=== PATIENT | female | born 1970 | race Caucasian/White ===

== ENCOUNTER 2017-01-09 10:45 | Day surgery (SDC) | payer OTHER ==
[2017-01-05 10:40] VITALS: BMI 32.5
[2017-01-09] MEDS ORDERED: SODIUM CHLORIDE 0.9% 1,000 ML IV ONE ×2 (11:00→12:20)
[2017-01-09 11:05] VITALS: RESP 18
[2017-01-09 12:04] LABS: Basophils % (A) 0 %; CH 30.4; CHCM 33.3; Eosinophils # (A) 0.1 k/uL (0-0.7); Eosinophils % (A) 2 %; HCT 38.9 % (34.0-46.0); HDW 2.55; HGB 12.8 gm/dL (11.4-16.0); Luc # (Auto) 0.14; Luc % (Auto) 2; Lymphocytes # (A) 1.7 k/uL (1.0-4.8); Lymphocytes % (A) 25 %; MCH 30.3 pg (25.0-35.0); MCV 91.8 fL (80.0-100.0); Mean Platelet Volume 6.9; Monocytes # (A) 0.3 k/uL (0-1.0); Monocytes % (A) 5 %; Neutrophils # (A) 4.5 k/uL (1.3-7.7); Neutrophils % (A) 67 %; RBC 4.24 m/uL (3.80-5.40); RDW 14.2 % (11.5-15.5); WBC 6.7 k/uL (3.8-10.6); WBC (Perox) 7.01
[2017-01-09] MEDS ORDERED: MIDAZOLAM 2 MG/2 ML VIAL IV ONE (12:25)
[2017-01-09] MEDS: LIDOCAINE 2% INJ 20 MG/ML SQ ONE ×2 (12:30→12:41)
[2017-01-09] MEDS: HYDROmorphone 2 MG/ML 1 ML SYRINGE IV ONE ×3 (12:49→13:49)
[2017-01-09] MEDS ORDERED: IODIXANOL 320 MG/ML 100 ML INTRAARTER ONE (13:05)
[2017-01-09] MEDS: hydrALAZINE HCL 20 MG/ML 1 ML VIAL IV ONE ×2 (13:10→13:19)
[2017-01-09] MEDS ORDERED: SODIUM CHLORIDE 0.9% 1,000 ML IV SCH (13:15)
[2017-01-09] MEDS ORDERED: hydrALAZINE HCL 20 MG/ML 1 ML VIAL IVP PRN (13:22)
[2017-01-09] MEDS ORDERED: ENALAPRILAT 1.25 MG/ML 1 ML VIAL IV ONE (13:23)
[2017-01-09] MEDS: HYDROmorphone 1 MG/ML 1 ML SYRINGE IVP PRN ×2 (14:58→17:55)
[2017-01-09] MEDS ORDERED: ACETAMINOPHEN TAB 325 MG TAB PO PRN (16:37)
[2017-01-09 20:48] VITALS: BP 101/61; PULSE 75; TEMP 97.2
--- NOTE | 2017-01-09 23:12 | PCN ---
DATE OF PROCEDURE: 01/09/2017 PERFORMING PHYSICIAN: Mahad Stafford M.D., business solutions consultant. PROCEDURES PERFORMED: 1. Abdominal aortogram. 2. Bilateral lower extremity runoff. INDICATION: This is a pleasant 46-year-old female patient who is known to have severe underlying peripheral arterial disease with prior stenting of the left iliac and the right SFA. She was experiencing right leg discomfort consistent with claudication. She underwent an arterial duplex study which showed severe disease involving the right SFA. She was brought in today to undergo a peripheral angiogram for more clarification. APPROACH: 1. Right radial artery. 2. Right common femoral artery. COMPLICATIONS: None. LEVEL OF SEDATION: Moderate with sedation length of 45 minutes. PROCEDURE DESCRIPTION: After obtaining informed consent, the patient was brought to the cardiac laborer wood preserving plant. Initially I tried to cannulate the right radial artery. I was unable, so I decided to go from the right groin. The right common femoral artery was cannulated using micropuncture technique. The micropuncture wire passed easily, then I placed a 5 Icelandic sheath in the right common femoral artery. After that, I did an abdominal aortogram and bilateral lower extremity runoff using a 5 Icelandic pigtail catheter which was initially placed at the level of the renal arteries, then it was pulled above the bifurcation of the aorta to right and left common iliac arteries. The procedure was completed without any complication. SELECTIVE PERIPHERAL ANGIOGRAM: 1. The abdominal aorta appeared to have mild disease only. 2. Common iliac arteries. The right common iliac artery appeared to be angiographically normal. The left common iliac artery is stented, and the stent is patent. 3. Internal iliac arteries. The right internal iliac artery is open and the left internal iliac artery appeared to be occluded. 4. External iliac arteries. The right external iliac artery is open and the left external iliac artery appeared to be stented; the stent is patent. 5. Common femoral arteries. The right and left common femoral arteries are angiographically normal. 6. SFA. The right SFA in the proximal portion is stented with mild in-stent restenosis. Distal to the stent there is a de melissa lesion that appeared to be in the range of 80% to 90%. The left SFA is stented, and the stent is patent. 7. Popliteals. The right and left popliteals are angiographically normal. 8. Below the knee. There is probably 3-vessel runoff below the knee bilaterally. CONCLUSION: 1. Patent stent in the left common and left external iliac arteries. 2. Patent stent in bilateral SFA. 3. 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 POST-PROCEDURE MANAGEMENT: The patient will be scheduled to undergo OFFICE AIDE of the right SFA.
--- NOTE | 2017-01-09 23:14 | LTR ---
January 09, 2017 RE: Shelly Preston Kiran Dear Dr. Vargas, Ms. Shelly Preston underwent a peripheral angiogram today that showed severe disease involving the right femoral artery. The patient will be scheduled to undergo an atherectomy and balloon angioplasty of the right SFA. Thank you for allowing me to participate in her care. Sincerely, ANITA BOSTON MD
--- NOTE | 2017-01-13 10:50 | IR ---
EXAMINATION TYPE: IR angio abdominal w runoff DATE OF EXAM: 01/09/2017 2:14 PM COMPARISON: NONE HISTORY: Peripheral vascular occlusive disease. Fluoroscopy was applied to the referring clinician. See dictated report from cardiology.
== END 2017-01-09 21:36 | disposition home or self-care (01) ==
LOC: CATHCVL 10:45 → 6SEL 13:11 → CATHCVL 21:36
PROVIDERS: ATTEND Internal Medicine Interventional Cardiology
DX: I73.9 Peripheral vascular disease, unspecified (principal); I77.9 Disorder of arteries and arterioles, unspecified; T82.856A Stenosis of peripheral vascular stent, initial encounter; I10 Essential (primary) hypertension; E78.5 Hyperlipidemia, unspecified; I70.219 Atherosclerosis of native arteries of extremities with intermittent claudication, unspecified extremity; Z95.820 Peripheral vascular angioplasty status with implants and grafts; I25.10 Atherosclerotic heart disease of native coronary artery without angina pectoris; Z79.02 Long term (current) use of antithrombotics/antiplatelets; Z79.82 Long term (current) use of aspirin; Z79.899 Other long term (current) drug therapy; Z88.5 Allergy status to narcotic agent; Z88.0 Allergy status to penicillin; Z87.891 Personal history of nicotine dependence
CPT/HCPCS: 36200; 75625; 75716; 85025; 81025; 99152; 99153; C1894 ×2; C1769 ×3; C1887; J2001; J2250; J1170 ×2; J0360; Q9967

== ENCOUNTER 2017-01-20 07:57 | Observation (INO) | payer OTHER ==
[2017-01-19 10:37] VITALS: BMI 32.5
[~2017-01-20 07:57] MED LIST: ALPRAZolam 0.25 MG TAB PO PRN; ASPIRIN 325 MG TAB PO STA; SODIUM CHLORIDE 0.9% 1,000 ML in EMPTY BAG 1 BAG IV ONE
[2017-01-20] MEDS ORDERED: MIDAZOLAM 2 MG/2 ML VIAL IV ONE (09:11)
[2017-01-20] MEDS: fentaNYL (PF) 50 MCG/ML 2 ML AMP IV ONE ×2 (09:17→09:46)
[2017-01-20] MEDS: LIDOCAINE 2% INJ 20 MG/ML SQ ONE ×2 (09:18→09:28)
[2017-01-20] MEDS ORDERED: CLOPIDOGREL 75 MG TAB PO ONE (09:30)
[2017-01-20] MEDS: MIDAZOLAM 2 MG/2 ML VIAL IV ONE ×2 (09:32→09:52)
[2017-01-20] MEDS: NITROGLYCERIN 1000MCG/10ML SYRINGE INTRAARTER ONE ×2 (09:58→10:01)
[2017-01-20] MEDS ORDERED: fentaNYL (PF) 50 MCG/ML 2 ML AMP IV ONE ×2 (10:13→10:45)
[2017-01-20] MEDS ORDERED: IODIXANOL 320 MG/ML 100 ML INTRAARTER ONE (10:14)
[2017-01-20] MEDS ORDERED: SODIUM CHLORIDE 0.9% 1,000 ML IV SCH (10:15)
[2017-01-20] MEDS ORDERED: fentaNYL (PF) 50 MCG/ML 2 ML AMP ONE (10:46)
--- NOTE | 2017-01-20 11:02 | PCN ---
DATE OF PROCEDURE: 01/20/2017 PERCUTANEOUS PERIPHERAL INTERVENTION PERFORMING PHYSICIAN: Mahad Stafford MD, dock boss. PROCEDURE PERFORMED: 1. Selective right superficial femoral artery angiogram. 2. Balloon angioplasty of the right superficial femoral artery. 3. Stenting of the right SFA using 6.0 x 120 mm Zilver PTX drug-eluting stent with a good angiographic result. INDICATION: This is a pleasant 46-year-old female patient who is known to have severe underlying PAD, where she underwent in the past stenting of the right SFA and stenting of the left iliac arteries. She was experiencing right leg discomfort and the peripheral angiogram showed severe in-stent restenosis and severe de melissa disease involving the right SFA. She was brought today to undergo a CARPET BINDER of the right SFA. APPROACH: Right brachial artery. COMPLICATIONS: None. LEVEL OF SEDATION: Moderate with sedation length about an hour. PROCEDURE DESCRIPTION: After obtaining an informed consent, the patient was brought to the cardiac union laborer. Right brachial artery was cannulated using micropuncture technique, the micropuncture wire passed easily, then I advanced an 0.035 wire through the micropuncture sheath, which was an advantage wire all the way to the descending thoracic aorta. Subsequently, I did exchange my micropuncture sheath into a 6 [place]dean 90 cm Raabe sheath, which was advanced all the way to the right external iliac artery over the wire. After that, anticoagulation was initiated using heparin and the patient was given 10,000 units of heparin IV. After that, I did wire the right SFA using an 0.014 advantage wire. Subsequently, I did balloon angioplasty using 4.0 x 80 mm balloon and then I deployed 6.0 x 120 mm Zilver PTX drug-coated stent, where the stent was positioned under fluoroscopy guidance and it was deployed. Subsequently, I postdilated using 5 mm balloon. The following angiogram showed excellent angiographic results. The procedure was completed without any complication. POSTPROCEDURE MANAGEMENT: 1. Dual antiplatelet therapy. 2. Risk factor modifications. 3. Will follow up with the patient.
--- NOTE | 2017-01-20 12:23 | LTR ---
January 20, 2017 RE: Shelly Preston Kiran Dear Dr. Vargas; Ms. Shelly Preston underwent successful balloon angioplasty and stenting of the right femoral artery with a good angiographic result and without any complication. I want to thank you for allowing me to participate in her care and please do not hesitate to call if you have any questions or concerns. Sincerely, ANITA BOSTON MD
[2017-01-20] MEDS: HYDROmorphone 1 MG/ML 1 ML SYRINGE IVP PRN ×3 (13:28→21:34)
--- NOTE | 2017-01-20 15:22 | IR ---
Fluoroscopy HISTORY: Right leg pain 13.3 minutes fluoroscopy time supplied to the referring clinician. 179 intraoperative C-arm images d ocument the procedure. See dictated report from cardiology.
[2017-01-20] MEDS: ESCITALOPRAM 10 MG TAB PO SCH (20:05)
[2017-01-20] MEDS: cloNIDine HCL 0.1 MG TAB PO SCH (20:06)
[2017-01-20] MEDS ORDERED: MONTELUKAST 10 MG TAB PO SCH (21:00)
[2017-01-20] MEDS ORDERED: CYCLOBENZAPRINE 10 MG TAB PO PRN (21:00)
[2017-01-20] MEDS ORDERED: ATORVASTATIN 80 MG TAB PO SCH (21:00)
[2017-01-20] MEDS ORDERED: traZODone HCL 50 MG TAB PO SCH (21:00)
[2017-01-21 00:50] VITALS: RESP 18
[2017-01-21] MEDS: HYDROmorphone 1 MG/ML 1 ML SYRINGE IVP PRN ×2 (01:49→05:51)
[2017-01-21 05:13] VITALS: PULSE 66
[2017-01-21 06:16] LABS: Non-African American GFR(MDRD) >60 (>60 ml/min/1.73 sqM)
[2017-01-21 07:16] LABS: Basophils % (A) 1 %; CH 30.1; CHCM 31.8; Eosinophils # (A) 0.2 k/uL (0-0.7); Eosinophils % (A) 2 %; HCT 35.1 % (34.0-46.0); HDW 2.59; HGB 11.2 gm/dL (11.4-16.0); Luc # (Auto) 0.12; Luc % (Auto) 2; Lymphocytes # (A) 1.9 k/uL (1.0-4.8); Lymphocytes % (A) 24 %; MCH 30.4 pg (25.0-35.0); MCHC 31.9 g/dL (31.0-37.0); MCV 95.1 fL (80.0-100.0); Mean Platelet Volume 7.5; Monocytes # (A) 0.4 k/uL (0-1.0); Monocytes % (A) 5 %; Neutrophils # (A) 5.4 k/uL (1.3-7.7); Neutrophils % (A) 67 %; RBC 3.69 m/uL (3.80-5.40); RDW 14.5 % (11.5-15.5); WBC 8.1 k/uL (3.8-10.6); WBC (Perox) 8.16
[2017-01-21 07:26] LABS: Anion Gap 10 mmol/L; Blood Urea Nitrogen 9 mg/dL (7-17); Calcium 8.8 mg/dL (8.4-10.2); Carbon Dioxide 20 mmol/L (22-30); Chloride 110 mmol/L (98-107); Glucose 105 mg/dL (74-99); Potassium 3.9 mmol/L (3.5-5.1); Sodium 140 mmol/L (137-145)
[2017-01-21] MEDS: cloNIDine HCL 0.1 MG TAB PO SCH (08:45)
[2017-01-21] MEDS: ESCITALOPRAM 10 MG TAB PO SCH (08:45)
[2017-01-21 08:53] VITALS: BP 142/80; TEMP 97.7
[2017-01-21] MEDS ORDERED: LORATADINE 10 MG TAB PO SCH (09:00)
[2017-01-21] MEDS ORDERED: ASPIRIN 325 MG TAB PO SCH (09:00)
[2017-01-21] MEDS ORDERED: CLOPIDOGREL 75 MG TAB PO SCH (09:00)
[2017-01-21] MEDS ORDERED: FUROSEMIDE 20 MG TAB PO SCH (09:00)
--- NOTE | 2017-01-22 11:55 | DS ---
DATE OF ADMISSION: 01/20/2017 DATE OF DISCHARGE: 01/21/2017 BRIEF HISTORY: This is a pleasant 46-year-old female patient who was admitted to the hospital yesterday and underwent successful balloon angioplasty and stenting of the right superficial femoral artery with a good angiographic result and without any complication. The procedure was performed from the right brachial approach. She has good right brachial pulse but she has some hematoma and bruises in the right elbow. The patient is going to be discharged on dual antiplatelet therapy and statin and I will follow up with the patient as an outpatient in the office.
== END 2017-01-21 09:10 | disposition home or self-care (01) ==
LOC: CATHCVL 07:57 → 6SEL 10:04 → CATHCVL 22:05 → 6SEL 22:05
PROVIDERS: ADMIT Internal Medicine Interventional Cardiology; ATTEND Internal Medicine Interventional Cardiology
DX: I70.621 Atherosclerosis of nonbiological bypass graft(s) of the extremities with rest pain, right leg (principal); I10 Essential (primary) hypertension; E78.5 Hyperlipidemia, unspecified; Z87.891 Personal history of nicotine dependence
CPT/HCPCS: 37226; 85347; 80048; 85025; G0378 ×2; C1894 ×2; C1725 ×2; C1769 ×5; C1874; J2001; J2250; Q9967; J3010; J1170 ×2; J1644; 96374; 96375

== ENCOUNTER 2017-07-15 08:50 | Emergency (ER) | payer BC, OTHER ==
[2017-07-15 08:56] VITALS: BP 146/83; PULSE 87; RESP 20; TEMP 98.1
[2017-07-15] MEDS ORDERED: ACET/COD 300 MG/30 MG STARTER PACK 6 TAB BTL PO STA (09:30)
--- NOTE | 2017-07-15 09:32 | XR ---
EXAMINATION TYPE: XR ankle complete RT , 3 VIEWS DATE OF EXAM ORDERED: 07/15/2017 HISTORY: Pain. COMPARISON: None. FINDINGS: No fracture, dislocation or ankle joint effusion is seen. IMPRESSION: NORMAL RIGHT ANKLE.
--- NOTE | 2017-07-15 09:45 | ED ---
Lower Extremity Injury HPI - General Chief Complaint: Extremity Injury, Lower Stated Complaint: right ankle pain Time Seen by Provider: 07/15/17 09:06 Source: patient, RN notes reviewed, old records reviewed Mode of arrival: ambulatory Limitations: physical limitation - History of Present Illness Initial Comments: This is a 46-year-old female presents emergency Department chief complaint of right ankle pain. Patient reports that she got out of bed this morning and stepped and rolled her ankle. Patient reports that she's had no previous injuries to this ankle. Patient states it started to swell immediately. Patient states that he she turned her foot inward and has pain over the lateral aspect of her ankle. Denies any foot pain. She reports that she can move her toes. Denies any numbness or tingling or cold extremity.Patient denies any recent fever, chills, shortness of breath, chest pain, back pain, abdominal pain , nausea vomiting, numbness or tingling, dysuria or hematuria, constipation or diarrhea, headaches or visual changes, or any other current symptoms - Related Data Home Medications Medication Instructions Recorded Confirmed Atorvastatin [Lipitor] 80 mg PO HS 11/11/14 01/20/17 Loratadine [Claritin] 10 mg PO DAILY 11/11/14 01/20/17 Aspirin 325 mg PO DAILY 12/11/14 01/20/17 Clopidogrel [Plavix] 75 mg PO DAILY 12/11/14 01/20/17 Escitalopram [Lexapro] 10 mg PO BID 12/11/14 01/20/17 Cyclobenzaprine [Flexeril] 10 mg PO HS PRN 01/29/15 01/19/17 Furosemide [Lasix] 20 mg PO DAILY 01/05/17 01/20/17 Montelukast [Singulair] 10 mg PO HS 01/09/17 01/20/17 traZODone HCL [Desyrel] 50 mg PO HS 01/09/17 01/20/17 Previous Rx's Medication Instructions Recorded cloNIDine HCL [Catapres] 0.1 mg PO BID #30 tab 12/22/14 Acetaminophen-Codeine 300-30mg 1 tab PO Q4H PRN #10 tablet 07/15/17 [Tylenol #3] Allergies Allergy/AdvReac Type Severity Reaction Status Date / Time dronabinol [From Marinol] Allergy Severe Anaphylaxis Verified 07/15/17 08:57 lisinopril [From Prinivil] Allergy Swelling Verified 07/15/17 08:57 Penicillins Allergy Rash/Hives Verified 07/15/17 08:57 morphine AdvReac Unknown Nausea & Verified 07/15/17 08:57 Vomiting Review of Systems ROS Statement: Those systems with pertinent positive or pertinent negative responses have been documented in the HPI. ROS Other: All systems not noted in ROS Statement are negative. Past Medical History Past Medical History: Heart Failure, GERD/Reflux, Hyperlipidemia, Hypertension, Osteoarthritis (OA), Vascular Disorder Additional Past Medical History / Comment(s): right LEG PAIN with discoloration of all toes rt foot,insomnia related to pain History of Any Multi-Drug Resistant Organisms: None Reported Past Surgical History: Section, Hysterectomy, Orthopedic Surgery Additional Past Surgical History / Comment(s): LEFT KNEE SCOPE, STENTS PLACED IN LOWER LEFT GROIN AND UPPER LEFT THIGH,AORTOGRAM W/ RUNOFF OF LOWER EXT Past Anesthesia/Blood Transfusion Reactions: No Reported Reaction Past Psychological History: No Psychological Hx Reported Smoking Status: Current every day smoker Past Alcohol Use History: None Reported Past Drug Use History: None Reported - Past Family History Sister(s) Family Medical History: Vascular Disorder Father Family Medical History: Hyperlipidemia Mother Family Medical History: Cancer, Vascular Disorder General Exam - General Exam Comments Initial Comments: 46-year-old female. No acute distress. Limitations: physical limitation Head exam: Present: atraumatic, normocephalic, normal inspection Eye exam: Present: normal appearance, PERRL, EOMI. Absent: scleral icterus, conjunctival injection, periorbital swelling ENT exam: Present: normal exam, mucous membranes moist Neck exam: Present: normal inspection. Absent: tenderness, meningismus, lymphadenopathy Respiratory exam: Present: normal lung sounds bilaterally. Absent: respiratory distress, wheezes, rales, rhonchi, stridor Cardiovascular Exam: Present: regular rate, normal rhythm, normal heart sounds. Absent: systolic murmur, diastolic murmur, rubs, gallop, clicks GI/Abdominal exam: Present: soft, normal bowel sounds. Absent: distended, tenderness, guarding, rebound, rigid Extremities exam: Present: normal inspection, full ROM, normal capillary refill. Absent: tenderness, pedal edema, joint swelling, calf tenderness Right Lower Leg exam: Present: normal inspection, full ROM Ankle exam: Present: tenderness, swelling (Tenderness and swelling over the lateral malleolus.). Absent: normal inspection, full ROM Foot/Toe exam: Present: normal inspection, full ROM Neurovascular tendon exam: Present: no vascular compromise Gait: observed and limited by pain Back exam: Present: normal inspection Neurological exam: Present: alert, oriented X3, CN II-XII intact Psychiatric exam: Present: normal affect, normal mood Skin exam: Present: warm, dry, intact, normal color. Absent: rash Course Vital Signs 07/15/17 08:55 Temperature 98.1 F Pulse Rate 87 Respiratory 20 Rate Blood Pressure 146/83 O2 Sat by Pulse 96 Oximetry Medical Decision Making - Medical Decision Making 46 [facility] Department chief complaint of right ankle pain and swelling. Patient reports that she stepped out of bed and rolled her right ankle. Patient reports it is painful to bear weight over her right foot and ankle. Patient does have some swelling over the lateral malleolus. She has had normal sensation and normal pulses. Patient x-rays reviewed and show no evidence of any acute abdomen. Patient is placed in an [place] wrap and ankle stirrup splint. Patient will be written for crutches. Discussed anti- inflammatory medicine for an icing and resting her foot and ankle. Discussed following up with orthopedic if symptoms continue to persist. Patient agrees to treatment plan will comply. Turned parameters were discussed. - Radiology Data Radiology results: report reviewed X-rays reveals normal ankle. Disposition Clinical Impression: Right ankle sprain Disposition: HOME SELF-CARE Condition: Good Instructions: Ankle Sprain (ED) Additional Instructions: Past rest, ice, elevate extremity. AMbulate With crutches. Follow-up with orthopedic if symptoms continue to persist over the next week. Return to the emergency department if any alarming signs or symptoms occur. Prescriptions: Acetaminophen-Codeine 300-30mg [Tylenol #3] 1 tab PO Q4H PRN #10 tablet PRN Reason: Pain Referrals: Pauline Vargas MD [Primary Care Provider] - 1-2 days Jorge Luis Monroy MD [STAFF PHYSICIAN] - 1-2 days Time of Disposition: 09:43
== END 2017-07-15 09:55 | disposition home or self-care (01) ==
LOC: EC 08:50
DX: S93.401A Sprain of unspecified ligament of right ankle, initial encounter (principal); I11.0 Hypertensive heart disease with heart failure; I50.9 Heart failure, unspecified; E78.5 Hyperlipidemia, unspecified; I99.9 Unspecified disorder of circulatory system; F17.200 Nicotine dependence, unspecified, uncomplicated; Z79.01 Long term (current) use of anticoagulants; Z79.82 Long term (current) use of aspirin; Z79.899 Other long term (current) drug therapy; Z88.0 Allergy status to penicillin; Z88.5 Allergy status to narcotic agent; Z88.8 Allergy status to other drugs, medicaments and biological substances; X50.1XXA Overexertion from prolonged static or awkward postures, initial encounter; Y93.89 Activity, other specified
CPT/HCPCS: 29515; 99284

== ENCOUNTER → 2017-07-26 | Outpatient (CLI) | payer BC, OTHER ==
--- NOTE | 2017-07-26 11:23 | XR ---
Right ankle HISTORY: Right ankle pain, trauma one week prior 3 views of the right ankle correlated to prior exam 07/15/2017 There is soft tissue swelling. Bone mineralization, joint spaces and alignment are maintained. IMPRESSION: No fracture or dislocation.
== END | disposition home or self-care (01) ==
LOC: RADXRMAIN 09:32
PROVIDERS: ATTEND Family Medicine
DX: M25.571 Pain in right ankle and joints of right foot (principal)

== ENCOUNTER → 2017-07-27 | Outpatient (CLI) | payer OTHER ==
--- NOTE | 2017-07-27 15:03 | US ---
EXAMINATION TYPE: US venous doppler duplex LE RT DATE OF EXAM: 07/27/2017 2:42 PM COMPARISON: NONE CLINICAL HISTORY: RLEPain m25.571, R22.42 Swelling I73.9 PVD. Pt states right leg pain s/p right ankl e injury SIDE PERFORMED: Right TECHNIQUE: The lower extremity deep venous system is examined utilizing real time linear array sonog theodora with graded compression, doppler sonography and color-flow sonography. VESSELS IMAGED: External Iliac Vein (EIV) Common Femoral Vein Deep Femoral Vein Greater Saphenous Vein * Femoral Vein Popliteal Vein Small Saphenous Vein * Proximal Calf Veins (* superficial vessels) Right Leg: Negative for DVT Results called to Isi at Dr's office at time of exam IMPRESSION: 1. Right lower extremity negative for deep venous thrombosis based on ultrasound.
== END ==
LOC: RADUSWWP 14:19
PROVIDERS: ATTEND Family Medicine
DX: M25.571 Pain in right ankle and joints of right foot (principal); I73.9 Peripheral vascular disease, unspecified; R22.40 Localized swelling, mass and lump, unspecified lower limb

== ENCOUNTER → 2018-03-24 | Outpatient (CLI) | payer BC ==
--- NOTE | 2018-03-25 08:37 | MR ---
EXAMINATION TYPE: MR lumbar spine wo con DATE OF EXAM: 03/24/2018 COMPARISON: NONE HISTORY: Low back pain TECHNIQUE: T1 and T2 axial and sagittal images of the lumbar spine are submitted. FINDINGS: There is no abnormal signal seen within the visualized spinal cord or paraspinal soft tissu es. There is a left adrenal mass measuring approximately 1.7 cm At T12-L1 no disc herniation or canal stenosis. No foraminal encroachment. At L1-2 there is no evidence of disc herniation or canal stenosis. No degenerative disc disease or fo raminal encroachment. Large vertebral body hemangioma of L2. At L2-3 there is no foraminal encroachment or canal stenosis. Diffuse disc bulging greater paracentra lly to left with no canal stenosis or foraminal encroachment. At L3-4 there is degenerative disc disease with broad-based central disc protrusion and moderate effa cement of thecal sac and mild central stenosis. Particularly of the ligamentum flavum facet joints co ntribute is mild bilateral foraminal encroachment greater on the left. At L4-5 there is broad-based central disc herniation resulting in moderate to severe effacement of th ecal sac with facet arthropathy and ligamentum flavum hypertrophy and moderate to severe canal stenos is. Moderate bilateral foraminal encroachment. At L5-S1 there is facet arthropathy but no disc herniation or canal stenosis. Neural foramina patent. IMPRESSION: 1. Broad-based disc herniation L4-L5 with moderate to severe canal stenosis and bilateral foraminal e ncroachment. 2. Broad-based disc protrusion with mild central stenosis L3-L4 bilateral foraminal encroachment grea ter on the left. 3. Disc bulging paracentrally to left L2-L3 with no canal stenosis. 4. There is a 1.7 cm left adrenal mass which is indeterminate by MRI of the lumbar spine. However, th is is stable dating back to CT scan of 2014 and may represent an adrenal adenoma.
== END | disposition home or self-care (01) ==
LOC: RADMRIMAIN 09:50
PROVIDERS: ATTEND Family Medicine
DX: M48.061 Spinal stenosis, lumbar region without neurogenic claudication (principal); M51.26 Other intervertebral disc displacement, lumbar region
CPT/HCPCS: 72148

== ENCOUNTER → 2018-07-11 | Outpatient (CLI) | payer BC ==
[2018-07-11 10:54] LABS: Basophils % (A) 0 %; Eosinophils # (A) 0.1 k/uL (0-0.7); Eosinophils % (A) 1 %; HCT 41.1 % (34.0-46.0); HGB 13.5 gm/dL (11.4-16.0); Lymphocytes # (A) 1.5 k/uL (1.0-4.8); Lymphocytes % (A) 19 %; MCH 30.5 pg (25.0-35.0); MCV 92.5 fL (80.0-100.0); Mean Platelet Volume 7.2; Monocytes # (A) 0.4 k/uL (0-1.0); Monocytes % (A) 5 %; Neutrophils # (A) 5.6 k/uL (1.3-7.7); Neutrophils % (A) 74 %; Platelet Count 242 k/uL (150-450); RBC 4.44 m/uL (3.80-5.40); RDW 14.2 % (11.5-15.5); WBC 7.6 k/uL (3.8-10.6)
[2018-07-11 11:05] LABS: Partial Thromboplastin Time 23.4 sec (22.0-30.0); Prothrombin Time 10.3 sec (9.0-12.0)
[2018-07-11 11:08] LABS: Appearance,Urine Clear (Clear); Bilirubin,Urine Negative (Negative); Blood,Urine Negative (Negative); Color,Urine Yellow; Glucose,Urine (UA) Negative (Negative); Ketones,Urine Negative (Negative); Leukocyte Esterase,Urine Negative (Negative); Nitrite,Urine Negative (Negative); Protein,Urine Trace (Negative); Specific Gravity,Urine 1.022 (1.001-1.035)
[2018-07-11 11:29] LABS: Anion Gap 7 mmol/L; Blood Urea Nitrogen 12 mg/dL (7-17); Carbon Dioxide 29 mmol/L (22-30); Chloride 105 mmol/L (98-107); Glucose 98 mg/dL (74-99); Potassium 5.1 mmol/L (3.5-5.1); Sodium 141 mmol/L (137-145)
[2018-07-11 11:30] LABS: Calcium 9.6 mg/dL (8.4-10.2)
--- NOTE | 2018-07-11 11:52 | XR ---
EXAMINATION TYPE: XR chest 2V DATE OF EXAM: 07/11/2018 COMPARISON: Prior chest x-ray 11/11/2014 HISTORY: Preop TECHNIQUE: Frontal and lateral views of the chest are obtained. FINDINGS: Patient is rotated. There is no focal air space opacity, pleural effusion, or pneumothorax seen. The cardiac silhouette size is stable accounting for differences in technique. The osseous s tructures are intact. IMPRESSION: No acute cardiopulmonary process. Heart size may be accentuated by rotation, possible mi ld cardiomegaly. Follow-up as indicated.
== END | disposition home or self-care (01) ==
LOC: LABPAT 09:35
PROVIDERS: ATTEND Orthopaedic Surgery Orthopaedic Surgery of the Spine
DX: Z01.818 Encounter for other preprocedural examination (principal); M48.00 Spinal stenosis, site unspecified; M47.819 Spondylosis without myelopathy or radiculopathy, site unspecified; Z01.812 Encounter for preprocedural laboratory examination
CPT/HCPCS: 36415; 71046; 80048; 81003; 85025; 85610; 85730; 87070; 93005

== ENCOUNTER 2018-07-18 05:50 | Inpatient (IN) | payer BC ==
[2018-07-11 15:52] VITALS: BMI 32.5
[~2018-07-18 05:50] MED LIST changes: -ALPRAZolam 0.25 MG TAB PO PRN; -ASPIRIN 325 MG TAB PO STA; +DEXAMETHASONE SOD PHOSPHATE 10 MG/ML 1 ML VIAL IV ONE; +LACTATED RINGERS 1,000 ML IV SCH; +ONDANSETRON 4 MG/2 ML VIAL IVP ONE; +ONDANSETRON 4 MG/2 ML VIAL IVP PRN; -SODIUM CHLORIDE 0.9% 1,000 ML in EMPTY BAG 1 BAG IV ONE; +ceFAZolin IN SWFI 2 GM/20 ML SYRINGE IVP ONE; +fentaNYL (PF) 50 MCG/ML 2 ML AMP IV PRN
[2018-07-18] MEDS ORDERED: LIDOCAINE 1% 20 ML VIAL (10MG/ML) FOR IV START INTRADERMA ONE (06:55)
[2018-07-18] MEDS ORDERED: MIDAZOLAM 2 MG/2 ML VIAL ONE ×2 (07:01→07:37)
[2018-07-18] MEDS ORDERED: MIDAZOLAM 2 MG/2 ML VIAL IV ONE (07:15)
[2018-07-18] MEDS ORDERED: GLYCOPYRROLATE 0.2 MG/ML 2 ML VIAL ONE (07:37)
[2018-07-18] MEDS ORDERED: HYDROmorphone (PF) 1 MG/ML ONE (07:37)
[2018-07-18] MEDS ORDERED: fentaNYL (PF) 50 MCG/ML 2 ML AMP ONE (07:37)
[2018-07-18] MEDS ORDERED: LIDOCAINE 1% INJ 10MG/ML (20 ML MDV) ONE (07:37)
[2018-07-18] MEDS ORDERED: ePHEDrine SULFATE/0.9% NACL/PF 50 MG/5 ML SYRINGE IV ONE (07:37)
[2018-07-18] MEDS ORDERED: PROPOFOL 10 MG/ML 20 ML VIAL IV ONE (07:37)
[2018-07-18] MEDS ORDERED: SUCCINYLCHOLINE CHLORIDE 100 MG/5 ML SYR IV ONE (07:37)
[2018-07-18] MEDS ORDERED: NEOSTIGMINE 1 MG/ML 10 ML VIAL ONE (07:37)
[2018-07-18] MEDS ORDERED: ROCURONIUM BROMIDE 10 MG/ML 10 ML VIAL IV ONE (07:37)
[2018-07-18] MEDS ORDERED: GELATIN SPONGE,ABSORB (LARGE) 1 EACH SPONGE TOPICAL ONE (08:15)
[2018-07-18] MEDS ORDERED: THROMBIN (BOVINE) 5,000 UNIT VIAL TOPICAL ONE (08:15)
[2018-07-18] MEDS ORDERED: LIDOCAINE 0.5%-EPI 1:200,000 50 ML VIAL SQ ONE (08:15)
[2018-07-18] MEDS ORDERED: BACITRACIN 50,000 UNIT, POLYMYXIN B 500,000 UNIT in SODIUM CHLORIDE 0.9% IRRIGATIO 1,00... IRRIGATION ONE (08:16)
[2018-07-18] MEDS ORDERED: LACTATED RINGERS 1,000 ML IV ONE (10:05)
--- NOTE | 2018-07-18 10:22 | FL ---
EXAMINATION TYPE: FL guidance operating room DATE OF EXAM: 07/18/2018 HISTORY: Flouroscopy time 1 minute and 27 seconds of fluoroscopy provided. IMPRESSION: 1. Fluoroscopy time.
--- NOTE | 2018-07-18 10:22 | XR ---
EXAM TYPE: LUMBAR SPINE X RAY SERIES COMPARISON: NONE HISTORY: Surgical TECHNIQUE: 4 views are submitted. FINDINGS: 2 views demonstrate postsurgical change involving the lumbar spine. Resolution is reduced secondary t o intraoperative image. Alignment grossly near-anatomic. IMPRESSION: Postsurgical changes
[2018-07-18] MEDS ORDERED: MAGNESIUM HYDROXIDE 2,400 MG/10 ML CUP PO PRN (10:33)
[2018-07-18] MEDS ORDERED: BENZOCAINE/MENTHOL LOZENG 1 EACH LOZENGE MUCOUS MEM PRN (10:33)
[2018-07-18] MEDS ORDERED: HYDROmorphone 1 MG/ML 1 ML SYRINGE IVP PRN (10:33)
[2018-07-18] MEDS ORDERED: HYDROcodone/APAP 5-325MG 1 EACH TAB PO PRN (10:34)
[2018-07-18] MEDS ORDERED: ONDANSETRON 4 MG/2 ML VIAL IVP PRN (10:34)
[2018-07-18] MEDS: HYDROmorphone 0.5 MG/0.5 ML SYRINGE IVP PRN ×4 (10:37→11:05)
--- NOTE | 2018-07-18 10:44 | P.OP ---
Date of Procedure: 07/18/18 Preoperative Diagnosis: Spondylolisthesis L4 5 Stenosis L4 5 Low back pain with lower extremity radiculopathy Postoperative Diagnosis: Same Anesthesia: GETA Pathology: none sent Condition: stable Disposition: PACU Description of Procedure: DESCRIPTION OF PROCEDURE(S): BRIEF OPERATIVE NOTE Preoperative Diagnosis: Spondylolisthesis L4 5 Stenosis L4 5 Low back pain with lower extremity radiculopathy Postoperative Diagnosis: Same Procedure: Laminectomy and decompression L4 5 with bilateral foraminotomy Minimally invasive Posterior lateral decompression and facet fusion L4 5 Minimally invasive Transforaminal lumbar interbody fusion for a 360 fusion L4 5 Discectomy for decompression L4 5 Placement of interbody graft L4 5 Local autogenous bone grafting Harvesting of bone marrow aspirate the the vertebral body and pedicle of L4 Use of Cell Saver Use of bone graft extenders Surgeon: Dr. Willis Biological Aide: Madhu Lauren is present throughout the entire the case persistence during positioning, dissection, exposure, visualization, and all crucial elements of the case as well as closure. Anesthesia: General anesthesia Estimated blood loss: Approximately 100 mL Complications: None apparent Components implanted: K2M minimally invasive [place] pedicle screws 6.5 x 45 mm and a mole expandable interbody 9-12 cage Disposition: To recovery room in good stable condition. OPERATIVE INDICATIONS The patient has had long-standing issues in their lower back and lower extremities. She's been having worsening pain at her lower back and into her right lower extremity over an L5 distribution. She was found have a spondylolisthesis at L4 5 and stenosis which correlated with her symptoms and imaging. She is not having any lasting benefit despite aggressive conservative care. The patient has been through conservative treatment. We discussed various treatment options including surgery, and the patient wishes to proceed with surgery We discussed the risk, patient's alternatives and benefits of surgery including but not limited to, risk of bleeding risk of infection, risk of need for further surgery, risk of decreased, loss of motion, muscle function , malunion nonunion, hardware failure, nerve damage, paralysis, heart attack, blindness and . OPERATIVE SUMMARY After discussing all the risks, patient alternatives and benefits at length, the patient elected to proceed with surgical intervention, signed informed consent, and presented for their procedure. The patient was seen and examined in the preoperative holding area and the surgical site was marked. The patient was given antibiotics and brought to the operating room. The patient was sedated and intubated by anesthesia in standard fashion. The patient was positioned on to the operating room table in a prone position on the appropriate frame which was well-padded and well molded. We were careful to pad any bony prominences and pressure points. We were careful to maintain the patient's cervical spine and good neutral alignment and position throughout. The patient was prepped and draped in a normal standard fashion. An appropriate timeout and keystone protocol performed. We were able to proceed with the surgery. The local wound area was infiltrated with local anesthetic. I was able utilize C-arm guidance to establish appropriate position over the pedicles bilaterally at the appropriate levels at L4 and L5 . With the appropriate levels confirmed was able to make small stab incisions over the appropriate pedicle sites bilaterally. Utilizing C-arm in his house able to establish a Jamshidi needle over the lateral aspect of the pedicle and advanced the trocar into the pedicle being careful not to breech superiorly inferiorly medially or laterally. Position was confirmed regularly with AP and lateral images on C-arm. I was able to establish the trocar into the pedicle appropriately into the posterior aspect of the vertebral body bilaterally at the appropriate levels. This was done at each of the pedicle positions and each of the vertebrae at L4 and L5 . I was able place the guidewire into the trocar and into the vertebral body appropriately under C-arm guidance. Dissection was taken down over the wire to the appropriate starting position for the screw placed. I did draw up approximately 20 mL of bone marrow aspirate into the pedicle of L4 on the right for use and some limitation of the bone graft. On the right The appropriate length screw was chosen, threaded over the guidewire and screwed appropriately into the pedicle and vertebral body under C-arm guidance in excellent alignment and position with good bony purchase. This is done at each of the screw sites at the appropriate levels. With the screws intact I extended the incision to connect the screw hole sites on the most symptomatic side. I dissected down to establish access over the pars and lamina to the base of the spinous process. I was able to expose the facet joint. The capsule the facet was taken down and showed some facet arthrosis at the joint. I was able to use a combination of curettes and Kerrison rongeurs and a high-speed drill to take down the facet joint and do a facetectomy. Partial laminectomy was also performed. I was able get excellent foraminal decompression and central decompression with undermining across midline to perform a laminectomy centrally and contralaterally. As able get good central decompression. The ligamentum flavum was taken down to further decompress centrally and at bilateral neural foramen. I was able to expose the disc space and visualize the traversing nerve root. Note was made of some disc protrusion at the level causing further compression of the nerve root. I was able to establish a annulotomy at the appropriate level protecting soft tissue and neural structures. Note was made of some disc desiccation at the disc. I performed a complete discectomy with accommodation of curettes and rasps and scrapers. Removal of the disc provided further decompression. I was able get good endplate preparation at the disc space. I sized for the appropriate size interbody spacer protecting the soft tissue and neural structures at L4 and L5 and . The wound was copiously irrigated and suctioned dry. There is no evidence of any dural tear or leak. I was able to pack the disc space with local autogenous bone graft as well as a small amount of bone graft which was also placed into the interbody cage itself. Protecting the soft tissue structures and neural structures I was able place the interbody cage in good alignment and good position with good fit and fill at the interbody space. We used an expandable cage which was expanded under C-arm guidance at L4 5. His issues was confirmed with C-arm guidance. Good hemostasis maintained. There is no evidence of any dural tear or leak. The wound was irrigated and suctioned dry. With the hardware intact, intraoperative C-arm imaging was again taken which showed good alignment and position of the hardware at the appropriate levels at L4 5 . We were then able to measure, contour and place the rods and appropriate hardware bilaterally. I was able to place capcrews, tighten them down, and torque them with the torque screwdriver appropriately. With this intact I was able to place the local autogenous bone graft with additional bone graft enhancer as necessary into the posterior lateral gutters over the decorticated transverse processes and facet joints . The remainder of the bone graft was placed over the facet joint on the contralateral side after taking down the facet joint capsule. With the bone graft intact, a stable construct, and good decompression at the appropriate levels, we were able to proceed with closure. Good hemostasis was maintained. There is no evidence of dural tear or leak. The fascia was closed for a watertight closure. he subcuticular tissue was closed with absorbable suture. The wound was cleaned and dried and dressed with the appropriate dressing. The drapes were broken down. The patient was gently rolled back onto their hospital bed being careful to maintain their cervical spine and good neutral alignment and position. They were woken up by anesthesia, extubated, and brought to the recovery room in good stable condition. The patient will be admitted to the hospital for appropriate postoperative care , medical management and monitoring. We will continue to follow them closely about the postoperative course.
[2018-07-18] MEDS: HYDROmorphone 1 MG/ML 1 ML SYRINGE IVP PRN ×3 (11:54→22:54)
[2018-07-18] MEDS: SODIUM CHLORIDE 0.9% 1,000 ML IV SCH (11:55)
[2018-07-18] MEDS: HYDROcodone/APAP 5-325MG 1 EACH TAB PO PRN ×3 (12:52→21:31)
--- NOTE | 2018-07-18 13:50 | P.CONS ---
History of Present Illness - Reason for Consult Consult date: 07/18/18 medical management Requesting physician: Radha Willis - Chief Complaint low back pain and lower extremity radiculopathy with weakness - History of Present Illness this is a 47-year-old female patient of Dr. cabral. Patient presented to the hospital for an elective laminectomy and decompression of L4 and L5 with bilateral foraminctomy with Dr. Willis. patient has known past medical history of low back pain with lower extremity radiculopathy. patient has known past medical history of heart failure, GERD, hyperlipidemia, hypertension, osteoarthritis, NM with stent and nicotine dependence. Patient declined nicotine patch at this time. at this time patient is currently resting in bed. Does complain of some pain. Patient denies chest pain or shortness breath. Denies nausea vomiting or diarrhea. Denies any urinary burning or frequency. Home medications resumed per orthopedic services. Review of Systems please refer to HPI otherwise unremarkable Past Medical History Past Medical History: Heart Failure, GERD/Reflux, Hyperlipidemia, Hypertension, Osteoarthritis (OA), Vascular Disorder Additional Past Medical History / Comment(s): right LEG PAIN with discoloration of all toes rt foot,insomnia related to pain History of Any Multi-Drug Resistant Organisms: None Reported Past Surgical History: Section, Hysterectomy, Joint Replacement, Orthopedic Surgery Additional Past Surgical History / Comment(s): LEFT KNEE SCOPE, STENTS PLACED IN LOWER LEFT GROIN AND UPPER LEFT THIGH,AORTOGRAM W/ RUNOFF OF LOWER EXT, lt thumb joint replacement Past Anesthesia/Blood Transfusion Reactions: No Reported Reaction Smoking Status: Former smoker - Past Family History Sister(s) Family Medical History: Vascular Disorder Father Family Medical History: Hyperlipidemia Mother Family Medical History: Cancer, Vascular Disorder Medications and Allergies Home Medications Medication Instructions Recorded Confirmed Type Atorvastatin [Lipitor] 80 mg PO HS 11/11/14 07/18/18 History Loratadine [Claritin] 10 mg PO DAILY 11/11/14 07/18/18 History Aspirin 325 mg PO DAILY 12/11/14 07/18/18 History Clopidogrel [Plavix] 75 mg PO DAILY 12/11/14 07/18/18 History Escitalopram [Lexapro] 10 mg PO BID 12/11/14 07/18/18 History cloNIDine HCL [Catapres] 0.1 mg PO BID #30 tab 12/22/14 07/18/18 Rx Furosemide [Lasix] 20 mg PO DAILY 01/05/17 07/18/18 History Montelukast [Singulair] 10 mg PO HS 01/09/17 07/18/18 History traZODone HCL [Desyrel] 50 mg PO HS 01/09/17 07/18/18 History HYDROcodone/APAP 7.5-325MG [[place] 1 tab PO Q8H PRN 07/11/18 07/18/18 History 7.5-325] Allergies Allergy/AdvReac Type Severity Reaction Status Date / Time dronabinol [From Marinol] Allergy Severe Anaphylaxis Verified 07/18/18 12:17 lisinopril [From Prinivil] Allergy Swelling Verified 07/18/18 12:17 Penicillins Allergy Rash/Hives Verified 07/18/18 12:17 morphine AdvReac Unknown Nausea & Verified 07/18/18 12:17 Vomiting Physical Exam Vitals: Vital Signs Temp Pulse Pulse Pulse Resp BP BP 07/18/18 11:49 97.3 F L 74 18 120/81 07/18/18 11:14 72 16 131/61 07/18/18 11:00 61 16 161/82 07/18/18 10:45 67 16 161/60 07/18/18 10:32 98.0 F 62 16 180/80 07/18/18 06:27 98.3 F 72 16 108/56 Pulse Ox 07/18/18 11:49 98 07/18/18 11:14 97 07/18/18 11:00 98 07/18/18 10:45 97 07/18/18 10:32 94 L 07/18/18 06:27 98 Intake and Output 07/17/18 07/18/18 07/18/18 22:59 06:59 14:59 Intake Total 100 1301 Output Total 350 Balance 100 951 Intake: IV 100 1301 Output: Urine 250 Estimated Blood Loss 100 Other: Weight 86.183 kg 1. Status post laminectomy and decompression L4-L5 with bilateral foraminotomy. pain meds per or so services. 2. History of congestive heart failure. home Lasix resumed 3. History of NM with stent. Home Plavix resumed per or so services 4. History of hyperlipidemia. Home Lipitor resumed 5. History of essential hypertension. home medication of Catapres 6. History of osteoarthritis 7. nicotine dependence. Patient declined nicotine patch at this time DVT prophylaxis SCDs, GI prophylaxis Pepcid thank you for this consultation we'll continue to follow patient closely throughout stay Assessment and Plan Time with Patient: Greater than 30 (Greater than 60% of the total time spent in counseling and coordination of care. I performed an examination of the patient and discussed their management with the Nurse Practitioner. I have reviewed the Nurse Practitioner's notes and agree with the documented findings and plan of care)
[2018-07-18] MEDS: ceFAZolin IN SWFI 2 GM/20 ML SYRINGE IVP SCH (17:10)
[2018-07-18] MEDS ORDERED: DIAZEPAM 5 MG TAB PO STA (18:12)
[2018-07-18] MEDS: CYCLOBENZAPRINE 5 MG TAB PO PRN (19:57)
[2018-07-18] MEDS: ATORVASTATIN 80 MG TAB PO SCH (21:27)
[2018-07-18] MEDS: ESCITALOPRAM 10 MG TAB PO SCH (21:27)
[2018-07-18] MEDS: cloNIDine HCL 0.1 MG TAB PO SCH (21:27)
[2018-07-18] MEDS: MONTELUKAST 10 MG TAB PO SCH (21:28)
[2018-07-18] MEDS: traZODone HCL 50 MG TAB PO SCH (21:28)
[2018-07-19] MEDS: ceFAZolin IN SWFI 2 GM/20 ML SYRINGE IVP SCH (00:14)
[2018-07-19] MEDS: SODIUM CHLORIDE 0.9% 1,000 ML IV SCH ×2 (00:25→13:42)
[2018-07-19] MEDS: HYDROmorphone 1 MG/ML 1 ML SYRINGE IVP PRN ×5 (02:28→20:51)
[2018-07-19] MEDS: HYDROcodone/APAP 5-325MG 1 EACH TAB PO PRN ×4 (05:06→19:59)
--- NOTE | 2018-07-19 08:45 | P.PN ---
Progress Note - Text Progress Note Date: 07/19/18 Postoperative day #1 Patient is seen and examined today at bedside. The patient has some pain around the surgical site as expected. Pain is being controlled with medication. She is having some complaints of pain behind her left knee. She is not having swelling. She is not having specific numbness. It is not radiating pain. She has been able to get up and around and she has good strength. Physical Exam Afebrile with stable vital signs Abdomen is soft nontender. Chest has good excursion deep and space expiration The incision site is clean dry and intact. No erythema there is no purulence. There is no drainage on the dressing. It is healed and intact. There is no erythema. His she has sustained 5 out of 5 strength in bilateral lower extremities. At her knees there is no tenderness to palpation. There is no swelling in her calves. Negative Homans. Extremities have not had neurologic change from prior to surgery. Calves and thighs were soft nontender without evidence of DVT. Assessment/Plan Postoperative day #1 status post minimally invasive decompression and fusion L4 5 for her spondylolisthesis with spinal stenosis and lower extremity radiculopathy Patient is progressing as expected from the surgery. She has been having some pain in his low bit difficult to control that she seems to be settling down a bit today. She has been quite mobile yesterday and today and she is getting in and out of bed on her own already. But she still requiring IV pain medications regularly. We will continue to increase the patient's mobilization with therapy. We will continue pain control with oral or IV medications. We'll continue to follow patient closely. Hopefully will be able to wean her IV pain medications to the course the day and tomorrow and then she would like to potentially be discharged home tomorrow if her pain is adequately controlled with orals.
[2018-07-19 08:48] LABS: Basophils % (A) 0 %; Eosinophils # (A) 0.2 k/uL (0-0.7); Eosinophils % (A) 3 %; HCT 35.5 % (34.0-46.0); HGB 11.7 gm/dL (11.4-16.0); Lymphocytes # (A) 0.9 k/uL (1.0-4.8); Lymphocytes % (A) 11 %; MCH 30.7 pg (25.0-35.0); MCHC 32.9 g/dL (31.0-37.0); MCV 93.2 fL (80.0-100.0); Mean Platelet Volume 7.8; Monocytes # (A) 0.4 k/uL (0-1.0); Monocytes % (A) 5 %; Neutrophils # (A) 6.7 k/uL (1.3-7.7); Neutrophils % (A) 81 %; Platelet Count 212 k/uL (150-450); RBC 3.82 m/uL (3.80-5.40); RDW 14.5 % (11.5-15.5); WBC 8.3 k/uL (3.8-10.6)
[2018-07-19 09:06] LABS: Anion Gap 6 mmol/L; Blood Urea Nitrogen 9 mg/dL (7-17); Calcium 8.7 mg/dL (8.4-10.2); Carbon Dioxide 24 mmol/L (22-30); Chloride 108 mmol/L (98-107); Glucose 118 mg/dL (74-99); Potassium 4.2 mmol/L (3.5-5.1); Sodium 138 mmol/L (137-145)
[2018-07-19] MEDS: FUROSEMIDE 20 MG TAB PO SCH (09:18)
[2018-07-19] MEDS: SENNOSIDES-DOCUSATE SODIUM 1 EACH TAB PO SCH (09:18)
[2018-07-19] MEDS: CLOPIDOGREL 75 MG TAB PO SCH (09:18)
[2018-07-19] MEDS: ESCITALOPRAM 10 MG TAB PO SCH ×2 (09:18→20:58)
[2018-07-19] MEDS: ASPIRIN 325 MG TAB PO SCH (09:18)
[2018-07-19] MEDS: FAMOTIDINE 20 MG TAB PO SCH (09:18)
[2018-07-19] MEDS: LORATADINE 10 MG TAB PO SCH (09:18)
[2018-07-19] MEDS: cloNIDine HCL 0.1 MG TAB PO SCH ×2 (09:18→20:58)
--- NOTE | 2018-07-19 09:42 | P.PN ---
Subjective Progress Note Date: 07/19/18 this is a 47-year-old female patient of Dr. cabral. Patient presented to the hospital for an elective laminectomy and decompression of L4 and L5 with bilateral foraminctomy with Dr. Willis. patient has known past medical history of low back pain with lower extremity radiculopathy. patient has known past medical history of heart failure, GERD, hyperlipidemia, hypertension, osteoarthritis, [place] with stent and nicotine dependence. Patient declined nicotine patch at this time. at this time patient is currently resting in bed. Does complain of some pain. Patient denies chest pain or shortness breath. Denies nausea vomiting or diarrhea. Denies any urinary burning or frequency. Home medications resumed per orthopedic services. On 07/19/2018 she is currently up walking around the room. Patient does complain that she is having moderate amounts pain. Patient denies nausea vomiting or diarrhea. Patient denies chest pain or shortness breath. Patient denies any urinary burning or frequency. per nursing staff patient is complaining of left leg tightness patient states she is "worried its a blood clot." Will order venous Doppler ultrasound to rule out DVT. Objective - Vital Signs Vital signs: Vital Signs Temp 98.1 F 07/19/18 05:00 Pulse 72 07/19/18 05:00 Resp 18 07/19/18 05:00 BP 107/74 07/19/18 05:00 Pulse Ox 92 L 07/19/18 05:00 Intake & Output 07/18/18 07/19/18 07/19/18 18:59 06:59 18:59 Intake Total 1501 825 Output Total 1150 900 400 Balance 351 -75 -400 Weight 86.183 kg Intake: IV 1301 Intake, IV Titration 200 825 Amount Lactated Ringers 1,000 ml 200 @ 0 mls/hr IV .[facility] Rx#:[id number] Sodium Chloride 0.9% 1, 825 000 ml @ 75 mls/hr IV . [id number] [facility] Rx#:[id number] Output: Urine 1050 900 400 Uretheral (Jung) 900 400 Estimated Blood Loss 100 Other: Voiding Method Indwelling Catheter Indwelling Catheter Toilet - Exam Head normocephalic Neck supple Lungs clear to auscultation bilaterally no wheezing or crackles Heart regular rate and rhythm S1-S2, no rub or gallop Abdomen is soft nontender nondistended positive bowel sounds no hepatosplenomegaly Extremities no edema Neuro alert and orientated to 3 - Labs CBC & Chem 7: 07/19/18 08:05 07/19/18 08:05 Labs: Abnormal Lab Results - Last 24 Hours (Table) 07/19/18 07/19/18 Range/Units 08:05 08:05 Lymphocytes # 0.9 L (1.0-4.8) k/uL Chloride 108 H (98-107) mmol/L Glucose 118 H (74-99) mg/dL Assessment and Plan Assessment: 1. Status post laminectomy and decompression L4-L5 with bilateral foraminotomy. pain meds per or so services. Patient is postop day 1. Patient has been up walking around room. SCDs for DVT prophylaxis per surgery. 2. History of congestive heart failure. home Lasix resumed 3. History of [place] with stent. Home Plavix resumed per or so services 4. History of hyperlipidemia. Home Lipitor resumed 5. History of essential hypertension. home medication of Catapres 6. History of osteoarthritis 7. nicotine dependence. Patient declined nicotine patch at this time 8. Patient is complaining of left leg tightness. Venous Doppler ultrasound has been ordered to rule out DVT DVT prophylaxis SCDs, GI prophylaxis Pepcid thank you for this consultation we'll continue to follow patient closely throughout stay Anticipate discharge in the next 24-48 hours per surgical services I performed an examination of the patient and discussed their management with the Nurse Practitioner. I have reviewed the Nurse Practitioner's notes and agree with the documented findings and plan of care
[2018-07-19] MEDS ORDERED: DIAZEPAM 5 MG TAB PO PRN (13:24)
--- NOTE | 2018-07-19 13:35 | US ---
EXAMINATION TYPE: US venous doppler duplex LE LT DATE OF EXAM: 07/19/2018 11:32 AM COMPARISON: NONE CLINICAL HISTORY: Left leg pain. Back surgery yesterday. Difficult exam due to patient body habitus SIDE PERFORMED: Left TECHNIQUE: The lower extremity deep venous system is examined utilizing real time linear array sonog theodora with graded compression, doppler sonography and color-flow sonography. VESSELS IMAGED: External Iliac Vein (EIV) Common Femoral Vein Deep Femoral Vein Greater Saphenous Vein * Femoral Vein Popliteal Vein Small Saphenous Vein * Proximal Calf Veins (* superficial vessels) There is normal flow, compressibility, vascular waveforms. Left Leg: Negative for DVT IMPRESSION: No evident deep venous thrombosis at or above the left knee.
[2018-07-19] MEDS: MONTELUKAST 10 MG TAB PO SCH (20:58)
[2018-07-19] MEDS: traZODone HCL 50 MG TAB PO SCH (20:58)
[2018-07-19] MEDS: ATORVASTATIN 80 MG TAB PO SCH (20:58)
[2018-07-19 22:01] VITALS: RESP 16
[2018-07-20] MEDS: HYDROcodone/APAP 5-325MG 1 EACH TAB PO PRN ×3 (00:22→09:03)
[2018-07-20] MEDS: HYDROmorphone 1 MG/ML 1 ML SYRINGE IVP PRN (01:17)
[2018-07-20] MEDS: CYCLOBENZAPRINE 5 MG TAB PO PRN (02:44)
[2018-07-20] MEDS: SODIUM CHLORIDE 0.9% 1,000 ML IV SCH (02:45)
[2018-07-20 04:25] VITALS: BP 121/60; TEMP 98.6
--- NOTE | 2018-07-20 08:01 | P.DS ---
Providers Date of admission: 07/18/18 05:50 Attending physician: Radha Willis Consults: 07/18/18 10:34 Consult Physician Routine Consulting Provider: Chin Frost Consult Reason/Comments: Medical management Do you want consulting provider notified?: Already Contacted Primary care physician: Pauline Vargas Hospital Course: The patient presented on the day of admission as per her operative note. She feels that her back is improving. She says her legs have made some progress but still having some pain behind her left knee. She is also complaining of some mild swelling in her bilateral lower extremities diffusely. She says her pain is adequately controlled with oral medications Physical Exam The incision site is clean dry and intact. There is no erythema no drainage. There is no purulence no evidence of infection. There is no purulence at her back Abdomen soft and nontender. Chest has good excursion with deep inspiration and expiration. The patient has active and passive range of motion intact at the upper and lower extremities. There is no acute change in neurologic status. She has sustained dorsal flexion plantar flexion and EHL intact. She has some to her forward pitting edema to bilateral lower extremities. She has good strength and no pain at her legs. Hospital Course Postoperative day #2 status post minimally invasive decompression and fusion at L4 5 for spondylolisthesis with spinal stenosis and lower extremity radiculopathy The patient is making some progress she was initially having some significant pain in her knees but this is improving The patient has been making good progress postoperatively. They have completed the prophylactic antibiotics without any signs or symptoms of infection. The patient has been able to advance their diet, and is tolerating diet adequately. The pain was initially controlled with IV medications and is now controlled appropriately with oral medications. The patient has been able to increase their mobilization. I think that the swelling is due to her sitting in her chair with her legs down and that should be improved and she continues her elevating her legs. She had a all sound which did not show any evidence of DVT or clot The patient has progressed appropriately. She is eager to be discharged home today and I think it is okay I think they are in good stable condition for discharge today. She would like a lift chair for home use and I think that is appropriate will give him a prescription for this to be used over the next 4-12 weeks as needed. They will be sent home with appropriate prescriptions. She takes Telferner 7.5 at home and we will continue with this every 6 hours as needed for severe pain. I answered their questions to the best of my ability in a language that they can understand and they are agreeable with the plan. They will follow up as directed in approximately 2 weeks or sooner if she is having problems. Patient Condition at Discharge: Fair Plan - Discharge Summary Discharge Rx Participant: Yes New Discharge Prescriptions: New HYDROcodone/APAP 7.5-325MG [Telferner 7.5-325] 1 tab PO Q6HR PRN 7 Days #28 tab PRN Reason: Pain No Action Loratadine [Claritin] 10 mg PO DAILY Atorvastatin [Lipitor] 80 mg PO HS Escitalopram [Lexapro] 10 mg PO BID Clopidogrel [Plavix] 75 mg PO DAILY Aspirin 325 mg PO DAILY cloNIDine HCL [Catapres] 0.1 mg PO BID #30 tab Furosemide [Lasix] 20 mg PO DAILY Montelukast [Singulair] 10 mg PO HS traZODone HCL [Desyrel] 50 mg PO HS HYDROcodone/APAP 7.5-325MG [Telferner 7.5-325] 1 tab PO Q8H PRN PRN Reason: Pain Discharge Medication List Atorvastatin [Lipitor] 80 mg PO HS 11/11/14 [History] Loratadine [Claritin] 10 mg PO DAILY 11/11/14 [History] Aspirin 325 mg PO DAILY 12/11/14 [History] Clopidogrel [Plavix] 75 mg PO DAILY 12/11/14 [History] Escitalopram [Lexapro] 10 mg PO BID 12/11/14 [History] cloNIDine HCL [Catapres] 0.1 mg PO BID #30 tab 12/22/14 [Rx] Furosemide [Lasix] 20 mg PO DAILY 01/05/17 [History] Montelukast [Singulair] 10 mg PO HS 01/09/17 [History] traZODone HCL [Desyrel] 50 mg PO HS 01/09/17 [History] HYDROcodone/APAP 7.5-325MG [Telferner 7.5-325] 1 tab PO Q8H PRN 07/11/18 [History] HYDROcodone/APAP 7.5-325MG [Telferner 7.5-325] 1 tab PO Q6HR PRN 7 Days #28 tab 09/25 [Rx] Follow up Appointment(s)/Referral(s): Radha Willis DO [Doctor of Osteopathic Medicine] - 2 Weeks Activity/Diet/Wound Care/Special Instructions: Keep site clean. May shower with waterproof Tegaderm intact. Do not soak in tub. On Monday, the patient may remove dressing and may shower with area uncovered. Leave Steri-Strips intact lateral them to fray off on their own. Do not soak in a tub. Avoid heavy or rigorous activity No repetitive bending twisting or lifting No lifting greater than 15 pounds May ambulate as tolerated Patient is given a prescription for a lift chair for home use as this will assist her and her mobility Discharge Disposition: HOME SELF-CARE
[2018-07-20 08:34] LABS: Basophils % (A) 0 %; Eosinophils # (A) 0.3 k/uL (0-0.7); Eosinophils % (A) 4 %; HCT 34.8 % (34.0-46.0); HGB 11.2 gm/dL (11.4-16.0); Lymphocytes # (A) 1.1 k/uL (1.0-4.8); Lymphocytes % (A) 15 %; MCHC 32.2 g/dL (31.0-37.0); MCV 93.3 fL (80.0-100.0); Mean Platelet Volume 7.3; Monocytes # (A) 0.3 k/uL (0-1.0); Monocytes % (A) 5 %; Neutrophils # (A) 5.6 k/uL (1.3-7.7); Neutrophils % (A) 75 %; Platelet Count 209 k/uL (150-450); RBC 3.73 m/uL (3.80-5.40); RDW 14.3 % (11.5-15.5); WBC 7.4 k/uL (3.8-10.6)
[2018-07-20 08:55] LABS: ALT 48 U/L (9-52); AST 66 U/L (14-36); Albumin 3.3 g/dL (3.5-5.0); Alkaline Phosphatase 113 U/L (38-126); Anion Gap 8 mmol/L; Blood Urea Nitrogen 8 mg/dL (7-17); Calcium 8.8 mg/dL (8.4-10.2); Carbon Dioxide 23 mmol/L (22-30); Chloride 108 mmol/L (98-107); Glucose 134 mg/dL (74-99); Potassium 3.8 mmol/L (3.5-5.1); Sodium 139 mmol/L (137-145); Total Bilirubin 1.3 mg/dL (0.2-1.3); Total Protein 5.9 g/dL (6.3-8.2)
[2018-07-20] MEDS: ASPIRIN 325 MG TAB PO SCH (09:04)
[2018-07-20] MEDS: cloNIDine HCL 0.1 MG TAB PO SCH (09:04)
[2018-07-20] MEDS: CLOPIDOGREL 75 MG TAB PO SCH (09:05)
[2018-07-20] MEDS: ESCITALOPRAM 10 MG TAB PO SCH (09:05)
[2018-07-20] MEDS: FAMOTIDINE 20 MG TAB PO SCH (09:06)
[2018-07-20] MEDS: LORATADINE 10 MG TAB PO SCH (09:06)
[2018-07-20] MEDS: FUROSEMIDE 20 MG TAB PO SCH (09:06)
[2018-07-20] MEDS: SENNOSIDES-DOCUSATE SODIUM 1 EACH TAB PO SCH (09:13)
[2018-07-20 09:23] VITALS: PULSE 87
--- NOTE | 2018-07-20 10:54 | P.PN ---
Subjective Progress Note Date: 07/20/18 this is a 47-year-old female patient of Dr. cabral. Patient presented to the hospital for an elective laminectomy and decompression of L4 and L5 with bilateral foraminctomy with Dr. Willis. patient has known past medical history of low back pain with lower extremity radiculopathy. patient has known past medical history of heart failure, GERD, hyperlipidemia, hypertension, osteoarthritis, SC with stent and nicotine dependence. Patient declined nicotine patch at this time. at this time patient is currently resting in bed. Does complain of some pain. Patient denies chest pain or shortness breath. Denies nausea vomiting or diarrhea. Denies any urinary burning or frequency. Home medications resumed per orthopedic services. On 07/19/2018 she is currently up walking around the room. Patient does complain that she is having moderate amounts pain. Patient denies nausea vomiting or diarrhea. Patient denies chest pain or shortness breath. Patient denies any urinary burning or frequency. per nursing staff patient is complaining of left leg tightness patient states she is "worried its a blood clot." Will order venous Doppler ultrasound to rule out DVT. 07/20/2018 patient is scheduled for discharge today. She is still having some swelling in the legs. Doppler was negative for DVT in the left leg. Patient will continue on her Lasix. YANNICK hose have been ordered. Patient is been educated to keep legs elevated. She denies any chest pain or shortness of breath. She has up and ambulating easier than yesterday. Denies any nausea or vomiting and reports having bowel movement. And urinating adequately without any burning with urination. Objective - Vital Signs Vital signs: Vital Signs Temp 98.6 F 07/20/18 04:24 Pulse 87 07/20/18 09:16 Resp 16 07/20/18 04:24 BP 121/60 07/20/18 04:24 Pulse Ox 91 L 07/20/18 04:24 Intake & Output 07/19/18 07/20/18 07/20/18 18:59 06:59 18:59 Intake Total 600 1380 Output Total 400 Balance 200 1380 Weight 110.1 kg Intake: Intake, IV Titration 600 900 Amount Sodium Chloride 0.9% 1, 600 900 000 ml @ 75 mls/hr IV . [id number] [facility] Rx#:[id number] Oral 480 Output: Urine 400 Uretheral (Jung) 400 Other: Voiding Method Toilet Toilet Toilet # Voids 8 5 - Exam Head normocephalic Neck supple Lungs clear to auscultation bilaterally no wheezing or crackles Heart regular rate and rhythm S1-S2, no rub or gallop Abdomen is soft nontender nondistended positive bowel sounds no hepatosplenomegaly Extremities swelling in both legs. calves Nontender. Behind the Knees Are Nontender. Neuro alert and orientated to 3 - Labs CBC & Chem 7: 07/20/18 08:15 07/20/18 08:15 Labs: Abnormal Lab Results - Last 24 Hours (Table) 07/20/18 07/20/18 Range/Units 08:15 08:15 RBC 3.73 L (3.80-5.40) m/uL Hgb 11.2 L (11.4-16.0) gm/dL Chloride 108 H (98-107) mmol/L Glucose 134 H (74-99) mg/dL AST 66 H (14-36) U/L Total Protein 5.9 L (6.3-8.2) g/dL Albumin 3.3 L (3.5-5.0) g/dL Assessment and Plan Assessment: 1. Status post laminectomy and decompression L4-L5 with bilateral foraminotomy. pain meds per or so services. Patient is postop day 2. Patient has been up walking around room. SCDs for DVT prophylaxis per surgery. 2. History of congestive heart failure. home Lasix resumed 3. History of SC with stent. Home Plavix resumed per or so services 4. History of hyperlipidemia. Home Lipitor resumed 5. History of essential hypertension. home medication of Catapres 6. History of osteoarthritis 7. nicotine dependence. Patient declined nicotine patch at this time 8. Patient is complaining of left leg tightness and mild swelling. Doppler negative for DVT. We'll add YANNICK hose before discharge home. Recommending keeping legs elevated. He continue with her home Lasix. We'll have her follow- up with her PCP in 1 week. Patient denies any shortness of breath. This is likely related to extra fluid she received during surgery. Patient has some mild protein calorie malnutrition with albumin of 3.3. Decreased discussed increasing protein intake and that she could drink Ensure at home. DVT prophylaxis SCDs, GI prophylaxis Pepcid Patient is medically stable for discharge. We'll have her follow-up with her PCP in 1 week. I performed an examination of the patient and discussed their management with the physician Cad Draftsman. I have reviewed the Physician Cad Draftsman's notes and agree with the documented findings and plan of care
== END 2018-07-20 11:00 | disposition home or self-care (01) | DRG 454 ==
LOC: 2ORMAIN 05:50 → 5MS5E 10:58
PROVIDERS: ADMIT Orthopaedic Surgery Orthopaedic Surgery of the Spine; ATTEND Orthopaedic Surgery Orthopaedic Surgery of the Spine
PROC: 0SG0071 Fusion of Lumbar Vertebral Joint with Autologous Tissue Substitute, Posterior Approach, Posterior Column, Open Approach (ICD-10-PCS; 2018-07-18)
PROC: 0ST20ZZ Resection of Lumbar Vertebral Disc, Open Approach (ICD-10-PCS; 2018-07-18)
PROC: 07DS3ZZ Extraction of Vertebral Bone Marrow, Percutaneous Approach (ICD-10-PCS; 2018-07-18)
PROC: 4A11X4G Monitoring of Peripheral Nervous Electrical Activity, Intraoperative, External Approach (ICD-10-PCS; 2018-07-18)
PROC: 30233N0 Transfusion of Autologous Red Blood Cells into Peripheral Vein, Percutaneous Approach (ICD-10-PCS; 2018-07-18)
PROC: 0SG00AJ Fusion of Lumbar Vertebral Joint with Interbody Fusion Device, Posterior Approach, Anterior Column, Open Approach (ICD-10-PCS; principal; 2018-07-18 07:30)
DX: M43.16 Spondylolisthesis, lumbar region (principal); Z68.41 Body mass index [BMI] 40.0-44.9, adult; E44.1 Mild protein-calorie malnutrition; I11.0 Hypertensive heart disease with heart failure; I50.9 Heart failure, unspecified; E66.9 Obesity, unspecified; I70.213 Atherosclerosis of native arteries of extremities with intermittent claudication, bilateral legs; E78.5 Hyperlipidemia, unspecified; M47.26 Other spondylosis with radiculopathy, lumbar region; M51.16 Intervertebral disc disorders with radiculopathy, lumbar region; M48.062 Spinal stenosis, lumbar region with neurogenic claudication; M16.12 Unilateral primary osteoarthritis, left hip; K21.9 Gastro-esophageal reflux disease without esophagitis; G47.01 Insomnia due to medical condition; I25.2 Old myocardial infarction; F41.0 Panic disorder [episodic paroxysmal anxiety]; F17.210 Nicotine dependence, cigarettes, uncomplicated; Z79.82 Long term (current) use of aspirin; Z79.02 Long term (current) use of antithrombotics/antiplatelets; Z79.899 Other long term (current) drug therapy; Z90.710 Acquired absence of both cervix and uterus; Z95.5 Presence of coronary angioplasty implant and graft; Z98.891 History of uterine scar from previous surgery; Z86.718 Personal history of other venous thrombosis and embolism; Z95.828 Presence of other vascular implants and grafts; Z88.5 Allergy status to narcotic agent; Z88.8 Allergy status to other drugs, medicaments and biological substances; Z88.0 Allergy status to penicillin; Z82.49 Family history of ischemic heart disease and other diseases of the circulatory system
CPT/HCPCS: 72100; 80048; 80053; 85025; 86850; 86900; 86901

== ENCOUNTER → 2018-10-12 | Outpatient (CLI) | payer OTHER ==
[2018-10-12 12:37] LABS: HCT 39.2 % (34.0-46.0); HGB 13.1 gm/dL (11.4-16.0); MCH 30.6 pg (25.0-35.0); MCHC 33.4 g/dL (31.0-37.0); MCV 91.8 fL (80.0-100.0); Mean Platelet Volume 7.2; Platelet Count 235 k/uL (150-450); RBC 4.27 m/uL (3.80-5.40); RDW 14.1 % (11.5-15.5); WBC 6.8 k/uL (3.8-10.6)
[2018-10-12 13:02] LABS: Anion Gap 4 mmol/L; Blood Urea Nitrogen 12 mg/dL (7-17); Carbon Dioxide 28 mmol/L (22-30); Chloride 108 mmol/L (98-107); Potassium 3.9 mmol/L (3.5-5.1); Sodium 140 mmol/L (137-145)
== END | disposition home or self-care (01) ==
LOC: LABPAT 12:06
PROVIDERS: ATTEND Internal Medicine Interventional Cardiology
DX: Z01.812 Encounter for preprocedural laboratory examination (principal); I70.219 Atherosclerosis of native arteries of extremities with intermittent claudication, unspecified extremity; I10 Essential (primary) hypertension
CPT/HCPCS: 36415; 80051; 82565; 84520; 85027

== ENCOUNTER 2018-11-16 09:26 | Day surgery (SDC) | payer OTHER ==
[2018-11-14 10:50] VITALS: BMI 32.5
[~2018-11-16 09:26] MED LIST changes: +ASPIRIN 325 MG TAB PO STA; -DEXAMETHASONE SOD PHOSPHATE 10 MG/ML 1 ML VIAL IV ONE; -LACTATED RINGERS 1,000 ML IV SCH; -ONDANSETRON 4 MG/2 ML VIAL IVP ONE; -ONDANSETRON 4 MG/2 ML VIAL IVP PRN; +SODIUM CHLORIDE 0.9% 1,000 ML in EMPTY BAG 1 BAG IV ONE; -ceFAZolin IN SWFI 2 GM/20 ML SYRINGE IVP ONE; -fentaNYL (PF) 50 MCG/ML 2 ML AMP IV PRN
[2018-11-16 11:07] LABS: Basophils % (A) 0 %; Eosinophils # (A) 0.2 k/uL (0-0.7); Eosinophils % (A) 3 %; HCT 38.4 % (34.0-46.0); HGB 12.8 gm/dL (11.4-16.0); Lymphocytes # (A) 1.9 k/uL (1.0-4.8); Lymphocytes % (A) 27 %; MCH 30.1 pg (25.0-35.0); MCHC 33.4 g/dL (31.0-37.0); MCV 90.2 fL (80.0-100.0); Mean Platelet Volume 6.7; Monocytes # (A) 0.3 k/uL (0-1.0); Monocytes % (A) 5 %; Neutrophils # (A) 4.4 k/uL (1.3-7.7); Neutrophils % (A) 64 %; Platelet Count 231 k/uL (150-450); RBC 4.26 m/uL (3.80-5.40); RDW 14.4 % (11.5-15.5); WBC 6.9 k/uL (3.8-10.6)
[2018-11-16] MEDS ORDERED: HYDROmorphone 2 MG/ML 1 ML SYRINGE IVP STA (11:12)
[2018-11-16] MEDS: MIDAZOLAM 2 MG/2 ML VIAL IVP ONE ×3 (12:15→13:03)
[2018-11-16] MEDS ORDERED: LIDOCAINE 1% (PF) 10 MG/ML (30 ML SDV) SQ ONE (12:16)
[2018-11-16] MEDS: fentaNYL (PF) 50 MCG/ML 2 ML AMP IVP ONE ×2 (12:19→13:25)
[2018-11-16] MEDS ORDERED: MIDAZOLAM 2 MG/2 ML VIAL IVP ONE (12:30)
[2018-11-16] MEDS: HYDROmorphone 2 MG/ML 1 ML SYRINGE IV ONE ×2 (12:31→12:38)
[2018-11-16] MEDS ORDERED: NITROGLYCERIN 1000MCG/10ML SYRINGE INTRAARTER ONE (13:29)
[2018-11-16] MEDS ORDERED: niCARdipine Syringe (1,000 mcg/10 mL) INTRAARTER ONE (13:29)
[2018-11-16] MEDS ORDERED: CLOPIDOGREL 75 MG TAB PO ONE (13:31)
[2018-11-16] MEDS ORDERED: SODIUM CHLORIDE 0.9% 1,000 ML IV SCH (14:00)
--- NOTE | 2018-11-16 15:40 | IR ---
Fluoroscopy HISTORY: peripheral vascular occlusive disease 22.9 Minutes fluoroscopy time supplied to the referring clinician. 501 intraoperative C-arm images d ocument the procedure. See dictated report from cardiology.
[2018-11-16] MEDS ORDERED: HYDROmorphone 1 MG/ML 1 ML SYRINGE ONE (17:02)
--- NOTE | 2018-11-16 18:40 | LTR ---
November 16, 2018 To: Dr. Vargas Re: Shelly Preston (1970) Dear Dr. Vargas, Ms Shelly Preston underwent successful angioplasty of the right femoral artery with good angiographic results and without any complications. Thank you for allowing me to participate in her care. Please do not hesitate to call if you have any question or concerns. Sincerely, Mahad Stafford MD MMHESHAM / JOSIEN: [id number] /
--- NOTE | 2018-11-16 18:58 | AN ---
ANGIOGRAPHY REPORT DATE OF SERVICE: 11/16/2018 PERFORMING PHYSICIAN: Mahad Stafford MD, pigment pumper. PROCEDURE PERFORMED: 1. Selective right [id number] angiogram. 2. Selective right popliteal/SFA angiogram. 3. Successful crossing of chronic total occlusion of the right SFA. 4. Intravascular ultrasound (IVUS) of the right SFA. 5. Atherectomy of the right SFA using the orbital atherectomy device from [employer]. 6. Successful balloon angioplasty of the mid and distal right SFA using a 5 mm drug- coated balloon with an excellent angiographic result and reduction of stenosis from 99% to 0%. 7. Successful stenting of the right SFA using Zilver PTX drug-coated stent with an excellent angiographic result and reduction of stenosis from 100% to 0%. INDICATION: This is a very pleasant 48-year-old female patient with known history of peripheral arterial disease and known stenting of bilateral SFA as well as stenting of the left common iliac artery. She was experiencing recently symptoms of right leg intermittent claudication. She underwent a peripheral angiogram which showed in-stent occlusion of the right SFA. She was brought today to undergo intervention on the right SFA. APPROACH: Left common femoral artery. COMPLICATIONS: None. LEVEL OF SEDATION: Moderate, with a sedation length of about 2 hours. PROCEDURE DESCRIPTION: After obtaining informed consent, the patient was brought to the cardiac laboratory coordinator. The left common femoral artery was cannulated using micropuncture technique. The micropuncture wire passed easily. Then I placed an 11 cm 6-Cameroonian sheath in the left common femoral artery. At that point, anticoagulation was initiated using heparin. The patient was given weight-based heparin with continuous ACT monitoring throughout the procedure. Subsequently I selected the right profunda using a 5-Cameroonian RIM catheter with 0.035 [employer] Advantage wire. After that I exchanged my 11 cm 6-Cameroonian sheath for a 70 cm 6- Cameroonian Raabe sheath using the 0.035 [employer] Advantage wire. After that I crossed the chronic total occlusion of the right SFA using an 0.035 stiff Glidewire with the backup support of 0.035 CXI catheter. After that I exchanged my 0.035 wire for an 0.014 wire, which was a [place] ST wire. I did intravascular ultrasound to make sure that I was in the true lumen, and I was inside the stent and not behind the stent struts of the right SFA and I found that by the distal edge of the right SFA stent I was behind the stent struts. Because of that, I re-crossed the SFA again using another 0.035 stiff Glidewire. I confirmed that I was in the true lumen and not behind the stent struts on the second wire using the IVUS. After that I exchanged my 0.035 stiff Glidewire for an 0.014 ViperWire using 0.035 CXI catheter. After that I did atherectomy of the right SFA using the orbital atherectomy device from [facility] and using a 1.5 sailaja. After that I did balloon angioplasty using a 5 mm balloon. For the distal right SFA, which was de Ana disease, I did balloon angioplasty using a 5 mm drug-coated balloon with the following angiogram showing good angiographic results and reduction of stenosis from 99% to 0%. For the proximal right SFA, which was in-stent occlusion, the following angiographic results after the balloon angioplasty were inadequate, and because of that I decided to cover that with a stent. So I deployed a 7 x 140 mm drug-coated stent, which was a Zilver PTX, which was positioned under fluoroscopy guidance and deployed under fluoroscopy guidance. I post dilated the stent using a 6 mm balloon. The following angiogram showed excellent results and the procedure was completed without any complication. After that I exchanged my 70 cm 6-Cameroonian Raabe sheath for an 11 cm sheath using 0.035 Mant[employer] Advantage wire. I did finally selective left common femoral artery angiogram. The procedure was completed without any complication. POST-PROCEDURE MANAGEMENT: 1. Dual anti-platelet therapy. 2. Risk factor modifications. 3. Follow up with the patient. MMODL / IJN: [id number] /
[2018-11-16] MEDS: HYDROmorphone 1 MG/ML 1 ML SYRINGE IVP PRN (20:27)
[2018-11-16] MEDS ORDERED: CLOPIDOGREL 75 MG TAB PO SCH (21:00)
[2018-11-16] MEDS ORDERED: TEMAZEPAM 15 MG CAP PO SCH (21:00)
[2018-11-16] MEDS ORDERED: ATORVASTATIN 80 MG TAB PO SCH (21:00)
[2018-11-16] MEDS: HYDROcodone/APAP 7.5-325MG 1 EACH TAB PO PRN (21:42)
[2018-11-16] MEDS: ALPRAZolam 0.25 MG TAB PO PRN (21:42)
[2018-11-16] MEDS: MONTELUKAST 10 MG TAB PO SCH (22:59)
[2018-11-16] MEDS: ESCITALOPRAM 10 MG TAB PO SCH (22:59)
[2018-11-16] MEDS: cloNIDine HCL 0.1 MG TAB PO SCH (23:00)
[2018-11-16] MEDS: buPROPion SR 150 MG TABLET.ER PO SCH (23:04)
[2018-11-17] MEDS: HYDROmorphone 1 MG/ML 1 ML SYRINGE IVP PRN ×3 (00:46→06:28)
[2018-11-17] MEDS: ALPRAZolam 0.25 MG TAB PO PRN (02:02)
[2018-11-17] MEDS: HYDROcodone/APAP 7.5-325MG 1 EACH TAB PO PRN ×2 (02:03→08:49)
[2018-11-17 08:48] VITALS: BP 155/86; PULSE 87; RESP 17; TEMP 98.2
[2018-11-17] MEDS: cloNIDine HCL 0.1 MG TAB PO SCH (08:49)
[2018-11-17] MEDS: ESCITALOPRAM 10 MG TAB PO SCH (08:49)
[2018-11-17] MEDS: buPROPion SR 150 MG TABLET.ER PO SCH (08:51)
[2018-11-17 08:55] LABS: Anion Gap 8 mmol/L; Blood Urea Nitrogen 14 mg/dL (7-17); Calcium 9.2 mg/dL (8.4-10.2); Carbon Dioxide 24 mmol/L (22-30); Chloride 107 mmol/L (98-107); Glucose 111 mg/dL (74-99); Potassium 4.4 mmol/L (3.5-5.1); Sodium 139 mmol/L (137-145)
[2018-11-17 08:56] LABS: Basophils # (A) 0.1 k/uL (0-0.2); Basophils % (A) 1 %; Eosinophils # (A) 0.3 k/uL (0-0.7); Eosinophils % (A) 3 %; HCT 36.4 % (34.0-46.0); Lymphocytes # (A) 1.8 k/uL (1.0-4.8); Lymphocytes % (A) 20 %; MCH 29.5 pg (25.0-35.0); MCV 89.2 fL (80.0-100.0); Mean Platelet Volume 8.5; Monocytes # (A) 0.6 k/uL (0-1.0); Monocytes % (A) 7 %; Neutrophils # (A) 6.1 k/uL (1.3-7.7); Neutrophils % (A) 68 %; Platelet Count 206 k/uL (150-450); RBC 4.08 m/uL (3.80-5.40); RDW 14.4 % (11.5-15.5); WBC 8.9 k/uL (3.8-10.6)
[2018-11-17] MEDS ORDERED: ASPIRIN 325 MG TAB PO SCH (09:00)
[2018-11-17] MEDS ORDERED: FUROSEMIDE 20 MG TAB PO SCH (09:00)
[2018-11-17] MEDS ORDERED: LORATADINE 10 MG TAB PO SCH (09:00)
--- NOTE | 2018-11-17 16:11 | DS ---
DISCHARGE SUMMARY DATE OF ADMISSION: November 16, 2018. DISCHARGE DATE: November 17, 2018 BRIEF HISTORY: This is a pleasant 48-year-old female patient who was admitted to the hospital yesterday and underwent successful balloon angioplasty and chronic total occlusion of the right SFA. The patient is going to be discharged home on dual anti-platelet therapy and statin and I will follow up with the patient in a week in the office. MMHESHAM / ZAKI: [id number] /
== END 2018-11-17 10:02 | disposition home or self-care (01) ==
LOC: CATHCVL 09:26 → 3SCARD 13:47 → CATHCVL 11-17 10:02
PROVIDERS: ATTEND Internal Medicine Interventional Cardiology
DX: I70.213 Atherosclerosis of native arteries of extremities with intermittent claudication, bilateral legs (principal); I70.92 Chronic total occlusion of artery of the extremities; I25.10 Atherosclerotic heart disease of native coronary artery without angina pectoris; I10 Essential (primary) hypertension; E78.5 Hyperlipidemia, unspecified; R63.5 Abnormal weight gain; Z68.39 Body mass index [BMI] 39.0-39.9, adult; Z95.820 Peripheral vascular angioplasty status with implants and grafts; Z79.02 Long term (current) use of antithrombotics/antiplatelets; Z79.82 Long term (current) use of aspirin; Z79.899 Other long term (current) drug therapy; Z88.5 Allergy status to narcotic agent; Z88.0 Allergy status to penicillin; Z87.891 Personal history of nicotine dependence
CPT/HCPCS: 37227; 37252; 80048; 85025 ×2; C1894 ×2; C1769 ×6; C1714; C1725 ×2; C1887; C1753; C2623; C1874; J2250; J1170 ×3; S0106 ×2; J2001; J3010; J1644

== ENCOUNTER → 2019-01-09 | Outpatient (CLI) | payer OTHER ==
--- NOTE | 2019-01-09 11:54 | US ---
EXAMINATION TYPE: US abdomen limited DATE OF EXAM: 01/09/2019 COMPARISON: CT 2014 CLINICAL HISTORY: R94.5 Abnormal results of liver function tests. Abnormal results of liver function tests EXAM MEASUREMENTS: Liver Length: 15.6 cm Gallbladder Wall: 0.20 cm CBD: 0.53 cm Right Kidney: 10.9 x 5.2 x 4.5 cm Pancreas: Partially obscured by gas Liver: appears wnl Gallbladder: Appears anechoic. Fold seen. Evidence for sonographic Flores's sign: No CBD: wnl Right Kidney: No hydronephrosis or masses seen IMPRESSION: No acute process.
== END | disposition home or self-care (01) ==
LOC: RADUSWWP 10:20
PROVIDERS: ATTEND Family Medicine
DX: R94.5 Abnormal results of liver function studies (principal)
CPT/HCPCS: 76705

== ENCOUNTER → 2019-01-28 | Outpatient (CLI) | payer OTHER | LOC: LABWHC1 12:04 | PROVIDERS: ATTEND Orthopaedic Surgery Orthopaedic Surgery of the Spine | DX: Z01.812 Encounter for preprocedural laboratory examination (principal); N28.9 Disorder of kidney and ureter, unspecified | CPT/HCPCS: 36415; 82565; 84520 ==

== ENCOUNTER 2019-03-15 07:50 | Day surgery (SDC) | payer OTHER ==
[2019-03-12 14:11] VITALS: BMI 36.0
[~2019-03-15 07:50] MED LIST changes: +ALPRAZolam 0.25 MG TAB PO PRN; +ASPIRIN 325 MG TAB PO ONE; -ASPIRIN 325 MG TAB PO STA
[2019-03-15] MEDS ORDERED: ONDANSETRON 4 MG/2 ML VIAL ONE (08:01)
[2019-03-15] MEDS ORDERED: HYDROcodone/APAP 7.5-325MG 1 EACH TAB ONE (08:01)
[2019-03-15 08:26] VITALS: TEMP 98.2
[2019-03-15] MEDS ORDERED: LIDOCAINE 1% INJ 10MG/ML (20 ML MDV) ONE (09:10)
[2019-03-15] MEDS ORDERED: fentaNYL (PF) 50 MCG/ML 2 ML AMP ONE (09:11)
[2019-03-15] MEDS ORDERED: MIDAZOLAM (PF) 2 MG/2 ML VIAL IV ONE (09:31)
[2019-03-15] MEDS ORDERED: LIDOCAINE 1% INJ 10MG/ML (20 ML MDV) SQ ONE (09:34)
[2019-03-15] MEDS: fentaNYL (PF) 50 MCG/ML 2 ML AMP IV ONE ×2 (09:36→09:41)
[2019-03-15] MEDS ORDERED: HYDROmorphone 1 MG/ML 1 ML SYRINGE ONE ×3 (09:50→13:24)
[2019-03-15] MEDS ORDERED: IOPAMIDOL-370 125ML BTL INJ ONE (09:53)
[2019-03-15] MEDS ORDERED: HYDROmorphone 1 MG/ML 1 ML SYRINGE IVP ONE (09:54)
[2019-03-15] MEDS ORDERED: RX INFO: IV CONTRAST WAS GIVEN 1 EACH MISC MISCELLANE PRN (10:09)
[2019-03-15] MEDS ORDERED: SODIUM CHLORIDE 0.9% 1,000 ML IV SCH (10:15)
--- NOTE | 2019-03-15 11:09 | CC ---
CARDIAC CATHETERIZATION REPORT DATE OF SERVICE: 03/15/2019. INDICATION: This is a 48-year-old female patient with history of peripheral arterial disease and prior peripheral revascularization as well as diabetes, hypertension, and dyslipidemia, continues to have intermittent episodes of chest discomfort with exertion concerning for angina. Because of that, a heart catheterization was advised. APPROACH: Right common femoral artery. COMPLICATION: None. LEVEL OF SEDATION: Moderate with sedation length of 17 minutes. PROCEDURE DESCRIPTION: After obtaining an informed consent, the patient was brought to the cardiac molder labels. The right common femoral artery was cannulated using micropuncture technique, the micropuncture wire passed, easily then I placed a 6-Mauritanian sheath in the right common femoral artery. After that, I did selective right and left coronary angiogram using JR4 and JL4 catheters. Left heart catheterization was performed using 6-Mauritanian pigtail catheter. The procedure was completed without any complication. SELECTIVE CORONARY ANGIOGRAM: 1. The right coronary artery is a large caliber vessel. It is a dominant vessel with mild disease in the proximal portion only. Distally bifurcates into PDA and PLV branches and both appeared to be angiographically normal. 2. The left main. The left main is angiographically normal. It bifurcates into the left circumflex, ramus intermedius, and left anterior descending artery. 3. The left circumflex is a large caliber vessel and it is a nondominant vessel and appeared to have mild disease in the midportion about 30% only. 4. The ramus intermedius is a medium caliber vessel with mild disease in the midportion. 5. The LAD is a large caliber vessel and seems to be angiographically normal. In the midportion, it gives rise into a medium-sized diagonal branch, seems to be angiographically normal. CONCLUSION: 1. Mild to moderate nonobstructive coronary artery disease involving the RCA and left circumflex. 2. Mildly elevated left ventricular end-diastolic pressure. POSTPROCEDURE MANAGEMENT: 1. I do recommend maximized medical treatment. 2. Follow up with the patient. MMODL / IJN: [id number] /
--- NOTE | 2019-03-15 11:32 | LTR ---
March 15, 2019 Re: Shelly Preston Dear Dr. Vargas: Ms. Shelly Preston underwent today a heart catheterization and that revealed mild nonobstructive disease involving the right coronary artery and left circumflex coronary artery. I did recommend maximized medical treatment, aggressive cholesterol control, and follow up with her. I want to thank you for allowing me to participate in her care and please do not hesitate to call if you have any question or concern. Sincerely, Mahad Stafford MD MMHESHAM / JOSIEN: [id number] /
[2019-03-15 14:43] VITALS: BP 98/57; PULSE 66; RESP 18
== END 2019-03-15 16:50 | disposition home or self-care (01) ==
LOC: CATHCVL 07:50
PROVIDERS: ATTEND Internal Medicine Interventional Cardiology
DX: I25.110 Atherosclerotic heart disease of native coronary artery with unstable angina pectoris (principal); I10 Essential (primary) hypertension; E78.00 Pure hypercholesterolemia, unspecified; E11.51 Type 2 diabetes mellitus with diabetic peripheral angiopathy without gangrene; Z95.820 Peripheral vascular angioplasty status with implants and grafts; E78.5 Hyperlipidemia, unspecified; Z87.891 Personal history of nicotine dependence; R06.09 Other forms of dyspnea; J44.9 Chronic obstructive pulmonary disease, unspecified; Z79.02 Long term (current) use of antithrombotics/antiplatelets; Z79.82 Long term (current) use of aspirin; Z79.899 Other long term (current) drug therapy; Z88.5 Allergy status to narcotic agent; Z88.0 Allergy status to penicillin
CPT/HCPCS: 93458; C1894; C1769 ×2; J2405; J2001; J3010; J1170; Q9967; J2250

== ENCOUNTER → 2019-09-23 | Day surgery (SDC) | payer OTHER, MEDICARE ==
[2019-09-19 10:52] VITALS: BMI 32.5
[~2019-09-23] MED LIST changes: +HYDROmorphone 1 MG/ML 1 ML SYRINGE IVP ONE; +IOPAMIDOL-250 100ML BTL INTRAARTER ONE; +IOPAMIDOL-250 50ML BTL INTRAARTER ONE; +LIDOCAINE 1% INJ 10MG/ML (20 ML MDV) SQ ONE; +MIDAZOLAM 2 MG/2 ML VIAL IV ONE; +SODIUM CHLORIDE 0.9% 1,000 ML IV SCH
[2019-09-23 07:10] VITALS: RESP 18; TEMP 98.3
--- NOTE | 2019-09-23 09:09 | AN ---
ANGIOGRAPHY REPORT DATE OF SERVICE: September 23, 2019 PERFORMING PHYSICIAN: Mahad Stafford MD. PROCEDURE PERFORMED: 1. An abdominal aortogram. 2. Bilateral lower extremities runoff. INDICATION: This is a pleasant 48-year-old female patient with history of peripheral arterial disease and prior angioplasty and stenting was experiencing left leg intermittent claudication. She underwent a duplex study and that came into be abnormal and because of that, she was scheduled to undergo aortogram with runoff. APPROACH: Right brachial artery. COMPLICATION: None. LEVEL OF SEDATION: Moderate with sedation length of 22 minutes. PROCEDURE DESCRIPTION: After obtaining an informed consent, the patient was brought to the cardiac carpenter/labor. Initially, I attempted accessing the right radial artery, but the pulse was quite diminished and I could not access the artery. Because of that, I accessed the right brachial artery using micropuncture technique under ultrasound guidance, the micropuncture wire passed easily then I placed a 5-Montenegrin sheath there. I did after that an abdominal aortogram and bilateral lower extremities runoff using 5-Montenegrin pigtail catheter which was initially placed at the level of the renal arteries and it was advanced into above the bifurcation of the aorta to right and left common iliac arteries. The procedure was completed without any complication. SELECTIVE PERIPHERAL ANGIOGRAM: 1. The aorta appeared to have mild disease only. 2. Common Iliac Arteries: The right common iliac artery is angiographically normal and the left common iliac artery appeared to be stented and the stent is patent. 3. Internal Iliac Arteries: Both internal iliac arteries are patent. 4. External Iliac Arteries: Both external iliac arteries appeared to be patent. 5. Common Femoral Arteries. Both appear to be angiographically normal. 6. Profunda: Both profunda are patent. 7. SFA: The right SFA is stented and the stent is patent. The mid right SFA has intermediate lesion appeared to be in the range of 60% to 70%. The left SFA is stented as well and the stent is patent. 8. Popliteal: The right popliteal appeared to be angiographically normal. 9. Below the knee: There are 3 vessels runoff below the knee bilaterally. CONCLUSION: 1. Patent left common iliac stent. 2. Patent bilateral SFA stents. There is a lesion, intermediate to severe lesion, involving the right SFA appeared to be in the range of 60%. 3. Three vessels runoff below the knee bilaterally. POSTPROCEDURE MANAGEMENT: Giving that the pain is in the left leg, and no evidence of severe PAD in the left leg, I did advise maximized medical treatment at this point. I am going to continue monitoring the lesion at the right leg with symptoms as well as Doppler study. MMLAURAL / IJN: [id number] /
--- NOTE | 2019-09-23 12:29 | IR ---
Fluoroscopy HISTORY: Peripheral vascular occlusive disease 2 minutes fluoroscopy time supplied to the referring clinician. 82 intraoperative C-arm images docum ent the procedure. See dictated report from cardiology.
[2019-09-23 13:54] VITALS: BP 139/84; PULSE 58
== END ==
LOC: CATHCVL 06:43
PROVIDERS: ATTEND Internal Medicine Interventional Cardiology
DX: I70.213 Atherosclerosis of native arteries of extremities with intermittent claudication, bilateral legs (principal); Z95.820 Peripheral vascular angioplasty status with implants and grafts
CPT/HCPCS: 36200; 75625; 75716; 76937; C1769 ×4; C1894 ×2; J2250; J2001; J1170; Q9966 ×2

== ENCOUNTER → 2019-11-19 | Outpatient (CLI) | payer OTHER, MEDICARE ==
--- NOTE | 2019-11-19 13:43 | CT ---
EXAMINATION TYPE: CT abdomen pelvis w con DATE OF EXAM: 11/19/2019 HISTORY: LLQ pain with nausea and constipation CT DLP: 1738.5mGycm Automated Exposure Control for Dose Reduction was Utilized. CONTRAST: CT scan of the abdomen and pelvis is performed with IV Contrast, patient injected with 100 mL of Isov ue 300. COMPARISON: None. FINDINGS: LUNG BASES: Very minimal atelectasis of the lung bases. LIVER/GB: No significant abnormality is appreciated. PANCREAS: No significant abnormality is seen. SPLEEN: No significant abnormality is seen. ADRENALS: Indeterminate 1.8 x 1.7 cm left adrenal gland lesion within average Hounsfield unit of 50. This does not meet criteria for benign adenoma although delayed Hounsfield unit measures only 25. Mor e definitive characterization with enhanced abdominal MRI is recommended. KIDNEYS: No significant abnormality is seen. BOWEL: Moderate degree colonic fecal stasis. No dilated large or small bowel. Hyperdensity near the e xpected region of the appendix that may represent surgical sutures or a scant amount of contrast in a diminutive appendix. LYMPH NODES: No greater than 1cm abdominal or pelvic lymph nodes are appreciated. OSSEOUS STRUCTURES: Surgical fixation of L4-L5 with intervertebral disc age. Mild degenerative change s of the remainder the lumbar spine. OTHER: Stent grafts are seen of the left common iliac artery, common femoral artery and right common femoral artery. Otherwise moderate atheromatous changes of the abdominal aorta and its branches. Ther e is mild diastases recti. Surgical absence of the uterus. IMPRESSION: 1. No acute intra-abdominal process seen. 2. Indeterminate left adrenal gland nodule for which either [address] abdomen (including nonenhanced images) or enhanced MRI abdomen are recommended for further characterization.
== END | disposition home or self-care (01) ==
LOC: RADCTMAIN 10:38
PROVIDERS: ATTEND Family Medicine
DX: R10.30 Lower abdominal pain, unspecified (principal)
CPT/HCPCS: 74177; Q9967

== ENCOUNTER → 2019-12-04 | Outpatient (CLI) | payer OTHER, MEDICARE ==
--- NOTE | 2019-12-04 22:48 | MR ---
EXAMINATION TYPE: MR abdomen wo/w con DATE OF EXAM: 12/04/2019 COMPARISON: CT abdomen and pelvis November 19, 2019. HISTORY: Disorders of the adrenal glands CONTRAST: Standard multiplanar, multisequence MRI departmental protocol utilizing 9 mL intravenous Gadavist mary olinium contrast. Imaging is performed of the abdomen focusing on the adrenal glands. FINDINGS: Adrenal glands: Right adrenal gland remains within normal limits. Redemonstration of well-defined 1.9 x 1.7 cm left adrenal mass axial image 26 series 501. This lesion shows diffuse signal dropout on in and out of phase images consistent with benign lipid rich adenoma. Other: Lung bases are clear. The liver, gallbladder, spleen, and pancreas are within normal limits. T here is no concerning renal mass or hydronephrosis seen bilaterally. No suspicious small or large bow el dilatation is present. Artifact from fusion hardware L4-L5 level is noted. No abdominal ascites or suspicious abdominal adenopathy. IMPRESSION: Redemonstration of 1.9 cm left adrenal mass with MRI imaging characteristics confirming b enign lipid rich adenoma.
== END | disposition home or self-care (01) ==
LOC: RADMRIMAIN 16:48
PROVIDERS: ATTEND Family Medicine
DX: D35.02 Benign neoplasm of left adrenal gland (principal)
CPT/HCPCS: 74183; A9585

== ENCOUNTER → 2020-02-21 | Outpatient (CLI) | payer OTHER, MEDICARE | END | disposition home or self-care (01) | LOC: LABWHC1 10:20 | PROVIDERS: ATTEND Internal Medicine Interventional Cardiology | DX: U07.1 COVID-19 (principal) | CPT/HCPCS: 87635 ==

== ENCOUNTER 2020-02-24 09:33 | Day surgery (SDC) | payer OTHER, MEDICARE ==
[2020-02-21 08:40] VITALS: BMI 32.5
[~2020-02-24 09:33] MED LIST changes: -HYDROmorphone 1 MG/ML 1 ML SYRINGE IVP ONE; -IOPAMIDOL-250 100ML BTL INTRAARTER ONE; -IOPAMIDOL-250 50ML BTL INTRAARTER ONE; -LIDOCAINE 1% INJ 10MG/ML (20 ML MDV) SQ ONE; -MIDAZOLAM 2 MG/2 ML VIAL IV ONE; -SODIUM CHLORIDE 0.9% 1,000 ML IV SCH; -SODIUM CHLORIDE 0.9% 1,000 ML in EMPTY BAG 1 BAG IV ONE
[2020-02-24 10:11] VITALS: RESP 16
[2020-02-24] MEDS ORDERED: SODIUM CHLORIDE 0.9% 1,000 ML IV ONE (10:13)
[2020-02-24] MEDS: HYDROcodone/APAP 7.5-325MG 1 EACH TAB PO PRN ×3 (10:48→23:29)
[2020-02-24] MEDS ORDERED: SODIUM CHLORIDE 0.9% 500 ML 500 ML with niCARdipine 6.25 MG, NITROGLYCERIN-D5W PMX 0.05... IV ONE ×4 (12:01)
[2020-02-24] MEDS ORDERED: MIDAZOLAM 2 MG/2 ML VIAL IVP ONE (12:03)
[2020-02-24] MEDS ORDERED: LIDOCAINE 1% INJ 10MG/ML (20 ML MDV) SQ ONE (12:03)
[2020-02-24] MEDS ORDERED: HYDROmorphone 1 MG/ML 1 ML SYRINGE IVP ONE ×3 (12:03→13:15)
[2020-02-24] MEDS: fentaNYL (PF) 50 MCG/ML 2 ML AMP IVP ONE ×2 (12:26→12:42)
[2020-02-24] MEDS ORDERED: HEPARIN SODIUM 1,000 UN/ML (10ML VL) IV ONE (12:32)
[2020-02-24] MEDS ORDERED: CLOPIDOGREL 75 MG TAB PO ONE (13:21)
[2020-02-24] MEDS ORDERED: IOPAMIDOL-370 100ML BTL INJ ONE (13:22)
[2020-02-24] MEDS ORDERED: hydrOXYzine HCL 10 MG TAB PO PRN (13:29)
[2020-02-24] MEDS ORDERED: SODIUM CHLORIDE 0.9% 1,000 ML in EMPTY BAG 1 BAG IV SCH (13:30)
--- NOTE | 2020-02-24 13:40 | P.PCN ---
Date of Procedure: 02/24/20 Operative Findings: PERCUTANEOUS PERIPHERAL ARTERIAL INTERVENTION Performing physician Mahad Stafford MD Procedure performed 1. Selective right SFA angiogram 2. Intravascular ultrasound (IVUS) of the right SFA 3. Atherectomy of the right SFA using the Hawak one device 4. Successful stenting of the right SFA using 6.0 x 140 mm Zilver PTX with an excellent angiographic results 5. Selective right anterior tibial artery angiogram Indication This is a 49-year-old female patient was peripheral arterial disease and prior angioplasty in the past as well as significant history of smoking who was experi encing the right leg intermittent claudication. She underwent an angiogram back in September 2019 and that revealed severe disease involving the mid right SFA distal to a stented segment. She was brought today to undergo an intervention Approach Right anterior tibial artery Complication None Level of sedation Moderate with sedation length of 85 minutes Procedure description After obtaining an informed consent the patient was brought to the cardiac chemical lab technician. The right anterior tibial artery was cannulated using micropuncture technique under ultrasound guidance, then I placed a slender sheath 5/6-[place] at the right anterior tibial artery. Subsequently continuous infusion of cocktail in cluding heparin, verapamil, I nitroglycerin was initiated. After that the patient was given 6000 of heparin IV as well. I did wire the right anterior tibial artery all the way to the right common fe moral artery. Subsequently I did place an 035 CXI catheter at the right popliteal were I did selective right SFA angiogram. I could not visualize the very proximal part of the right SFA. I performed intravascular ultrasound which revealed that the stent in the proximal right SFA appears to be patent but there is a lesion distal to the stent appeared to be in the range of 70-80%. I also was able to obtain a diameter of the right SFA about 5.5 mm. At that point I did atherectomy of the right SFA using the Hawak one device with the extraction of significant amount of plaque. Subsequently balloon angioplasty was achieved using 5 mm x 120 mm balloon with the following angiogram revealing dissection involving the right SFA confirmed by MIRYAM and appears to be significant. At that point I decided to cover that with the stent so I placed 6.0 x 114 mm Zilver PTX stent where the stent was positioned under fluoroscopy guidance and deployed under fluoroscopy guidance. Postdilatation was performed using 5 mm x 120 millimeters balloon which we used before. Subsequent angiogram was performed and showed excellent angiographic results and at that point the procedure was completed without any complications. After that I did selective right anterior tibial artery angiogram. The procedure was completed without any complications and I did remove the sheath from the right anterior tibial artery. Postprocedure management 1. Dual antiplatelet therapy 2. Risk factors modification 3. Smoking cessation 4. Follow-up with the patient
--- NOTE | 2020-02-24 15:19 | IR ---
Fluoroscopy HISTORY: Pain in right leg 13.2 minutes fluoroscopy time supplied to the referring clinician. 133 intraoperative C-arm images d ocument the procedure. See dictated report from cardiology.
[2020-02-24] MEDS ORDERED: SODIUM CHLORIDE 0.9% 1,000 ML in EMPTY BAG 1 BAG IV ONE (15:38)
[2020-02-24] MEDS ORDERED: HYDROmorphone 1 MG/ML 1 ML SYRINGE ONE (19:12)
[2020-02-24] MEDS ORDERED: HYDROmorphone 0.5 MG/0.5 ML SYRINGE IVP PRN (19:14)
[2020-02-24] MEDS ORDERED: TOPIRAMATE 100 MG TAB PO SCH (21:00)
[2020-02-24] MEDS ORDERED: CLOPIDOGREL 75 MG TAB PO SCH (21:00)
[2020-02-24] MEDS ORDERED: TEMAZEPAM 15 MG CAP PO SCH (21:00)
[2020-02-24] MEDS ORDERED: GABAPENTIN 300 MG CAP PO SCH (21:00)
[2020-02-24] MEDS ORDERED: ATORVASTATIN 80 MG TAB PO SCH (21:00)
[2020-02-24] MEDS ORDERED: DULoxetine HCL 60 MG CAPSULE.DR PO SCH (21:00)
[2020-02-24] MEDS: cloNIDine HCL 0.1 MG TAB PO SCH (23:29)
[2020-02-25 04:36] VITALS: PULSE 68
[2020-02-25 06:39] LABS: Basophils % (A) 1 %; Eosinophils # (A) 0.1 k/uL (0-0.7); Eosinophils % (A) 2 %; HCT 37.9 % (34.0-46.0); Lymphocytes % (A) 30 %; MCH 29.6 pg (25.0-35.0); MCHC 31.7 g/dL (31.0-37.0); MCV 93.6 fL (80.0-100.0); Mean Platelet Volume 7.9; Monocytes # (A) 0.5 k/uL (0-1.0); Monocytes % (A) 7 %; Neutrophils # (A) 3.9 k/uL (1.3-7.7); Neutrophils % (A) 58 %; Platelet Count 239 k/uL (150-450); RBC 4.05 m/uL (3.80-5.40); RDW 13.4 % (11.5-15.5); WBC 6.8 k/uL (3.8-10.6)
[2020-02-25 06:46] LABS: Calcium 9.1 mg/dL (8.4-10.2)
[2020-02-25] MEDS: PANTOPRAZOLE 40 MG TABLET PO SCH ×2 (06:48→08:34)
[2020-02-25] MEDS: FUROSEMIDE 40 MG TAB PO SCH ×2 (06:48→08:34)
--- NOTE | 2020-02-25 07:20 | P.DS ---
Providers Date of admission: February 232019 Attending physician: Mahad Stafford Primary care physician: [facility] Course: This is a 49-year-old female patient who underwent yesterday successful atherectomy, balloon angioplasty, and stenting of the right SFA from right anterior tibial approach. The patient was seen today. She is going to be discharged on dual antiplatelet therapy along with a statin. I am going to follow-up with the patient next week in the office Plan - Discharge Summary Discharge Rx Participant: No New Discharge Prescriptions: Continue Clopidogrel [Plavix] 75 mg PO HS Aspirin 325 mg PO DAILY cloNIDine HCL [Catapres] 0.1 mg PO BID #30 tab Furosemide [Lasix] 40 mg PO BID Temazepam [Restoril] 15 mg PO HS Atorvastatin Calcium [Lipitor] 80 mg PO HS HYDROcodone/APAP 7.5-325MG [[place] 7.5-325] 1 tab PO Q6HR PRN PRN Reason: Pain DULoxetine HCL [Cymbalta] 60 mg PO HS Gabapentin [Neurontin] 600 mg PO HS Omeprazole [PriLOSEC] 20 mg PO BID Spironolactone [Aldactone] 50 mg PO DAILY Topiramate [Topamax] 100 mg PO HS Montelukast [Singulair] 10 mg PO DAILY Loratadine [Claritin] 10 mg PO DAILY Magnesium 1,500 mg PO DAILY Empagliflozin [Jardiance] 25 mg PO DAILY hydrOXYzine PAMOATE [Vistaril] 10 mg PO DIRECTED PRN PRN Reason: Anxiety Discharge Medication List Aspirin 325 mg PO DAILY 12/11/14 [History] Clopidogrel [Plavix] 75 mg PO HS 12/11/14 [History] cloNIDine HCL [Catapres] 0.1 mg PO BID #30 tab 12/22/14 [Rx] Furosemide [Lasix] 40 mg PO BID 01/05/17 [History] Temazepam [Restoril] 15 mg PO HS 10/18/18 [History] Atorvastatin Calcium [Lipitor] 80 mg PO HS 10/22/18 [History] HYDROcodone/APAP 7.5-325MG [[place] 7.5-325] 1 tab PO Q6HR PRN 11/14/18 [History] DULoxetine HCL [Cymbalta] 60 mg PO HS 03/12/19 [History] Gabapentin [Neurontin] 600 mg PO HS 03/12/19 [History] Omeprazole [PriLOSEC] 20 mg PO BID 03/12/19 [History] Spironolactone [Aldactone] 50 mg PO DAILY 03/12/19 [History] Empagliflozin [Jardiance] 25 mg PO DAILY 02/21/20 [History] Loratadine [Claritin] 10 mg PO DAILY 02/21/20 [History] Magnesium 1,500 mg PO DAILY 02/21/20 [History] Montelukast [Singulair] 10 mg PO DAILY 02/21/20 [History] Topiramate [Topamax] 100 mg PO HS 02/21/20 [History] hydrOXYzine PAMOATE [Vistaril] 10 mg PO DIRECTED PRN 02/21/20 [History] Follow up Appointment(s)/Referral(s): Mahad Stafford MD [STAFF PHYSICIAN] - 1 Week
[2020-02-25] MEDS: HYDROcodone/APAP 7.5-325MG 1 EACH TAB PO PRN (08:34)
[2020-02-25] MEDS: cloNIDine HCL 0.1 MG TAB PO SCH (08:34)
[2020-02-25] MEDS ORDERED: LORATADINE 10 MG TAB PO SCH (09:00)
[2020-02-25] MEDS ORDERED: MAGNESIUM OXIDE 400 MG TAB PO SCH (09:00)
[2020-02-25] MEDS ORDERED: MONTELUKAST 10 MG TAB PO SCH (09:00)
[2020-02-25] MEDS ORDERED: SPIRONOLACTONE 25 MG TAB PO SCH (09:00)
[2020-02-25] MEDS ORDERED: ASPIRIN 325 MG TAB PO SCH (09:00)
[2020-02-25] MEDS ORDERED: EMPAGLIFLOZIN 25 MG PO SCH (09:00)
[2020-02-25 10:16] VITALS: BP 118/58; TEMP 98.8
== END 2020-02-25 10:46 | disposition home or self-care (01) ==
LOC: CATHCVL 09:33 → 3SCARD 19:09 → CATHCVL 02-25 10:46
PROVIDERS: ATTEND Internal Medicine Interventional Cardiology
DX: I70.213 Atherosclerosis of native arteries of extremities with intermittent claudication, bilateral legs (principal); I25.10 Atherosclerotic heart disease of native coronary artery without angina pectoris; E78.5 Hyperlipidemia, unspecified; I10 Essential (primary) hypertension; R01.1 Cardiac murmur, unspecified; F17.210 Nicotine dependence, cigarettes, uncomplicated; E66.9 Obesity, unspecified; Z68.38 Body mass index [BMI] 38.0-38.9, adult; Z95.820 Peripheral vascular angioplasty status with implants and grafts; Z79.899 Other long term (current) drug therapy; Z79.82 Long term (current) use of aspirin; Z79.02 Long term (current) use of antithrombotics/antiplatelets; Z88.5 Allergy status to narcotic agent; Z88.0 Allergy status to penicillin
CPT/HCPCS: 37227; 37252; 80048; 85025; C1894 ×2; C1769 ×5; C1714; C1753; C1874; C1725; J2250; J1644 ×2; J2001; J3010; J1170; Q9967; 37225

== ENCOUNTER → 2020-05-20 | Outpatient (CLI) | payer OTHER, MEDICARE ==
--- NOTE | 2020-05-21 17:12 | NM ---
EXAMINATION TYPE: NM hepatobiliary w EF DATE OF EXAM: 05/20/2020 COMPARISON: Abdominal ultrasound limited 01/09/2019 HISTORY: Right upper quadrant pain. TECHNIQUE: After the intravenous administration of 4.8 mCi Tc 99m Mebrofenin hepatobiliary scintigrap hy is performed. Immediate images post injection. FINDINGS: There is satisfactory initial accumulation of tracer by the liver. The gallbladder is visualized wit hin 15 minutes. The small bowel activity is noted within 30 minutes. At one hour 8 ounces of oral e nsure plus is given to mimic CCK and gallbladder ejection fraction is calculated at 49 %, in the norm al range. Therefore there is no scintigraphic evidence of cystic or common bile duct obstruction to suggest acute cholecystitis or gallbladder dyskinesia. IMPRESSION: Exam is within normal limits. No evidence of acute/chronic cholecystitis or biliary dyskinesia.
== END | disposition home or self-care (01) ==
LOC: RADNMMAIN 15:03
PROVIDERS: ATTEND Family Medicine
DX: R10.11 Right upper quadrant pain (principal)
CPT/HCPCS: 78226; A9537

== ENCOUNTER → 2020-10-26 | Outpatient (CLI) | payer OTHER, MEDICARE ==
--- NOTE | 2020-10-26 11:47 | XR ---
EXAMINATION TYPE: XR chest 2V DATE OF EXAM: 10/26/2020 COMPARISON: Chest x-ray 07/11/2018 HISTORY: Cough, R05 shortness of breath TECHNIQUE: Frontal and lateral views of the chest are obtained. FINDINGS: There is no focal air space opacity, pleural effusion, or pneumothorax seen. The cardiac silhouette size is within normal limits. The osseous structures are intact. IMPRESSION: No acute cardiopulmonary process.
== END | disposition home or self-care (01) ==
LOC: RADXRMAIN 10:19
PROVIDERS: ATTEND Family Medicine
DX: R05 Cough (principal)
CPT/HCPCS: 71046

== ENCOUNTER 2021-02-10 07:32 | Emergency (ER) | payer OTHER, MEDICARE ==
[2021-02-10] MEDS ORDERED: SODIUM CHLORIDE 0.9% 1,000 ML IV STA (07:55)
[2021-02-10] MEDS ORDERED: KETOROLAC 15 MG/ML 1 ML VIAL IVP STA (07:55)
--- NOTE | 2021-02-10 08:04 | ED ---
General Adult HPI - General Chief complaint: Back Pain/Injury Stated complaint: Abd Pain Time Seen by Provider: 02/10/21 07:35 Source: patient, RN notes reviewed, old records reviewed Mode of arrival: ambulatory Limitations: no limitations - History of Present Illness Initial comments: This is a 50-year-old female who presents emergency department with right-sided flank pain intermittently over the last 2-3 weeks. Patient states about 5:00 this morning the pain became constant and much worse. Patient states the pain radiates to her back and down into her groin a little. Patient denies any hematuria dysuria or urinary frequency. Patient denies any fever chills or cough. Patient denies any nausea vomiting diarrhea. Patient denies any chest p ain difficulty breathing shortest breath per patient denies any right upper quadrant pain. Patient states she started had an appendectomy. - Related Data Home Medications Medication Instructions Recorded Confirmed Aspirin 325 mg PO DAILY 12/11/14 02/24/20 Clopidogrel [Plavix] 75 mg PO HS 12/11/14 02/24/20 Furosemide [Lasix] 40 mg PO BID 01/05/17 02/24/20 Temazepam [Restoril] 15 mg PO HS 10/18/18 02/24/20 Atorvastatin Calcium [Lipitor] 80 mg PO HS 10/22/18 02/24/20 HYDROcodone/APAP 7.5-325MG [[place] 1 tab PO Q6HR PRN 11/14/18 02/24/20 7.5-325] DULoxetine HCL [Cymbalta] 60 mg PO HS 03/12/19 02/24/20 Gabapentin [Neurontin] 600 mg PO HS 03/12/19 02/24/20 Omeprazole [PriLOSEC] 20 mg PO BID 03/12/19 02/24/20 Spironolactone [Aldactone] 50 mg PO DAILY 03/12/19 02/24/20 Empagliflozin [Jardiance] 25 mg PO DAILY 02/21/20 02/24/20 Loratadine [Claritin] 10 mg PO DAILY 02/21/20 02/24/20 Magnesium 1,500 mg PO DAILY 02/21/20 02/24/20 Montelukast [Singulair] 10 mg PO DAILY 02/21/20 02/24/20 Topiramate [Topamax] 100 mg PO HS 02/21/20 02/24/20 hydrOXYzine pamoate [Vistaril] 10 mg PO DIRECTED PRN 02/21/20 02/21/20 Previous Rx's Medication Instructions Recorded cloNIDine HCL [Catapres] 0.1 mg PO BID #30 tab 12/22/14 Ketorolac [Toradol] 10 mg PO BID #12 tab 02/10/21 Allergies Allergy/AdvReac Type Severity Reaction Status Date / Time dronabinol [From Marinol] Allergy Severe Anaphylaxis Verified 02/10/21 07:33 lisinopril [From Prinivil] Allergy Swelling Verified 02/10/21 07:33 Penicillins Allergy Rash/Hives Verified 02/10/21 07:33 morphine AdvReac Unknown Nausea & Verified 02/10/21 07:33 Vomiting Review of Systems ROS Statement: Those systems with pertinent positive or pertinent negative responses have been documented in the HPI. ROS Other: All systems not noted in ROS Statement are negative. Past Medical History Past Medical History: Heart Failure, GERD/Reflux, Hyperlipidemia, Hypertension, Osteoarthritis (OA), Vascular Disorder Additional Past Medical History / Comment(s): right LEG PAIN with discoloration of all toes rt foot,insomnia related to pain History of Any Multi-Drug Resistant Organisms: None Reported Past Surgical History: Section, Hysterectomy, Orthopedic Surgery Additional Past Surgical History / Comment(s): LEFT KNEE SCOPE, STENTS PLACED IN LOWER LEFT GROIN AND UPPER LEFT THIGH,AORTOGRAM W/ RUNOFF OF LOWER EXT Past Anesthesia/Blood Transfusion Reactions: No Reported Reaction Past Psychological History: No Psychological Hx Reported Past Alcohol Use History: None Reported - Past Family History Sister(s) Family Medical History: Vascular Disorder Father Family Medical History: Coronary Artery Disease (CAD), Hyperlipidemia, Hy pertension, Vascular Disorder Mother Family Medical History: Cancer Additional Family Medical History / Comment(s): LUNG CA General Exam - General Exam Comments Initial Comments: GENERAL: Patient is well-developed and well-nourished. Patient is nontoxic and well- hydrated and is in mild distress. ENT: Neck is soft and supple. No significant lymphadenopathy is noted. Oropharynx is clear. Moist mucous membranes. Neck has full range of motion without eliciting any pain. EYES: The sclera were anicteric and conjunctiva were pink and moist. Extraocular movements were intact and pupils were equal round and reactive to light. Eyelids were unremarkable. PULMONARY: Unlabored respirations. Good breath sounds bilaterally. No audible rales rhonchi or wheezing was noted. CARDIOVASCULAR: There is a regular rate and rhythm without any murmurs gallops or rubs. ABDOMEN: Patient has mild right mid abdominal pain. SKIN: Skin is clear with no lesions or rashes and otherwise unremarkable. NEUROLOGIC: Patient is alert and oriented x3. Cranial nerves II through XII are grossly intact. Motor and sensory are also intact. Normal speech, volume and content. Symmetrical smile. MUSCULOSKELETAL: Normal extremities with adequate strength and full range of motion. LYMPHATICS: No significant lymphadenopathy is noted PSYCHIATRIC: Normal psychiatric evaluation. Limitations: no limitations Course Vital Signs 02/10/21 02/10/21 02/10/21 07:33 08:35 09:00 Temperature 97.5 F L Pulse Rate 82 67 Respiratory 16 18 18 Rate Blood Pressure 130/71 141/77 O2 Sat by Pulse 100 98 98 Oximetry Medical Decision Making - Medical Decision Making CT of the abdomen and pelvis shows no acute abnormality. KUB shows no acute abnormality. I will back into the room to reevaluate the patient and she was feeling better but she still felt some flank pain at this time. Patient states she follow-up with the primary medical care doctor since his been ongoing for 2-3 weeks. - Lab Data Result diagrams: 02/10/21 07:55 02/10/21 07:55 Lab Results 02/10/21 02/10/21 02/10/21 Range/Units 07:55 07:55 08:33 WBC 6.4 (3.8-10.6) k/uL RBC 4.57 (3.80-5.40) m/uL Hgb 13.8 (11.4-16.0) gm/dL Hct 41.9 (34.0-46.0) % MCV 91.8 (80.0-100.0) fL MCH 30.3 (25.0-35.0) pg MCHC 33.0 (31.0-37.0) g/dL RDW 14.2 (11.5-15.5) % Plt Count 272 (150-450) k/uL MPV 9.3 Neutrophils % 60 % Lymphocytes % 28 % Monocytes % 8 % Eosinophils % 2 % Basophils % 1 % Neutrophils # 3.9 (1.3-7.7) k/uL Lymphocytes # 1.8 (1.0-4.8) k/uL Monocytes # 0.5 (0-1.0) k/uL Eosinophils # 0.2 (0-0.7) k/uL Basophils # 0.1 (0-0.2) k/uL Sodium 138 (137-145) mmol/L Potassium 4.1 (3.5-5.1) mmol/L Chloride 110 H (98-107) mmol/L Carbon Dioxide 21 L (22-30) mmol/L Anion Gap 7 mmol/L BUN 15 (7-17) mg/dL Creatinine 0.81 (0.52-1.04) mg/dL Est GFR (CKD-EPI)AfAm >90 (>60 ml/min/1.73 sqM) Est GFR (CKD-EPI)NonAf 86 (>60 ml/min/1.73 sqM) Glucose 101 H (74-99) mg/dL Calcium 9.1 (8.4-10.2) mg/dL Total Bilirubin 0.5 (0.2-1.3) mg/dL AST 24 (14-36) U/L ALT 21 (4-34) U/L Alkaline Phosphatase 107 (38-126) U/L Total Protein 6.7 (6.3-8.2) g/dL Albumin 3.9 (3.5-5.0) g/dL Amylase 56 (30-110) U/L Lipase 146 (23-300) U/L Urine Color Yellow Urine Appearance Clear (Clear) Urine pH 6.5 (5.0-8.0) Ur Specific [place] 1.021 (1.001-1.035) Urine Protein Trace H (Negative) Urine Glucose (UA) Negative (Negative) Urine Ketones Negative (Negative) Urine Blood Negative (Negative) Urine Nitrite Negative (Negative) Urine Bilirubin Negative (Negative) Urine Urobilinogen 2.0 (<2.0) mg/dL Ur Leukocyte Esterase Negative (Negative) Disposition Clinical Impression: Flank pain Disposition: HOME SELF-CARE Condition: Good Instructions (If sedation given, give patient instructions): Flank Pain (ED) Prescriptions: Ketorolac [Toradol] 10 mg PO BID #12 tab Is patient prescribed a controlled substance at d/c from ED?: No Referrals: Pauline Vargas MD [Primary Care Provider] - 1-2 days Time of Disposition: 10:34
--- NOTE | 2021-02-10 08:50 | XR ---
EXAMINATION TYPE: XR KUB DATE OF EXAM: 02/10/2021 8:32 AM CLINICAL HISTORY: Right-sided pain. TECHNIQUE: Two Upright KUB images of the abdomen are obtained. COMPARISON: CT abdomen and pelvis November 19, 2019. FINDINGS: Scattered gas is seen in non-distended stomach and small bowel loops. Gas is seen in non-di stended colon. Postsurgical change L4-L5 level with artificial disc material. Left iliac arterial inocente nt graft and femoral stent graft redemonstrated. Slightly lower position right femoral arterial stent graft partially imaged. Left-sided pelvic surgical clips. Lung bases are clear. No free air. No susp icious calcifications. IMPRESSION: Overall nonobstructive bowel gas pattern redemonstrated.
[2021-02-10 08:57] VITALS: RESP 18
[2021-02-10 09:12] LABS: Basophils # (A) 0.1 k/uL (0-0.2); Basophils % (A) 1 %; Eosinophils # (A) 0.2 k/uL (0-0.7); Eosinophils % (A) 2 %; HCT 41.9 % (34.0-46.0); HGB 13.8 gm/dL (11.4-16.0); Lymphocytes # (A) 1.8 k/uL (1.0-4.8); Lymphocytes % (A) 28 %; MCH 30.3 pg (25.0-35.0); MCV 91.8 fL (80.0-100.0); Mean Platelet Volume 9.3; Monocytes # (A) 0.5 k/uL (0-1.0); Monocytes % (A) 8 %; Neutrophils # (A) 3.9 k/uL (1.3-7.7); Neutrophils % (A) 60 %; Platelet Count 272 k/uL (150-450); RBC 4.57 m/uL (3.80-5.40); RDW 14.2 % (11.5-15.5); WBC 6.4 k/uL (3.8-10.6)
[2021-02-10 09:21] LABS: Appearance,Urine Clear (Clear); Bilirubin,Urine Negative (Negative); Blood,Urine Negative (Negative); Color,Urine Yellow; Glucose,Urine (UA) Negative (Negative); Ketones,Urine Negative (Negative); Leukocyte Esterase,Urine Negative (Negative); Nitrite,Urine Negative (Negative); PH, Urine 6.5 (5.0-8.0); Protein,Urine Trace (Negative); Specific Gravity,Urine 1.021 (1.001-1.035)
[2021-02-10 09:23] LABS: ALT 21 U/L (4-34); AST 24 U/L (14-36); African American GFR (CKD) >90 (>60 ml/min/1.73 sqM); Albumin 3.9 g/dL (3.5-5.0); Alkaline Phosphatase 107 U/L (38-126); Amylase 56 U/L (30-110); Anion Gap 7 mmol/L; Blood Urea Nitrogen 15 mg/dL (7-17); Calcium 9.1 mg/dL (8.4-10.2); Carbon Dioxide 21 mmol/L (22-30); Chloride 110 mmol/L (98-107); Glucose 101 mg/dL (74-99); Lipase 146 U/L (23-300); Non-African American GFR(CKD) 86 (>60 ml/min/1.73 sqM); Potassium 4.1 mmol/L (3.5-5.1); Sodium 138 mmol/L (137-145); Total Bilirubin 0.5 mg/dL (0.2-1.3); Total Protein 6.7 g/dL (6.3-8.2)
[2021-02-10] MEDS ORDERED: HYDROmorphone 0.5 MG/0.5 ML SYRINGE IVP STA (09:41)
--- NOTE | 2021-02-10 10:20 | CT ---
EXAMINATION TYPE: CT abdomen pelvis w con DATE OF EXAM: 02/10/2021 HISTORY: Generalized abdominal and flank pain. CT DLP: 1663.4mGycm Automated Exposure Control for Dose Reduction was Utilized. CONTRAST: CT scan of the abdomen and pelvis is performed without oral but with IV Contrast, patient injected wi th 100 mL of Isovue 300. COMPARISON: CT abdomen and pelvis November 19, 2019 FINDINGS: LUNG BASES: No significant abnormality is appreciated. LIVER/GB: Visualized liver is heterogeneously hypodense consistent with mild diffuse fatty infiltrati on. PANCREAS: No significant abnormality is seen. SPLEEN: No significant abnormality is seen. ADRENALS: Stable 1.5 cm left adrenal mass not significantly changed from studies back through 2009 is presumed benign. KIDNEYS: Symmetric cortical medullary uptake and excretion without hydronephrosis seen bilaterally. BOWEL: Suboptimal evaluation without enteric contrast. Stomach poorly distended and thus suboptimally evaluated. No suspicious small or large bowel dilatation. Sutures from appendectomy at base of cecum . UTERUS/ADNEXA: Uterus is surgically absent. LYMPH NODES: No greater than 1cm abdominal or pelvic lymph nodes are appreciated. OSSEOUS STRUCTURES: Posterior intrapedicular rods and screws with metallic disc material L4-L5 level redemonstrated. OTHER: Stent graft in the left common iliac artery redemonstrated. Suggestion of new intraluminal thr ombus with hypodense areas proximal stent for reference coronal image 55, correlate clinically. Persi stent stent graft left groin region appears patent. Partial visualization of right stent graft right proximal leg just below groin region. IMPRESSION: No renal stones or hydronephrosis seen bilaterally. No bowel obstruction. No suspicious n ew or acute findings. Cannot exclude interval development of stenosis or narrowing in the proximal le ft common iliac arterial stent. Need to further investigate by direct catheter angiogram should be ba sed on clinical correlation
[2021-02-10 10:45] VITALS: BP 149/78; PULSE 64; TEMP 97.6
== END 2021-02-10 10:45 | disposition home or self-care (01) ==
LOC: EC 07:32
DX: R10.9 Unspecified abdominal pain (principal); I11.0 Hypertensive heart disease with heart failure; I50.9 Heart failure, unspecified; E78.5 Hyperlipidemia, unspecified; K21.9 Gastro-esophageal reflux disease without esophagitis; M19.90 Unspecified osteoarthritis, unspecified site; Z88.0 Allergy status to penicillin; Z79.82 Long term (current) use of aspirin; Z79.899 Other long term (current) drug therapy
CPT/HCPCS: 36415; 80053; 82150; 83690; 85025; 81003; 74018; 74177; 99284; 96374; 96375; 96361; J1885; J1170

== ENCOUNTER 2021-05-07 07:32 | Day surgery (SDC) | payer OTHER, MEDICARE ==
[2021-05-05 15:38] VITALS: BMI 34.7
[~2021-05-07 07:32] MED LIST changes: +ALPRAZolam 0.5 MG TAB PO PRN; -ASPIRIN 325 MG TAB PO ONE; +ASPIRIN 325 MG TAB PO PRN; +HEPARIN SODIUM,PORCINE 10,000 UNIT in SODIUM CHLORIDE 0.9% 1,000 ML IRRIGATION PRN; +HEPARIN SODIUM,PORCINE 2,500 UNIT in SODIUM CHLORIDE 0.9% 250 ML IRRIGATION PRN; +SODIUM CHLORIDE 0.9% 1,000 ML in EMPTY BAG 1 BAG IV ONE; +ZOLPIDEM 5 MG TAB PO PRN
[2021-05-07] MEDS ORDERED: ASPIRIN 81 MG ONE (08:03)
[2021-05-07 08:09] VITALS: RESP 18; TEMP 98.1
[2021-05-07 08:25] LABS: Basophils % (A) 1 %; Eosinophils # (A) 0.1 k/uL (0-0.7); Eosinophils % (A) 1 %; HCT 43.7 % (34.0-46.0); HGB 14.7 gm/dL (11.4-16.0); Lymphocytes # (A) 1.4 k/uL (1.0-4.8); Lymphocytes % (A) 20 %; MCH 31.1 pg (25.0-35.0); MCHC 33.6 g/dL (31.0-37.0); MCV 92.7 fL (80.0-100.0); Mean Platelet Volume 7.8; Monocytes # (A) 0.4 k/uL (0-1.0); Monocytes % (A) 5 %; Neutrophils # (A) 4.9 k/uL (1.3-7.7); Neutrophils % (A) 71 %; Platelet Count 275 k/uL (150-450); RBC 4.71 m/uL (3.80-5.40); RDW 13.7 % (11.5-15.5); WBC 6.8 k/uL (3.8-10.6)
[2021-05-07 08:36] LABS: Calcium 9.6 mg/dL (8.4-10.2)
[2021-05-07 08:38] LABS: Potassium 3.8 mmol/L (3.5-5.1)
[2021-05-07] MEDS ORDERED: LIDOCAINE 1% INJ 10MG/ML (20 ML MDV) SQ ONE (09:14)
[2021-05-07] MEDS ORDERED: MIDAZOLAM 2 MG/2 ML VIAL IV ONE (09:14)
[2021-05-07] MEDS: fentaNYL (PF) 50 MCG/ML 2 ML AMP IV ONE ×2 (09:21→09:25)
[2021-05-07] MEDS ORDERED: IOPAMIDOL-250 100ML BTL INTRAARTER ONE (09:26)
[2021-05-07] MEDS ORDERED: SODIUM CHLORIDE 0.9% 1,000 ML IV SCH (09:45)
--- NOTE | 2021-05-07 10:02 | IR ---
EXAMINATION TYPE: IR angio abdominal w runoff DATE OF EXAM: 05/07/2021 COMPARISON: NONE HISTORY: Fluoroscopy time. Fluoroscopy was provided to the referring clinician.
[2021-05-07] MEDS ORDERED: HYDROmorphone 1 MG/ML 1 ML SYRINGE ONE (13:13)
[2021-05-07] MEDS ORDERED: HYDROmorphone 1 MG/ML 1 ML SYRINGE IVP STA (13:15)
[2021-05-07 15:28] VITALS: BP 132/66; PULSE 68
--- NOTE | 2021-05-07 22:04 | AN ---
ANGIOGRAPHY REPORT DATE OF SERVICE: May 07, 2021 PROCEDURE PERFORMED: 1. Abdominal aortogram. 2. Bilateral lower extremities runoff. 3. An ultrasound guided access of the right common femoral artery. INDICATION: Right lower extremity intermittent claudication in this lady who is known to have peripheral arterial disease and prior angioplasty in the past. She also underwent lower extremities arterial duplex study and that showed the lesion in the right SFA. APPROACH: Left common femoral artery. COMPLICATION: None. LEVEL OF SEDATION: Moderate with sedation length of 15 minutes. PROCEDURE DESCRIPTION: After obtaining informed consent, the patient was brought to the cardiac lab rep. The left common femoral artery was cannulated using micropuncture technique under ultrasound guidance, the micropuncture wire passed easily. Then I placed a 5-K[place] sheath in the left common femoral artery. After that an abdominal aortogram and bilateral lower extremities runoff was performed using 5-Kosovan pigtail catheter which was initially placed at the level of the renal arteries. Then it was pulled back into above the bifurcation of the aorta into right and left common iliac arteries. The procedure was completed without any complication. SELECTIVE PERIPHERAL ANGIOGRAM: 1. The aorta appeared to be angiographically normal. 2. The common iliac arteries: The right and left common iliac arteries are angiographically normal. The left common iliac artery is stented and seems to be patent. 3. Internal iliac arteries: Both appeared to be angiographically normal. 4. External iliac arteries: The right external iliac artery appeared to be angiographically normal and the left external iliac artery is stented and the stent is patent. 5. Common femoral arteries: Both appeared to be angiographically normal. 6. Profunda both appeared to be angiographically normal. 7. SFA: The right SFA has severe in-stent restenosis, appeared to be in the range of 80% to 90%. 8. Popliteal: Both appeared to be angiographically normal. 9. Below the knee: There are 3 vessels runoff below the knee bilaterally. CONCLUSION: Severe in-stent restenosis involving the right SFA. POSTPROCEDURE MANAGEMENT: 1. The patient will be scheduled to undergo a POLE FRAME CONSTRUCTION WORKER of the right SFA. 2. Follow up with the patient. MMHESHAM / ZAKI: [id number] /
== END 2021-05-07 16:05 | disposition home or self-care (01) ==
LOC: CATHCVL 07:32
PROVIDERS: ATTEND Internal Medicine Interventional Cardiology
DX: I73.9 Peripheral vascular disease, unspecified (principal)
CPT/HCPCS: 36200; 75625; 75716; 76937; 80048; 85025; J2250; J2001; J3010; J1170; Q9966

== ENCOUNTER 2021-05-26 09:30 | Day surgery (SDC) | payer OTHER, MEDICARE ==
[2021-05-24 12:45] VITALS: BMI 34.7
[2021-05-26 09:56] LABS: Glucose,Whole Blood 97 mg/dL (75-99)
[2021-05-26 09:57] VITALS: TEMP 98
[2021-05-26 10:14] LABS: Basophils % (A) 0 %; Eosinophils # (A) 0.2 k/uL (0-0.7); Eosinophils % (A) 2 %; HCT 44.6 % (34.0-46.0); Lymphocytes # (A) 1.3 k/uL (1.0-4.8); Lymphocytes % (A) 18 %; MCH 31.4 pg (25.0-35.0); MCHC 33.5 g/dL (31.0-37.0); MCV 93.8 fL (80.0-100.0); Mean Platelet Volume 8.5; Monocytes # (A) 0.4 k/uL (0-1.0); Monocytes % (A) 5 %; Neutrophils # (A) 5.2 k/uL (1.3-7.7); Neutrophils % (A) 73 %; Platelet Count 237 k/uL (150-450); RBC 4.75 m/uL (3.80-5.40); RDW 14.4 % (11.5-15.5); WBC 7.2 k/uL (3.8-10.6)
[2021-05-26] MEDS ORDERED: SODIUM CHLORIDE 0.9% 500 ML 500 ML with niCARdipine 6.25 MG, NITROGLYCERIN-D5W PMX 0.05... IV ONE ×8 (10:16→10:18)
[2021-05-26 10:28] LABS: Calcium 9.3 mg/dL (8.4-10.2); Potassium 3.5 mmol/L (3.5-5.1)
[2021-05-26] MEDS ORDERED: LIDOCAINE 1% INJ 10MG/ML (20 ML MDV) ONE ×2 (10:31→11:20)
[2021-05-26] MEDS ORDERED: niCARdipine 25 MG/10 ML VIAL ONE (10:49)
[2021-05-26] MEDS ORDERED: HEPARIN SODIUM 1,000 UN/ML (10ML VL) ONE (10:51)
[2021-05-26] MEDS ORDERED: MIDAZOLAM 2 MG/2 ML VIAL IV ONE (10:57)
[2021-05-26] MEDS ORDERED: HYDROmorphone 1 MG/ML 1 ML SYRINGE IVP ONE (11:06)
[2021-05-26] MEDS ORDERED: LIDOCAINE 1% INJ 10MG/ML (20 ML MDV) SQ ONE ×3 (11:06→11:21)
[2021-05-26] MEDS ORDERED: fentaNYL (PF) 50 MCG/ML 2 ML AMP ONE (11:24)
[2021-05-26] MEDS: fentaNYL (PF) 50 MCG/ML 2 ML AMP IV ONE ×3 (11:25→11:50)
[2021-05-26] MEDS ORDERED: CLOPIDOGREL 75 MG TAB ONE (11:50)
[2021-05-26] MEDS ORDERED: CLOPIDOGREL 75 MG TAB PO ONE (12:03)
[2021-05-26] MEDS ORDERED: IOPAMIDOL-250 100ML BTL INTRAARTER ONE (12:04)
[2021-05-26] MEDS ORDERED: HYDROcodone/APAP 7.5-325MG 1 EACH TAB PO PRN (12:13)
[2021-05-26] MEDS ORDERED: SODIUM CHLORIDE 0.9% 1,000 ML IV SCH (12:15)
--- NOTE | 2021-05-26 12:42 | LTR ---
DATE OF SERVICE: 05/26/2021 Dear Yaneth: Ms. Shelly Preston underwent today successful angioplasty of the right femoral artery with an excellent angiographic results and without any complication. I want to thank you for allowing me to participate in her care and please do not hesitate to call if any questions or concerns. Sincerely, MD SHARRI Belle / JOSIEN: [id number] /
--- NOTE | 2021-05-26 12:50 | AN ---
ANGIOGRAPHY REPORT DATE OF SERVICE: May 26, 2021. PERFORMING PHYSICIAN: Mahad Stafford MD. PROCEDURE PERFORMED: 1. Atherectomy of the right SFA using the HawkOne device. 2. Intravascular ultrasound (IVUS) of the right SFA. 3. Successful balloon angioplasty of the right SFA using 5 x 250 mm Impact drug coated balloon with an excellent angiographic results. 4. Selective angiogram of the right anterior tibial as well as right popliteal and right SFA. 5. Ultrasound-guided access of the right anterior tibial artery. INDICATION: This is a very pleasant 50-year-old female patient with known history of peripheral arterial disease and prior intervention on the right SFA, who was experiencing right leg intermittent claudication interfering with her daily activities. She underwent an angiogram and that revealed 2 tight lesions involving the right SFA. Because of that, she was brought today to undergo an intervention. APPROACH: Right anterior tibial artery. COMPLICATION: None. LEVEL OF SEDATION: Moderate with sedation length of 56 minutes. PROCEDURE DESCRIPTION: After obtaining an informed consent, the patient was brought to the cardiac stores laborer. The right anterior tibial artery was cannulated using micropuncture technique under ultrasound guidance, the micropuncture wire passed easily then I placed a slender 5/6- [place] sheath in the right anterior tibial artery. After that I did start the continuous infusion of cocktail includes verapamil and nitroglycerin as well as heparin continuously through the side-arm of the sheath. After that, I did wire the right SFA using a [address] wire, where the wire was advanced all the way to the right iliac artery. After that I did intravascular ultrasound (IVUS) of the right SFA which I was able to identify the 2 lesions and the diameter of the SFA which about 6 mm. Subsequently I did atherectomy of the right SFA using the Hawk device with extraction of some plaque. After that balloon angioplasty was performed and was achieved using initially 6 mm x 30 mm regular balloon and subsequently 5 x 250 mm drug-coated balloon. The following angiogram showed excellent angiographic results and the procedure was completed without any complication. POSTPROCEDURE MANAGEMENT: 1. Dual anti-platelet therapy. 2. Aggressive cholesterol control. 3. Risk factor modifications. 4. Follow up with the patient. MMODL / IJN: [id number] /
[2021-05-26 13:44] VITALS: RESP 16
--- NOTE | 2021-05-26 14:04 | IR ---
EXAMINATION TYPE: IR guest experience captain femoral popliteal DATE OF EXAM: 05/26/2021 COMPARISON: NONE HISTORY: Fluoroscopy time. Fluoroscopy was provided to the referring clinician.
[2021-05-26 16:35] VITALS: BP 114/56; PULSE 69
[2021-05-26] MEDS ORDERED: NON FORMULARY DRUG (Topiramate [Topamax] 50 MG Tablet) PO SCH (21:00)
[2021-05-26] MEDS ORDERED: NON FORMULARY DRUG (Omeprazole 20 MG Capsule.Dr) PO SCH (21:00)
[2021-05-26] MEDS ORDERED: ATORVASTATIN 80 MG TAB PO SCH (21:00)
[2021-05-26] MEDS ORDERED: DULoxetine HCL 30 MG CAPSULE.DR PO SCH (21:00)
[2021-05-26] MEDS ORDERED: NON FORMULARY DRUG (Suvorexant [Belsomra] 10 MG Tablet) PO SCH (21:00)
[2021-05-26] MEDS ORDERED: FUROSEMIDE 20 MG TAB PO SCH (21:00)
[2021-05-26] MEDS ORDERED: cloNIDine HCL 0.1 MG TAB PO SCH (21:00)
[2021-05-27] MEDS ORDERED: CLOPIDOGREL 75 MG TAB PO SCH (09:00)
[2021-05-27] MEDS ORDERED: NON FORMULARY DRUG (Aspirin [Adult Low Dose Aspirin Ec] 81 MG Tablet.Dr) PO SCH (09:00)
[2021-05-27] MEDS ORDERED: MONTELUKAST 10 MG TAB PO SCH (09:00)
[2021-05-27] MEDS ORDERED: NON FORMULARY DRUG (Empagliflozin [Jardiance] 25 MG Tablet) PO SCH (09:00)
[2021-05-27] MEDS ORDERED: NON FORMULARY DRUG (Spironolactone [Aldactone] 50 MG Tablet) PO SCH (09:00)
[2021-05-27] MEDS ORDERED: NON FORMULARY DRUG (Topiramate [Topamax] 50 MG Tablet) PO SCH (09:00)
[2021-05-27] MEDS ORDERED: NON FORMULARY DRUG (Magnesium [Magnesium] 250 MG Tablet) PO SCH (09:00)
[2021-05-27] MEDS ORDERED: LORATADINE 10 MG TAB PO SCH (09:00)
== END 2021-05-26 17:15 | disposition home or self-care (01) ==
LOC: CATHCVL 09:30
PROVIDERS: ATTEND Internal Medicine Interventional Cardiology
DX: I70.211 Atherosclerosis of native arteries of extremities with intermittent claudication, right leg (principal); I10 Essential (primary) hypertension; E78.5 Hyperlipidemia, unspecified; F17.210 Nicotine dependence, cigarettes, uncomplicated; I65.23 Occlusion and stenosis of bilateral carotid arteries; Z95.828 Presence of other vascular implants and grafts
CPT/HCPCS: 37225; 37252; 80048; 85025; C1894; C1769 ×4; C1714; C1753; C1725; C2623; J2250; J2001; J3010; J1170; J1644 ×2; Q9966

== ENCOUNTER 2021-08-04 09:06 | Emergency (ER) | payer OTHER, MEDICARE ==
[2021-08-04 09:14] VITALS: BP 112/78; TEMP 97
[2021-08-04 10:59] LABS: Basophils % (A) 1 %; Eosinophils # (A) 0.1 k/uL (0-0.7); Eosinophils % (A) 2 %; HCT 44.9 % (34.0-46.0); HGB 14.5 gm/dL (11.4-16.0); Lymphocytes # (A) 1.8 k/uL (1.0-4.8); Lymphocytes % (A) 25 %; MCH 30.5 pg (25.0-35.0); MCHC 32.4 g/dL (31.0-37.0); MCV 94.1 fL (80.0-100.0); Mean Platelet Volume 8.2; Monocytes # (A) 0.4 k/uL (0-1.0); Monocytes % (A) 5 %; Neutrophils # (A) 4.8 k/uL (1.3-7.7); Neutrophils % (A) 66 %; Platelet Count 253 k/uL (150-450); RBC 4.77 m/uL (3.80-5.40); RDW 13.5 % (11.5-15.5); WBC 7.2 k/uL (3.8-10.6)
[2021-08-04 11:13] LABS: Albumin 4.4 g/dL (3.5-5.0); Calcium 9.4 mg/dL (8.4-10.2); Total Bilirubin 0.6 mg/dL (0.2-1.3); Total Protein 7.4 g/dL (6.3-8.2)
--- NOTE | 2021-08-04 11:15 | ED ---
General Adult HPI - General Chief complaint: Extremity Injury, Lower Stated complaint: right leg pain Time Seen by Provider: 08/04/21 09:25 Source: patient, RN notes reviewed Mode of arrival: ambulatory Limitations: no limitations - History of Present Illness Initial comments: 50-year-old female presents to the emergency room for right leg pain. Patient has had pain from the knee to the foot ever since she had surgery on the leg. Patient states Dr. Stafford went through her ankle and cleaned out stent in her thigh. Patient states that she did follow up with him and had an ultrasound done and it showed maybe some small blood clots that she was started on Eliquis. Patient states that did not seem to help with her pain and it is continuing. Patient would like a CAT scan of the leg.Patient has no other complaints at this time including shortness of breath, chest pain, abdominal pain, nausea or vomiting, headache, or visual changes. - Related Data Home Medications Medication Instructions Recorded Confirmed Clopidogrel [Plavix] 75 mg PO QAM 12/11/14 05/26/21 Furosemide [Lasix] 40 mg PO BID 01/05/17 05/26/21 Atorvastatin Calcium [Lipitor] 80 mg PO HS 10/22/18 05/26/21 HYDROcodone/APAP 7.5-325MG [[place] 1 tab PO Q8HR PRN 11/14/18 05/26/21 7.5-325] DULoxetine HCL [Cymbalta] 60 mg PO BID 03/12/19 05/26/21 Omeprazole [PriLOSEC] 20 mg PO BID 03/12/19 05/26/21 Spironolactone [Aldactone] 50 mg PO DAILY 03/12/19 05/26/21 Empagliflozin [Jardiance] 25 mg PO DAILY 02/21/20 05/26/21 Loratadine [Claritin] 10 mg PO DAILY 02/21/20 05/26/21 Magnesium 1,500 mg PO DAILY 02/21/20 05/26/21 Montelukast [Singulair] 10 mg PO DAILY 02/21/20 05/26/21 Topiramate [Topamax] 100 mg PO HS 02/21/20 05/26/21 Aspirin [Adult Low Dose Aspirin EC] 81 mg PO DAILY 05/05/21 05/26/21 Suvorexant [Belsomra] 10 mg PO HS 05/05/21 05/26/21 Topiramate [Topamax] 50 mg PO QAM 05/05/21 05/26/21 Previous Rx's Medication Instructions Recorded cloNIDine HCL [Catapres] 0.1 mg PO BID #30 tab 12/22/14 Allergies Allergy/AdvReac Type Severity Reaction Status Date / Time dronabinol [From Marinol] Allergy Severe Anaphylaxis Verified 08/04/21 09:11 lisinopril [From Prinivil] Allergy Swelling Verified 08/04/21 09:11 Penicillins Allergy Rash/Hives Verified 08/04/21 09:11 morphine AdvReac Unknown Nausea & Verified 08/04/21 09:11 Vomiting Review of Systems ROS Statement: Those systems with pertinent positive or pertinent negative responses have been documented in the HPI. ROS Other: All systems not noted in ROS Statement are negative. Past Medical History Past Medical History: Coronary Artery Disease (CAD), Heart Failure, Diabetes Mellitus, GERD/Reflux, Hyperlipidemia, Hypertension, Osteoarthritis (OA), Vascular Disorder Additional Past Medical History / Comment(s): right LEG PAIN with discoloration of all toes rt foot, insomnia related to pain, migraines, edema everardo ankles, hx ulcer History of Any Multi-Drug Resistant Organisms: None Reported Past Surgical History: Section, Hysterectomy, Orthopedic Surgery Additional Past Surgical History / Comment(s): LEFT KNEE arthroscopy, STENTS PLACED IN LOWER LEFT GROIN AND UPPER LEFT THIGH, AORTOGRAM W/ RUNOFF OF LOWER EXT Past Anesthesia/Blood Transfusion Reactions: No Reported Reaction Past Psychological History: Anxiety, Depression Smoking Status: Current every day smoker Past Alcohol Use History: None Reported Past Drug Use History: None Reported - Past Family History Sister(s) Family Medical History: Vascular Disorder Mother Family Medical History: Cancer Additional Family Medical History / Comment(s): LUNG CA General Exam Limitations: no limitations General appearance: alert, in no apparent distress Head exam: Present: atraumatic Eye exam: Present: normal appearance, PERRL, EOMI. Absent: scleral icterus, conjunctival injection ENT exam: Present: normal exam, mucous membranes moist Neck exam: Present: normal inspection, full ROM. Absent: tenderness Respiratory exam: Present: normal lung sounds bilaterally. Absent: respiratory distress, wheezes Cardiovascular Exam: Present: regular rate, normal rhythm, normal heart sounds Extremities exam: Present: normal capillary refill (Capillary refill less than 2 seconds, DP Doppler signals positive on right lower extremity). Absent: full ROM (Full range of motion of the right leg), calf tenderness, other (No edema or erythema of the right leg) Neurological exam: Present: alert Course Vital Signs 08/04/21 09:11 Temperature 97 F L Pulse Rate 87 Respiratory 18 Rate Blood Pressure 112/78 O2 Sat by Pulse 98 Oximetry Medical Decision Making - Medical Decision Making CT right lower extremity with contrast shows superficial femoral artery bypass which appears patent. Popliteal artery trifurcation and vessels appear patent. Left-sided common femoral stent noted to be in place. Ultrasound shows no evidence of DVT at this time. At this time patient is stable for outpatient management. She will follow up with her doctor in one to 2 days. She will return here for any worsening symptoms. - Lab Data Result diagrams: 08/04/21 10:47 08/04/21 10:47 Lab Results 08/04/21 08/04/21 Range/Units 10:47 10:47 WBC 7.2 (3.8-10.6) k/uL RBC 4.77 (3.80-5.40) m/uL Hgb 14.5 (11.4-16.0) gm/dL Hct 44.9 (34.0-46.0) % MCV 94.1 (80.0-100.0) fL MCH 30.5 (25.0-35.0) pg MCHC 32.4 (31.0-37.0) g/dL RDW 13.5 (11.5-15.5) % Plt Count 253 (150-450) k/uL MPV 8.2 Neutrophils % 66 % Lymphocytes % 25 % Monocytes % 5 % Eosinophils % 2 % Basophils % 1 % Neutrophils # 4.8 (1.3-7.7) k/uL Lymphocytes # 1.8 (1.0-4.8) k/uL Monocytes # 0.4 (0-1.0) k/uL Eosinophils # 0.1 (0-0.7) k/uL Basophils # 0.0 (0-0.2) k/uL Sodium 137 (137-145) mmol/L Potassium 4.7 (3.5-5.1) mmol/L Chloride 106 (98-107) mmol/L Carbon Dioxide 20 L (22-30) mmol/L Anion Gap 11 mmol/L BUN 11 (7-17) mg/dL Creatinine 0.90 (0.52-1.04) mg/dL Est GFR (CKD-EPI)AfAm 87 (>60 ml/min/1.73 sqM) Est GFR (CKD-EPI)NonAf 75 (>60 ml/min/1.73 sqM) Glucose 98 (74-99) mg/dL Calcium 9.4 (8.4-10.2) mg/dL Total Bilirubin 0.6 (0.2-1.3) mg/dL AST 31 (14-36) U/L ALT 25 (4-34) U/L Alkaline Phosphatase 123 (38-126) U/L Total Protein 7.4 (6.3-8.2) g/dL Albumin 4.4 (3.5-5.0) g/dL Disposition Clinical Impression: Leg pain Disposition: HOME SELF-CARE Condition: Good Instructions (If sedation given, give patient instructions): Leg Pain (ED) Additional Instructions: Please continue to take her pain medications at home. Follow-up with primary care or orthopedics. Return to the emergency room for any worsening symptoms. Is patient prescribed a controlled substance at d/c from ED?: No Referrals: Pauline Vargas MD [Primary Care Provider] - 1-2 days Patricia Alex DO [Doctor of Osteopathic Medicine] - 1-2 days Time of Disposition: 13:30
[2021-08-04 11:33] LABS: Potassium 4.7 mmol/L (3.5-5.1)
--- NOTE | 2021-08-04 12:08 | US ---
EXAMINATION TYPE: US venous doppler duplex LE RT DATE OF EXAM: 08/04/2021 11:35 AM COMPARISON: NONE CLINICAL HISTORY: pain. right leg pain. patient on blood thinner for 2 weeks. history of arterial dis ease SIDE PERFORMED: right TECHNIQUE: The lower extremity deep venous system is examined utilizing real time linear array sonog theodora with graded compression, doppler sonography and color-flow sonography. VESSELS IMAGED: Common Femoral Vein Deep Femoral Vein Greater Saphenous Vein * Femoral Vein Popliteal Vein Small Saphenous Vein * Proximal Calf Veins (* superficial vessels) Right Leg: no evidence of DVT as visualized IMPRESSION: No evidence of DVT at this time.
--- NOTE | 2021-08-04 13:09 | CT ---
EXAMINATION TYPE: CT lower extremity RT w con DATE OF EXAM: 08/04/2021 COMPARISON: None HISTORY: right lower leg pain, knee down CT DLP: 1084.6 mGycm Automated exposure control for dose reduction was used. CONTRAST: Performed with IV Contrast, patient injected with 100 mL of Isovue 370. FINDINGS: There is right lower extremity superficial femoral artery bypass graft which appears patent. Poplitea l artery, trifurcation and calf vessels appear patent. There is a left-sided common femoral stent not ed to be in place. Osseous structures are intact without evidence for fracture, dislocation or intraosseous mass. No sof t tissue abnormalities are seen. No intramuscular mass. No fluid collections evident. No obvious infl ammatory change. IMPRESSION: POSTOPERATIVE CHANGES WITHOUT SIGNIFICANT ABNORMALITY APPRECIATED.
[2021-08-04] MEDS ORDERED: MORPHINE SULFATE 4 MG/ML SYRINGE IVP STA (13:38)
[2021-08-04 14:24] VITALS: PULSE 76; RESP 16
== END 2021-08-04 14:25 | disposition home or self-care (01) ==
LOC: EC 09:06
DX: M79.661 Pain in right lower leg (principal); E11.9 Type 2 diabetes mellitus without complications; I11.0 Hypertensive heart disease with heart failure; I50.9 Heart failure, unspecified; I25.10 Atherosclerotic heart disease of native coronary artery without angina pectoris; K21.9 Gastro-esophageal reflux disease without esophagitis; E78.5 Hyperlipidemia, unspecified; M19.90 Unspecified osteoarthritis, unspecified site; F32.9 Major depressive disorder, single episode, unspecified; F41.9 Anxiety disorder, unspecified; F17.200 Nicotine dependence, unspecified, uncomplicated; Z79.02 Long term (current) use of antithrombotics/antiplatelets; Z79.84 Long term (current) use of oral hypoglycemic drugs; Z79.82 Long term (current) use of aspirin; Z79.52 Long term (current) use of systemic steroids; Z79.899 Other long term (current) drug therapy; Z88.0 Allergy status to penicillin; Z88.6 Allergy status to analgesic agent; Z88.8 Allergy status to other drugs, medicaments and biological substances
CPT/HCPCS: 36415; 80053; 85025; 93971; 73701; 99284; Q9967

== ENCOUNTER → 2022-01-20 | Outpatient (CLI) | payer OTHER, MEDICARE ==
--- NOTE | 2022-01-20 22:45 | CT ---
EXAMINATION TYPE: CT abdomen pelvis w con CT DLP: 1719 mGycm, Automated exposure control for dose reduction was used. DATE OF EXAM: 01/20/2022 6:23 PM COMPARISON: CT abdomen pelvis most recent from 02/10/2021. CLINICAL INDICATION:Female, 51 years old with history of R10.9 Abd pain, R10.32 LLQ abd pain; RLQ nati n, hx of scarring. Ordering physician requesting comparison to old CT for possible scar tissue mass f rom previous hysterectomy TECHNIQUE: Standard CT of the abdomen and pelvis following the administration of 100 cc of Isovue 3 00 IV contrast material and oral contrast. Coronal and sagittal reformats were performed. FINDINGS: LOWER CHEST: Unremarkable ABDOMEN LIVER: Unremarkable GALLBLADDER AND BILE DUCTS: Unremarkable. PANCREAS: Unremarkable. SPLEEN: Unremarkable. ADRENAL GLANDS: Left adrenal nodule measuring 22 x 20 mm indeterminate density. KIDNEYS AND URETERS: No evidence of hydronephrosis or renal calculus. The ureters are unremarkable. PELVIS BLADDER: Unremarkable REPRODUCTIVE: Surgical clips are seen within the pelvis. The uterus is surgically absent. ABDOMEN & PELVIS STOMACH AND BOWEL: No evidence of bowel obstruction. PERITONEUM: No evidence of pneumoperitoneum or free fluid. VASCULATURE: No evidence of aortic aneurysm. Bilateral lower extremities stent grafts. Left common il iac artery and left superficial femoral artery stents are patent. Evaluation for patency is slightly limited due to blooming artifact involving the right superficial femoral artery. MUSCULOSKELETAL: No acute osseous abnormalities. Fixation hardware seen at L4-L5 with discectomy cage at L4-L5. Hardware appears intact. No evidence for loosening. L2 vertebral body bony island. LYMPH NODES: No gross evidence for lymphadenopathy. SOFT TISSUE/ABDOMINAL WALL: Unremarkable IMPRESSION: 1. No evidence for acute abdominal process to explain the patient's pain. No significant scarring and /or mass from prior hysterectomy. 2. Multiple stent grafts, on the left which appear patent involving the common left iliac artery and superficial iliac artery. Suboptimal evaluation secondary to blooming of the right superficial femora l vein graft. 3. Left adrenal nodule which is unchanged from at least 2019 and may be minimally larger from 2015. T his favored to represent a benign adrenal adenoma.
== END | disposition home or self-care (01) ==
LOC: RADCTMAIN 15:43
PROVIDERS: ATTEND Family Medicine
DX: E27.8 Other specified disorders of adrenal gland (principal); Z90.710 Acquired absence of both cervix and uterus; Z95.828 Presence of other vascular implants and grafts
CPT/HCPCS: 74177; Q9967

== ENCOUNTER 2022-05-06 06:24 | Day surgery (SDC) | payer OTHER, MEDICARE ==
[2022-05-04 14:24] VITALS: BMI 32.1
[2022-05-06] MEDS ORDERED: ZOLPIDEM 5 MG TAB PO PRN (06:29)
[2022-05-06] MEDS ORDERED: ASPIRIN 325 MG TAB PO PRN (06:29)
[2022-05-06] MEDS ORDERED: HEPARIN SODIUM,PORCINE 2,500 UNIT in SODIUM CHLORIDE 0.9% 250 ML IRRIGATION PRN (06:29)
[2022-05-06] MEDS ORDERED: ALPRAZolam 0.25 MG TAB PO PRN (06:29)
[2022-05-06] MEDS ORDERED: SODIUM CHLORIDE 0.9% 1,000 ML in EMPTY BAG 1 BAG IV ONE (06:29)
[2022-05-06] MEDS ORDERED: HEPARIN SODIUM,PORCINE 10,000 UNIT in SODIUM CHLORIDE 0.9% 1,000 ML IRRIGATION PRN (06:29)
[2022-05-06] MEDS ORDERED: SODIUM CHLORIDE 0.9% 1,000 ML IV ONE (06:44)
[2022-05-06 07:04] VITALS: TEMP 98
[2022-05-06 07:04] LABS: Glucose,Whole Blood 104 mg/dL (70-110)
[2022-05-06] MEDS ORDERED: HYDROcodone/APAP 7.5-325MG 1 EACH TAB ONE (07:05)
[2022-05-06] MEDS ORDERED: LIDOCAINE 1% INJ 10MG/ML (30 ML VIAL-PF) SQ ONE ×2 (07:45→07:51)
[2022-05-06] MEDS ORDERED: MIDAZOLAM 2 MG/2 ML VIAL IV ONE ×2 (07:45→07:51)
[2022-05-06] MEDS ORDERED: HYDROmorphone 1 MG/ML 1 ML SYRINGE IVP ONE ×2 (07:49→07:55)
[2022-05-06] MEDS ORDERED: NALOXONE 0.4 MG/ML 1 ML VIAL IVP PRN (08:15)
[2022-05-06] MEDS ORDERED: SODIUM CHLORIDE 0.9% 1,000 ML in EMPTY BAG 1 BAG IV SCH (08:15)
--- NOTE | 2022-05-06 08:20 | P.PCN ---
Date of Procedure: 05/06/22 Operative Findings: AN ABDOMINAL AORTOGRAM AND BILATERAL LOWER EXTREMITIES RUNOFF PERFORMING PHYSICIAN: Mahad Stafford MD PROCEDURE PERFORMED: 1. An abdominal aortogram 2. Bilateral lower extremities runoff 3. Gradient measurement across the left external iliac artery 4. Ultrasound-guided access of the right common femoral INDICATION: This is something 51-year-old female patient who is known to have lower eczematous peripheral arterial disease with a prior stenting of left iliac and bilateral SFA was seen in the office recently for left lower except the intermittent claudication beach she underwent an arterial Doppler Study which came in to be abnormal. On examination she was found to have diminished femoral pulse. There was a concern about left iliac disease and for that reason she was brought today for an angiogram. COMPLICATION: None LEVEL OF SEDATION: Moderate was sedation length of 21 minute APPROACH: Right common femoral artery PROCEDURE DESCRIPTION: After obtaining informed consent and explaining the procedure benefits, risks, and complications, the patient was brought to the cardiac cath lab nurse. The right groin was prepped and draped in sterile fashion. The right common femoral artery was cannulated using micropuncture technique, under ultrasound guidance. A micropuncture wire was advanced, and the micropuncture sheath was advanced over the wire, then the micropuncture sheath was exchanged over an 0.35 wire into a 5-Azeri sheath dilator assembly then the wire and dilator were removed and sheath was flushed. We did an abdominal aortogram and bilateral lower extremities runoff using 5- Azeri pigtail catheter using a power injection. The catheter was initially placed at the level of the renal arteries, and it was pulled into above the bifurcation of the aorta into right and left common iliac arteries. The procedure was completed and there was no complications. SELECTIVE PERIPHERAL ANGIOGRAM: The abdominal aorta: Is angiographically normal The common iliac arteries: The right common iliac artery is angiographically normal. The left common iliac artery has patent stent The external iliac arteries: The right external iliac artery appeared to have mild disease. The left external iliac artery appeared to have an intermediate lesion. We measured the gradient across it and that came in to be at 16 mm casandra The internal iliac arteries: Both internal iliacs are patent The common femoral arteries: Both common femorals are patent and angiographically known Superficial femoral arteries: Both SFA stents appeared to have mild in-stent restenosis Popliteal arteries: Both popliteal appeared to be angiographically normal Below the knees: There are 3 vessels below the knee bilaterally CONCLUSION: Patent left iliac stent Intermediate disease involving the left external iliac artery. Angiographically about 60%. Gradient measurement came in to be 16 mm POSTPROCEDURE MANAGEMENT: Medical treatment. Consider MEDICAL ARTIST if the patient continues to be symptomatic in spite of medical treatment
[2022-05-06] MEDS ORDERED: IOPAMIDOL-250 100ML BTL INTRAARTER ONE (08:27)
[2022-05-06] MEDS ORDERED: HYDROmorphone 0.5 MG/0.5 ML SYRINGE IVP PRN (08:34)
[2022-05-06] MEDS ORDERED: HYDROmorphone 1 MG/ML 1 ML SYRINGE ONE (08:40)
--- NOTE | 2022-05-06 09:18 | IR ---
Fluoroscopy HISTORY: Peripheral vascular occlusive disease 2.8 minutes fluoroscopy time supplied to the referring clinician. 127 intraoperative C-arm images do cument the procedure. See dictated report from cardiology.
[2022-05-06 11:50] VITALS: BP 123/58
[2022-05-06 13:45] VITALS: PULSE 58; RESP 16
== END 2022-05-06 13:49 | disposition home or self-care (01) ==
LOC: CATHCVL 06:24
PROVIDERS: ATTEND Internal Medicine Interventional Cardiology
DX: I70.213 Atherosclerosis of native arteries of extremities with intermittent claudication, bilateral legs (principal); I10 Essential (primary) hypertension; E78.5 Hyperlipidemia, unspecified; I25.10 Atherosclerotic heart disease of native coronary artery without angina pectoris; Z87.891 Personal history of nicotine dependence; Z20.822 Contact with and (suspected) exposure to COVID-19; Z95.820 Peripheral vascular angioplasty status with implants and grafts; Z79.84 Long term (current) use of oral hypoglycemic drugs; Z79.02 Long term (current) use of antithrombotics/antiplatelets; Z79.899 Other long term (current) drug therapy; Z88.5 Allergy status to narcotic agent; Z88.0 Allergy status to penicillin
CPT/HCPCS: 36200; 75625; 75716; 76937; 87635; C1769 ×3; C1894; J2250; J2001; J1170 ×2; Q9966

== ENCOUNTER → 2022-06-30 | Outpatient (CLI) | payer OTHER, MEDICARE ==
[2022-06-30 14:32] LABS: HCT 40.9 % (37.2-46.3); HGB 13.3 g/dL (12.0-15.0); MCH 30.4 pg (27.0-32.0); MCHC 32.5 g/dL (32.0-37.0); MCV 93.6 fL (80.0-97.0); NRBC Per 100 WBC 0 /100 WBCS (0.0-0.0); Platelet Count 239 X 10*3/uL (140-440); RBC 4.37 X 10*6/uL (4.10-5.20); WBC 6.52 X 10*3/uL (4.50-10.00)
[2022-06-30 14:59] LABS: African American GFR (CKD) 60.6 (60.0-200.0); Blood Urea Nitrogen 14.6 mg/dL (9.0-27.0); Carbon Dioxide 18.3 mmol/L (20.0-27.5); Non-African American GFR(CKD) 52.3 (60.0-200.0); Potassium 4.1 mmol/L (3.5-5.5)
== END | disposition home or self-care (01) ==
LOC: LABPAT 10:05
PROVIDERS: ATTEND Internal Medicine Interventional Cardiology
DX: Z01.812 Encounter for preprocedural laboratory examination (principal); I73.9 Peripheral vascular disease, unspecified
CPT/HCPCS: 80051; 82565; 84520; 85027

== ENCOUNTER 2022-07-06 08:36 | Observation (INO) | payer OTHER, MEDICARE ==
[2022-07-04 11:46] VITALS: BMI 32.5
[~2022-07-06 08:36] MED LIST changes: -ALPRAZolam 0.5 MG TAB PO PRN; -HEPARIN SODIUM,PORCINE 10,000 UNIT in SODIUM CHLORIDE 0.9% 1,000 ML IRRIGATION PRN; -HEPARIN SODIUM,PORCINE 2,500 UNIT in SODIUM CHLORIDE 0.9% 250 ML IRRIGATION PRN; -ZOLPIDEM 5 MG TAB PO PRN
[2022-07-06 09:24] LABS: Glucose,Whole Blood 109 mg/dL (70-110)
[2022-07-06] MEDS ORDERED: MIDAZOLAM 2 MG/2 ML VIAL IV ONE (10:24)
[2022-07-06] MEDS ORDERED: LIDOCAINE 1% INJ 10MG/ML (30 ML VIAL-PF) SQ ONE (10:25)
[2022-07-06] MEDS ORDERED: HEPARIN SODIUM 1,000 UN/ML (10ML VL) ONE (10:34)
[2022-07-06] MEDS ORDERED: HEPARIN SODIUM 1,000 UN/ML (10ML VL) IV ONE (10:35)
[2022-07-06] MEDS ORDERED: HYDROmorphone 0.5 MG/0.5 ML SYRINGE IVP ONE (10:46)
[2022-07-06] MEDS ORDERED: fentaNYL (PF) 50 MCG/ML 2 ML AMP ONE (11:03)
[2022-07-06] MEDS ORDERED: fentaNYL (PF) 50 MCG/ML 2 ML AMP IV ONE (11:05)
[2022-07-06] MEDS ORDERED: niCARdipine 25 MG/10 ML VIAL ONE (11:09)
[2022-07-06] MEDS ORDERED: IOPAMIDOL-250 100ML BTL INTRAARTER ONE (11:15)
[2022-07-06] MEDS ORDERED: NALOXONE 0.4 MG/ML 1 ML VIAL IVP PRN (11:25)
[2022-07-06] MEDS ORDERED: SODIUM CHLORIDE 0.9% 1,000 ML in EMPTY BAG 1 BAG IV SCH (11:30)
[2022-07-06] MEDS ORDERED: HYDROmorphone 1 MG/ML 1 ML SYRINGE ONE (11:32)
--- NOTE | 2022-07-06 11:33 | P.PCN ---
Date of Procedure: 07/06/22 Operative Findings: PERCUTANEOUS PERIPHERAL INTERVENTION Performing physician Mahad Stafford M.D. Procedure performed #1 successful balloon angioplasty of the left SFA using 6.0 x 30 mm balloon with an excellent angiographic result #2 successful balloon angioplasty of the left external iliac artery using 8.0 x 30 mm balloon with an excellent angiographic results #3 gradient measurement across the left SFA and left external iliac artery #4 intravascular ultrasound of the left SFA and left external iliac artery #5 left lower extremity angiogram and the right common femoral artery angiogram #6 ultrasound-guided access of the right common femoral artery Indication This is a 51-year-old female patient was known to have PAD with prior revascularization was experiencing left leg intermittent claudication. She underwent an angiogram recently and that revealed intermediate lesion involving the left SFA and left iliac. She underwent a gradient measurement and that came in to be significant. She was brought today for intervention Approach Right common femoral artery Complications None Level of sedation Moderate with a sedation time of 46 minutes Procedure description After obtaining an informed consent the patient was brought to the cardiac laboratory asst. The right common femoral artery was cannulated using micro-puncture technique under ultrasound guidance, the micropuncture wire passed easily then I'll place a 6-Taiwanese 55 cm sheath at the right groin. At that point anticoagulation was initiated using heparin with continuous ACT monitoring. Subsequently I did selective left SFA using 035 stiff Glidewire with a backup s upport of 5-Taiwanese rim catheter then I advanced the sheath over the wire and the catheter to the proximal left iliac artery. Left lower extremity angiogram was performed and that revealed intermediate lesion involving the left external and left SFA. I did a gradient measurement and that came in to be significant. Subsequently I did intravascular ultrasound and that revealed a diameter of the left SFA of 6 mm and left iliac of 8 mm. Balloon angioplasty was performed on both using 6 mm balloon for the SFA an 8 mm balloon for the iliac. The final angiogram showed excellent angiographic results and the procedure was completed without any complications. Subsequently I did exchange my long sheath into short sheath using 035 stiff Glidewire and by the end I did selective right common femoral artery angiogram. The procedure was completed without any complications Postprocedure management #1 dual antiplatelet therapy #2 aggressive cholesterol control #3 risk factors modification #4 follow-up with the patient
--- NOTE | 2022-07-06 11:56 | IR ---
EXAMINATION TYPE: IR supervisor plate forming iliac DATE OF EXAM: 07/06/2022 COMPARISON: NONE HISTORY: Fluoroscopy time. Fluoroscopy was provided to the referring clinician.
--- NOTE | 2022-07-06 11:56 | IR ---
EXAMINATION TYPE: IR well logging mud analysis captain femoral popliteal DATE OF EXAM: 07/06/2022 COMPARISON: NONE HISTORY: Fluoroscopy time. Fluoroscopy was provided to the referring clinician.
[2022-07-06] MEDS: HYDROmorphone 1 MG/ML 1 ML SYRINGE IVP PRN ×2 (14:08→18:29)
[2022-07-06] MEDS: HYDROcodone/APAP 7.5-325MG 1 EACH TAB PO PRN (16:10)
[2022-07-06] MEDS: FUROSEMIDE 40 MG TAB PO SCH (17:37)
[2022-07-06] MEDS: TOPIRAMATE 25 MG TAB PO SCH (20:27)
[2022-07-06] MEDS: DULoxetine HCL 60 MG CAPSULE.DR PO SCH (20:27)
[2022-07-06] MEDS: cloNIDine HCL 0.1 MG TAB PO SCH (20:27)
[2022-07-06] MEDS ORDERED: ATORVASTATIN 80 MG TAB PO SCH (21:00)
[2022-07-07] MEDS: HYDROmorphone 1 MG/ML 1 ML SYRINGE IVP PRN (03:02)
[2022-07-07] MEDS ORDERED: PANTOPRAZOLE 40 MG TABLET PO SCH (07:30)
[2022-07-07 07:59] VITALS: BP 109/75; PULSE 58; RESP 14; TEMP 97.9
[2022-07-07] MEDS: FUROSEMIDE 40 MG TAB PO SCH (08:02)
[2022-07-07] MEDS: TOPIRAMATE 25 MG TAB PO SCH (08:02)
[2022-07-07] MEDS: cloNIDine HCL 0.1 MG TAB PO SCH (08:03)
[2022-07-07] MEDS: DULoxetine HCL 60 MG CAPSULE.DR PO SCH (08:03)
[2022-07-07] MEDS: HYDROcodone/APAP 7.5-325MG 1 EACH TAB PO PRN (08:10)
[2022-07-07] MEDS ORDERED: LORATADINE 10 MG TAB PO SCH (09:00)
[2022-07-07] MEDS ORDERED: SPIRONOLACTONE 25 MG TAB PO SCH (09:00)
[2022-07-07] MEDS ORDERED: ASPIRIN 81 MG PO SCH (09:00)
[2022-07-07] MEDS ORDERED: MONTELUKAST 10 MG TAB PO SCH (09:00)
[2022-07-07] MEDS ORDERED: DAPAGLIFLOZIN PROPANEDIOL 10 MG TABLET PO SCH (09:00)
[2022-07-07] MEDS ORDERED: CLOPIDOGREL 75 MG TAB PO SCH (09:00)
--- NOTE | 2022-07-07 09:05 | P.DS ---
Providers Date of admission: 07/07/22 07:07 Attending physician: Mahad Stafford Primary care physician: Pauline [facility] Course: The patient is a 51-year-old female patient was underwent yesterday successful angioplasty of the left iliac and left SFA from right groin approach. She was seen this morning. She is stable from a cardiovascular standpoint of view. The right groin is soft and nontender and without any bruises. The patient is going to be discharged home on dual antiplatelet therapy and I'll follow-up with the patient next week in the office Patient Condition at Discharge: Stable Plan - Discharge Summary Discharge Rx Participant: Yes New Discharge Prescriptions: Continue cloNIDine HCL [Catapres] 0.1 mg PO BID #30 tab Atorvastatin Calcium [Lipitor] 80 mg PO HS HYDROcodone/APAP 7.5-325MG [[place] 7.5-325] 1 tab PO Q8HR PRN PRN Reason: Pain Omeprazole [PriLOSEC] 20 mg PO BID Spironolactone [Aldactone] 50 mg PO DAILY Montelukast [Singulair] 10 mg PO DAILY Loratadine [Claritin] 10 mg PO DAILY Empagliflozin [Jardiance] 25 mg PO DAILY Clopidogrel [Plavix] 75 mg PO DAILY Topiramate [Topamax] 50 mg PO BID DULoxetine HCL [Cymbalta] 60 mg PO BID Furosemide [Lasix] 40 mg PO BID Aspirin 81 mg PO DAILY Discharge Medication List cloNIDine HCL [Catapres] 0.1 mg PO BID #30 tab 12/22/14 [Rx] Atorvastatin Calcium [Lipitor] 80 mg PO HS 10/22/18 [History] HYDROcodone/APAP 7.5-325MG [[place] 7.5-325] 1 tab PO Q8HR PRN 11/14/18 [History] Omeprazole [PriLOSEC] 20 mg PO BID 03/12/19 [History] Spironolactone [Aldactone] 50 mg PO DAILY 03/12/19 [History] Empagliflozin [Jardiance] 25 mg PO DAILY 02/21/20 [History] Loratadine [Claritin] 10 mg PO DAILY 02/21/20 [History] Montelukast [Singulair] 10 mg PO DAILY 02/21/20 [History] Topiramate [Topamax] 50 mg PO BID 05/05/21 [History] DULoxetine HCL [Cymbalta] 60 mg PO BID 08/04/21 [History] Furosemide [Lasix] 40 mg PO BID 08/04/21 [History] Aspirin 81 mg PO DAILY 05/04/22 [History] Clopidogrel [Plavix] 75 mg PO DAILY 07/06/22 [History] Follow up Appointment(s)/Referral(s): Mahad Stafford MD [STAFF PHYSICIAN] - 1 Week (APPOINTMENT MADE ON July @ 1:30PM ) Patient Instructions/Handouts: Peripheral Artery Disease (ED), Moderate Sedation (DC) Activity/Diet/Wound Care/Special Instructions: *NO LIFTING, PUSHING, OR PULLING ANYTHING OVER 5 POUNDS FOR 5 DAYS *NO DRIVING FOR 3 DAYS *YOU CAN SHOWER TOMORROW BUT DO NOT SUBMERSE YOUR PUNCTURE SITE IN WATER FOR A FEW DAYS TO PREVENT INFECTION - SO NO TUB BATHS, POOLS, HOT TUBS, DISHES...ETC *ANY SIGNS OF BLEEDING (HARDNESS, SWELLING, OR EXCESSIVE BRUISING) HOLD DIRECT PRESSURE ON YOUR PUNCTURE SITE AND COME TO THE NEAREST EMERGENCY ROOM TO GET YOUR PUNCTURE SITE LOOKED AT - DO NOT DRIVE YOURSELF! EITHER CALL EMS OR HAVE SOMEONE DRIVE YOU!
== END 2022-07-07 09:35 | disposition home or self-care (01) ==
LOC: CATHCVL 08:36 → 6NMEDSUR 12:06 → CATHCVL 14:45 → 6NMEDSUR 14:45 → CATHCVL 07-07 07:07 → 6NMEDSUR 07-07 07:07
PROVIDERS: ADMIT Internal Medicine Interventional Cardiology; ATTEND Internal Medicine Interventional Cardiology
DX: I73.9 Peripheral vascular disease, unspecified (principal); Z20.822 Contact with and (suspected) exposure to COVID-19
CPT/HCPCS: 37220; 37224; 37252; 37253; 87635; G0378; C1894 ×3; C1769 ×5; C1725 ×2; C1887; C1753; J2250; J2001; J3010; J1644; J1170 ×3; Q9966

== ENCOUNTER → 2022-12-26 | Outpatient (CLI) | payer MEDICARE, OTHER ==
--- NOTE | 2022-12-26 12:37 | MR ---
EXAMINATION TYPE: MR lumbar spine wo con DATE OF EXAM: 12/26/2022 COMPARISON: MR lumbar spine March 24, 2018 HISTORY: Low back pain, everardo hand numbness, hx of surgery 2018. TECHNIQUE: Multiplanar, multisequence imaging of the lumbar spine is performed without IV contrast. FINDINGS: Sagittal images of the lumbar spine show stable slight grade 1 retrolisthesis L3 on L4. The re is susceptibility artifact posterior to her radicular mitzi and screws along with artificial disc ma terial at L4-L5 level on current study. Liver body heights are satisfactory above surgical levels. Di sc space heights are maintained above and below surgical levels. The conus medullaris remains normal in position and signal ending inferior L1 level. There is osseous hemangioma involving the left L2 v ertebra redemonstrated. Axial images show T12-L1 through the L2-L3 levels to appear within normal limits. Axial images at the L3-L4 levels mild broad-based posterior disc protrusion minimally effacing the an terior thecal sac. There are patent bilateral neural foramina. Axial images at L4-L5 level show susceptibility artifact making evaluation suboptimal. There is paten t left-sided neural foramina. Axial images at L5-S1 level shows some susceptibility artifact and mild facet arthropathy otherwise a ppear within normal limits. Fairly stable in size 1.9 cm left adrenal mass axial image 30 presumed benign given interval growth s tability. IMPRESSION: Postsurgical change L4-L5 level with stable alignment. Stable mild degenerative changes L 3-L4 level.
== END | disposition home or self-care (01) ==
LOC: RADMRIMAIN 10:31
PROVIDERS: ATTEND Orthopaedic Surgery Orthopaedic Surgery of the Spine
DX: M51.16 Intervertebral disc disorders with radiculopathy, lumbar region (principal); M47.816 Spondylosis without myelopathy or radiculopathy, lumbar region
CPT/HCPCS: 72148

== ENCOUNTER → 2023-01-20 | Outpatient (CLI) | payer OTHER ==
--- NOTE | 2023-01-22 09:43 | MR ---
EXAMINATION TYPE: MR abdomen wo/w con DATE OF EXAM: 01/20/2023 COMPARISON: Prior MRI abdomen December 04, 2019. CT abdomen and pelvis January 20, 2022 HISTORY: Left sided abdominal pain. CONTRAST: Standard multiplanar, multisequence MRI departmental protocol images were obtained without contrast a nd with 9 mL intravenous Gadavist gadolinium contrast. Imaging performed of the abdomen. FINDINGS: Lung bases are grossly clear. No concerning solid or cystic intrahepatic mass. No intralumi nal gallstones. No biliary dilatation. Pancreas appears within normal limits. Spleen is normal in siz e. Persistent 2.0 x 1.6 cm left adrenal mass having diffuse signal dropout consistent with benign lip id rich adenoma. No concerning renal mass or hydronephrosis seen bilaterally. Stomach is greatly dist ended and suboptimally evaluated. No suspicious small or large bowel dilatation. No intra-abdominal a scites. No greater than 1.0 cm abdominal adenopathy. Artifact from Postsurgical change to the lower l umbar spine is redemonstrated. Artifact from stents in the left iliac arteries is partially imaged. IMPRESSION: No acute findings are evident.
== END | disposition home or self-care (01) ==
LOC: RADMRIMAIN 18:31
PROVIDERS: ATTEND Family Medicine
DX: R10.9 Unspecified abdominal pain (principal); R25.2 Cramp and spasm; Z98.890 Other specified postprocedural states
CPT/HCPCS: 74183; A9585

== ENCOUNTER 2023-01-27 15:53 | Inpatient (IN) | payer OTHER, MEDICARE ==
[2023-01-27 16:09] LABS: Glucose,Whole Blood 139 mg/dL (70-110)
--- NOTE | 2023-01-27 16:25 | ED ---
General Adult HPI - General Chief complaint: Neuro Symptoms/Deficit Stated complaint: STROKE SYMPTOMS Time Seen by Provider: 01/27/23 16:04 Source: patient Mode of arrival: wheelchair Limitations: no limitations - History of Present Illness Initial comments: Dictation was produced using [employer] dictation software. please excuse any grammatical, word or spelling errors. Chief Complaint: 52-year-old female multiple comorbidities presents to the emergency department for strokelike symptoms History of Present Illness: Patient's 52-year-old female presents emergency Department strokelike symptoms. Unclear when patient was last normal period history of present illness obtained from daughter. Daughter states that patient called her this morning and over the phone she had slurred speech. Daughter went to go check on her nose that she was significantly ataxic. She is complaining of some left-sided headache. Patient was stumbling to get into the car to come to the emergency room. Daughter last saw patient several days ago. She lives at home with her other daughter who doesn't see her on a daily basis. Daughter states she was on the phone with patient yesterday and she sounded fine. Unable to obtain ROS secondary to patient's mental status - Related Data Home Medications Medication Instructions Recorded Confirmed Atorvastatin Calcium [Lipitor] 80 mg PO HS 10/22/18 01/27/23 HYDROcodone/APAP 7.5-325MG [[place] 1 tab PO Q8HR PRN 11/14/18 01/27/23 7.5-325] Omeprazole [PriLOSEC] 20 mg PO BID 03/12/19 01/27/23 Spironolactone [Aldactone] 50 mg PO DAILY 03/12/19 01/27/23 Empagliflozin [Jardiance] 25 mg PO DAILY 02/21/20 01/27/23 Montelukast [Singulair] 10 mg PO DAILY 02/21/20 01/27/23 Topiramate [Topamax] 100 mg PO HS 05/05/21 01/27/23 DULoxetine HCL [Cymbalta] 60 mg PO HS 08/04/21 01/27/23 Furosemide [Lasix] 40 mg PO BID 08/04/21 01/27/23 Clopidogrel [Plavix] 75 mg PO DAILY 07/06/22 01/27/23 Aspirin EC [Ecotrin] 325 mg PO DAILY 01/27/23 01/27/23 Escitalopram [Lexapro] 20 mg PO DAILY 01/27/23 01/27/23 Meclizine [Antivert] 25 mg PO Q6H PRN 01/27/23 01/27/23 traZODone HCL [Desyrel] 100 mg PO HS 01/27/23 01/27/23 Previous Rx's Medication Instructions Recorded cloNIDine HCL [Catapres] 0.1 mg PO BID #30 tab 12/22/14 Allergies Allergy/AdvReac Type Severity Reaction Status Date / Time dronabinol [From Marinol] Allergy Severe Anaphylaxis Verified 01/27/23 17:00 lisinopril [From Prinivil] Allergy Swelling Verified 01/27/23 17:00 Penicillins Allergy Rash/Hives Verified 01/27/23 17:00 morphine AdvReac Unknown Nausea & Verified 01/27/23 17:00 Vomiting Review of Systems ROS Statement: Those systems with pertinent positive or pertinent negative responses have been documented in the HPI. ROS Other: All systems not noted in ROS Statement are negative. Past Medical History Past Medical History: Coronary Artery Disease (CAD), Heart Failure, Diabetes Mellitus, GERD/Reflux, Hyperlipidemia, Hypertension, Osteoarthritis (OA), Vascular Disorder Additional Past Medical History / Comment(s): right LEG PAIN with discoloration of all toes rt foot, insomnia related to pain, migraines, edema everardo ankles, hx ulcer History of Any Multi-Drug Resistant Organisms: None Reported Past Surgical History: Section, Hysterectomy, Orthopedic Surgery Additional Past Surgical History / Comment(s): LEFT KNEE arthroscopy, STENTS PLACED IN LOWER LEFT GROIN AND UPPER LEFT THIGH, AORTOGRAM W/ RUNOFF OF LOWER EXT Past Anesthesia/Blood Transfusion Reactions: No Reported Reaction Past Psychological History: Anxiety, Depression Smoking Status: Current every day smoker Past Alcohol Use History: None Reported Past Drug Use History: None Reported - Past Family History Sister(s) Family Medical History: Vascular Disorder Mother Family Medical History: Cancer Additional Family Medical History / Comment(s): LUNG CA General Exam - General Exam Comments Initial Comments: PHYSICAL EXAM: General Impression: Alert and oriented, not in acute distress HEENT: Normocephalic atraumatic, extra-ocular movements intact, pupils equal and reactive to light bilaterally, mucous membranes moist. Cardiovascular: Heart regular rate and rhythm Chest: Able to complete full sentences, no retractions, no tachypnea Abdomen: abdomen soft, non-tender, non-distended, no organomegaly Musculoskeletal: Pulses present and equal in all extremities, no peripheral edema Motor: no focal deficits noted Neurological: Patient complaining of sensory deficit to light touch of the left face, left arm and left lower extremity, she does appear to be significantly we ak to all extremities, she does have slurred speech. NIH is a 5 Skin: Intact with no visualized rashes Psych: Normal affect and mood Limitations: no limitations Course Vital Signs 01/27/23 01/27/23 01/27/23 15:58 16:10 16:17 Temperature 97.8 F Pulse Rate 72 68 64 Respiratory 20 16 16 Rate Blood Pressure 138/85 154/78 151/74 O2 Sat by Pulse 100 98 98 Oximetry 01/27/23 18:10 Temperature Pulse Rate 64 Respiratory 16 Rate Blood Pressure 144/68 O2 Sat by Pulse 98 Oximetry EKG Findings - EKG Comments: EKG Findings:: My EKG interpretation: Ventricular rate 70, sinus rhythm, WA interval 143, QRS 89, QTC 428. No WA prolongation, no QTC prolongation, no ST or T-wave changes noted. Overall, this EKG is unremarkable Medical Decision Making - Medical Decision Making 52-year-old female presents to the emergency department strokelike symptoms. Her weakness appears to be involving all extremities. She does complain of sensory deficits that affect the left side of the body. Patient outside the window for alteplase administration. Code stroke page. Unclear when exactly patient was last normal period Was pt. sent in by a medical professional or institution (, PA, DIGITAL CARTOGRAPHER, urgent care, hospital, or intermediate...) When possible be specific @ -No Did you speak to anyone other than the patient for history (EMS, parent, family, police, friend...)? What history was obtained from this source @ -Daughter at the bedside Did you review nursing and triage notes (agree or disagree)? Why? @ -I reviewed and agree with nursing and triage notes Were old charts reviewed (outside hosp., previous admission, EMS record, old EKG, old radiological studies, urgent care reports/EKG's, intermediate records)? Report findings @ -No old charts were reviewed Differential Diagnosis (chest pain, altered mental status, abdominal pain women, abdominal pain men, vaginal bleeding, musculoskeletal, weakness, fever, dyspnea, syncope, headache, dizziness, GI bleed, back pain, seizure, CVA, palpatations, mental health)? @ - Differential CVA: Ischemic stroke, hemorrhagic stroke, brain tumor, atypical migraine, Wernicke's encephalopathy, seizure, multiple sclerosis, meningitis, encephalitis, hypoglycemia, Guillain-Gillette, electrolytes disturbance, myasthenia gravis.... This is not meant to be an all-inclusive list EKG interpreted by me (3pts min.). @ -As above X-rays interpreted by me (1pt min.). @ -Chest x-ray shows no acute processes. CT interpreted by me (1pt min.). @ -Computed tomography scan of brain CT angios the head and neck shows no acute processes. U/S interpreted by me (1pt. min.). @ -None done What testing was considered but not performed or refused? (CT, X-rays, U/S, labs)? Why? @ -None What meds were considered but not given or refused? Why? @ -None Did you discuss the management of the patient with other professionals (professionals i.e. , PA, DIGITAL CARTOGRAPHER, lab, RT, psych nurse, social worker school, middle school tutor, teacher, correction officer city or county jail, manager case)? Give summary @ -Case discussed with Dr. Frost for admission Was smoking cessation discussed for >3mins.? @ -No Was critical care preformed (if so, how long)? @ -yes, 33 minutes Were there social determinants of health that impacted care today? How? (Homelessness, low income, unemployed, alcoholism, drug addiction, transportation, low edu. Level, literacy, decrease access to med. care, detention, rehab)? @ -No Was there de-escalation of care discussed even if they declined (Discuss DNR or withdrawal of care, Hospice)? DNR status @ -No What co-morbidities impacted this encounter? (DM, HTN, Smoking, COPD, CAD, Cancer, CVA, ARF, Chemo, Hep., AIDS, mental health diagnosis, sleep apnea, morbid obesity)? @ -None Was patient admitted / discharged? Hospital course, mention meds given and route, prescriptions, significant lab abnormalities, going to OR and other pertinent info. @ -52-year-old female presents emergency department for strokelike symptoms. Unclear when patient's last known normal was. She has vague neurologic findings that do not specifically localize to one particular portion of the brain. Workup is essentially unremarkable. Imaging studies were negative. Labs are unremarkable. Patient given aspirin. Not a candidate for any aggressive measures per stroke neurologist. Patient reevaluated at 6:57 PM with improved symptoms. Pending inflammatory marker studies. Undiagnosed new problem with uncertain prognosis? @ -No Drug Therapy requiring intensive monitoring for toxicity (Heparin, Nitro, Insulin, Cardizem)? @ -No Were any procedures done? @ -No Diagnosis/symptom? Acute, or Chronic, or Acute on Chronic? Uncomplicated (without systemic symptoms) or Complicated (systemic symptoms)? @ -1. Acute CVA Side effects of treatment? @ -No Exacerbation, Progression, or Severe Exacerbation? @ -No Poses a threat to life or bodily function? How? (Chest pain, [place], [place], pneumonia, PE, COPD, DKA, ARF, appy, cholecystitis, CVA, Diverticulitis, Homicidal, Suicidal, threat to staff... and all critical care pts) @ -yes - Lab Data Result diagrams: 01/27/23 16:10 01/27/23 16:10 Lab Results 01/27/23 01/27/23 01/27/23 Range/Units 16:08 16:10 16:10 WBC 7.6 (3.8-10.6) k/uL RBC 4.32 (3.80-5.40) m/uL Hgb 13.3 (11.4-16.0) gm/dL Hct 39.9 (34.0-46.0) % MCV 92.2 (80.0-100.0) fL MCH 30.7 (25.0-35.0) pg MCHC 33.3 (31.0-37.0) g/dL RDW 13.9 (11.5-15.5) % Plt Count 218 (150-450) k/uL MPV 8.5 Neutrophils % 65 % Lymphocytes % 25 % Monocytes % 6 % Eosinophils % 3 % Basophils % 1 % Neutrophils # 4.9 (1.3-7.7) k/uL Lymphocytes # 1.9 (1.0-4.8) k/uL Monocytes # 0.5 (0-1.0) k/uL Eosinophils # 0.2 (0-0.7) k/uL Basophils # 0.0 (0-0.2) k/uL PT 9.8 (9.0-12.0) sec INR 0.9 (<1.2) APTT 22.8 (22.0-30.0) sec Sodium (137-145) mmol/L Potassium (3.5-5.1) mmol/L Chloride (98-107) mmol/L Carbon Dioxide (22-30) mmol/L Anion Gap mmol/L BUN (7-17) mg/dL Creatinine (0.52-1.04) mg/dL Est GFR (CKD-EPI)AfAm (>60 ml/min/1.73 sqM) Est GFR (CKD-EPI)NonAf (>60 ml/min/1.73 sqM) Glucose (74-99) mg/dL POC Glucose (mg/dL) 139 H (70-110) mg/dL POC Glu [employer] Operations Specialist ID Kelly, Zhane Calcium (8.4-10.2) mg/dL Magnesium (1.6-2.3) mg/dL Total Bilirubin (0.2-1.3) mg/dL AST (14-36) U/L ALT (4-34) U/L Alkaline Phosphatase (38-126) U/L Creatine Kinase (30-135) U/L Troponin I (0.000-0.034) ng/mL Total Protein (6.3-8.2) g/dL Albumin (3.5-5.0) g/dL 01/27/23 01/27/23 Range/Units 16:10 16:10 WBC (3.8-10.6) k/uL RBC (3.80-5.40) m/uL Hgb (11.4-16.0) gm/dL Hct (34.0-46.0) % MCV (80.0-100.0) fL MCH (25.0-35.0) pg MCHC (31.0-37.0) g/dL RDW (11.5-15.5) % Plt Count (150-450) k/uL MPV Neutrophils % % Lymphocytes % % Monocytes % % Eosinophils % % Basophils % % Neutrophils # (1.3-7.7) k/uL Lymphocytes # (1.0-4.8) k/uL Monocytes # (0-1.0) k/uL Eosinophils # (0-0.7) k/uL Basophils # (0-0.2) k/uL PT (9.0-12.0) sec INR (<1.2) APTT (22.0-30.0) sec Sodium 138 (137-145) mmol/L Potassium 4.1 (3.5-5.1) mmol/L Chloride 108 H (98-107) mmol/L Carbon Dioxide 23 (22-30) mmol/L Anion Gap 7 mmol/L BUN 14 (7-17) mg/dL Creatinine 0.71 (0.52-1.04) mg/dL Est GFR (CKD-EPI)AfAm >90 (>60 ml/min/1.73 sqM) Est GFR (CKD-EPI)NonAf >90 (>60 ml/min/1.73 sqM) Glucose 112 H (74-99) mg/dL POC Glucose (mg/dL) (70-110) mg/dL POC Glu [employer] Operations Specialist ID Calcium 8.9 (8.4-10.2) mg/dL Magnesium 2.3 (1.6-2.3) mg/dL Total Bilirubin 0.4 (0.2-1.3) mg/dL AST 24 (14-36) U/L ALT 28 (4-34) U/L Alkaline Phosphatase 86 (38-126) U/L Creatine Kinase 166 H (30-135) U/L Troponin I <0.012 (0.000-0.034) ng/mL Total Protein 6.3 (6.3-8.2) g/dL Albumin 3.8 (3.5-5.0) g/dL Disposition Clinical Impression: Cerebrovascular accident (CVA) Disposition: ADMITTED IP TO THIS HOSP Condition: Fair Referrals: Pauline Vargas MD [Primary Care Provider] - 1-2 days Decision Time: 18:58
--- NOTE | 2023-01-27 16:32 | CT ---
EXAMINATION TYPE: CT brain wo con DATE OF EXAM: 01/27/2023 HISTORY: cva. Acute onset neuro deficit. CT DLP: 1123.6 mGycm. Automated Exposure Control for Dose Reduction was Utilized. TECHNIQUE: CT scan of the head is performed without contrast. COMPARISON: CT brain November 30, 2012. FINDINGS: There is no acute intracranial hemorrhage or midline shift identified. Ventricles and sul ci are normal in size. Barrera-white matter differentiation is preserved. The globes are intact and the visualized sinuses are clear. IMPRESSION: No acute intracranial hemorrhage or midline shift. No significant change from prior.
[2023-01-27 17:11] LABS: Basophils % (A) 1 %; Eosinophils # (A) 0.2 k/uL (0-0.7); Eosinophils % (A) 3 %; HCT 39.9 % (34.0-46.0); HGB 13.3 gm/dL (11.4-16.0); Lymphocytes # (A) 1.9 k/uL (1.0-4.8); Lymphocytes % (A) 25 %; MCH 30.7 pg (25.0-35.0); MCHC 33.3 g/dL (31.0-37.0); MCV 92.2 fL (80.0-100.0); Mean Platelet Volume 8.5; Monocytes # (A) 0.5 k/uL (0-1.0); Monocytes % (A) 6 %; Neutrophils # (A) 4.9 k/uL (1.3-7.7); Neutrophils % (A) 65 %; Platelet Count 218 k/uL (150-450); RBC 4.32 m/uL (3.80-5.40); RDW 13.9 % (11.5-15.5); WBC 7.6 k/uL (3.8-10.6)
--- NOTE | 2023-01-27 17:22 | CT ---
EXAMINATION TYPE: CT angio head neck DATE OF EXAM: 01/27/2023 COMPARISON: None HISTORY: cva CT DLP: 521.4 mGycm CONTRAST: Performed with IV Contrast, patient injected with 65cc mL of Isovue 370. Combination Contrast CTA cervical carotids and [place] CTA cervical carotids with 3-D recons truction Contrast CTA of the cervical carotids was performed 3-D reconstruction imaging obtained at a separate workstation. Right carotid system: Mild plaque is seen of the right common carotid artery. There is mild plaque a lso noted at the carotid bulb and proximal ICA. No significant diameter reduction. ECA is patent. Right vertebral artery appears unremarkable. Left carotid system: Mild plaque is seen of the left common carotid artery. There is mild plaque als o noted at the carotid bulb and proximal ICA. No significant diameter reduction. ECA is patent. Lef t vertebral artery appears unremarkable. IMPRESSION: 1. No significant diameter reduction to account for the patient's symptoms. CTA [place] with 3-D reconstruction Contrast CTA of the [place] was performed 3-D reconstruction imaging obtained at a separate workstation. Vertebrobasilar system as well as intracranial portions of the internal carotid arteries and their ma jessie tributaries are patent. I do not see evidence for sizable aneurysm or vascular malformation. Pl ease note MRI provides greater sensitivity and specificity. Visualized brain appears grossly unremar kable. IMPRESSION: 1. No significant abnormality. NASCET criteria was used in interpretation of this exam?
[2023-01-27 17:27] LABS: INR 0.9 (<1.2); Partial Thromboplastin Time 22.8 sec (22.0-30.0); Prothrombin Time 9.8 sec (9.0-12.0)
[2023-01-27 17:33] LABS: ALT 28 U/L (4-34); AST 24 U/L (14-36); African American GFR (CKD) >90 (>60 ml/min/1.73 sqM); Albumin 3.8 g/dL (3.5-5.0); Alkaline Phosphatase 86 U/L (38-126); Anion Gap 7 mmol/L; Blood Urea Nitrogen 14 mg/dL (7-17); Calcium 8.9 mg/dL (8.4-10.2); Carbon Dioxide 23 mmol/L (22-30); Chloride 108 mmol/L (98-107); Creatine Kinase 166 U/L (30-135); Glucose 112 mg/dL (74-99); Magnesium 2.3 mg/dL (1.6-2.3); Non-African American GFR(CKD) >90 (>60 ml/min/1.73 sqM); Potassium 4.1 mmol/L (3.5-5.1); Sodium 138 mmol/L (137-145); Total Bilirubin 0.4 mg/dL (0.2-1.3); Total Protein 6.3 g/dL (6.3-8.2)
[2023-01-27] MEDS ORDERED: ASPIRIN 81 MG PO STA (17:53)
[2023-01-27] MEDS ORDERED: SODIUM CHLORIDE 0.9% 1,000 ML IV STA (18:16)
[2023-01-27] MEDS ORDERED: ONDANSETRON 4 MG/2 ML VIAL IVP STA (18:16)
[2023-01-27] MEDS ORDERED: diphenhydrAMINE 50 MG/ML 1 ML VIAL IVP STA (18:16)
--- NOTE | 2023-01-27 18:36 | XR ---
EXAMINATION TYPE: XR chest 2V DATE OF EXAM: 01/27/2023 COMPARISON: 10/26/2020 HISTORY: Chest pain TECHNIQUE: Frontal and lateral views of the chest are obtained. FINDINGS: There is no focal air space opacity. No evidence for pneumothorax. No pleural effusion. The cardiac silhouette size is within normal limits. The osseous structures are grossly intact. IMPRESSION: 1. No acute cardiopulmonary process.
[2023-01-27] MEDS: KETOROLAC 15 MG/ML 1 ML VIAL IVP STA ×2 (18:40→18:46)
[2023-01-27] MEDS ORDERED: KETOROLAC 15 MG/ML 1 ML VIAL IVP STA (18:47)
[2023-01-27] MEDS ORDERED: NALOXONE 0.4 MG/ML 1 ML VIAL IV PRN (18:48)
[2023-01-27] MEDS: SODIUM CHLORIDE 0.9% 1,000 ML IV SCH (23:51)
[2023-01-28] MEDS ORDERED: MECLIZINE 25 MG TAB PO PRN (01:23)
[2023-01-28] MEDS: PANTOPRAZOLE 40 MG TABLET PO SCH ×2 (06:21→17:00)
[2023-01-28 06:30] LABS: Glucose,Whole Blood 89 mg/dL (70-110)
[2023-01-28] MEDS: ESCITALOPRAM 20 MG TAB PO SCH (09:30)
[2023-01-28] MEDS: ACETAMINOPHEN TAB 500 MG TAB PO PRN (09:30)
[2023-01-28] MEDS: FUROSEMIDE 40 MG TAB PO SCH ×2 (09:30→15:29)
[2023-01-28] MEDS: CLOPIDOGREL 75 MG TAB PO SCH (09:30)
[2023-01-28] MEDS: cloNIDine HCL 0.1 MG TAB PO SCH ×2 (09:30→20:40)
[2023-01-28] MEDS: MONTELUKAST 10 MG TAB PO SCH (09:30)
[2023-01-28] MEDS: ASPIRIN 325 MG TAB PO SCH (09:30)
[2023-01-28] MEDS: SPIRONOLACTONE 25 MG TAB PO SCH (09:30)
[2023-01-28] MEDS: DAPAGLIFLOZIN PROPANEDIOL 10 MG TABLET PO SCH (09:37)
--- NOTE | 2023-01-28 12:17 | MR ---
EXAMINATION TYPE: MR brain wo con DATE OF EXAM: 01/28/2023 12:12 PM COMPARISON: NONE HISTORY: CVA symptoms FINDINGS: The ventricles, basal cisterns and sulci overlying the cerebral convexities are minimally enlarged. There is evidence of minimal periventricular white matter ischemic demyelination. Remote deep white matter insults are also noted. No acute edema is seen on diffusion weighted imaging. There is no evidence for midline shift or mass effect. Acute intracranial hemorrhage or extra-axial collection is not evident. The paranasal sinuses and mastoid air cells are well-aerated. IMPRESSION: Minimal Age-related atrophic and chronic small vessel ischemic change. No acute intracranial process at this time.
[2023-01-28 12:31] LABS: Glucose,Whole Blood 85 mg/dL (70-110)
--- NOTE | 2023-01-28 13:33 | P.HPIM ---
History of Present Illness H&P Date: 01/28/23 Shelly Preston, is an 52-year-old female patient of Dr. cabral who presented to [facility] emergency room with a chief complaint of slurred speech, lightheadedness and gait disturbance. Her daughter history in the emergency room patient was having slurred speech and having difficulty walking, patient needed assistance to walk and get into a car. She was evaluated in the emergency room vital examination on presentation revealed a temperature of 97.8 pulse 72 respiration 20 blood pressure 138/85 pulse ox 100% on room air Laboratory data revealed a white blood count of 7.6 hemoglobin 13.3 platelet count 218 sodium 138 potassium 4.1 chloride 108 CO2 23 BUN 14 creatinine 0.71 Testing in the emergency room revealed computed tomography scan of the brain done in the emergency room without contrast revealed no acute intracranial hemorrhage or midline shift, CT angiogram of the neck and brain did not reveal any significant abnormality. Patient was admitted to medical floor for further evaluation and treatment, neurology consultation was requested Past medical history is significant for history of hypertension, history of hyperlipidemia, history of coronary artery disease, history of diabetes mellitus, history of gastroesophageal reflux disease, history of peripheral vasc ular disease, history of migraine headaches, history of osteoarthritis, and history of insomnia. Patient smokes 1/2-1 full pack a today, she denies any alcohol use, she denies any drug use including marijuana. On review of systems at this time patient is alert and oriented 3 in no apparent distress her speech is back to normal she is still complaining of right sided weakness, she is complaining of headache and lightheadedness otherwise she denies any complaints there is no fever or chills, no chest pain no shortness of breath no cough no nausea or vomiting no abdominal pain no diarrhea no blood in the stools no burning with urination no frequency or urgency and no hematuria. Past Medical History Past Medical History: Coronary Artery Disease (CAD), Heart Failure, Diabetes Mellitus, GERD/Reflux, Hyperlipidemia, Hypertension, Osteoarthritis (OA), Va scular Disorder Additional Past Medical History / Comment(s): right LEG PAIN with discoloration of all toes rt foot, insomnia related to pain, migraines, edema everardo ankles, hx ulcer History of Any Multi-Drug Resistant Organisms: None Reported Past Surgical History: Section, Hysterectomy, Orthopedic Surgery Additional Past Surgical History / Comment(s): LEFT KNEE arthroscopy, STENTS PLACED IN LOWER LEFT GROIN AND UPPER LEFT THIGH, AORTOGRAM W/ RUNOFF OF LOWER EXT Past Anesthesia/Blood Transfusion Reactions: No Reported Reaction Past Psychological History: Anxiety, Depression Smoking Status: Current every day smoker Past Alcohol Use History: None Reported Additional Past Alcohol Use History / Comment(s): smokes 1/2 PPD, ,SMOKED APPROX 20 YRS Past Drug Use History: None Reported - Past Family History Sister(s) Family Medical History: Vascular Disorder Mother Family Medical History: Cancer Additional Family Medical History / Comment(s): LUNG CA Medications and Allergies Home Medications Medication Instructions Recorded Confirmed Type cloNIDine HCL [Catapres] 0.1 mg PO BID #30 tab 12/22/14 01/27/23 Rx Atorvastatin Calcium [Lipitor] 80 mg PO HS 10/22/18 01/27/23 History HYDROcodone/APAP 7.5-325MG [[place] 1 tab PO Q8HR PRN 11/14/18 01/27/23 History 7.5-325] Omeprazole [PriLOSEC] 20 mg PO BID 03/12/19 01/27/23 History Spironolactone [Aldactone] 50 mg PO DAILY 03/12/19 01/27/23 History Empagliflozin [Jardiance] 25 mg PO DAILY 02/21/20 01/27/23 History Montelukast [Singulair] 10 mg PO DAILY 02/21/20 01/27/23 History Topiramate [Topamax] 100 mg PO HS 05/05/21 01/27/23 History DULoxetine HCL [Cymbalta] 60 mg PO HS 08/04/21 01/27/23 History Furosemide [Lasix] 40 mg PO BID 08/04/21 01/27/23 History Clopidogrel [Plavix] 75 mg PO DAILY 07/06/22 01/27/23 History Aspirin EC [Ecotrin] 325 mg PO DAILY 01/27/23 01/27/23 History Escitalopram [Lexapro] 20 mg PO DAILY 01/27/23 01/27/23 History Meclizine [Antivert] 25 mg PO Q6H PRN 01/27/23 01/27/23 History traZODone HCL [Desyrel] 100 mg PO HS 01/27/23 01/27/23 History Allergies Allergy/AdvReac Type Severity Reaction Status Date / Time dronabinol [From Marinol] Allergy Severe Anaphylaxis Verified 01/27/23 17:00 lisinopril [From Prinivil] Allergy Swelling Verified 01/27/23 17:00 Penicillins Allergy Rash/Hives Verified 01/27/23 17:00 morphine AdvReac Unknown Nausea & Verified 01/27/23 17:00 Vomiting Physical Exam Vitals: Vital Signs Temp Pulse Pulse Resp BP BP Pulse Ox 01/28/23 12:48 98.2 F 59 L 16 125/78 98 01/28/23 08:59 98.1 F 79 18 136/81 96 01/28/23 04:00 71 18 117/73 97 01/28/23 02:00 18 01/27/23 23:53 97.8 F 60 18 118/69 96 01/27/23 23:42 61 16 122/61 97 01/27/23 20:54 71 16 169/78 01/27/23 20:18 62 16 134/68 98 01/27/23 18:10 64 16 144/68 98 01/27/23 16:17 64 16 151/74 98 01/27/23 16:10 68 16 154/78 98 01/27/23 15:58 97.8 F 72 20 138/85 100 Intake and Output 01/27/23 01/28/23 01/28/23 22:59 06:59 14:59 Intake Total 120 Balance 120 Intake: Oral 120 Other: Voiding Method Toilet Toilet # Voids 2 Weight 90.718 kg 90.718 kg In general patient is alert and oriented x 3 in no distress HEENT head normocephalic and atraumatic Neck is supple no JVD no goiter no lymphadenopathy no carotid bruit Chest examination is clear to auscultation no crackles no wheezing Cardiac exam reveals regular heart sounds S1 and S2 no gallops no murmurs Abdomen is soft nontender no organomegaly with normal bowel sounds Extremity exam reveals no edema no cyanosis or clubbing Neurological examination reveals no gross focal deficits Patient is alert and oriented 3 in no apparent distress Cranial nerve II-12 are intact Patient is complaining of right sided weakness however I was not able to appreciate any weakness on exam sensory exam is normal Gait was not checked due to safety concerns Results CBC & Chem 7: 01/27/23 16:10 01/27/23 16:10 Labs: Abnormal Lab Results - Last 24 Hours (Table) 01/27/23 01/27/23 Range/Units 16:08 16:10 Chloride 108 H (98-107) mmol/L Glucose 112 H (74-99) mg/dL POC Glucose (mg/dL) 139 H (70-110) mg/dL Creatine Kinase 166 H (30-135) U/L Thrombosis Risk Factor Assmnt - Choose All That Apply Any of the Below Risk Factors Present?: Yes Each Factor Represents 1 point: Age 41-60 years Thrombosis Risk Factor Assessment Total Risk Factor Score: 1 Thrombosis Risk Factor Assessment Level: Low Risk Assessment and Plan Plan: Symptoms of lightheadedness slurred speech and gait disturbance, rule out cerebrovascular accident Underlying history of hypertension Underlying history of hyperlipidemia Underlying history of migraine headache Underlying history of coronary artery disease Underlying history of peripheral vascular disease Underlying history of tobacco abuse At this time patient is admitted to telemetry floor Home medications reviewed and reordered Neurology consultation requested MRI of the brain ordered Echocardiogram ordered and cardiology consultation requested Physical therapy and occupational therapy requested Will follow closely
--- NOTE | 2023-01-28 14:41 | P.CRDCN ---
History of Present Illness Consult date: 01/28/23 History of present illness: History of Present Illness: The patient is a 52-year-old female with known history of severe peripheral vascular disease, hypertension, hyperlipidemia, diabetes mellitus and chronic tobacco use. She presents with symptoms of slurred speech and dizziness. Her slurred speech resolved but she continues to be mildly and steady. In addition to mild CAD by cardiac catheterization, she was in sinus mechanism on presentation. She denies any chest discomfort or change in her breathing. She has chronic intermittent claudication without significant changes. She denies any history of arrhythmia or recent palpitations. She has no PND, orthopnea or peripheral edema. She is followed on a regular basis by Dr. Stafford and has underwent a stress echocardiogram recently according to her. Her computed tomography scan showed no acute hemorrhage. CT angiogram showed no evidence of high-grade stenosis. Her brain MRI showed minimal age-related atrophic and chronic small vessel disease. Medications: Singulair, Catapres 0.1 mg twice a day, Cymbalta, Plavix 75 mg daily, spironolactone, Lasix 40 mg twice a day, Lipitor 80 mg daily, aspirin once a day, Topamax,Jardiance Review of Systems: Respiratory: She has a history of chronic tobacco use but no recent wheezing or cough GI: No nausea or vomiting . No history of peptic ulcer disease. No recent GI bleed. : No hematuria or dysuria. Nervous System: No stroke or seizure. Physical Examination: 52-year-old female, alert, oriented no apparent distress ,Blood pressure 125/70, Heart rate , 60 Head: Normocephalic. Eyes: Sclerae nonicteric. Neck: Good carotid upstroke, no bruit, no jugular venous distention. Lungs: Clear to auscultation. Heart: Regular rate and rhythm, S1-S2, no S3, no rub. Systolic ejection murmur. Abdomen: Soft nontender, positive bowel sounds no organomegaly. Extremities: No edema, decrease distal pulses. Labs: Potassium 4.1, BUN 14, creatinine 0.71. Troponin less than 0.012. WBC 7.6 EKG: Sinus mechanism with occasional PVCs and no acute ST segment changes Impression: 1. Symptoms consistent with TIA, improving. No prior history of atrial fibrillation or cardiomyopathy. Probably noncardiac cause. 2. History of severe PAD, post multiple intervention 3. Chronic tobacco use 4. History of hypertension. 5. History of diabetes. 6. History of hyperlipidemia Plan: 1. Continue present therapy 2. Obtain an echocardiogram with Doppler 3. Neurology consultation 4. Smoking cessation 5. Depending on her progress further recommendations will be made, thank you for this consult we will follow with you. Past Medical History Past Medical History: Coronary Artery Disease (CAD), Heart Failure, Diabetes Haley litus, GERD/Reflux, Hyperlipidemia, Hypertension, Osteoarthritis (OA), Vascular Disorder Additional Past Medical History / Comment(s): right LEG PAIN with discoloration of all toes rt foot, insomnia related to pain, migraines, edema everardo ankles, hx ulcer History of Any Multi-Drug Resistant Organisms: None Reported Past Surgical History: Section, Hysterectomy, Orthopedic Surgery Additional Past Surgical History / Comment(s): LEFT KNEE arthroscopy, STENTS PLACED IN LOWER LEFT GROIN AND UPPER LEFT THIGH, AORTOGRAM W/ RUNOFF OF LOWER EXT Past Anesthesia/Blood Transfusion Reactions: No Reported Reaction Past Psychological History: Anxiety, Depression Smoking Status: Current every day smoker Past Alcohol Use History: None Reported Additional Past Alcohol Use History / Comment(s): smokes 1/2 PPD, ,SMOKED APPROX 20 YRS Past Drug Use History: None Reported - Past Family History Sister(s) Family Medical History: Vascular Disorder Mother Family Medical History: Cancer Additional Family Medical History / Comment(s): LUNG CA Medications and Allergies Home Medications Medication Instructions Recorded Confirmed Type cloNIDine HCL [Catapres] 0.1 mg PO BID #30 tab 12/22/14 01/27/23 Rx Atorvastatin Calcium [Lipitor] 80 mg PO HS 10/22/18 01/27/23 History HYDROcodone/APAP 7.5-325MG [[place] 1 tab PO Q8HR PRN 11/14/18 01/27/23 History 7.5-325] Omeprazole [PriLOSEC] 20 mg PO BID 03/12/19 01/27/23 History Spironolactone [Aldactone] 50 mg PO DAILY 03/12/19 01/27/23 History Empagliflozin [Jardiance] 25 mg PO DAILY 02/21/20 01/27/23 History Montelukast [Singulair] 10 mg PO DAILY 02/21/20 01/27/23 History Topiramate [Topamax] 100 mg PO HS 05/05/21 01/27/23 History DULoxetine HCL [Cymbalta] 60 mg PO HS 08/04/21 01/27/23 History Furosemide [Lasix] 40 mg PO BID 08/04/21 01/27/23 History Clopidogrel [Plavix] 75 mg PO DAILY 07/06/22 01/27/23 History Aspirin EC [Ecotrin] 325 mg PO DAILY 01/27/23 01/27/23 History Escitalopram [Lexapro] 20 mg PO DAILY 01/27/23 01/27/23 History Meclizine [Antivert] 25 mg PO Q6H PRN 01/27/23 01/27/23 History traZODone HCL [Desyrel] 100 mg PO HS 01/27/23 01/27/23 History Allergies Allergy/AdvReac Type Severity Reaction Status Date / Time dronabinol [From Marinol] Allergy Severe Anaphylaxis Verified 01/27/23 17:00 lisinopril [From Prinivil] Allergy Swelling Verified 01/27/23 17:00 Penicillins Allergy Rash/Hives Verified 01/27/23 17:00 morphine AdvReac Unknown Nausea & Verified 01/27/23 17:00 Vomiting Physical Exam Vitals: Vital Signs Temp Pulse Pulse Resp BP BP Pulse Ox 01/28/23 12:48 98.2 F 59 L 16 125/78 98 01/28/23 08:59 98.1 F 79 18 136/81 96 01/28/23 04:00 71 18 117/73 97 01/28/23 02:00 18 01/27/23 23:53 97.8 F 60 18 118/69 96 01/27/23 23:42 61 16 122/61 97 01/27/23 20:54 71 16 169/78 01/27/23 20:18 62 16 134/68 98 01/27/23 18:10 64 16 144/68 98 01/27/23 16:17 64 16 151/74 98 01/27/23 16:10 68 16 154/78 98 01/27/23 15:58 97.8 F 72 20 138/85 100 Intake and Output 01/27/23 01/28/23 01/28/23 22:59 06:59 14:59 Intake Total 240 Balance 240 Intake: Oral 240 Other: Voiding Method Toilet Toilet # Voids 2 Weight 90.718 kg 90.718 kg Results 01/27/23 16:10 01/27/23 16:10 Cardiac Enzymes 01/27/23 01/27/23 Range/Units 16:10 16:10 AST 24 (14-36) U/L Troponin I <0.012 (0.000-0.034) ng/mL Coagulation 01/27/23 Range/Units 16:10 PT 9.8 (9.0-12.0) sec APTT 22.8 (22.0-30.0) sec CBC 01/27/23 Range/Units 16:10 WBC 7.6 (3.8-10.6) k/uL RBC 4.32 (3.80-5.40) m/uL Hgb 13.3 (11.4-16.0) gm/dL Hct 39.9 (34.0-46.0) % Plt Count 218 (150-450) k/uL Comprehensive Metabolic Panel 01/27/23 Range/Units 16:10 Sodium 138 (137-145) mmol/L Potassium 4.1 (3.5-5.1) mmol/L Chloride 108 H (98-107) mmol/L Carbon Dioxide 23 (22-30) mmol/L BUN 14 (7-17) mg/dL Creatinine 0.71 (0.52-1.04) mg/dL Glucose 112 H (74-99) mg/dL Calcium 8.9 (8.4-10.2) mg/dL AST 24 (14-36) U/L ALT 28 (4-34) U/L Alkaline Phosphatase 86 (38-126) U/L Total Protein 6.3 (6.3-8.2) g/dL Albumin 3.8 (3.5-5.0) g/dL Current Medications Generic Name Dose Route Start Last Admin Trade Name Freq PRN Reason Stop Dose Admin Acetaminophen 500 mg 01/28/23 01:23 01/28/23 09:30 Acetaminophen Tab 500 Mg Tab PO 500 mg Q6HR PRN Administration Fever and/ or Pain Hydrocodone Bitart/Acetaminophen 1 each 01/28/23 01:23 Hydrocodone/Apap 7.5-325mg 1 Each Tab PO Q8HR PRN Pain Aspirin 325 mg 01/28/23 09:00 01/28/23 09:30 Aspirin 325 Mg Tab PO 325 mg DAILY KAE Administration Atorvastatin Calcium 80 mg 01/28/23 21:00 Atorvastatin 80 Mg Tab PO HS KAE Clonidine 0.1 mg 01/28/23 09:00 01/28/23 09:30 Clonidine Hcl 0.1 Mg Tab PO 0.1 mg BID KAE Administration Clopidogrel Bisulfate 75 mg 01/28/23 09:00 01/28/23 09:30 Clopidogrel 75 Mg Tab PO 75 mg DAILY KAE Administration Dapagliflozin 10 mg 01/28/23 09:00 01/28/23 09:37 Dapagliflozin Propanediol 10 Mg Tablet PO 10 mg DAILY KAE Administration Duloxetine HCl 60 mg 01/28/23 21:00 Duloxetine Hcl 60 Mg Capsule.Dr PO HS KAE Escitalopram Oxalate 20 mg 01/28/23 09:00 01/28/23 09:30 Escitalopram 20 Mg Tab PO 20 mg DAILY KAE Administration Furosemide 40 mg 01/28/23 09:00 01/28/23 09:30 Furosemide 40 Mg Tab PO 40 mg BID@0900,1600 KAE Administration Sodium Chloride 1,000 mls @ 20 mls/hr 01/27/23 19:00 01/27/23 23:51 Saline 0.9% IV Not Given .Q24H KAE Meclizine HCl 25 mg 01/28/23 01:23 Meclizine 25 Mg Tab PO Q6H PRN Vertigo Montelukast Sodium 10 mg 01/28/23 09:00 01/28/23 09:30 Montelukast 10 Mg Tab PO 10 mg DAILY KAE Administration Naloxone HCl 0.2 mg 01/27/23 18:48 Naloxone 0.4 Mg/Ml 1 Ml Vial IV Q2M PRN Opioid Reversal Pantoprazole Sodium 40 mg 01/28/23 07:30 01/28/23 06:21 Pantoprazole 40 Mg Tablet PO 40 mg AC-BID KAE Administration Spironolactone 50 mg 01/28/23 09:00 01/28/23 09:30 Spironolactone 25 Mg Tab PO 50 mg DAILY KAE Administration Topiramate 100 mg 01/28/23 21:00 Topiramate 100 Mg Tab PO HS KAE Trazodone HCl 100 mg 01/28/23 21:00 Trazodone Hcl 100 Mg Tab PO HS KAE Intake and Output 01/27/23 01/28/23 01/28/23 22:59 06:59 14:59 Intake Total 240 Balance 240 Intake: Oral 240 Other: Voiding Method Toilet Toilet # Voids 2 Weight 90.718 kg 90.718 kg 01/27/23 16:10 01/27/23 16:10
[2023-01-28 16:44] LABS: Glucose,Whole Blood 137 mg/dL (70-110)
[2023-01-28] MEDS: HYDROcodone/APAP 7.5-325MG 1 EACH TAB PO PRN (17:53)
--- NOTE | 2023-01-28 18:38 | P.CNNES ---
History of Present Illness Consult date: 01/28/23 Requesting physician: Maxwell Gilmore Reason for Consult: Stroke code History of Present Illness: This is a telemedicine neurology consultation performed today on 01/28/2023. Patient is a 52-year-old female, who came to the hospital yesterday at 3:53 PM for strokelike symptoms. Patient states that she woke up yesterday at 7 AM and was feeling dizzy like a heavy feeling but no spinning. As the day went on around 3 PM, she noticed that she was having trouble speaking, trouble finding words and slurring. She was noticing balance trouble, walking like a "drunk". She missed the couch while sitting and she fell when she was trying to sit. She has been stumbling. Also complaining of headache on the left side. The symptoms lasted for a few hours. Vital signs on arrival blood pressure 138/85, pulse is 72, temperature 97.8. Blood test shows normal CBC, PT/PTT, normal CMP. Hepatic panel is normal, troponin negative. CK is 166. ESR 10, CRP 0.7. CT head revealed no acute intracranial process. No significant change from prior. I personally reviewed CT head, agree with the findings. EKG showed sinus rhythm with occasional ventricle or premature complexes. Chest x-ray showed no acute cardiac or may process. Patient had a recent MRI of the lumbar spine performed 12/26/2022 for low back pain. It revealed postsurgical changes L4-L5 level with stable alignment. Stable mild degenerative changes L3-L4 level. Patient in the ER was considered as a stroke code. She was outside the window for TPA, as unclear to the time of onset of symptoms. It was felt her symptoms were felt to be very vague. At present patient still feels lightheaded, slight headache, slight off balance but overall better. Denies any history of strokes or TIA. Her sister had a TIA in the past. Denies any history of dizziness, decreased hearing, tinnitus or recent upper respiratory infections. Patient has history of peripheral arterial disease. Patient does have history of migraines, but has not happened for years. Patient has history of prediabetes for last 2 years. She has hypertension. She has smoked 1 pack per day since age 16, quit couple months ago. Denies any alcohol use or marijuana. Review of Systems Constitutional: Denies chills, Denies fever Eyes: denies blurred vision, denies pain Ears: deny: decreased hearing, ear discharge Ears, nose, mouth and throat: Reports headache, Denies sore throat Cardiovascular: Denies chest pain, Denies shortness of breath Respiratory: Denies cough, Denies excessive sputum Gastrointestinal: Denies abdominal pain, Denies diarrhea, Denies nausea, Denies vomiting Genitourinary: Denies dysuria, Denies hematuria, Denies urge incontinence Musculoskeletal: Denies low back pain, Denies myalgias, Denies neck pain Integumentary: Denies pruritus, Denies rash Neurological: Reports as per HPI Psychiatric: Reports anxiety, Reports depression Endocrine: Denies fatigue, Denies weight change Past Medical History Past Medical History: Coronary Artery Disease (CAD), Heart Failure, Diabetes Mellitus, GERD/Reflux, Hyperlipidemia, Hypertension, Osteoarthritis (OA), Vascular Disorder Additional Past Medical History / Comment(s): right LEG PAIN with discoloration of all toes rt foot, insomnia related to pain, migraines, edema everardo ankles, hx ulcer History of Any Multi-Drug Resistant Organisms: None Reported Past Surgical History: Section, Hysterectomy, Orthopedic Surgery Additional Past Surgical History / Comment(s): LEFT KNEE arthroscopy, STENTS PLACED IN LOWER LEFT GROIN AND UPPER LEFT THIGH, AORTOGRAM W/ RUNOFF OF LOWER EXT Past Anesthesia/Blood Transfusion Reactions: No Reported Reaction Past Psychological History: Anxiety, Depression Smoking Status: Current every day smoker Past Alcohol Use History: None Reported Additional Past Alcohol Use History / Comment(s): smokes 1/2 PPD, ,SMOKED APPROX 20 YRS Past Drug Use History: None Reported - Past Family History Sister(s) Family Medical History: Vascular Disorder Mother Family Medical History: Cancer Additional Family Medical History / Comment(s): LUNG CA Medications and Allergies Home Medications Medication Instructions Recorded Confirmed Type cloNIDine HCL [Catapres] 0.1 mg PO BID #30 tab 12/22/14 01/27/23 Rx Atorvastatin Calcium [Lipitor] 80 mg PO HS 10/22/18 01/27/23 History HYDROcodone/APAP 7.5-325MG [[place] 1 tab PO Q8HR PRN 11/14/18 01/27/23 History 7.5-325] Omeprazole [PriLOSEC] 20 mg PO BID 03/12/19 01/27/23 History Spironolactone [Aldactone] 50 mg PO DAILY 03/12/19 01/27/23 History Empagliflozin [Jardiance] 25 mg PO DAILY 02/21/20 01/27/23 History Montelukast [Singulair] 10 mg PO DAILY 02/21/20 01/27/23 History Topiramate [Topamax] 100 mg PO HS 05/05/21 01/27/23 History DULoxetine HCL [Cymbalta] 60 mg PO HS 08/04/21 01/27/23 History Furosemide [Lasix] 40 mg PO BID 08/04/21 01/27/23 History Clopidogrel [Plavix] 75 mg PO DAILY 07/06/22 01/27/23 History Aspirin EC [Ecotrin] 325 mg PO DAILY 01/27/23 01/27/23 History Escitalopram [Lexapro] 20 mg PO DAILY 01/27/23 01/27/23 History Meclizine [Antivert] 25 mg PO Q6H PRN 01/27/23 01/27/23 History traZODone HCL [Desyrel] 100 mg PO HS 01/27/23 01/27/23 History Allergies Allergy/AdvReac Type Severity Reaction Status Date / Time dronabinol [From Marinol] Allergy Severe Anaphylaxis Verified 01/27/23 17:00 lisinopril [From Prinivil] Allergy Swelling Verified 01/27/23 17:00 Penicillins Allergy Rash/Hives Verified 01/27/23 17:00 morphine AdvReac Unknown Nausea & Verified 01/27/23 17:00 Vomiting Physical Examination - Vital Signs Vital Signs: Vital Signs Temp Pulse Pulse Resp BP BP Pulse Ox 01/28/23 04:00 71 18 117/73 97 01/28/23 02:00 18 01/27/23 23:53 97.8 F 60 18 118/69 96 01/27/23 23:42 61 16 122/61 97 01/27/23 20:54 71 16 169/78 01/27/23 20:18 62 16 134/68 98 01/27/23 18:10 64 16 144/68 98 01/27/23 16:17 64 16 151/74 98 01/27/23 16:10 68 16 154/78 98 01/27/23 15:58 97.8 F 72 20 138/85 100 Intake and Output 01/27/23 01/28/23 01/28/23 22:59 06:59 14:59 Intake Total 120 Balance 120 Intake: Oral 120 Other: Voiding Method Toilet Weight 90.718 kg 90.718 kg Patient is a middle-aged female, in no acute distress. Patient has a very flat affect. Patient is alert awake oriented to time place and person. Speech and language functions are normal. Patient can name and repeat very well. No aphasia or dysarthria. Attention, concentration and fund of knowledge is adequate. On cranial nerve examination, pupils are equal, round and reacting to light, visual gregory are full on confrontation, with no neglect on double simultaneous stimulation. Extraocular muscles are intact with no nystagmus. Face is symmetric, tongue protrudes to the midline. Palatal elevation and sensation normal, hearing and shoulder shrug normal, facial sensation normal. On muscle strength testing, there is left-sided drift, but no pronation. The muscle strength is (right/left) deltoid 5/4, biceps 5/4, manager of financial reporting 5/4, ankle dorsiflexion 5/3, hip flexion also weaker on the left. Deep tendon reflexes are (right/left) biceps 2/1+, brachioradialis 2/1+, knee 3/3 and plantars appeared downgoing bilaterally. Sensory to touch is equal, however she sometimes neglects left side on double simultaneous stimulation. Cerebellar function showed no ataxia for [id number] testing. No dysdiadochokinesia. No ataxia for [id number] testing on either side, although she was slow to perform [id number] on the left. Tone and bulk of muscles normal. Gait deferred.. On general examination, there is no carotid bruit or murmur, S1-S2 audible. Chest is clear on consultation. Abdomen is soft nontender. No organomegaly, bowel sounds present. Peripheral pulses are present. No edema. Results - Laboratory Findings CBC and BMP: 01/27/23 16:10 01/27/23 16:10 Abnormal Lab Findings: Abnormal Labs 01/27/23 01/27/23 16:08 16:10 Chloride 108 H Glucose 112 H POC Glucose (mg/dL) 139 H Creatine Kinase 166 H Assessment and Plan Assessment: * Acute onset of left-sided weakness involving arm and leg. Patient has decreased effort on examination, with some inconsistent findings. Patient did have some slurred speech at the onset, which has resolved. Rule out CVA. * X tobacco use * Hypertension * Coronary artery disease * Peripheral arterial disease * Hyperlipidemia * Anxiety, depression. Plan: * MRI of the brain rule out acute stroke. * 2-D echo with bubble study, rule out PFO or other embolic source. * CTA of head and neck revealed no significant diameter reduction to account for patient's symptoms. Normal belkofski of [place]. * Continue aspirin 325 mg and Plavix 75 mg for now pending above as results. * Telemetry monitoring * Hemoglobin A1c 5.9 on 08/04/2022. Diabetes is well controlled. * Lipid panel on 08/04/2022 with cholesterol 175, LDL 96, HDL 52 and triglycerides 130. Continue Lipitor 80 mg daily. * Close neuro checks. * DVT prophylaxis: Heparin 5000 units subcu every 12 hour period * Neurology will follow. Thank you for the consult.
[2023-01-28 20:24] LABS: Glucose,Whole Blood 113 mg/dL (70-110)
[2023-01-28] MEDS: SODIUM CHLORIDE 0.9% 1,000 ML IV SCH (20:40)
[2023-01-28] MEDS ORDERED: ATORVASTATIN 80 MG TAB PO SCH (21:00)
[2023-01-28] MEDS ORDERED: TOPIRAMATE 100 MG TAB PO SCH (21:00)
[2023-01-28] MEDS ORDERED: traZODone HCL 100 MG TAB PO SCH (21:00)
[2023-01-28] MEDS ORDERED: DULoxetine HCL 60 MG CAPSULE.DR PO SCH (21:00)
[2023-01-29] MEDS: HYDROcodone/APAP 7.5-325MG 1 EACH TAB PO PRN (05:01)
[2023-01-29] MEDS: PANTOPRAZOLE 40 MG TABLET PO SCH (05:02)
[2023-01-29 06:17] LABS: Glucose,Whole Blood 97 mg/dL (70-110)
[2023-01-29 08:01] LABS: ALT 24 U/L (4-34); AST 19 U/L (14-36); African American GFR (CKD) >90 (>60 ml/min/1.73 sqM); Albumin 3.6 g/dL (3.5-5.0); Alkaline Phosphatase 89 U/L (38-126); Anion Gap 8 mmol/L; Blood Urea Nitrogen 11 mg/dL (7-17); Calcium 8.6 mg/dL (8.4-10.2); Carbon Dioxide 25 mmol/L (22-30); Chloride 108 mmol/L (98-107); Glucose 83 mg/dL (74-99); Non-African American GFR(CKD) 85 (>60 ml/min/1.73 sqM); Potassium 3.8 mmol/L (3.5-5.1); Sodium 141 mmol/L (137-145); Total Bilirubin 0.4 mg/dL (0.2-1.3); Total Protein 6.1 g/dL (6.3-8.2)
[2023-01-29 08:38] LABS: Basophils # (A) 0.1 k/uL (0-0.2); Basophils % (A) 1 %; Eosinophils # (A) 0.2 k/uL (0-0.7); Eosinophils % (A) 3 %; HCT 42.1 % (34.0-46.0); HGB 13.2 gm/dL (11.4-16.0); Lymphocytes # (A) 2.2 k/uL (1.0-4.8); Lymphocytes % (A) 32 %; MCH 30.5 pg (25.0-35.0); MCHC 31.4 g/dL (31.0-37.0); Mean Platelet Volume 8.6; Monocytes # (A) 0.4 k/uL (0-1.0); Monocytes % (A) 5 %; Neutrophils # (A) 3.9 k/uL (1.3-7.7); Neutrophils % (A) 56 %; Platelet Count 209 k/uL (150-450); RBC 4.33 m/uL (3.80-5.40); RDW 13.7 % (11.5-15.5); WBC 6.9 k/uL (3.8-10.6)
[2023-01-29 08:46] LABS: MCV 97.2 fL (80.0-100.0)
--- NOTE | 2023-01-29 10:03 | P.PN ---
Subjective Progress Note Date: 01/29/23 Shelly Preston, is an 52-year-old female patient of Dr. cabral who presented to [facility] emergency room with a chief complaint of slurred speech, lightheadedness and gait disturbance. Her daughter history in the emergency room patient was having slurred speech and having difficulty walking, patient needed assistance to walk and get into a car. She was evaluated in the emergency room vital examination on presentation revealed a temperature of 97.8 pulse 72 respiration 20 blood pressure 138/85 pulse ox 100% on room air Laboratory data revealed a white blood count of 7.6 hemoglobin 13.3 platelet count 218 sodium 138 potassium 4.1 chloride 108 CO2 23 BUN 14 creatinine 0.71 Testing in the emergency room revealed computed tomography scan of the brain done in the emergency room without contrast revealed no acute intracranial hemorrhage or midline shift, CT angiogram of the neck and brain did not reveal any significant abnormality. Patient was admitted to medical floor for further evaluation and treatment, neurology consultation was requested Past medical history is significant for history of hypertension, history of hyperlipidemia, history of coronary artery disease, history of diabetes mellitus, history of gastroesophageal reflux disease, history of peripheral vascular disease, history of migraine headaches, history of osteoarthritis, and history of insomnia. Patient smokes 1/2-1 full pack a today, she denies any alcohol use, she denies any drug use including marijuana. On review of systems at this time patient is alert and oriented 3 in no apparent distress her speech is back to normal she is still complaining of right sided weakness, she is complaining of headache and lightheadedness otherwise she denies any complaints there is no fever or chills, no chest pain no shortness of breath no cough no nausea or vomiting no abdominal pain no diarrhea no blood in the stools no burning with urination no frequency or urgency and no hematuria. On 01/29/2023 patient is alert and oriented 3. Per patient no further episodes of neurological symptoms. Patient denies dizziness or headache. Patient denies any weakness. Cardiology and neurology services are following MRI was completed. 2-D echo with bubble study has been ordered per neurology. Temp 97.6, heart rate 58, blood pressure 120/60 with a pulse ox of 95% Objective - Vital Signs Vital signs: Vital Signs Temp 97.6 F 01/29/23 00:00 Pulse 58 L 01/29/23 04:00 Resp 18 01/29/23 04:00 BP 129/77 01/29/23 04:00 Pulse Ox 95 01/29/23 08:57 FiO2 Intake & Output 01/28/23 01/29/23 01/29/23 18:59 06:59 18:59 Intake Total 480 Output Total 0 Balance 480 Intake: Oral 480 Output: Gastric Drainage 0 Urine 0 Stool 0 Urine/Stool Mix 0 Emesis 0 Other 0 Other: Voiding Method Toilet Toilet # Voids 0 1 # Bowel Movements 0 - Exam In general patient is alert and oriented x 3 in no distress HEENT head normocephalic and atraumatic Neck is supple no JVD no goiter no lymphadenopathy no carotid bruit Chest examination is clear to auscultation no crackles no wheezing Cardiac exam reveals regular heart sounds S1 and S2 no gallops no murmurs Abdomen is soft nontender no organomegaly with normal bowel sounds Extremity exam reveals no edema no cyanosis or clubbing Neurological examination reveals no gross focal deficits Patient is alert and oriented 3 in no apparent distress Cranial nerve II-12 are intact Patient is complaining of right sided weakness however I was not able to appreciate any weakness on exam sensory exam is normal Gait was not checked due to safety concerns - Labs CBC & Chem 7: 01/29/23 06:52 01/29/23 06:56 Labs: Abnormal Lab Results - Last 24 Hours (Table) 01/28/23 01/28/23 01/29/23 Range/Units 16:42 20:22 06:56 Chloride 108 H (98-107) mmol/L POC Glucose (mg/dL) 137 H 113 H (70-110) mg/dL Total Protein 6.1 L (6.3-8.2) g/dL Assessment and Plan Plan: Symptoms of lightheadedness slurred speech and gait disturbance, rule out cerebrovascular accident Underlying history of hypertension Underlying history of hyperlipidemia Underlying history of migraine headache Underlying history of coronary artery disease Underlying history of peripheral vascular disease Underlying history of tobacco abuse At this time patient is admitted to telemetry floor Home medications reviewed and reordered Neurology consultation requested MRI of the brain ordered Echocardiogram ordered and cardiology consultation requested 2-D echo with bubble study ordered MRI completed Physical therapy and occupational therapy requested Will follow closely
[2023-01-29] MEDS: SPIRONOLACTONE 25 MG TAB PO SCH (10:15)
[2023-01-29] MEDS: cloNIDine HCL 0.1 MG TAB PO SCH (10:15)
[2023-01-29] MEDS: ACETAMINOPHEN TAB 500 MG TAB PO PRN (10:15)
[2023-01-29] MEDS: MONTELUKAST 10 MG TAB PO SCH (10:16)
[2023-01-29] MEDS: ESCITALOPRAM 20 MG TAB PO SCH (10:16)
[2023-01-29] MEDS: ASPIRIN 325 MG TAB PO SCH (10:16)
[2023-01-29] MEDS: FUROSEMIDE 40 MG TAB PO SCH (10:16)
[2023-01-29] MEDS: DAPAGLIFLOZIN PROPANEDIOL 10 MG TABLET PO SCH (10:16)
[2023-01-29] MEDS: CLOPIDOGREL 75 MG TAB PO SCH (10:16)
--- NOTE | 2023-01-29 10:24 | P.DS ---
Providers Date of admission: 01/27/23 18:48 Expected date of discharge: 01/29/23 Attending physician: Chin Frost Consults: 01/27/23 18:48 Consult Physician Routine Consulting Provider: Susan Moreno Consult Reason/Comments: code stroke Do you want consulting provider notified?: Yes 01/28/23 13:23 Consult Physician Routine Consulting Provider: Kobe Lucero Consult Reason/Comments: Possible stroke Do you want consulting provider notified?: Yes Primary care physician: Pauline Vargas Hospital Course: Discharge diagnosis Symptoms of lightheadedness slurred speech and gait disturbance, rule out cerebrovascular accident Underlying history of hypertension Underlying history of hyperlipidemia Underlying history of migraine headache Underlying history of coronary artery disease Underlying history of peripheral vascular disease Underlying history of tobacco abuse Hospital course Shelly Preston, is an 52-year-old female patient of Dr. vargas who presented to [facility] emergency room with a chief complaint of slurred speech, lightheadedness and gait disturbance. Her daughter history in the emergency room patient was having slurred speech and having difficulty walking, patient needed assistance to walk and get into a car. She was evaluated in the emergency room vital examination on presentation revealed a temperature of 97.8 pulse 72 respiration 20 blood pressure 138/85 pulse ox 100% on room air Laboratory data revealed a white blood count of 7.6 hemoglobin 13.3 platelet count 218 sodium 138 potassium 4.1 chloride 108 CO2 23 BUN 14 creatinine 0.71 Testing in the emergency room revealed computed tomography scan of the brain done in the emergency room without contrast revealed no acute intracranial hemorrhage or midline shift, CT angiogram of the neck and brain did not reveal any significant abnormality. Patient was admitted to medical floor for further evaluation and treatment, neurology consultation was requested Past medical history is significant for history of hypertension, history of hyperlipidemia, history of coronary artery disease, history of diabetes mellitus, history of gastroesophageal reflux disease, history of peripheral vascular disease, history of migraine headaches, history of osteoarthritis, and history of insomnia. Patient smokes 1/2-1 full pack a today, she denies any alcohol use, she denies any drug use including marijuana. On review of systems at this time patient is alert and oriented 3 in no apparent distress her speech is back to normal she is still complaining of right sided weakness, she is complaining of headache and lightheadedness otherwise she denies any complaints there is no fever or chills, no chest pain no shortness of breath no cough no nausea or vomiting no abdominal pain no diarrhea no blood in the stools no burning with urination no frequency or urgency and no hematuria. On 01/29/2023 patient is alert and oriented 3. Per patient no further episodes of neurological symptoms. Patient denies dizziness or headache. Patient denies any weakness. Cardiology and neurology services are following MRI was completed. 2-D echo with bubble study has been ordered per neurology. Temp 97.6, heart rate 58, blood pressure 120/60 with a pulse ox of 95% Per nursing staff neurology has cleared patient for discharge and no need for 2- D echo with the study. CT of head and neck revealed no significant findings. Patient to continue aspirin and Plavix. Patient to follow-up with PCP and neurology services for further management Patient Condition at Discharge: Stable Plan - Discharge Summary Discharge Rx Participant: No New Discharge Prescriptions: Continue cloNIDine HCL [Catapres] 0.1 mg PO BID #30 tab Atorvastatin Calcium [Lipitor] 80 mg PO HS HYDROcodone/APAP 7.5-325MG [[place] 7.5-325] 1 tab PO Q8HR PRN PRN Reason: Pain Omeprazole [PriLOSEC] 20 mg PO BID Spironolactone [Aldactone] 50 mg PO DAILY Montelukast [Singulair] 10 mg PO DAILY Empagliflozin [Jardiance] 25 mg PO DAILY Clopidogrel [Plavix] 75 mg PO DAILY Meclizine [Antivert] 25 mg PO Q6H PRN PRN Reason: Vertigo traZODone HCL [Desyrel] 100 mg PO HS Aspirin EC [Ecotrin] 325 mg PO DAILY Topiramate [Topamax] 100 mg PO HS DULoxetine HCL [Cymbalta] 60 mg PO HS Furosemide [Lasix] 40 mg PO BID Escitalopram [Lexapro] 20 mg PO DAILY Discharge Medication List cloNIDine HCL [Catapres] 0.1 mg PO BID #30 tab 12/22/14 [Rx] Atorvastatin Calcium [Lipitor] 80 mg PO HS 10/22/18 [History] HYDROcodone/APAP 7.5-325MG [[place] 7.5-325] 1 tab PO Q8HR PRN 11/14/18 [History] Omeprazole [PriLOSEC] 20 mg PO BID 03/12/19 [History] Spironolactone [Aldactone] 50 mg PO DAILY 03/12/19 [History] Empagliflozin [Jardiance] 25 mg PO DAILY 02/21/20 [History] Montelukast [Singulair] 10 mg PO DAILY 02/21/20 [History] Topiramate [Topamax] 100 mg PO HS 05/05/21 [History] DULoxetine HCL [Cymbalta] 60 mg PO HS 08/04/21 [History] Furosemide [Lasix] 40 mg PO BID 08/04/21 [History] Clopidogrel [Plavix] 75 mg PO DAILY 07/06/22 [History] Aspirin EC [Ecotrin] 325 mg PO DAILY 01/27/23 [History] Escitalopram [Lexapro] 20 mg PO DAILY 01/27/23 [History] Meclizine [Antivert] 25 mg PO Q6H PRN 01/27/23 [History] traZODone HCL [Desyrel] 100 mg PO HS 01/27/23 [History] Follow up Appointment(s)/Referral(s): Pauline Vargas MD [Primary Care Provider] - 1-2 days Vinayak Collier MD [Medical Doctor] - 1 Week Activity/Diet/Wound Care/Special Instructions: Activity as tolerated Diet heart healthy Discharge Disposition: HOME SELF-CARE
[2023-01-29 11:00] VITALS: RESP 16
[2023-01-29 12:26] LABS: Glucose,Whole Blood 104 mg/dL (70-110)
--- NOTE | 2023-01-29 13:26 | P.PN ---
Subjective Progress Note Date: 01/29/23 The patient is a 52-year-old female with known history of severe peripheral vascular disease, hypertension, hyperlipidemia, diabetes mellitus and chronic tobacco use. She presents with symptoms of slurred speech and dizziness. Her slurred speech resolved but she continues to be mildly and steady. In addition to mild CAD by cardiac catheterization, she was in sinus mechanism on presentation. She denies any chest discomfort or change in her breathing. She has chronic intermittent claudication without significant changes. She denies any history of arrhythmia or recent palpitations. She has no PND, orthopnea or peripheral edema. She is followed on a regular basis by Dr. Stafford and has underwent a stress echocardiogram recently according to her. Her computed tomography scan showed no acute hemorrhage. CT angiogram showed no evidence of high-grade stenosis. Her brain MRI showed minimal age-related atrophic and chronic small vessel disease. 01/29/2023 Patient was seen and examined resting comfortable in bed. She feels overall she is about 85% back to her baseline. She was evaluated by neurology and apparently cleared for discharge as she recently had testing done in our office. She is scheduled soon for follow-up with Dr. Stafford. Objective - Vital Signs Vital signs: Vital Signs Temp 97.6 F 01/29/23 00:00 Pulse 56 L 01/29/23 07:45 Resp 16 01/29/23 07:45 BP 119/71 01/29/23 07:45 Pulse Ox 95 01/29/23 08:57 FiO2 Intake & Output 01/28/23 01/29/23 01/29/23 18:59 06:59 18:59 Intake Total 480 Output Total 0 Balance 480 Intake: Oral 480 Output: Gastric Drainage 0 Urine 0 Stool 0 Urine/Stool Mix 0 Emesis 0 Other 0 Other: Voiding Method Toilet Toilet # Voids 0 1 # Bowel Movements 0 - Exam Head: Normocephalic. Eyes: Sclerae nonicteric. Neck: Good carotid upstroke, no bruit, no jugular venous distention. Lungs: Clear to auscultation. Heart: Regular rate and rhythm, S1-S2, no S3, no rub. Systolic ejection murmur. Abdomen: Soft nontender, positive bowel sounds no organomegaly. Extremities: No edema, decrease distal pulses. - Labs CBC & Chem 7: 01/29/23 06:52 01/29/23 06:56 Labs: Abnormal Lab Results - Last 24 Hours (Table) 01/28/23 01/28/23 01/29/23 Range/Units 16:42 20:22 06:56 Chloride 108 H (98-107) mmol/L POC Glucose (mg/dL) 137 H 113 H (70-110) mg/dL Total Protein 6.1 L (6.3-8.2) g/dL Assessment and Plan Assessment: 1. Symptoms consistent with TIA, improving. No prior history of atrial fibrillation or cardiomyopathy. Probably noncardiac cause. 2. History of severe PAD, post multiple intervention 3. Chronic tobacco use 4. History of hypertension. 5. History of diabetes. 6. History of hyperlipidemia Plan: From cardiology perspective patient is clear for discharge home. She'll follow- up in the office with Dr. Stafford at which time decision will be made regarding need for further cardiac workup. GEOLOGY TEACHER note has been reviewed, I agree with a documented findings and plan of care. Patient was seen and examined.
[2023-01-29 14:18] VITALS: BP 106/63; PULSE 52; TEMP 98.1
--- NOTE | 2023-01-29 20:06 | P.PN ---
Subjective Progress Note Date: 01/29/23 This is a telemedicine neurology follow-up performed today on 01/29/2023. Patient states she is feeling better. When I saw the patient, patient was holding her cell phone with her left hand talking to someone. She was moving her extremities without any difficulty, readjusting herself in the bed using her both arms to lift herself. Does not appear to be weak on the left. Likewise her gait appears normal. Patient states her anxiety is not bad, her depression is better. She denies any stresses at her home or work. Objective - Vital Signs Vital signs: Vital Signs Temp 97.6 F 01/29/23 00:00 Pulse 58 L 01/29/23 04:00 Resp 18 01/29/23 04:00 BP 129/77 01/29/23 04:00 Pulse Ox 95 01/29/23 08:57 FiO2 Intake & Output 01/28/23 01/29/23 01/29/23 18:59 06:59 18:59 Intake Total 480 Output Total 0 Balance 480 Intake: Oral 480 Output: Gastric Drainage 0 Urine 0 Stool 0 Urine/Stool Mix 0 Emesis 0 Other 0 Other: Voiding Method Toilet Toilet # Voids 0 1 # Bowel Movements 0 - Exam Mental status, speech and language functions are normal. Cranial nerves are normal. On muscle strength testing (right/left) deltoid 5/4+ biceps 5/5-4+, triceps 5/4, statement processor 5/5, hip flexion 5/4+, ankle dorsiflexion 5/4. Patient has left pronator drift, about 10-15. Sensory to touch is equal. No ataxia for shfbey-os-hrax testing. Despite weakness in the left leg as above, patient walked perfectly normal, without any difficulty, with no spasticity, limp or circumduction or hemiparetic gait. - Labs CBC & Chem 7: 01/29/23 06:52 01/29/23 06:56 Labs: Abnormal Lab Results - Last 24 Hours (Table) 01/28/23 01/28/23 01/29/23 Range/Units 16:42 20:22 06:56 Chloride 108 H (98-107) mmol/L POC Glucose (mg/dL) 137 H 113 H (70-110) mg/dL Total Protein 6.1 L (6.3-8.2) g/dL Assessment and Plan Assessment: * Acute onset of left-sided weakness involving arm and leg. Patient has decreased effort on examination, with some inconsistent findings. Suspect con version disorder. MRI of the brain negative for any acute stroke. * X tobacco use * Hypertension * Coronary artery disease * Peripheral arterial disease * Hyperlipidemia * Anxiety, depression. Plan: * MRI of the brain showed minimal age-related atrophic and chronic small vessel ischemic change. No acute intracranial process. * 2-D echo not completed yet. Patient has an appointment with her training and development coordinator Dr. Alexander on 02/02/2023. She already had a stress echo performed recently. Patient can have a 2-D echo at her cardiology office as well. * CTA of head and neck revealed no significant diameter reduction to account for patient's symptoms. Normal [place]. * Continue aspirin 325 mg and Plavix 75 mg for now pending above as results. * Telemetry monitoring * Hemoglobin A1c 5.9 on 08/04/2022. Diabetes is well controlled. * Lipid panel on 08/04/2022 with cholesterol 175, LDL 96, HDL 52 and triglycerides 130. Continue Lipitor 80 mg daily. * Neurologically clear for discharge. Patient will follow with neurologist in 1-2 weeks.
== END 2023-01-29 14:16 | disposition home or self-care (01) | DRG 69 ==
LOC: EC 15:53 → 3SCARD 18:48
PROVIDERS: ADMIT Internal Medicine; ATTEND Internal Medicine
DX: G45.9 Transient cerebral ischemic attack, unspecified (principal); T14.90XA Injury, unspecified, initial encounter; R47.81 Slurred speech; R53.1 Weakness; R29.818 Other symptoms and signs involving the nervous system; E11.51 Type 2 diabetes mellitus with diabetic peripheral angiopathy without gangrene; R42 Dizziness and giddiness; E78.5 Hyperlipidemia, unspecified; F32.A Depression, unspecified; F41.9 Anxiety disorder, unspecified; I11.0 Hypertensive heart disease with heart failure; I25.10 Atherosclerotic heart disease of native coronary artery without angina pectoris; I50.9 Heart failure, unspecified; W19.XXXA Unspecified fall, initial encounter; Z79.02 Long term (current) use of antithrombotics/antiplatelets; Z79.82 Long term (current) use of aspirin; Z79.84 Long term (current) use of oral hypoglycemic drugs; Z79.899 Other long term (current) drug therapy; R26.9 Unspecified abnormalities of gait and mobility; G43.009 Migraine without aura, not intractable, without status migrainosus; Z87.891 Personal history of nicotine dependence
CPT/HCPCS: 36415; 70450; 70496; 70498; 70551; 71046; 80053; 82550; 83735; 84484; 85025; 85610; 85652; 85730; 86140; 93005; 94760

== ENCOUNTER → 2023-05-05 | Day surgery (SDC) | payer OTHER ==
[2023-05-03 09:24] VITALS: BMI 32.5
[~2023-05-05] MED LIST changes: -ALPRAZolam 0.25 MG TAB PO PRN; -ASPIRIN 325 MG TAB PO PRN; +CLINDAMYCIN 900 MG in DEXTROSE 5% IN WATER 50 ML IVPB PRN; +HYDROcodone/APAP 7.5-325MG 1 EACH TAB ONE; +LIDOCAINE 1% INJ 10MG/ML (20 ML MDV) ONE; +LIDOCAINE 1% INJ 10MG/ML (20 ML MDV) SQ ONE; +MIDAZOLAM 2 MG/2 ML VIAL IVP ONE; +SODIUM CHLORIDE 0.9% 1,000 ML IV SCH; -SODIUM CHLORIDE 0.9% 1,000 ML in EMPTY BAG 1 BAG IV ONE
[2023-05-05 08:40] LABS: Glucose,Whole Blood 97 mg/dL (70-110)
[2023-05-05 09:11] VITALS: BP 122/75; PULSE 65; RESP 16; TEMP 98.5
--- NOTE | 2023-05-05 10:25 | CE ---
CARDIAC ELECTROPHYSIOLOGY REPORT PROCEDURE PERFORMED: Loop recorder insertion. INDICATION: Cryptogenic stroke with episodes of ventricular tachycardia on the event monitor. CLINICAL INFORMATION: This is a 52-year-old lady, a patient of Dr. Stafford, who has had a history of TIA, which was a cryptogenic TIA. She was advised a loop recorder after event monitor was inconclusive. PROCEDURE NOTE: Under strict aseptic precautions and local anesthesia in the left 4th intercostal space, a stab incision was made in the medial lateral direction with the provided tool and the loop recorder was inserted. The patient tolerated the procedure well. Antibiotic infusion was performed as per protocol. The patient tolerated the procedure well without complication. The voltage was 0.34 mV. The tracings were excellent and the patient's device was set with a cryptogenic stroke protocol with a low rate of 40. The details were discussed with the patient and her family. She will be discharged later today and will see Dr. Stafford in 1 week in the office. DEVICE INFORMATION: Device is a loop recorder; tool and die designer, [employer]; model, LNQ22, serial number [id number]. The settings were for a cryptogenic stroke protocol and the voltage was 0.34 mV. MMODL / IJN: [id number] /
== END ==
LOC: CATHEP 08:08
PROVIDERS: ATTEND Internal Medicine Interventional Cardiology
DX: R55 Syncope and collapse (principal); I10 Essential (primary) hypertension; E78.5 Hyperlipidemia, unspecified; E11.9 Type 2 diabetes mellitus without complications; F17.210 Nicotine dependence, cigarettes, uncomplicated; Z79.82 Long term (current) use of aspirin; Z79.899 Other long term (current) drug therapy
CPT/HCPCS: 33285; J2250; J2001; J0736

== ENCOUNTER 2023-05-28 14:14 | Observation (INO) | payer OTHER ==
[2023-05-28] MEDS ORDERED: NITROGLYCERIN SL TABS 0.4 MG TAB SUBLINGUAL STA ×3 (14:27)
[2023-05-28] MEDS ORDERED: ASPIRIN 81 MG PO STA (14:27)
--- NOTE | 2023-05-28 14:29 | ED ---
General Adult HPI - General Chief complaint: Chest Pain Stated complaint: chest pain Time Seen by Provider: 05/28/23 14:22 Source: patient, RN notes reviewed Mode of arrival: ambulatory Limitations: no limitations - History of Present Illness Initial comments: Patient is a pleasant 52-year-old female presenting to the emergency department with concern with chest discomfort. Onset of symptoms was around 2 hours ago. Patient was not exerting herself. Discomfort is 8/10 and feels like burning. There is some radiation towards the back. Patient has some mild associated dyspnea. No nausea. No diaphoresis. No history of similar symptoms previous. Patient does have loop recorder placed around a month ago secondary to history of TIA. Patient states they were trying to evaluate her for possible A. fib. - Related Data Home Medications Medication Instructions Recorded Confirmed Atorvastatin Calcium [Lipitor] 80 mg PO HS 10/22/18 05/05/23 HYDROcodone/APAP 7.5-325MG [[place] 1 tab PO Q8HR PRN 11/14/18 05/05/23 7.5-325] Omeprazole [PriLOSEC] 20 mg PO BID 03/12/19 05/05/23 Spironolactone [Aldactone] 50 mg PO DAILY 03/12/19 05/05/23 Empagliflozin [Jardiance] 25 mg PO DAILY 02/21/20 05/05/23 Montelukast [Singulair] 10 mg PO DAILY 02/21/20 05/05/23 Topiramate [Topamax] 100 mg PO HS 05/05/21 05/05/23 DULoxetine HCL [Cymbalta] 60 mg PO HS 08/04/21 05/05/23 Furosemide [Lasix] 40 mg PO BID 08/04/21 05/05/23 Clopidogrel [Plavix] 75 mg PO DAILY 07/06/22 05/05/23 Aspirin EC [Ecotrin] 325 mg PO DAILY 01/27/23 05/05/23 Escitalopram [Lexapro] 20 mg PO DAILY 01/27/23 05/05/23 Meclizine [Antivert] 25 mg PO Q6H PRN 01/27/23 05/03/23 traZODone HCL [Desyrel] 100 mg PO HS 01/27/23 05/05/23 Loratadine [Claritin] 10 mg PO DAILY 02/08/23 05/05/23 Previous Rx's Medication Instructions Recorded cloNIDine HCL [Catapres] 0.1 mg PO BID #30 tab 12/22/14 Allergies Allergy/AdvReac Type Severity Reaction Status Date / Time dronabinol [From Marinol] Allergy Severe Anaphylaxis Verified 05/28/23 14:20 lisinopril [From Prinivil] Allergy Swelling Verified 05/28/23 14:20 Penicillins Allergy Rash/Hives Verified 05/28/23 14:20 morphine AdvReac Unknown Nausea & Verified 05/28/23 14:20 Vomiting Review of Systems ROS Statement: Those systems with pertinent positive or pertinent negative responses have been documented in the HPI. ROS Other: All systems not noted in ROS Statement are negative. Constitutional: Denies: fever Eyes: Denies: eye pain ENT: Denies: ear pain Respiratory: Reports: as per HPI. Denies: cough Cardiovascular: Reports: as per HPI, chest pain Endocrine: Denies: fatigue Gastrointestinal: Denies: abdominal pain Genitourinary: Denies: dysuria Past Medical History Past Medical History: Coronary Artery Disease (CAD), Heart Failure, CVA/TIA, Diabetes Mellitus, GERD/Reflux, Hyperlipidemia, Hypertension, Osteoarthritis (OA), Vascular Disorder Additional Past Medical History / Comment(s): Insomnia related to pain. Migraines. Bilateral ankle edema. Hx duondenal ulcer. TIA 01/27/23-no residual effects. History of Any Multi-Drug Resistant Organisms: None Reported Past Surgical History: Section, Hysterectomy, Joint Replacement, Orthopedic Surgery Additional Past Surgical History / Comment(s): LEFT KNEE ARTHROSCOPY, STENTS PLACED IN LOWER LEFT GROIN AND UPPER LEFT THIGH, AORTOGRAM W/ RUNOFF OF LOWER EXTREMITIES, left thumb joint replacement,MARQUIS. loop recorder Dr Garcia April 30 Past Anesthesia/Blood Transfusion Reactions: No Reported Reaction Additional Past Anesthesia/Blood Transfusion Reaction / Comment(s): no hx blood transfusion Past Psychological History: Anxiety, Depression Smoking Status: Current every day smoker Past Alcohol Use History: None Reported Past Drug Use History: None Reported - Past Family History Sister(s) Family Medical History: Vascular Disorder Mother Family Medical History: Cancer Additional Family Medical History / Comment(s): LUNG CANCER. General Exam Limitations: no limitations General appearance: alert Head exam: Present: normocephalic Eye exam: Present: normal appearance Neck exam: Present: normal inspection Respiratory exam: Present: normal lung sounds bilaterally, chest wall tenderness Cardiovascular Exam: Present: regular rate, normal rhythm Expanded Peripheral pulses: 2+: Radial (R), Radial (L), Dorsalis Pedis (R), Dorsalis Pedis (L) GI/Abdominal exam: Present: soft. Absent: tenderness, pulsatile mass Extremities exam: Present: normal inspection. Absent: pedal edema, calf tender ness Neurological exam: Present: alert Psychiatric exam: Present: normal affect, normal mood Skin exam: Present: normal color Course Vital Signs 05/28/23 05/28/23 05/28/23 14:17 15:11 15:20 Temperature 98 F Pulse Rate 74 66 Respiratory 22 18 Rate Blood Pressure 172/82 127/71 132/70 O2 Sat by Pulse 99 95 Oximetry EKG Findings - EKG Results: EKG: interpreted by NIKKID, sinus rhythm, normal axis, normal QRS, normal ST/T Medical Decision Making - Medical Decision Making Was pt. sent in by a medical professional or institution (, PA, PAD MACHINE OFFBEARER, urgent care, hospital, or skilled nursing...) When possible be specific @ -No Did you speak to anyone other than the patient for history (EMS, parent, family, police, friend...)? What history was obtained from this source @ -No Did you review nursing and triage notes (agree or disagree)? Why? @ -I reviewed and agree with nursing and triage notes Were old charts reviewed (outside hosp., previous admission, EMS record, old EKG, old radiological studies, urgent care reports/EKG's, skilled nursing records)? Report findings @ -No old charts were reviewed Differential Diagnosis (chest pain, altered mental status, abdominal pain women, abdominal pain men, vaginal bleeding, weakness, fever, dyspnea, syncope, headache, dizziness, GI bleed, back pain, seizure, CVA, palpatations, mental health, musculoskeletal)? @ -Differential Chest Pain: Stable Angina, Unstable Angina, STEMI, NSTEMI Aortic Dissection, Pneumothorax, Musculoskeletal, Esophageal Spasm GERD, Cholecystitis, Pancreatitis, Zoster, this is not meant to be an all-inclusive list. EKG interpreted by me (3pts min.). @ -As above X-rays interpreted by me (1pt min.). @ -Chest x-ray shows no acute process. Loop recorder present. CT interpreted by me (1pt min.). @ -None done U/S interpreted by me (1pt. min.). @ -None done What testing was considered but not performed or refused? (CT, X-rays, U/S, labs)? Why? @ -None What meds were considered but not given or refused? Why? @ -None Did you discuss the management of the patient with other professionals (professionals i.e. Dr., PA, PAD MACHINE OFFBEARER, lab, RT, psych nurse, social media marketer, set up mechanic, teacher, targeting acquisition officer, case technician)? Give summary @ -Case was discussed with Dr. Stafford, who will consult. Case also discussed with Dr. Frost, who will admit for Dr. herman. Was smoking cessation discussed for >3mins.? @ -No Was critical care preformed (if so, how long)? @ -No Were there social determinants of health that impacted care today? How? (Homelessness, low income, unemployed, alcoholism, drug addiction, transp ortation, low edu. Level, literacy, decrease access to med. care, half-way, rehab)? @ -No Was there de-escalation of care discussed even if they declined (Discuss DNR or withdrawal of care, Hospice)? DNR status @ -No What co-morbidities impacted this encounter? (DM, HTN, Smoking, COPD, CAD, Cancer, CVA, ARF, Chemo, Hep., AIDS, mental health diagnosis, sleep apnea, morbid obesity)? @ -None Was patient admitted / discharged? Hospital course, mention meds given and route, prescriptions, significant lab abnormalities, going to OR and other pertinent info. @ -Patient reevaluated. No improvement with nitroglycerin however did have some improvement with Dilaudid. Patient will be held for observation and computed tomography scan of chest and cardiac evaluation Undiagnosed new problem with uncertain prognosis? @ -No Drug Therapy requiring intensive monitoring for toxicity (Heparin, Nitro, Insulin, Cardizem)? @ -No Were any procedures done? @ -No Diagnosis/symptom? @ -Chest pain Acute, or Chronic, or Acute on Chronic? @ -Acute Uncomplicated (without systemic symptoms) or Complicated (systemic symptoms)? @ -default Side effects of treatment? @ -No Exacerbation, Progression, or Severe Exacerbation? @ -No Poses a threat to life or bodily function? How? (Chest pain, [place], [place], pneumonia, PE, COPD, DKA, ARF, appy, cholecystitis, CVA, Diverticulitis, Homicidal, Suicidal, threat to staff... and all critical care pts) @ -No - Lab Data Result diagrams: 05/28/23 14:27 05/28/23 14:27 Lab Results 05/28/23 05/28/23 05/28/23 Range/Units 14:27 14:27 14:27 WBC 7.3 (3.8-10.6) k/uL RBC 4.41 (3.80-5.40) m/uL Hgb 13.6 (11.4-16.0) gm/dL Hct 40.7 (34.0-46.0) % MCV 92.2 (80.0-100.0) fL MCH 30.9 (25.0-35.0) pg MCHC 33.5 (31.0-37.0) g/dL RDW 13.7 (11.5-15.5) % Plt Count 203 (150-450) k/uL MPV 8.8 Neutrophils % 64 % Lymphocytes % 26 % Monocytes % 6 % Eosinophils % 2 % Basophils % 0 % Neutrophils # 4.7 (1.3-7.7) k/uL Lymphocytes # 1.9 (1.0-4.8) k/uL Monocytes # 0.4 (0-1.0) k/uL Eosinophils # 0.2 (0-0.7) k/uL Basophils # 0.0 (0-0.2) k/uL PT 10.3 (9.0-12.0) sec INR 1.0 (<1.2) APTT 23.4 (22.0-30.0) sec D-Dimer 0.66 H (<0.60) mg/L FEU Sodium 136 L (137-145) mmol/L Potassium 4.5 (3.5-5.1) mmol/L Chloride 107 (98-107) mmol/L Carbon Dioxide 20 L (22-30) mmol/L Anion Gap 9 mmol/L BUN 14 (7-17) mg/dL Creatinine 0.78 (0.52-1.04) mg/dL Est GFR (CKD-EPI)AfAm >90 (>60 ml/min/1.73 sqM) Est GFR (CKD-EPI)NonAf 88 (>60 ml/min/1.73 sqM) Glucose 89 (74-99) mg/dL Calcium 9.1 (8.4-10.2) mg/dL Magnesium 2.2 (1.6-2.3) mg/dL Total Bilirubin 0.9 (0.2-1.3) mg/dL AST 28 (14-36) U/L ALT 22 (4-34) U/L Alkaline Phosphatase 83 (38-126) U/L Troponin I (0.000-0.034) ng/mL Total Protein 7.2 (6.3-8.2) g/dL Albumin 4.2 (3.5-5.0) g/dL 05/28/23 Range/Units 14:27 WBC (3.8-10.6) k/uL RBC (3.80-5.40) m/uL Hgb (11.4-16.0) gm/dL Hct (34.0-46.0) % MCV (80.0-100.0) fL MCH (25.0-35.0) pg MCHC (31.0-37.0) g/dL RDW (11.5-15.5) % Plt Count (150-450) k/uL MPV Neutrophils % % Lymphocytes % % Monocytes % % Eosinophils % % Basophils % % Neutrophils # (1.3-7.7) k/uL Lymphocytes # (1.0-4.8) k/uL Monocytes # (0-1.0) k/uL Eosinophils # (0-0.7) k/uL Basophils # (0-0.2) k/uL PT (9.0-12.0) sec INR (<1.2) APTT (22.0-30.0) sec D-Dimer (<0.60) mg/L FEU Sodium (137-145) mmol/L Potassium (3.5-5.1) mmol/L Chloride (98-107) mmol/L Carbon Dioxide (22-30) mmol/L Anion Gap mmol/L BUN (7-17) mg/dL Creatinine (0.52-1.04) mg/dL Est GFR (CKD-EPI)AfAm (>60 ml/min/1.73 sqM) Est GFR (CKD-EPI)NonAf (>60 ml/min/1.73 sqM) Glucose (74-99) mg/dL Calcium (8.4-10.2) mg/dL Magnesium (1.6-2.3) mg/dL Total Bilirubin (0.2-1.3) mg/dL AST (14-36) U/L ALT (4-34) U/L Alkaline Phosphatase (38-126) U/L Troponin I <0.012 (0.000-0.034) ng/mL Total Protein (6.3-8.2) g/dL Albumin (3.5-5.0) g/dL Disposition Clinical Impression: Chest pain Disposition: ADMITTED IP TO THIS HOSP Is patient prescribed a controlled substance at d/c from ED?: No Referrals: Pauline Vargas MD [Primary Care Provider] - 1-2 days Time of Disposition: 17:16
[2023-05-28] MEDS ORDERED: HYDROmorphone 1 MG/ML 1 ML SYRINGE IVP STA (14:49)
[2023-05-28] MEDS ORDERED: ONDANSETRON 4 MG/2 ML VIAL IVP STA (15:14)
[2023-05-28 15:55] LABS: Basophils % (A) 0 %; Eosinophils # (A) 0.2 k/uL (0-0.7); Eosinophils % (A) 2 %; HCT 40.7 % (34.0-46.0); HGB 13.6 gm/dL (11.4-16.0); Lymphocytes # (A) 1.9 k/uL (1.0-4.8); Lymphocytes % (A) 26 %; MCH 30.9 pg (25.0-35.0); MCHC 33.5 g/dL (31.0-37.0); MCV 92.2 fL (80.0-100.0); Mean Platelet Volume 8.8; Monocytes # (A) 0.4 k/uL (0-1.0); Monocytes % (A) 6 %; Neutrophils # (A) 4.7 k/uL (1.3-7.7); Neutrophils % (A) 64 %; Platelet Count 203 k/uL (150-450); RBC 4.41 m/uL (3.80-5.40); RDW 13.7 % (11.5-15.5); WBC 7.3 k/uL (3.8-10.6)
[2023-05-28 16:16] LABS: Partial Thromboplastin Time 23.4 sec (22.0-30.0); Prothrombin Time 10.3 sec (9.0-12.0)
--- NOTE | 2023-05-28 16:26 | XR ---
EXAMINATION TYPE: XR chest 2V DATE OF EXAM: 05/28/2023 4:17 PM COMPARISON: Chest radiographs from 01/27/2023 TECHNIQUE: XR chest 2V Frontal and lateral views of the chest. CLINICAL INDICATION:Female, 52 years old with history of Chest Pain; FINDINGS: Lungs/Pleura: Prominent interstitial lung markings are seen scattered throughout the lungs with martell ening of the diaphragm and increased lucency of the lung apices. No evidence of focal consolidation, pneumothorax or pleural effusion. Pulmonary vascularity: Unremarkable. Heart/mediastinum: Cardiomediastinal silhouette is unremarkable. A loop recorder projects over the le ft thorax over the heart. Musculoskeletal: No acute osseous pathology. IMPRESSION: 1. No acute cardiopulmonary disease process. 2. COPD changes.
[2023-05-28 16:49] LABS: ALT 22 U/L (4-34); AST 28 U/L (14-36); African American GFR (CKD) >90 (>60 ml/min/1.73 sqM); Albumin 4.2 g/dL (3.5-5.0); Alkaline Phosphatase 83 U/L (38-126); Anion Gap 9 mmol/L; Blood Urea Nitrogen 14 mg/dL (7-17); Calcium 9.1 mg/dL (8.4-10.2); Carbon Dioxide 20 mmol/L (22-30); Chloride 107 mmol/L (98-107); Glucose 89 mg/dL (74-99); Magnesium 2.2 mg/dL (1.6-2.3); Non-African American GFR(CKD) 88 (>60 ml/min/1.73 sqM); Sodium 136 mmol/L (137-145); Total Bilirubin 0.9 mg/dL (0.2-1.3); Total Protein 7.2 g/dL (6.3-8.2)
[2023-05-28 16:53] LABS: Potassium 4.5 mmol/L (3.5-5.1)
[2023-05-28] MEDS ORDERED: NITROGLYCERIN SL TABS 0.4 MG TAB SUBLINGUAL PRN (17:16)
--- NOTE | 2023-05-28 17:52 | CT ---
EXAMINATION TYPE: CT angio chest CT DLP: 433.2 mGycm, Automated exposure control for dose reduction was used. DATE OF EXAM: 05/28/2023 5:34 PM COMPARISON: Chest radiograph from same day. CLINICAL INDICATION:Female, 52 years old with history of cp; Pain, elevated d dimer TECHNIQUE/CONTRAST: CTA scan of the thorax is performed with IV Contrast, patient injected with 100ml mL of Isovue 370, M IP images are created and reviewed these are created on a separate workstation.. FINDINGS: Pulmonary Artery: There is no evidence for a filling defect within the pulmonary vasculature to sugge st acute pulmonary embolism. The pulmonary artery is of normal size. Lungs/Pleura: No evidence of focal consolidation, pleural effusion or pneumothorax. Airway: Large airways are patent. Heart: Heart is within normal limits for size. Vasculature: No evidence of aortic aneurysm. Mediastinum: No gross evidence of adenopathy. Musculoskeletal: Mild degenerative disc disease changes are present throughout the thoracolumbar spin e. Soft Tissues: Unremarkable. Lower neck: No significant findings. Upper Abdomen: Left adrenal nodule measuring -7 Hounsfield units compatible with lipid rich adrenal a denoma measuring 25 mm. IMPRESSION: 1. No evidence of pulmonary embolism. 2. No acute process.
[2023-05-28] MEDS ORDERED: MECLIZINE 25 MG TAB PO PRN (19:46)
[2023-05-28] MEDS: NITROGLYCERIN OINT 1 INCH/GM PACKET TOPICAL SCH ×2 (20:15→23:42)
[2023-05-28] MEDS: HYDROcodone/APAP 7.5-325MG 1 EACH TAB PO PRN (20:35)
[2023-05-28] MEDS: cloNIDine HCL 0.1 MG TAB PO SCH (20:36)
[2023-05-28] MEDS: FUROSEMIDE 40 MG TAB PO SCH (20:36)
[2023-05-28] MEDS ORDERED: traZODone HCL 50 MG TAB PO SCH (21:00)
[2023-05-28] MEDS ORDERED: TOPIRAMATE 100 MG TAB PO SCH (21:00)
[2023-05-28] MEDS ORDERED: DULoxetine HCL 60 MG CAPSULE.DR PO SCH (21:00)
[2023-05-28] MEDS ORDERED: ATORVASTATIN 80 MG TAB PO SCH (21:00)
[2023-05-28 21:12] VITALS: RESP 16
[2023-05-29] MEDS: NITROGLYCERIN OINT 1 INCH/GM PACKET TOPICAL SCH ×2 (04:59→12:25)
[2023-05-29] MEDS: HYDROcodone/APAP 7.5-325MG 1 EACH TAB PO PRN ×2 (05:45→12:24)
[2023-05-29] MEDS ORDERED: DAPAGLIFLOZIN PROPANEDIOL 10 MG TABLET PO SCH (09:00)
[2023-05-29] MEDS ORDERED: ESCITALOPRAM 20 MG TAB PO SCH (09:00)
[2023-05-29] MEDS ORDERED: MONTELUKAST 10 MG TAB PO SCH (09:00)
[2023-05-29] MEDS ORDERED: ASPIRIN 325 MG TAB PO SCH ×2 (09:00)
[2023-05-29] MEDS ORDERED: CLOPIDOGREL 75 MG TAB PO SCH (09:00)
[2023-05-29] MEDS ORDERED: SPIRONOLACTONE 25 MG TAB PO SCH (09:00)
[2023-05-29] MEDS ORDERED: LORATADINE 10 MG TAB PO SCH (09:00)
[2023-05-29] MEDS ORDERED: PANTOPRAZOLE 40 MG TABLET PO SCH (09:00)
[2023-05-29] MEDS: FUROSEMIDE 40 MG TAB PO SCH (09:03)
[2023-05-29] MEDS: cloNIDine HCL 0.1 MG TAB PO SCH (09:07)
--- NOTE | 2023-05-29 10:15 | P.CRDCN ---
History of Present Illness Consult date: 05/29/23 History of present illness: History of Present Illness: The patient is a 52-year-old female with known history of severe peripheral vascular disease, hypertension, hyperlipidemia, diabetes mellitus and chronic tobacco use. Patient was diagnosed with TIA in January of this year and subsequently underwent MARQUIS that was negative for cardiac source of embolization. She also had a loop recorder inserted to the left upper anterior chest. Patient now presents to the hospital with left upper anterior chest wall pain that is next to the loop recorder. No sign of infection. Pain is a burning sensation not related to activity. Vital signs are stable. EKG sinus rhythm with no acute changes CBC unremarkable. D-dimer 0.66, sodium 136, potassium 4.5, BUN 14 creatinine 0 .78. Magnesium 2.2. Liver function tests are normal. Troponin negative 3. Chest x-ray reveals no acute finding had COPD CTA of the chest negative for pulmonary embolism Home cardiac medications: Aspirin 325 mg daily, atorvastatin 80 mg at bedtime, clonidine 0.1 mg twice daily, Plavix 75 mg daily, Jardiance 25 mg daily, Lasix 40 mg twice daily, Aldactone 50 mg daily Transesophageal echocardiogram 02/13/2023 revealed no cardiac source of embolization. No shunt. Moderate aortic insufficiency. Moderate mitral regurgitation. Moderate tricuspid regurgitation. Loop recorder insertion 05/05/2023 Review of Systems: Respiratory: She has a history of chronic tobacco use but no recent wheezing or cough GI: No nausea or vomiting . No history of peptic ulcer disease. No recent GI bleed. : No hematuria or dysuria. Nervous System: No stroke or seizure. Physical Examination: 52-year-old female, alert, oriented no apparent distress ,Blood pressure 102/60, Heart rate 59 Head: Normocephalic. Eyes: Sclerae nonicteric. Neck: Good carotid upstroke, no bruit, no jugular venous distention. Lungs: Clear to auscultation. Heart: Regular rate and rhythm, S1-S2, no S3, no rub. Systolic ejection murmur. Tenderness to chest wall next to loop recorder Abdomen: Soft nontender, positive bowel sounds no organomegaly. Extremities: No edema, decrease distal pulses. Impression: Chest pain at loop recorder site. No sign of infection Acute coronary syndrome ruled out History of recent TIA History of severe PAD, post multiple intervention Chronic tobacco use History of hypertension. History of diabetes. History of hyperlipidemia Plan: Continue home cardiac medications Enteric a loop recorder If no arrhythmias on loop recorder, patient is cleared for discharge home today. She may follow up with Dr. Stafford in the office in 2 weeks. Smoking cessation Nurse practitioner note has been reviewed, I agree with the documented findings and plan of care. Patient was seen and examined. Past Medical History Past Medical History: Coronary Artery Disease (CAD), Heart Failure, CVA/TIA, Diabetes Mellitus, GERD/Reflux, Hyperlipidemia, Hypertension, Osteoarthritis (OA), Vascular Disorder Additional Past Medical History / Comment(s): Insomnia related to pain. Migraines. Bilateral ankle edema. Hx duondenal ulcer. TIA 01/27/23-no residual effects. History of Any Multi-Drug Resistant Organisms: None Reported Past Surgical History: Section, Hysterectomy, Joint Replacement, Ortho pedic Surgery Additional Past Surgical History / Comment(s): LEFT KNEE ARTHROSCOPY, STENTS PLACED IN LOWER LEFT GROIN AND UPPER LEFT THIGH, AORTOGRAM W/ RUNOFF OF LOWER EXTREMITIES, left thumb joint replacement,MARQUIS. loop recorder Dr Garcia April 30 Past Anesthesia/Blood Transfusion Reactions: No Reported Reaction Additional Past Anesthesia/Blood Transfusion Reaction / Comment(s): no hx blood transfusion Past Psychological History: Anxiety, Depression Smoking Status: Current every day smoker Past Alcohol Use History: None Reported Additional Past Alcohol Use History / Comment(s): Smokes 1/2 ppd, started smoking at age 16 Past Drug Use History: None Reported - Past Family History Sister(s) Family Medical History: Vascular Disorder Mother Family Medical History: Cancer Additional Family Medical History / Comment(s): LUNG CANCER. Medications and Allergies Home Medications Medication Instructions Recorded Confirmed Type cloNIDine HCL [Catapres] 0.1 mg PO BID #30 tab 12/22/14 05/28/23 Rx Atorvastatin Calcium [Lipitor] 80 mg PO HS 10/22/18 05/28/23 History HYDROcodone/APAP 7.5-325MG [[place] 1 tab PO Q8HR PRN 11/14/18 05/28/23 History 7.5-325] Omeprazole [PriLOSEC] 20 mg PO BID 03/12/19 05/28/23 History Spironolactone [Aldactone] 50 mg PO DAILY 03/12/19 05/28/23 History Empagliflozin [Jardiance] 25 mg PO DAILY 02/21/20 05/28/23 History Montelukast [Singulair] 10 mg PO DAILY 02/21/20 05/28/23 History Topiramate [Topamax] 100 mg PO HS 05/05/21 05/28/23 History DULoxetine HCL [Cymbalta] 60 mg PO HS 08/04/21 05/28/23 History Furosemide [Lasix] 40 mg PO BID 08/04/21 05/28/23 History Clopidogrel [Plavix] 75 mg PO DAILY 07/06/22 05/28/23 History Aspirin EC [Ecotrin] 325 mg PO DAILY 01/27/23 05/28/23 History Escitalopram [Lexapro] 20 mg PO DAILY 01/27/23 05/28/23 History Meclizine [Antivert] 25 mg PO Q6H PRN 01/27/23 05/28/23 History traZODone HCL [Desyrel] 100 mg PO HS 01/27/23 05/28/23 History Loratadine [Claritin] 10 mg PO DAILY 02/08/23 05/28/23 History Allergies Allergy/AdvReac Type Severity Reaction Status Date / Time dronabinol [From Marinol] Allergy Severe Anaphylaxis Verified 05/28/23 17:42 lisinopril [From Prinivil] Allergy Swelling Verified 05/28/23 17:42 Penicillins Allergy Rash/Hives Verified 05/28/23 17:42 morphine AdvReac Unknown Nausea & Verified 05/28/23 17:42 Vomiting Physical Exam Vitals: Vital Signs Temp Pulse Pulse Resp BP BP Pulse Ox 05/29/23 02:30 97.7 F 61 16 98/66 97 05/28/23 18:35 97.7 F 56 L 16 117/67 98 05/28/23 15:20 66 18 132/70 95 05/28/23 15:11 127/71 05/28/23 14:17 98 F 74 22 172/82 99 Intake and Output 05/28/23 05/29/23 05/29/23 22:59 06:59 14:59 Other: Voiding Method Toilet # Voids 2 2 Weight 86.183 kg Results 05/28/23 14:27 05/28/23 14:27 Cardiac Enzymes 05/28/23 05/28/23 05/28/23 Range/Units 14:27 14:27 17:56 AST 28 (14-36) U/L Troponin I <0.012 <0.012 (0.000-0.034) ng/mL 05/28/23 Range/Units 20:06 AST (14-36) U/L Troponin I <0.012 (0.000-0.034) ng/mL Coagulation 05/28/23 Range/Units 14:27 PT 10.3 (9.0-12.0) sec APTT 23.4 (22.0-30.0) sec CBC 05/28/23 Range/Units 14:27 WBC 7.3 (3.8-10.6) k/uL RBC 4.41 (3.80-5.40) m/uL Hgb 13.6 (11.4-16.0) gm/dL Hct 40.7 (34.0-46.0) % Plt Count 203 (150-450) k/uL Comprehensive Metabolic Panel 05/28/23 Range/Units 14:27 Sodium 136 L (137-145) mmol/L Potassium 4.5 (3.5-5.1) mmol/L Chloride 107 (98-107) mmol/L Carbon Dioxide 20 L (22-30) mmol/L BUN 14 (7-17) mg/dL Creatinine 0.78 (0.52-1.04) mg/dL Glucose 89 (74-99) mg/dL Calcium 9.1 (8.4-10.2) mg/dL AST 28 (14-36) U/L ALT 22 (4-34) U/L Alkaline Phosphatase 83 (38-126) U/L Total Protein 7.2 (6.3-8.2) g/dL Albumin 4.2 (3.5-5.0) g/dL Current Medications Generic Name Dose Route Start Last Admin Trade Name Freq PRN Reason Stop Dose Admin Hydrocodone Bitart/Acetaminophen 1 each 05/28/23 19:46 05/29/23 05:45 Hydrocodone/Apap 7.5-325mg 1 Each Tab PO 1 each Q8HR PRN Administration Pain Aspirin 325 mg 05/29/23 09:00 Aspirin 325 Mg Tab PO DAILY [facility] Atorvastatin Calcium 80 mg 05/28/23 21:00 05/28/23 20:36 Atorvastatin 80 Mg Tab PO 80 mg HS KAE Administration Clonidine 0.1 mg 05/28/23 21:00 05/28/23 20:36 Clonidine Hcl 0.1 Mg Tab PO 0.1 mg BID [facility]AE Administration Clopidogrel Bisulfate 75 mg 05/29/23 09:00 Clopidogrel 75 Mg Tab PO DAILY [facility] Dapagliflozin 10 mg 05/29/23 09:00 Dapagliflozin Propanediol 10 Mg Tablet PO DAILY [facility] Duloxetine HCl 60 mg 05/28/23 21:00 05/28/23 20:36 Duloxetine Hcl 60 Mg Capsule.Dr PO 60 mg HS [facility] Administration Escitalopram Oxalate 20 mg 05/29/23 09:00 Escitalopram 20 Mg Tab PO DAILY [facility] Furosemide 40 mg 05/28/23 21:00 05/28/23 20:36 Furosemide 40 Mg Tab PO 40 mg BID [facility] Administration Loratadine 10 mg 05/29/23 09:00 Loratadine 10 Mg Tab PO DAILY [facility] Meclizine HCl 25 mg 05/28/23 19:46 Meclizine 25 Mg Tab PO Q6H PRN [place] Montelukast Sodium 10 mg 05/29/23 09:00 Montelukast 10 Mg Tab PO DAILY [facility] Nitroglycerin 0.4 mg 05/28/23 17:16 Nitroglycerin Sl Tabs 0.4 Mg Tab SUBLINGUAL Q5M PRN Chest Pain Nitroglycerin 1 inch 05/28/23 18:00 05/29/23 04:59 Nitroglycerin Oint 1 Inch/Gm Packet TOPICAL Not Given Q6HR [facility] Pantoprazole Sodium 40 mg 05/29/23 09:00 Pantoprazole 40 Mg Tablet PO DAILY [facility] Spironolactone 50 mg 05/29/23 09:00 Spironolactone 25 Mg Tab PO DAILY [facility] Topiramate 100 mg 05/28/23 21:00 05/28/23 20:36 Topiramate 100 Mg Tab PO 100 mg HS [facility] Administration Trazodone HCl 100 mg 05/28/23 21:00 05/28/23 20:36 Trazodone Hcl 50 Mg Tab PO 100 mg HS [facility] Administration Intake and Output 05/28/23 05/29/23 05/29/23 22:59 06:59 14:59 Other: Voiding Method Toilet # Voids 2 2 Weight 86.183 kg 05/28/23 14:27 05/28/23 14:27
[2023-05-29 11:01] LABS: Chol/HDL Ratio 2.85 Ratio; LDL Cholesterol,Calculated 57.2 mg/dL (0.0-131.0)
--- NOTE | 2023-05-29 16:03 | P.HPIM ---
History of Present Illness H&P Date: 05/29/23 Shelly Preston, is a 52-year-old female who presented to [facility] emergency room with a chief complaint of chest pain. Patient describes a burning sensation in the middle of her chest radiating to the back, the pain is mostly located around the area where she had a loop recorder implanted about 1 month ago , patient was also having some shortness of breath, symptoms started 2 hours prior to presentation to emergency room. She was evaluated in the emergency room vital examination on presentation revealed a temperature of 98 pulse 74 respiration 22 blood pressure 172/82 pulse ox 99% on room air Laboratory data revealed a white blood count of 7.3 hemoglobin 13.6 platelet cou nt 203 d-dimer 0.66 troponin level 0.012 Testing in the emergency room revealed chest x-ray done in the emergency room revealed no acute cardiopulmonary disease and evidence of COPD, EKG revealed sinus bradycardia otherwise no acute abnormality. CT angiogram of the chest did not reveal any evidence of pulmonary embolism. Patient was admitted to medical floor for further evaluation and treatment. Cardiology consultation was requested. Past Medical History Past Medical History: Coronary Artery Disease (CAD), Heart Failure, CVA/TIA, Diabetes Mellitus, GERD/Reflux, Hyperlipidemia, Hypertension, Osteoarthritis (OA), Vascular Disorder Additional Past Medical History / Comment(s): Insomnia related to pain. Migraines. Bilateral ankle edema. Hx duondenal ulcer. TIA 01/27/23-no residual effects. History of Any Multi-Drug Resistant Organisms: None Reported Past Surgical History: Section, Hysterectomy, Joint Replacement, Orthopedic Surgery Additional Past Surgical History / Comment(s): LEFT KNEE ARTHROSCOPY, STENTS PLACED IN LOWER LEFT GROIN AND UPPER LEFT THIGH, AORTOGRAM W/ RUNOFF OF LOWER EXTREMITIES, left thumb joint replacement,MARQUIS. loop recorder Dr Garcia April 30 Past Anesthesia/Blood Transfusion Reactions: No Reported Reaction Additional Past Anesthesia/Blood Transfusion Reaction / Comment(s): no hx blood transfusion Past Psychological History: Anxiety, Depression Smoking Status: Current every day smoker Past Alcohol Use History: None Reported Additional Past Alcohol Use History / Comment(s): Smokes 1/2 ppd, started smoking at age 16 Past Drug Use History: None Reported - Past Family History Sister(s) Family Medical History: Vascular Disorder Mother Family Medical History: Cancer Additional Family Medical History / Comment(s): LUNG CANCER. Medications and Allergies Home Medications Medication Instructions Recorded Confirmed Type cloNIDine HCL [Catapres] 0.1 mg PO BID #30 tab 12/22/14 05/28/23 Rx Atorvastatin Calcium [Lipitor] 80 mg PO HS 10/22/18 05/28/23 History HYDROcodone/APAP 7.5-325MG [[place] 1 tab PO Q8HR PRN 11/14/18 05/28/23 History 7.5-325] Omeprazole [PriLOSEC] 20 mg PO BID 03/12/19 05/28/23 History Spironolactone [Aldactone] 50 mg PO DAILY 03/12/19 05/28/23 History Empagliflozin [Jardiance] 25 mg PO DAILY 02/21/20 05/28/23 History Montelukast [Singulair] 10 mg PO DAILY 02/21/20 05/28/23 History Topiramate [Topamax] 100 mg PO HS 05/05/21 05/28/23 History DULoxetine HCL [Cymbalta] 60 mg PO HS 08/04/21 05/28/23 History Furosemide [Lasix] 40 mg PO BID 08/04/21 05/28/23 History Clopidogrel [Plavix] 75 mg PO DAILY 07/06/22 05/28/23 History Aspirin EC [Ecotrin] 325 mg PO DAILY 01/27/23 05/28/23 History Escitalopram [Lexapro] 20 mg PO DAILY 01/27/23 05/28/23 History Meclizine [Antivert] 25 mg PO Q6H PRN 01/27/23 05/28/23 History traZODone HCL [Desyrel] 100 mg PO HS 01/27/23 05/28/23 History Loratadine [Claritin] 10 mg PO DAILY 02/08/23 05/28/23 History Nitroglycerin Sl Tabs [Nitrostat] 0.4 mg SUBLINGUAL Q5M PRN tab 05/29/23 Rx Allergies Allergy/AdvReac Type Severity Reaction Status Date / Time dronabinol [From Marinol] Allergy Severe Anaphylaxis Verified 05/28/23 17:42 lisinopril [From Prinivil] Allergy Swelling Verified 05/28/23 17:42 Penicillins Allergy Rash/Hives Verified 05/28/23 17:42 morphine AdvReac Unknown Nausea & Verified 05/28/23 17:42 Vomiting Physical Exam Vitals: Vital Signs Temp Pulse Pulse Resp BP BP Pulse Ox 05/29/23 08:10 97.7 F 59 L 16 102/60 96 05/29/23 02:30 97.7 F 61 16 98/66 97 05/28/23 18:35 97.7 F 56 L 16 117/67 98 05/28/23 15:20 66 18 132/70 95 05/28/23 15:11 127/71 05/28/23 14:17 98 F 74 22 172/82 99 Intake and Output 05/28/23 05/29/23 05/29/23 22:59 06:59 14:59 Other: Voiding Method Toilet # Voids 2 2 Weight 86.183 kg In general patient is alert and oriented x 3 in no distress HEENT head normocephalic and atraumatic Neck is supple no JVD no goiter no lymphadenopathy no carotid bruit Chest examination is clear to auscultation no crackles no wheezing Cardiac exam reveals regular heart sounds S1 and S2 no gallops no murmurs Abdomen is soft nontender no organomegaly with normal bowel sounds Extremity exam reveals no edema no cyanosis or clubbing Neurological examination reveals no gross focal deficits Results CBC & Chem 7: 05/28/23 14:27 05/28/23 14:27 Labs: Abnormal Lab Results - Last 24 Hours (Table) 05/28/23 05/28/23 Range/Units 14:27 14:27 D-Dimer 0.66 H (<0.60) mg/L FEU Sodium 136 L (137-145) mmol/L Carbon Dioxide 20 L (22-30) mmol/L Thrombosis Risk Factor Assmnt - Choose All That Apply Each Factor Represents 1 point: Age 41-60 years Thrombosis Risk Factor Assessment Total Risk Factor Score: 1 Thrombosis Risk Factor Assessment Level: Low Risk Assessment and Plan Plan: Episode of chest pain Underlying history of hypertension Underlying history of hyperlipidemia Underlying history of nhy-epqjebq-tcfqasmty diabetes mellitus Previous history of duodenal ulcer Known history of coronary artery disease Known history of peripheral vascular disease Underlying history of migraine headache Underlying history of tobacco abuse Recent admission in January 2023 with headache and slurred speech possible TIA Underlying history of depression Underlying history of osteoarthritis At this time patient is admitted to telemetry floor Serial EKG and cardiac enzymes are ordered Home medications reviewed and reordered Cardiology consultation requested Will follow closely
--- NOTE | 2023-05-29 16:06 | P.DS ---
Providers Date of admission: 05/28/23 17:16 Expected date of discharge: 05/29/23 Attending physician: Chin Frost Consults: 05/28/23 17:16 Consult Physician Urgent Consulting Provider: Mahad Stafford Consult Reason/Comments: cp Do you want consulting provider notified?: Already Contacted Primary care physician: Pauline Vargas [facility] Course: Diagnosis on discharge: Episode of chest pain Underlying history of hypertension Underlying history of hyperlipidemia Underlying history of acv-yrhcjog-ottkccxct diabetes mellitus Previous history of duodenal ulcer Known history of coronary artery disease Known history of peripheral vascular disease Underlying history of migraine headache Underlying history of tobacco abuse Recent admission in January 2023 with headache and slurred speech possible TIA Underlying history of depression Underlying history of osteoarthritis Hospital course: Shelly Preston, is a 52-year-old female who presented to [facility] emergency room with a chief complaint of chest pain. Patient describes a burning sensation in the middle of her chest radiating to the back, the pain is mostly located around the area where she had a loop recorder implanted about 1 month ago , patient was also having some shortness of breath, symptoms started 2 hours prior to presentation to emergency room. She was evaluated in the emergency room vital examination on presentation revealed a temperature of 98 pulse 74 respiration 22 blood pressure 172/82 pulse ox 99% on room air Laboratory data revealed a white blood count of 7.3 hemoglobin 13.6 platelet count 203 d-dimer 0.66 troponin level 0.012 Testing in the emergency room revealed chest x-ray done in the emergency room re vealed no acute cardiopulmonary disease and evidence of COPD, EKG revealed sinus bradycardia otherwise no acute abnormality. CT angiogram of the chest did not reveal any evidence of pulmonary embolism. Patient was admitted to medical floor for further evaluation and treatment. Cardiology consultation was requested. On 05/29/2023 patient was seen and examined on the medical floor she is alert an d oriented 3 in no apparent distress she has no new episodes of chest pain she was evaluated by cardiology 3 sets of cardiac enzymes were negative, EKG did not reveal any evidence of acute ischemic changes, patient was cleared by cardiology for discharge home, she will follow-up with her handbag framer in the next 2-3 days. During this admission patient was counseled in length to quit smoking, coun seling more than 5 minutes today. Patient Condition at Discharge: Good Plan - Discharge Summary New Discharge Prescriptions: New Nitroglycerin Sl Tabs [Nitrostat] 0.4 mg SUBLINGUAL Q5M PRN tab PRN Reason: Chest Pain Continue cloNIDine HCL [Catapres] 0.1 mg PO BID #30 tab Atorvastatin Calcium [Lipitor] 80 mg PO HS HYDROcodone/APAP 7.5-325MG [[place] 7.5-325] 1 tab PO Q8HR PRN PRN Reason: Pain Omeprazole [PriLOSEC] 20 mg PO BID Spironolactone [Aldactone] 50 mg PO DAILY Montelukast [Singulair] 10 mg PO DAILY Empagliflozin [Jardiance] 25 mg PO DAILY Clopidogrel [Plavix] 75 mg PO DAILY Meclizine [Antivert] 25 mg PO Q6H PRN PRN Reason: Vertigo traZODone HCL [Desyrel] 100 mg PO HS Aspirin EC [Ecotrin] 325 mg PO DAILY Loratadine [Claritin] 10 mg PO DAILY Topiramate [Topamax] 100 mg PO HS DULoxetine HCL [Cymbalta] 60 mg PO HS Furosemide [Lasix] 40 mg PO BID Escitalopram [Lexapro] 20 mg PO DAILY Discharge Medication List cloNIDine HCL [Catapres] 0.1 mg PO BID #30 tab 12/22/14 [Rx] Atorvastatin Calcium [Lipitor] 80 mg PO HS 10/22/18 [History] HYDROcodone/APAP 7.5-325MG [[place] 7.5-325] 1 tab PO Q8HR PRN 11/14/18 [History] Omeprazole [PriLOSEC] 20 mg PO BID 03/12/19 [History] Spironolactone [Aldactone] 50 mg PO DAILY 03/12/19 [History] Empagliflozin [Jardiance] 25 mg PO DAILY 02/21/20 [History] Montelukast [Singulair] 10 mg PO DAILY 02/21/20 [History] Topiramate [Topamax] 100 mg PO HS 05/05/21 [History] DULoxetine HCL [Cymbalta] 60 mg PO HS 08/04/21 [History] Furosemide [Lasix] 40 mg PO BID 08/04/21 [History] Clopidogrel [Plavix] 75 mg PO DAILY 07/06/22 [History] Aspirin EC [Ecotrin] 325 mg PO DAILY 01/27/23 [History] Escitalopram [Lexapro] 20 mg PO DAILY 01/27/23 [History] Meclizine [Antivert] 25 mg PO Q6H PRN 01/27/23 [History] traZODone HCL [Desyrel] 100 mg PO HS 01/27/23 [History] Loratadine [Claritin] 10 mg PO DAILY 02/08/23 [History] Nitroglycerin Sl Tabs [Nitrostat] 0.4 mg SUBLINGUAL Q5M PRN tab 05/29/23 [Rx] Follow up Appointment(s)/Referral(s): Pauline Vargas MD [Primary Care Provider] - 1-2 days Mahad Stafford MD [STAFF PHYSICIAN] - 06/14/23 3:30 pm Patient Instructions/Handouts: Chest Pain (DC) Discharge Disposition: HOME SELF-CARE
[2023-05-29 16:26] VITALS: BP 100/51; PULSE 55; TEMP 97.6
== END 2023-05-29 15:04 | disposition home or self-care (01) ==
LOC: EC 14:14 → 6NMEDSUR 17:16
PROVIDERS: ADMIT Internal Medicine; ATTEND Internal Medicine
DX: R07.89 Other chest pain (principal); I25.10 Atherosclerotic heart disease of native coronary artery without angina pectoris; I11.0 Hypertensive heart disease with heart failure; I50.9 Heart failure, unspecified; K21.9 Gastro-esophageal reflux disease without esophagitis; E78.5 Hyperlipidemia, unspecified; G43.909 Migraine, unspecified, not intractable, without status migrainosus; F32.A Depression, unspecified; F41.9 Anxiety disorder, unspecified; E11.51 Type 2 diabetes mellitus with diabetic peripheral angiopathy without gangrene; M19.90 Unspecified osteoarthritis, unspecified site; F17.200 Nicotine dependence, unspecified, uncomplicated; Z86.73 Personal history of transient ischemic attack (TIA), and cerebral infarction without residual deficits; Z87.11 Personal history of peptic ulcer disease; Z79.84 Long term (current) use of oral hypoglycemic drugs; Z79.02 Long term (current) use of antithrombotics/antiplatelets; Z79.82 Long term (current) use of aspirin; Z79.899 Other long term (current) drug therapy; Z88.0 Allergy status to penicillin; Z88.5 Allergy status to narcotic agent
CPT/HCPCS: 36415; 71046; 71275; 80053; 80061; 83735; 84484; 85025; 85379; 85610; 85730; 93005; 94760; 96374; 96375; 99285

== ENCOUNTER → 2023-10-18 | Outpatient (CLI) | payer MEDICARE, OTHER ==
[2023-10-18 18:22] LABS: HCT 41.1 % (37.2-46.3); HGB 13.4 g/dL (12.0-15.0); MCH 30.2 pg (27.0-32.0); MCHC 32.6 g/dL (32.0-37.0); MCV 92.8 FL (80.0-97.0); Mean Platelet Volume 11.2 FL (9.5-12.2); NRBC Per 100 WBC 0 X 10*3/uL (0.00-0.01); Platelet Count 248 X 10*3/uL (140-440); RBC 4.43 X 10*6/uL (4.10-5.20); RDW 13.8 % (11.5-14.5); WBC 7.58 X 10*3/uL (4.50-10.00)
[2023-10-18 18:29] LABS: Blood Urea Nitrogen 11.1 mg/dL (9.0-27.0); Carbon Dioxide 22.5 mmol/L (21.6-31.8); Chloride 104 mmol/L (96-109); Sodium 141 mmol/L (135-145)
== END | disposition home or self-care (01) ==
LOC: LABPAT 13:02
PROVIDERS: ATTEND Internal Medicine Interventional Cardiology
DX: Z01.812 Encounter for preprocedural laboratory examination (principal); I70.213 Atherosclerosis of native arteries of extremities with intermittent claudication, bilateral legs
CPT/HCPCS: 80051; 82565; 84520; 85027

== ENCOUNTER 2023-11-01 11:06 | Inpatient (IN) | payer MEDICARE, OTHER ==
[2023-10-25 14:10] VITALS: BMI 32.5
[~2023-11-01 11:06] MED LIST changes: +CLINDAMYCIN 900 MG in DEXTROSE 5% IN WATER 50 ML IVPB ONE; -CLINDAMYCIN 900 MG in DEXTROSE 5% IN WATER 50 ML IVPB PRN; -HYDROcodone/APAP 7.5-325MG 1 EACH TAB ONE; -LIDOCAINE 1% INJ 10MG/ML (20 ML MDV) ONE; -LIDOCAINE 1% INJ 10MG/ML (20 ML MDV) SQ ONE; -MIDAZOLAM 2 MG/2 ML VIAL IVP ONE; -SODIUM CHLORIDE 0.9% 1,000 ML IV SCH; +SODIUM CHLORIDE 0.9% 1,000 ML in EMPTY BAG 1 BAG IV ONE
[2023-11-01 11:48] LABS: Glucose,Whole Blood 139 mg/dL (70-110)
[2023-11-01] MEDS ORDERED: HEPARIN SODIUM 1,000 UN/ML (10ML VL) ONE (12:57)
[2023-11-01] MEDS ORDERED: LIDOCAINE 1% INJ 10MG/ML (20 ML MDV) ONE (12:57)
[2023-11-01] MEDS ORDERED: fentaNYL (PF) 50 MCG/ML 2 ML AMP ONE (12:58)
[2023-11-01] MEDS ORDERED: niCARdipine 25 MG/10 ML VIAL ONE (13:06)
[2023-11-01] MEDS ORDERED: fentaNYL (PF) 50 MCG/ML 2 ML AMP IVP ONE (13:10)
[2023-11-01] MEDS: MIDAZOLAM 2 MG/2 ML VIAL IVP ONE ×2 (13:10→13:22)
[2023-11-01] MEDS ORDERED: LIDOCAINE 1% INJ 10MG/ML (20 ML MDV) SQ ONE (13:11)
[2023-11-01] MEDS ORDERED: HEPARIN SODIUM 1,000 UN/ML (10ML VL) IV ONE (13:22)
[2023-11-01] MEDS ORDERED: ALTEPLASE 10 MG in SODIUM CHLORIDE 0.9% 90 ML IA ONE (13:35)
[2023-11-01] MEDS ORDERED: IOPAMIDOL-370 100ML BTL INJ ONE (13:44)
[2023-11-01] MEDS: HEPARIN SOD,PORK IN 0.45% NACL 25,000 UNIT in 0.45% NACL 1 250ML.BAG IV SCH (14:15)
[2023-11-01 14:23] LABS: Glucose,Whole Blood 83 mg/dL (70-110)
[2023-11-01 15:30] LABS: Basophils % (A) 1 %; Eosinophils # (A) 0.1 k/uL (0-0.7); Eosinophils % (A) 2 %; HCT 40.1 % (34.0-46.0); HGB 13.3 gm/dL (11.4-16.0); Lymphocytes # (A) 2.4 k/uL (1.0-4.8); Lymphocytes % (A) 34 %; MCH 31.5 pg (25.0-35.0); MCHC 33.1 g/dL (31.0-37.0); MCV 95.1 fL (80.0-100.0); Mean Platelet Volume 8.3; Monocytes # (A) 0.2 k/uL (0-1.0); Monocytes % (A) 3 %; Neutrophils # (A) 4.2 k/uL (1.3-7.7); Neutrophils % (A) 59 %; Platelet Count 203 k/uL (150-450); RBC 4.22 m/uL (3.80-5.40); RDW 13.5 % (11.5-15.5); WBC 7.1 k/uL (3.8-10.6)
[2023-11-01] MEDS: HYDROcodone/APAP 7.5-325MG 1 EACH TAB PO PRN (15:45)
[2023-11-01] MEDS: CYCLOBENZAPRINE 10 MG TAB PO PRN (15:47)
[2023-11-01 15:48] LABS: African American GFR (CKD) 83 (>60 ml/min/1.73 sqM); Blood Urea Nitrogen 14 mg/dL (7-17); Non-African American GFR(CKD) 72 (>60 ml/min/1.73 sqM)
[2023-11-01 17:16] LABS: Prothrombin Time 10.9 sec (10.0-12.5)
--- NOTE | 2023-11-01 20:09 | P.PCN ---
Date of Procedure: 11/01/23 Operative Findings: An aortogram and runoff Performing physician Mahad Stafford MD Procedure performed 1. An abdominal aortogram 2. Bilateral lower extremities runoff 3. IVUS of the right SFA 4. Ultrasound-guided access of the left common femoral artery Indication The patient is a 53-year-old female patient with lower extremities peripheral arterial disease and prior angioplasty as well as hypertension and dyslipidemia and smoking was seen in the office recently for severe left lower extremity discomfort started about 3 weeks ago. She underwent a duplex study and that showed occluded left SFA. She was brought today for further clarification Approach Left common femoral artery Complication None Level of sedation Moderate with sedation length of 30 minutes Procedure description After obtaining an informed consent the patient was brought to the cardiac fish farm laborer. The left common femoral artery was cannulated is remarkable for technique under ultrasound guidance a micro puncture wire passed easily then I placed a 60 [place] 11 cm sheath at the left common femoral artery with after that and aortogram with runoff was performed using a 5 [place] pigtail catheter which was initially placed at the level of the renal arteries and subsequently it was pulled into above the bifurcation. After that I did exchange my 11 cm sheath into 70 cm [address] [place] [address] overall 3 5 stiff Glidewire. Subsequently I was able to advance the 035 wire to the right profunda with the use of rim catheter. Subsequently I did advance the room over the wire and then the sheath was advanced over the wire and the catheter to the right common femoral artery. That was performed after seeing occluded right SFA with possible thrombotic occlusion. After that I did capacity SFA using all 3 5 stiff Glidewire with a backup support of all 3 5 CXI catheter. After that I did advance the catheter over the wire to the right popliteal and I did the right popliteal angiogram to prove that I was in the true lumen. Then I did exchange my wire into a 1 4 wire and did endovascular imaging which showed thrombus involving the stent in the right SFA. At that point I left to the [address] and advanced an infusion catheter to the right SFA and the infusion catheter was connected with the TPA for infusion overnight and bring the patient tomorrow for second look Conclusion Large thrombus involving the right SFA with occluded right SFA Successful placement of infusion catheter in the right SFA Postprocedure management The patient will be brought tomorrow for second look
[2023-11-01] MEDS: HYDROmorphone 1 MG/ML 1 ML SYRINGE IVP PRN (21:21)
[2023-11-01] MEDS: ALTEPLASE 10 MG in SODIUM CHLORIDE 0.9% 90 ML IA SCH (22:00)
[2023-11-02] MEDS: HYDROcodone/APAP 7.5-325MG 1 EACH TAB PO PRN ×3 (02:07→23:52)
[2023-11-02] MEDS: HYDROmorphone 1 MG/ML 1 ML SYRINGE IVP PRN ×5 (02:11→20:11)
[2023-11-02 03:15] LABS: Glucose,Whole Blood 99 mg/dL (70-110)
[2023-11-02 04:54] LABS: Basophils % (A) 0 %; Eosinophils # (A) 0.1 k/uL (0-0.7); Eosinophils % (A) 2 %; HCT 37.9 % (34.0-46.0); HGB 12.4 gm/dL (11.4-16.0); Lymphocytes # (A) 2.1 k/uL (1.0-4.8); Lymphocytes % (A) 25 %; MCH 31.1 pg (25.0-35.0); MCHC 32.6 g/dL (31.0-37.0); MCV 95.5 fL (80.0-100.0); Mean Platelet Volume 8.5; Monocytes # (A) 0.4 k/uL (0-1.0); Monocytes % (A) 5 %; Neutrophils # (A) 5.6 k/uL (1.3-7.7); Neutrophils % (A) 67 %; Platelet Count 174 k/uL (150-450); RBC 3.98 m/uL (3.80-5.40); RDW 13.6 % (11.5-15.5); WBC 8.4 k/uL (3.8-10.6)
[2023-11-02 06:10] LABS: INR 1.1 (<1.2); Prothrombin Time 11.6 sec (10.0-12.5)
[2023-11-02] MEDS: ALTEPLASE 10 MG in SODIUM CHLORIDE 0.9% 90 ML IA SCH (06:49)
[2023-11-02] MEDS ORDERED: IV FLUID CONTINUATION 1,000 ML IV ONE (10:37)
[2023-11-02] MEDS ORDERED: LIDOCAINE 1% INJ 10MG/ML (20 ML MDV) ONE (10:40)
[2023-11-02] MEDS ORDERED: fentaNYL (PF) 50 MCG/ML 2 ML AMP ONE (10:53)
[2023-11-02] MEDS ORDERED: MIDAZOLAM 2 MG/2 ML VIAL IVP ONE (10:53)
[2023-11-02] MEDS: fentaNYL (PF) 50 MCG/1 ML VIAL IVP ONE ×3 (10:53→11:23)
[2023-11-02] MEDS ORDERED: LIDOCAINE 1% INJ 10MG/ML (30 ML VIAL-PF) SQ ONE (10:55)
[2023-11-02] MEDS ORDERED: niCARdipine 25 MG/10 ML VIAL ONE (11:12)
[2023-11-02] MEDS ORDERED: NITROGLYCERIN 1000MCG/10ML SYRINGE INTRAARTER ONE ×2 (11:17)
[2023-11-02] MEDS ORDERED: niCARdipine Syringe (1,000 mcg/10 mL) INTRAARTER ONE (11:17)
[2023-11-02] MEDS ORDERED: CLOPIDOGREL 75 MG TAB ONE (11:17)
[2023-11-02] MEDS ORDERED: CLOPIDOGREL 75 MG TAB PO ONE (11:19)
[2023-11-02] MEDS ORDERED: IOPAMIDOL-370 100ML BTL INJ ONE (11:29)
[2023-11-02] MEDS ORDERED: NALOXONE 0.4 MG/ML 1 ML VIAL IVP PRN (11:31)
--- NOTE | 2023-11-02 11:36 | P.PCN ---
Date of Procedure: 11/02/23 Operative Findings: PERCUTANEOUS PERIPHERAL INTERVENTION Performing physician Mahad Stafford M.D. Procedure performed 1. Second look right lower extremity angiogram after tPA infusion overnight 2. Successful balloon angioplasty of the right SFA using 6 mm x 200 mm balloon 3. Left common femoral artery and Indication Please refer to an angiogram and intervention was performed last night. Acute limb ischemia. The patient underwent yesterday placement of infusion catheter Approach Left common femoral are Complications None Level of sedation Moderate with a sedation time of 38 minutes Procedure description The patient was arrived to the cardiac cathead worker in stable medical condition. After the patient was prepped and dropped in the usual sterile fashion the infusion catheter was withdrawn out over 035 stiff Glidewire. Subsequently I did right lower extremity angiogram which showed significant improvement in the thrombus burden with reduction of stenosis from 100% to about 30-40% with mild to moderate diffuse residual thrombus was identified. I did do balloon angioplasty using 6 mm balloon by 200 mm balloon with final angiogram showing excellent angiographic results with reduction of stenosis from 100% to 0%. Finally I did exchange my long sheath into short sheath using 035 wire and did selective left common femoral artery angiogram. Then we did deploy the Angio- Seal closure device. The procedure tolerated the procedure very well Postprocedure management 1. Dual antiplatelet therapy and consider oral anticoagulation down the line 2. Aggressive cholesterol control 3. Risk factors modification 4. Follow-up with the patient
[2023-11-02] MEDS ORDERED: SODIUM CHLORIDE 0.9% 1,000 ML in EMPTY BAG 1 BAG IV SCH (11:45)
[2023-11-02] MEDS: CYCLOBENZAPRINE 10 MG TAB PO PRN (12:37)
[2023-11-02] MEDS: HEPARIN SOD,PORK IN 0.45% NACL 25,000 UNIT in 0.45% NACL 1 250ML.BAG IV SCH (13:10)
[2023-11-02 16:23] LABS: Glucose,Whole Blood 122 mg/dL (70-110)
--- NOTE | 2023-11-02 17:35 | IR ---
EXAMINATION TYPE: IR river captain femoral popliteal Intraoperative/procedural fluoroscopic services were provi ded. CLINICAL INDICATION:Female, 53 years old with history of TPA RECHECK, 3.9MIN FLUORO; , [facility] Total fluoroscopy time is 3.9 min. DAP: 1.94 Gycm2 180 images. Please see the operative/procedural note for further details.
[2023-11-02] MEDS ORDERED: MECLIZINE 25 MG TAB PO PRN (19:46)
[2023-11-02 20:12] LABS: Glucose,Whole Blood 103 mg/dL (70-110)
[2023-11-02] MEDS ORDERED: DULoxetine HCL 60 MG CAPSULE.DR PO SCH (21:00)
[2023-11-02] MEDS ORDERED: traZODone HCL 50 MG TAB PO SCH (21:00)
[2023-11-02] MEDS ORDERED: ATORVASTATIN 80 MG TAB PO SCH (21:00)
[2023-11-02] MEDS ORDERED: TOPIRAMATE 100 MG TAB PO SCH (21:00)
[2023-11-02] MEDS ORDERED: PANTOPRAZOLE 40 MG TABLET PO STA (21:15)
[2023-11-02] MEDS: DAPAGLIFLOZIN PROPANEDIOL 10 MG TABLET PO SCH (21:54)
[2023-11-02] MEDS: SPIRONOLACTONE 25 MG TAB PO SCH (21:55)
[2023-11-02] MEDS: FUROSEMIDE 40 MG TAB PO SCH (21:56)
[2023-11-02] MEDS: cloNIDine HCL 0.1 MG TAB PO SCH (21:57)
[2023-11-02] MEDS: ESCITALOPRAM 20 MG TAB PO SCH (21:57)
[2023-11-03] MEDS: HYDROmorphone 1 MG/ML 1 ML SYRINGE IVP PRN ×2 (02:27→10:49)
[2023-11-03 06:19] LABS: Glucose,Whole Blood 182 mg/dL (70-110)
[2023-11-03] MEDS ORDERED: PANTOPRAZOLE 40 MG TABLET PO SCH (07:30)
[2023-11-03 07:49] LABS: Basophils % (A) 0 %; Eosinophils # (A) 0.2 k/uL (0-0.7); Eosinophils % (A) 2 %; HCT 36.6 % (34.0-46.0); HGB 12.1 gm/dL (11.4-16.0); Lymphocytes # (A) 1.7 k/uL (1.0-4.8); Lymphocytes % (A) 25 %; MCH 31.7 pg (25.0-35.0); MCHC 33.1 g/dL (31.0-37.0); MCV 95.7 fL (80.0-100.0); Mean Platelet Volume 8.7; Monocytes # (A) 0.4 k/uL (0-1.0); Monocytes % (A) 7 %; Neutrophils # (A) 4.2 k/uL (1.3-7.7); Neutrophils % (A) 64 %; Platelet Count 150 k/uL (150-450); RBC 3.83 m/uL (3.80-5.40); RDW 13.6 % (11.5-15.5); WBC 6.5 k/uL (3.8-10.6)
[2023-11-03 08:06] LABS: African American GFR (CKD) 83 (>60 ml/min/1.73 sqM); Anion Gap 6 mmol/L; Blood Urea Nitrogen 12 mg/dL (7-17); Calcium 8.7 mg/dL (8.4-10.2); Carbon Dioxide 22 mmol/L (22-30); Chloride 111 mmol/L (98-107); Glucose 108 mg/dL (74-99); Non-African American GFR(CKD) 72 (>60 ml/min/1.73 sqM); Potassium 3.4 mmol/L (3.5-5.1); Sodium 139 mmol/L (137-145)
[2023-11-03] MEDS: FUROSEMIDE 40 MG TAB PO SCH (08:45)
[2023-11-03] MEDS: cloNIDine HCL 0.1 MG TAB PO SCH (08:45)
[2023-11-03] MEDS: DAPAGLIFLOZIN PROPANEDIOL 10 MG TABLET PO SCH (08:45)
[2023-11-03] MEDS: ESCITALOPRAM 20 MG TAB PO SCH (08:45)
[2023-11-03] MEDS: SPIRONOLACTONE 25 MG TAB PO SCH (08:45)
[2023-11-03] MEDS: HYDROcodone/APAP 7.5-325MG 1 EACH TAB PO PRN (08:50)
[2023-11-03] MEDS ORDERED: CLOPIDOGREL 75 MG TAB PO SCH (09:00)
[2023-11-03] MEDS ORDERED: ASPIRIN 81 MG PO SCH (09:00)
[2023-11-03] MEDS ORDERED: LORATADINE 10 MG TAB PO SCH (09:00)
[2023-11-03 10:01] VITALS: BP 95/62; PULSE 76; RESP 16; TEMP 98
--- NOTE | 2023-11-03 11:14 | IR ---
EXAMINATION TYPE: IR thrombolysis cath exchange Intraoperative/procedural fluoroscopic services were provided. CLINICAL INDICATION:Female, 53 years old with history of right leg pain, 9.0min fluoro, 28.9Gycm2; , [facility] Total fluoroscopy time is 9.0 min. DAP: 11.8 Gycm2 Please see the operative/procedural note for further details.
[2023-11-03 11:36] LABS: Glucose,Whole Blood 110 mg/dL (70-110)
[2023-11-03] MEDS ORDERED: Potassium Replacement Protocol 1 EACH MISC MISCELLANE PRN (12:04)
--- NOTE | 2023-11-03 12:05 | P.DS ---
Providers Date of admission: 11/01/23 13:33 Attending physician: Mahad Stafford Primary care physician: [facility] Course: The patient is a very pleasant 53-year-old female patient who underwent an angiogram in 2 days ago when she was found to have large traumatic occlusion of the right SFA. She was infused with TPA overnight and she was brought yesterday for second look angiogram and that showed that the thrombus was resolved with only minor disease. I did balloon angioplasty of the right SFA and that showed excellent angiographic results. The patient was seen and evaluated is morning. She is asymptomatic. She is hemodynamically stable with a soft the blood pressure but she is asymptomatic was no dizziness or lightheadedness and no presyncope or syncope and no symptoms of chest pain or chest discomfort or shortness of breath. Her potassium is low and that is in process to be replaced at this point. I am going to discharge the patient home on antiplatelet with aspirin and I am going to stop the Plavix and consider starting the patient on anticoagulation with Eliquis. The examination is remarkable for stable vital signs with a soft blood pressure and regular rate and rhythm and clear breathing sounds bilaterally and the patie nt does have soft nontender left groin with a good pedal pulse in the right foot. The patient was instructed about taking her medications on regular basis and about the consequences of not taking the medications including limb threatening ischemia and also she was instructed to stop smoking. She is in full understanding and agreement Plan - Discharge Summary Discharge Rx Participant: Yes New Discharge Prescriptions: New Apixaban [Eliquis] 2.5 mg PO BID #180 tab Continue cloNIDine HCL [Catapres] 0.1 mg PO BID #30 tab Atorvastatin Calcium [Lipitor] 80 mg PO HS HYDROcodone/APAP 7.5-325MG [[place] 7.5-325] 1 tab PO Q8HR PRN PRN Reason: Pain Omeprazole [PriLOSEC] 20 mg PO BID Spironolactone [Aldactone] 50 mg PO DAILY Empagliflozin [Jardiance] 25 mg PO DAILY Meclizine [Antivert] 25 mg PO Q6H PRN PRN Reason: Vertigo traZODone HCL [Desyrel] 100 mg PO HS Loratadine [Claritin] 10 mg PO DAILY Cyclobenzaprine [Flexeril] 10 mg PO TID PRN PRN Reason: Muscle Pain diazePAM 10 mg PO BID Aspirin [[place] Aspirin EC] 81 mg PO DAILY Topiramate [Topamax] 100 mg PO HS DULoxetine HCL [Cymbalta] 60 mg PO HS Furosemide [Lasix] 40 mg PO BID Escitalopram [Lexapro] 20 mg PO DAILY Nitroglycerin Sl Tabs [Nitrostat] 0.4 mg SUBLINGUAL Q5M PRN tab PRN Reason: Chest Pain Discontinued Clopidogrel [Plavix] 75 mg PO DAILY Discharge Medication List cloNIDine HCL [Catapres] 0.1 mg PO BID #30 tab 12/22/14 [Rx] Atorvastatin Calcium [Lipitor] 80 mg PO HS 10/22/18 [History] HYDROcodone/APAP 7.5-325MG [[place] 7.5-325] 1 tab PO Q8HR PRN 11/14/18 [History] Omeprazole [PriLOSEC] 20 mg PO BID 03/12/19 [History] Spironolactone [Aldactone] 50 mg PO DAILY 03/12/19 [History] Empagliflozin [Jardiance] 25 mg PO DAILY 02/21/20 [History] Topiramate [Topamax] 100 mg PO HS 05/05/21 [History] DULoxetine HCL [Cymbalta] 60 mg PO HS 08/04/21 [History] Furosemide [Lasix] 40 mg PO BID 08/04/21 [History] Escitalopram [Lexapro] 20 mg PO DAILY 01/27/23 [History] Meclizine [Antivert] 25 mg PO Q6H PRN 01/27/23 [History] traZODone HCL [Desyrel] 100 mg PO HS 01/27/23 [History] Loratadine [Claritin] 10 mg PO DAILY 02/08/23 [History] Nitroglycerin Sl Tabs [Nitrostat] 0.4 mg SUBLINGUAL Q5M PRN tab 05/29/23 [Rx] Cyclobenzaprine [Flexeril] 10 mg PO TID PRN 07/03/23 [History] diazePAM 10 mg PO BID 07/03/23 [History] Aspirin [[place] Aspirin EC] 81 mg PO DAILY 10/25/23 [History] Apixaban [Eliquis] 2.5 mg PO BID #180 tab 11/03/23 [Rx] Follow up Appointment(s)/Referral(s): Mahad Stafford MD [STAFF PHYSICIAN] - 1 Week (THE OFFICE WILL CALL YOU AN APPOINTMENT DATE AND TIME) Patient Instructions/Handouts: Peripheral Artery Disease (ED), Moderate Sedation (DC) Activity/Diet/Wound Care/Special Instructions: *NO LIFTING, PUSHING, OR PULLING ANYTHING OVER 5 POUNDS FOR 5 DAYS *NO DRIVING FOR 3 DAYS *YOU CAN REMOVE YOUR DRESSING TOMORROW BUT DO NOT SUBMERSE YOUR PUNCTURE SITE IN WATER FOR A FEW DAYS TO PREVENT INFECTION - SO NO TUB BATHS, POOLS, HOT TUBS, DISHES...ETC *ANY SIGNS OF BLEEDING (HARDNESS, SWELLING, OR EXCESSIVE BRUISING) HOLD DIRECT PRESSURE ON YOUR PUNCTURE SITE AND COME TO THE NEAREST EMERGENCY ROOM TO GET YOUR PUNCTURE SITE LOOKED AT - DO NOT DRIVE YOURSELF! EITHER CALL EMS OR HAVE SOMEONE DRIVE YOU!
[2023-11-03] MEDS: POTASSIUM CHLORIDE ER 20 MEQ TAB.ER PO SCH ×2 (12:14→13:14)
== END 2023-11-03 13:19 | disposition home or self-care (01) | DRG 253 ==
LOC: CATHCVL 11:06 → 2SICU 13:33 → 3SCARD 11-02 15:24
PROVIDERS: ADMIT Internal Medicine Interventional Cardiology; ATTEND Internal Medicine Interventional Cardiology
PROC: B4101ZZ Fluoroscopy of Abdominal Aorta using Low Osmolar Contrast (ICD-10-PCS; 2023-11-01 13:00)
PROC: B44LZZ3 Ultrasonography of Femoral Artery, Intravascular (ICD-10-PCS; 2023-11-01 13:00)
PROC: 3E05317 Introduction of Other Thrombolytic into Peripheral Artery, Percutaneous Approach (ICD-10-PCS; 2023-11-01 13:00)
PROC: B41G1ZZ Fluoroscopy of Left Lower Extremity Arteries using Low Osmolar Contrast (ICD-10-PCS; 2023-11-02)
PROC: 047K3ZZ Dilation of Right Femoral Artery, Percutaneous Approach (ICD-10-PCS; principal; 2023-11-02 10:25)
DX: T82.858A Stenosis of other vascular prosthetic devices, implants and grafts, initial encounter (principal); I74.3 Embolism and thrombosis of arteries of the lower extremities; E11.51 Type 2 diabetes mellitus with diabetic peripheral angiopathy without gangrene; I70.223 Atherosclerosis of native arteries of extremities with rest pain, bilateral legs; I10 Essential (primary) hypertension; I08.0 Rheumatic disorders of both mitral and aortic valves; I65.23 Occlusion and stenosis of bilateral carotid arteries; E78.5 Hyperlipidemia, unspecified; I25.10 Atherosclerotic heart disease of native coronary artery without angina pectoris; F17.210 Nicotine dependence, cigarettes, uncomplicated; Y71.1 Therapeutic (nonsurgical) and rehabilitative cardiovascular devices associated with adverse incidents; Z95.818 Presence of other cardiac implants and grafts; Z79.899 Other long term (current) drug therapy; Z79.84 Long term (current) use of oral hypoglycemic drugs; Z79.82 Long term (current) use of aspirin; Z86.79 Personal history of other diseases of the circulatory system; Z79.02 Long term (current) use of antithrombotics/antiplatelets; Z88.5 Allergy status to narcotic agent; Z88.0 Allergy status to penicillin; Z88.8 Allergy status to other drugs, medicaments and biological substances; Z28.311 Partially vaccinated for COVID-19; Z71.6 Tobacco abuse counseling
CPT/HCPCS: 36246; 37211; 37214; 37224; 37252; 75625; 75716; 80048; 82565; 84520; 85025; 85384; 85610; 86850; 86900; 86901

== ENCOUNTER → 2023-11-09 | Outpatient (CLI) | payer MEDICARE, OTHER ==
--- NOTE | 2023-11-10 07:50 | US ---
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 Varicosity in patients AOC No other abnormalities noted within groin or vascularity. IMPRESSION: Varicosities as noted.
== END | disposition home or self-care (01) ==
LOC: RADUSWWP 16:06
PROVIDERS: ATTEND Internal Medicine Interventional Cardiology
DX: I86.8 Varicose veins of other specified sites (principal); I72.4 Aneurysm of artery of lower extremity

== ENCOUNTER → 2024-02-21 | Outpatient (CLI) | payer MEDICARE, OTHER ==
[2024-02-21 13:11] LABS: African American GFR (CKD) 82 (>60 ml/min/1.73 sqM); Blood Urea Nitrogen 17 mg/dL (7-17); Non-African American GFR(CKD) 71 (>60 ml/min/1.73 sqM)
--- NOTE | 2024-02-22 14:57 | CT ---
EXAMINATION TYPE: CT angio abd aorta w/Runoff DATE OF EXAM: 02/21/2024 COMPARISON: 01/20/2022 HISTORY: PAD. hx of leg stents CT DLP: 1681.30 mGycm EXAMINATION TYPE: CT angio abd aorta w/Runoff DATE OF EXAM: 02/21/2024 COMPARISON: Right lower extremity 01/20/2022 HISTORY: PAD. hx of leg stents CT DLP: 1681.30 mGycm CONTRAST: CTA thoracic and abdominal aorta with 3-D reconstruction is performed and without and with IV Contras t, patient injected with 110 mL of Isovue 370. Contrast CTA of the abdominal aorta with runoff of the lower extremity arterial system was performed from the lung bases through the ankles and feet. 3-D reconstruction imaging obtained at a separate wo rkstation. ABDOMINAL AORTA: Normal caliber. Branch vessels including the celiac, SMA and renal arteries are grimm nt. The Iliac vessels: Left-sided common iliac artery stent is redemonstrated and appears patent. Right commo n iliac artery is patent without hemodynamically significant stenosis. Internal and external iliac ar teries bilaterally are patent. Femoral arteries: Left sided common femoral artery stent is patent. Left superficial femoral artery i s patent without hemodynamically significant stenosis. There is long segment stenting of the right nelson perficial femoral artery which is patent. No evidence of clinically significant stenosis of the right SFA. Profunda femoris arteries are patent bilaterally. Popliteal arteries: Popliteal arteries are patent bilaterally with only mild plaque formation noted. Below the knee arteries: Trifurcation is patent bilaterally. Peroneal, anterior and posterior tibial arteries demonstrate mild calcific disease without evidence for hemodynamically significant stenosis. Limited runoff of the ankles and feet given timing of the contrast bolus. LIVER/GB- No significant abnormality is seen. PANCREAS- No significant abnormality is seen. SPLEEN- No significant abnormality is seen. ADRENALS-left adrenal adenoma is stable. KIDNEYS/BLADDER- No significant abnormality is seen. BOWEL- No Significant abnormality GENITAL ORGANS: Hysterectomy changes noted. LYMPH NODES- No greater than 1cm abdominal or pelvic lymph nodes are appreciated. OSSEOUS STRUCTURES-lumbar laminectomy and fusion changes. OTHER- No significant abnormality is seen. IMPRESSION- 1. No hemodynamically significant stenosis is appreciated. Stenting as discussed above.
== END | disposition home or self-care (01) ==
LOC: RADCTMAIN 11:52
PROVIDERS: ATTEND Internal Medicine Interventional Cardiology
DX: I73.9 Peripheral vascular disease, unspecified (principal)
CPT/HCPCS: 36415; 75635; 82565; 84520

== ENCOUNTER → 2024-04-12 | Outpatient (CLI) | payer MEDICARE, OTHER ==
--- NOTE | 2024-04-12 16:47 | US ---
EXAMINATION TYPE: US abdomen comp/pelvis limited DATE OF EXAM: 04/12/2024 COMPARISON: CTA abdominal aorta with runoff 02/21/2024 CLINICAL INDICATION: Female, 53 years old with history of R10.84 GENERALIZED ABDOMINAL PAIN R19.7 ANIYA RRHEA,; pain and diarrhea EXAM MEASUREMENTS: Liver Length: 13.1 cm Gallbladder Wall: .2 cm CBD: .5 cm Spleen: 11.1 cm Right Kidney: 9.4 x 4.3 x 4.6 cm Left Kidney: 9.6 x 4.8 x 4.2 cm Pancreas: Tail obscured by bowel gas Liver: wnl Gallbladder: No stones seen CBD: wnl Spleen: wnl Right Kidney: No hydronephrosis or masses seen Left Kidney: No hydronephrosis or masses seen Upper IVC: wnl Abd Aorta: wnl Bladder: not fully distended The visualized portions of the pancreas are unremarkable. Liver is within normal limits without focal lesion. No cholelithiasis, wall thickening or surrounding fluid. Common bile duct is within normal l imits. Spleen is unremarkable. Both kidneys demonstrate no evidence of hydronephrosis, nephrolithiasi s, or solid mass. The visualized upper IVC and abdominal aorta are within normal limits. Urine bladde r is underdistended and not visualized. IMPRESSION: No ultrasound evidence for an acute process.
== END | disposition home or self-care (01) ==
LOC: RADUSWWP 07:45
PROVIDERS: ATTEND Family Medicine
DX: R10.84 Generalized abdominal pain (principal); R19.7 Diarrhea, unspecified
CPT/HCPCS: 76700; 76857

== ENCOUNTER 2024-08-20 04:17 | Observation (INO) | payer MEDICARE, OTHER ==
--- NOTE | 2024-08-20 04:56 | ED ---
Neuro HPI - General Chief Complaint: Neuro Symptoms/Deficit Stated Complaint: Stroke symptoms Time Seen by Provider: 08/20/24 04:19 Source: patient, EMS Mode of arrival: EMS - History of Present Illness Is the patient presenting with stroke symptoms?: Yes Last Known Well Date: 08/20/24 Last Known Well Time: 00:00 Onset/Timin -: hour(s) Initial Comments: Patient is a 53-year-old woman brought to have evaluation for right upper extremity weakness. The patient had gone to sleep and then had awakened and was having difficulty moving her right arm. It was also reported that the patient's speech seemed different than her baseline. Patient denies other symptoms. She does have headache but states that she gets frequent migraine headaches. This is not worst headache of life Location: right arm History of same: Yes Place: home Severity: moderate Quality: weak Improves With: none Worsens With: none On Anticoagulants: No Context: sudden onset Associated Symptoms: denies other symptoms Treatments Prior to Arrival: none - Related Data Home Medications: Home Medications Medication Instructions Recorded Confirmed Atorvastatin Calcium [Lipitor] 80 mg PO HS 10/22/18 08/20/24 Omeprazole [PriLOSEC] 20 mg PO BID 03/12/19 08/20/24 Spironolactone [Aldactone] 50 mg PO HS 03/12/19 08/20/24 Furosemide [Lasix] 40 mg PO BID 08/04/21 08/20/24 Escitalopram [Lexapro] 20 mg PO HS 01/27/23 08/20/24 Aspirin [[place] Aspirin EC] 81 mg PO DAILY 10/25/23 08/20/24 Dapagliflozin Propanediol [Farxiga] 10 mg PO DAILY 08/20/24 08/20/24 HYDROcodone/APAP 10-325MG [[place] 1 tab PO Q6H PRN 08/20/24 08/20/24 10-325] Ibuprofen [Motrin Ib] 400 mg PO Q8H PRN 08/20/24 08/20/24 Montelukast [Singulair] 10 mg PO DAILY 08/20/24 08/20/24 Semaglutide [Ozempic] 0.25 mg SQ BHAKTA 08/20/24 08/20/24 Previous Rx's Medication Instructions Recorded cloNIDine HCL [Catapres] 0.1 mg PO BID #30 tab 12/22/14 Apixaban [Eliquis] 5 mg PO BID 30 Days #60 tab 08/22/24 Nicotine 14Mg/24Hr Patch [Habitrol] 1 patch TRANSDERM DAILY 30 Days 08/22/24 #30 patch Allergies/Adverse Reactions: Allergies Allergy/AdvReac Type Severity Reaction Status Date / Time dronabinol [From Marinol] Allergy Severe Anaphylaxis Verified 08/20/24 08:16 lisinopril [From Prinivil] Allergy Swelling Verified 08/20/24 08:16 Penicillins Allergy Rash/Hives, Verified 08/20/24 08:16 "welts" morphine AdvReac Unknown Nausea & Verified 08/20/24 08:16 Vomiting Review of Systems ROS Statement: Those systems with pertinent positive or pertinent negative responses have been documented in the HPI. ROS Other: All systems not noted in ROS Statement are negative. Constitutional: Denies: fever, chills Respiratory: Denies: cough, dyspnea Cardiovascular: Denies: chest pain, palpitations Gastrointestinal: Denies: abdominal pain, nausea, vomiting Genitourinary: Denies: dysuria, hematuria Musculoskeletal: Denies: back pain Skin: Denies: rash Neurological: Reports: as per HPI, weakness, numbness. Denies: headache, paresthesias General Exam Limitations: no limitations General appearance: alert, in no apparent distress Head exam: Present: atraumatic, normocephalic Eye exam: Present: normal appearance. Absent: scleral icterus, conjunctival injection ENT exam: Present: mucous membranes dry Neck exam: Present: normal inspection Respiratory exam: Present: normal lung sounds bilaterally. Absent: respiratory distress, wheezes, rales, rhonchi, stridor, accessory muscle use Cardiovascular Exam: Present: regular rate, normal rhythm, normal heart sounds. Absent: systolic murmur, diastolic murmur, rubs, gallop GI/Abdominal exam: Present: soft. Absent: distended, tenderness, guarding, rebound, rigid, mass Extremities exam: Present: normal inspection, normal capillary refill. Absent: pedal edema, calf tenderness Back exam: Present: normal inspection. Absent: CVA tenderness (R), CVA tenderness (L) Neurological exam: Present: alert, oriented X3, CN II-XII intact, motor sensory deficit Expanded Neurological exam: Present: protecting the airway Patient oriented to: Present: person, place, time Speech: Present: fluid speech Cranial nerves: EOM's Intact: Normal, Gag Reflex: Normal, Tongue Deviation: Normal Motor strength exam: RUE: 3, LUE: 5, RLE: 3, LLE: 3 Eye Response: (4) open spontaneously Motor Response: (6) obeys commands Verbal Response: (5) oriented Robe Total: 15 Skin exam: Present: warm, dry, intact, normal color. Absent: rash Stroke MDM - Lab Data Result diagrams: 08/22/24 06:40 08/22/24 06:40 Lab Results 08/20/24 08/20/24 08/20/24 Range/Units 05:17 05:17 05:17 WBC 6.4 (3.8-10.6) k/uL RBC 4.37 (3.80-5.40) m/uL Hgb 13.3 (11.4-16.0) gm/dL Hct 42.1 (34.0-46.0) % MCV 96.3 (80.0-100.0) fL MCH 30.6 (25.0-35.0) pg MCHC 31.7 (31.0-37.0) g/dL RDW 12.9 (11.5-15.5) % Plt Count 189 (150-450) k/uL MPV 8.0 Neutrophils % 65 % Lymphocytes % 26 % Monocytes % 5 % Eosinophils % 2 % Basophils % 0 % Neutrophils # 4.2 (1.3-7.7) k/uL Lymphocytes # 1.7 (1.0-4.8) k/uL Monocytes # 0.3 (0-1.0) k/uL Eosinophils # 0.1 (0-0.7) k/uL Basophils # 0.0 (0-0.2) k/uL PT 11.2 (10.0-12.5) sec INR 1.0 (<1.2) APTT 24.9 (22.0-30.0) sec Sodium 139 (137-145) mmol/L Potassium 3.9 (3.5-5.1) mmol/L Chloride 110 H (98-107) mmol/L Carbon Dioxide 22 (22-30) mmol/L Anion Gap 7 mmol/L BUN 21 H (7-17) mg/dL Creatinine 1.24 H (0.52-1.04) mg/dL Est GFR (CKD-EPI)AfAm 57 (>60 ml/min/1.73 sqM) Est GFR (CKD-EPI)NonAf 50 (>60 ml/min/1.73 sqM) Glucose 90 (74-99) mg/dL Calcium 9.0 (8.4-10.2) mg/dL Total Bilirubin 0.9 (0.2-1.3) mg/dL AST 22 (14-36) U/L ALT 27 (4-34) U/L Alkaline Phosphatase 80 (38-126) U/L Creatine Kinase 59 (30-135) U/L Troponin I (0.000-0.034) ng/mL Total Protein 6.9 (6.3-8.2) g/dL Albumin 4.3 (3.5-5.0) g/dL Urine Color Urine Appearance (Clear) Urine pH (5.0-8.0) Ur Specific [place] (1.001-1.035) Urine Protein (Negative) Urine Glucose (UA) (Negative) Urine Ketones (Negative) Urine Blood (Negative) Urine Nitrite (Negative) Urine Bilirubin (Negative) Urine Urobilinogen (<2.0) mg/dL Ur Leukocyte Esterase (Negative) Urine HCG, Qual (Not Detectd) Serum Alcohol <10 mg/dL 08/20/24 08/20/24 08/20/24 Range/Units 05:17 05:53 05:53 WBC (3.8-10.6) k/uL RBC (3.80-5.40) m/uL Hgb (11.4-16.0) gm/dL Hct (34.0-46.0) % MCV (80.0-100.0) fL MCH (25.0-35.0) pg MCHC (31.0-37.0) g/dL RDW (11.5-15.5) % Plt Count (150-450) k/uL MPV Neutrophils % % Lymphocytes % % Monocytes % % Eosinophils % % Basophils % % Neutrophils # (1.3-7.7) k/uL Lymphocytes # (1.0-4.8) k/uL Monocytes # (0-1.0) k/uL Eosinophils # (0-0.7) k/uL Basophils # (0-0.2) k/uL PT (10.0-12.5) sec INR (<1.2) APTT (22.0-30.0) sec Sodium (137-145) mmol/L Potassium (3.5-5.1) mmol/L Chloride (98-107) mmol/L Carbon Dioxide (22-30) mmol/L Anion Gap mmol/L BUN (7-17) mg/dL Creatinine (0.52-1.04) mg/dL Est GFR (CKD-EPI)AfAm (>60 ml/min/1.73 sqM) Est GFR (CKD-EPI)NonAf (>60 ml/min/1.73 sqM) Glucose (74-99) mg/dL Calcium (8.4-10.2) mg/dL Total Bilirubin (0.2-1.3) mg/dL AST (14-36) U/L ALT (4-34) U/L Alkaline Phosphatase (38-126) U/L Creatine Kinase (30-135) U/L Troponin I <0.012 (0.000-0.034) ng/mL Total Protein (6.3-8.2) g/dL Albumin (3.5-5.0) g/dL Urine Color Colorless Urine Appearance Clear (Clear) Urine pH 5.5 (5.0-8.0) Ur Specific [place] 1.021 (1.001-1.035) Urine Protein Negative (Negative) Urine Glucose (UA) 1+ H (Negative) Urine Ketones Negative (Negative) Urine Blood Negative (Negative) Urine Nitrite Negative (Negative) Urine Bilirubin Negative (Negative) Urine Urobilinogen <2.0 (<2.0) mg/dL Ur Leukocyte Esterase Negative (Negative) Urine HCG, Qual Not Detected (Not Detectd) Serum Alcohol mg/dL - Medical Decision Making The patient had chest x-ray that I interpreted as negative for acute infiltrate, pneumothorax, congestive heart failure The patient had CT scanning of the brain that I interpreted as negative for acute bony injury, no mass effect or midline shift. No acute intracranial hemorrhage. Was pt. sent in by a medical professional or institution (, PA, FREIGHT AND PASSENGER AGENT, urgent care, hospital, or shelter...) When possible be specific @ -[No] Did you speak to anyone other than the patient for history (EMS, parent, family, police, friend...)? What history was obtained from this source @ -[EMS contributed history. The patient's family also contributed history after their arrival Did you review nursing and triage notes (agree or disagree)? Why? @ -[I reviewed and agree with nursing and triage notes] Were old charts reviewed (outside hosp., previous admission, EMS record, old EKG, old radiological studies, urgent care reports/EKG's, shelter records)? Report findings @ -[No old charts were reviewed] Differential Diagnosis (chest pain, altered mental status, abdominal pain women, abdominal pain men, vaginal bleeding, weakness, fever, dyspnea, syncope, headache, dizziness, GI bleed, back pain, seizure, CVA, palpatations, mental health, musculoskeletal)? @ -[Differential CVA Ischemic stroke, hemorrhagic stroke, brain tumor, atypical migraine, Wernicke's encephalopathy, seizure, multiple sclerosis, meningitis, encephalitis, hypoglycemia, Guillain-Gillette, electrolytes disturbance, myasthenia gravis.... This is not meant to be an all-inclusive list EKG interpreted by me (3pts min.). @ -[I interpreted as above] X-rays interpreted by me (1pt min.). @ -[I interpreted as above CT interpreted by me (1pt min.). @ -[I interpreted as above U/S interpreted by me (1pt. min.). @ -[None done] What testing was considered but not performed or refused? (CT, X-rays, U/S, labs)? Why? @ -[None] What meds were considered but not given or refused? Why? @ -[TNKase was considered but the patient did not meet criteria Did you discuss the management of the patient with other professionals (professionals i.e. , PA, FREIGHT AND PASSENGER AGENT, lab, RT, psych nurse, social work faculty member, boiler fitter, teacher, occupational health and safety officer, supportive employment case manager)? Give summary @ -[Case discussed with admitting physician and treatment recommendations incorporated Was smoking cessation discussed for >3mins.? @ -[Yes Was critical care preformed (if so, how long)? @ -[Yes, 30 minutes Were there social determinants of health that impacted care today? How? (Homelessness, low income, unemployed, alcoholism, drug addiction, transportation, low edu. Level, literacy, decrease access to med. care, detention, rehab)? @ -[No] Was there de-escalation of care discussed even if they declined (Discuss DNR or withdrawal of care, Hospice)? DNR status @ -[No] What co-morbidities impacted this encounter? (DM, HTN, Smoking, COPD, CAD, Cancer, CVA, ARF, Chemo, Hep., AIDS, mental health diagnosis, sleep apnea, morbid obesity)? @ -[Diabetes, hypertension, smoking Was patient admitted / discharged? Hospital course, mention meds given and route, prescriptions, significant lab abnormalities, going to OR and other pertinent info. @ -See above Undiagnosed new problem with uncertain prognosis? @ -[No] Drug Therapy requiring intensive monitoring for toxicity (Heparin, Nitro, Insulin, Cardizem)? @ -[No] Were any procedures done? @ -[No] Diagnosis/symptom? @ -[Right upper extremity weakness. Acute, or Chronic, or Acute on Chronic? @ -[Acute Uncomplicated (without systemic symptoms) or Complicated (systemic symptoms)? @ -[Uncomplicated Side effects of treatment? @ -[No] Exacerbation, Progression, or Severe Exacerbation? @ -[No] Poses a threat to life or bodily function? How? (Chest pain, USA, PA, pneumonia, PE, COPD, DKA, ARF, appy, cholecystitis, CVA, Diverticulitis, Homicidal, Suicidal, threat to staff... and all critical care pts) @ -[Requires further neurology evaluation - EKG Data -: EKG Interpreted by Me EKG shows normal: sinus rhythm, axis (Normal), intervals (Normal), QRS complexes (Normal), ST-T waves ( normal) Rate: normal (Rate 85 bpm) Interpretation: normal EKG Past Medical History Past Medical History: Coronary Artery Disease (CAD), Heart Failure, CVA/TIA, Diabetes Mellitus, GERD/Reflux, Hyperlipidemia, Hypertension, Osteoarthritis (OA), Vascular Disorder Additional Past Medical History / Comment(s): Insomnia related to pain. Mi graines. Bilateral ankle edema. Hx duondenal ulcer. TIA 01/27/23-no residual effects. History of Any Multi-Drug Resistant Organisms: None Reported Past Surgical History: Section, Hysterectomy, Joint Replacement, Orthopedic Surgery Additional Past Surgical History / Comment(s): LEFT KNEE ARTHROSCOPY, STENTS PLACED IN LOWER LEFT GROIN AND UPPER LEFT THIGH, AORTOGRAM W/ RUNOFF OF LOWER EXTREMITIES, left thumb joint replacement,MARQUIS. loop recorder Dr Garcia April 30 Past Anesthesia/Blood Transfusion Reactions: No Reported Reaction Additional Past Anesthesia/Blood Transfusion Reaction / Comment(s): no hx blood transfusion Past Psychological History: Anxiety, Depression Smoking Status: Current every day smoker Past Alcohol Use History: None Reported Past Drug Use History: None Reported - Past Family History Sister(s) Family Medical History: Vascular Disorder Mother Family Medical History: Cancer Additional Family Medical History / Comment(s): LUNG CANCER. Course Vital Signs 08/20/24 08/20/24 08/20/24 04:19 05:24 06:12 Temperature 98.2 F Pulse Rate 84 86 79 Respiratory 16 18 18 Rate Blood Pressure 160/96 143/73 153/69 O2 Sat by Pulse 96 95 95 Oximetry 08/20/24 08/20/24 08/20/24 07:36 08:00 08:13 Temperature Pulse Rate 81 86 71 Respiratory 18 18 18 Rate Blood Pressure 140/78 151/99 O2 Sat by Pulse 98 97 Oximetry 08/20/24 08/20/24 08/20/24 09:06 09:13 10:39 Temperature Pulse Rate 69 71 68 Respiratory 18 18 18 Rate Blood Pressure 145/89 137/61 O2 Sat by Pulse 98 97 Oximetry 08/20/24 08/20/24 08/20/24 13:22 13:28 15:34 Temperature Pulse Rate 67 68 75 Respiratory Rate Blood Pressure O2 Sat by Pulse Oximetry 08/20/24 15:44 Temperature Pulse Rate 75 Respiratory Rate Blood Pressure O2 Sat by Pulse Oximetry - Reevaluation(s) Reevaluation #1: 08/20/24 07:49 Patient is 53-year-old woman with right upper extremity weakness. Patient's family did arrive and stated that she had taken 2 tablets of Ultram and also had moderately large amount of NyQuil prior to onset of symptoms. On arrival, the patient is evaluated as a code stroke patient. I discussed the case with Dr. Smith. The patient was outside of the window for thrombolytics after coming back from the CT scan. The patient will be admitted and have further neurology consultation. The patient was observed moving her arm while awaiting the study results, and on reevaluation does want to have admission and further neurology evaluation. Disposition Clinical Impression: Right arm weakness Narrative: TIA versus possible ischemic stroke. Disposition: ADMITTED IP TO THIS HOSP
--- NOTE | 2024-08-20 05:01 | XR ---
EXAM: XR Chest, 1 View CLINICAL HISTORY: ITS.REASON XR Reason: altered mental status TECHNIQUE: Frontal view of the chest. COMPARISON: No relevant prior studies available. FINDINGS: Lungs: No consolidation or mass. Prominent interstitial markings. Pleural space: No acute findings. Heart: cardiomegaly. Bones/joints: No acute findings. IMPRESSION: Prominent interstitial markings.
--- NOTE | 2024-08-20 05:02 | CT ---
EXAM: CT Head Without Intravenous Contrast CLINICAL HISTORY: ITS.REASON CT Reason: Neuro deficit, acute, stroke suspected TECHNIQUE: Axial computed tomography images of the head/brain without intravenous contrast. CTDI is 97.6 mGy and DLP is 2697.6 mGy-cm. This CT exam was performed using one or more of the following dose reduction techniques: automated exposure control, adjustment of the mA and/or kV according to patient size, and/or use of iterative reconstruction technique. COMPARISON: No relevant prior studies available. FINDINGS: Brain: No hemorrhage or mass effect. Ventricles: No hydrocephalus. Bones/joints: Unremarkable. Soft tissues: Unremarkable. Sinuses: No air fluid level. Mastoid air cells: Clear. IMPRESSION: No acute hemorrhage, hydrocephalus, or mass effect.
--- NOTE | 2024-08-20 05:03 | CT ---
EXAM: CT Angiography Head With Intravenous Contrast CLINICAL HISTORY: ITS.REASON CT Reason: Neuro deficit, acute, stroke suspected TECHNIQUE: Axial computed tomographic angiography images of the head with intravenous contrast. CTDI is 18.85 mGy and DLP is 276.65 mGy-cm. This CT exam was performed using one or more of the following dose reduction techniques: automated exposure control, adjustment of the mA and/or kV according to patient size, and/or use of iterative reconstruction technique. MIP reconstructed images were created and reviewed. COMPARISON: No relevant prior studies available. FINDINGS: Right internal carotid artery: No significant stenosis. No aneurysm. Right anterior cerebral artery: No significant stenosis. No aneurysm. Right middle cerebral artery: No significant stenosis. No aneurysm. Right posterior cerebral artery: No significant stenosis. No aneurysm. Right vertebral artery: Unremarkable. Left internal carotid artery: No significant stenosis. No aneurysm. Left anterior cerebral artery: No significant stenosis. No aneurysm. Left middle cerebral artery: No significant stenosis. No aneurysm. Left posterior cerebral artery: No significant stenosis. No aneurysm. Left vertebral artery: Unremarkable. Basilar artery: No significant stenosis. No aneurysm. IMPRESSION: No significant stenosis. EXAM: CT Angiography Neck With Intravenous Contrast CLINICAL HISTORY: ITS.REASON CT Reason: Neuro deficit, acute, stroke suspected TECHNIQUE: Routine carotid CT angiography protocol was performed with intravenous contrast. NASCET criteria using the distal ICAs for comparison were used for evaluation of stenoses. CTDI is 18.85 mGy and DLP is 276.65 mGy-cm. This CT exam was performed using one or more of the following dose reduction techniques: automated exposure control, adjustment of the mA and/or kV according to patient size, and/or use of iterative reconstruction technique. MIP reconstructed images were created and reviewed. COMPARISON: None. FINDINGS: VASCULATURE: Right common carotid artery: No significant stenosis. No dissection. Right internal carotid artery: No significant stenosis. No dissection. Right vertebral artery: No significant stenosis. No dissection. Left common carotid artery: No significant stenosis. No dissection. Left internal carotid artery: No significant stenosis. No dissection. Left vertebral artery: No significant stenosis. No dissection. NECK: Lung apices: Clear. CAROTID STENOSIS REFERENCE USING NASCET CRITERIA: % ICA stenosis = (1 - narrowest ICA diameter/diameter of distal cervical ICA) x 100. Mild - <50% stenosis. Moderate - 50-69% stenosis. Severe - 70-94% stenosis. Near occlusion - 95-99% stenosis. Occluded - 100% stenosis. IMPRESSION: No significant stenosis.
[2024-08-20 05:30] LABS: Basophils % (A) 0 %; Eosinophils # (A) 0.1 k/uL (0-0.7); Eosinophils % (A) 2 %; HCT 42.1 % (34.0-46.0); HGB 13.3 gm/dL (11.4-16.0); Lymphocytes # (A) 1.7 k/uL (1.0-4.8); Lymphocytes % (A) 26 %; MCH 30.6 pg (25.0-35.0); MCHC 31.7 g/dL (31.0-37.0); MCV 96.3 fL (80.0-100.0); Monocytes # (A) 0.3 k/uL (0-1.0); Monocytes % (A) 5 %; Neutrophils # (A) 4.2 k/uL (1.3-7.7); Neutrophils % (A) 65 %; Platelet Count 189 k/uL (150-450); RBC 4.37 m/uL (3.80-5.40); RDW 12.9 % (11.5-15.5); WBC 6.4 k/uL (3.8-10.6)
[2024-08-20 05:38] LABS: ALT 27 U/L (4-34); AST 22 U/L (14-36); African American GFR (CKD) 57 (>60 ml/min/1.73 sqM); Albumin 4.3 g/dL (3.5-5.0); Alcohol <10 mg/dL; Alkaline Phosphatase 80 U/L (38-126); Anion Gap 7 mmol/L; Blood Urea Nitrogen 21 mg/dL (7-17); Carbon Dioxide 22 mmol/L (22-30); Chloride 110 mmol/L (98-107); Creatine Kinase 59 U/L (30-135); Glucose 90 mg/dL (74-99); Non-African American GFR(CKD) 50 (>60 ml/min/1.73 sqM); Potassium 3.9 mmol/L (3.5-5.1); Sodium 139 mmol/L (137-145); Total Bilirubin 0.9 mg/dL (0.2-1.3); Total Protein 6.9 g/dL (6.3-8.2)
[2024-08-20 05:46] LABS: Partial Thromboplastin Time 24.9 sec (22.0-30.0); Prothrombin Time 11.2 sec (10.0-12.5)
[2024-08-20 06:05] LABS: Appearance,Urine Clear (Clear); Bilirubin,Urine Negative (Negative); Blood,Urine Negative (Negative); Color,Urine Colorless; Glucose,Urine (UA) 1+ (Negative); Ketones,Urine Negative (Negative); Leukocyte Esterase,Urine Negative (Negative); Nitrite,Urine Negative (Negative); PH, Urine 5.5 (5.0-8.0); Protein,Urine Negative (Negative); Specific Gravity,Urine 1.021 (1.001-1.035); Urobilinogen,Urine <2.0 mg/dL (<2.0)
[2024-08-20] MEDS: ASPIRIN 325 MG TAB PO STA (08:16)
[2024-08-20] MEDS: HEPARIN SODIUM,PORCINE 5,000 UNIT/ML 1 ML VIAL SQ SCH (08:17)
[2024-08-20] MEDS: FAMOTIDINE 20 MG TAB PO SCH (08:17)
[2024-08-20] MEDS ORDERED: IBUPROFEN 400 MG TAB PO PRN (08:27)
[2024-08-20] MEDS ORDERED: FAMOTIDINE 20 MG TAB PO SCH (09:00)
--- NOTE | 2024-08-20 09:26 | P.HPIM ---
History of Present Illness H&P Date: 08/20/24 This is a 53-year-old female patient of Dr. Root who presented with concerns of right arm weakness and altered mental status changes. According to patient and patient's daughter at bedside symptoms presented around midnight. Patient reports she had some tingling to her left hand but reports that she had significant weakness to her right arm. Per patient's daughter patient was in and out of confusion. Patient has a past medical history of CAD, heart failure, CVA, diabetes mellitus, GERD, hyperlipidemia, hypertension, anxiety, depression, current every day smoker half pack and currently on Eliquis due to lower extremity blood clot. Testing in the emergency room revealed chest x-ray chest x-ray showing prominent interstitial markings. Head CT completed showing no acute hemorrhage hydrocephalus or mass effect. CTA performed showing no significant stenosis. Lab work revealing white blood cell 6.4, hemoglobin 13.3, creatinine 1.24 bun 21 negative troponin. UA negative. Serum alcohol negative. At this time patient will be admitted neurology services have been consulted. Will order 2D echo. At this time patient is alert and oriented x 3. Per patient's daughter this is patient's baseline. Patient noted to have some right upper and right lower extremity weakness. No other neurological deficits noted. Patient denies chest pain or shortness of breath. Patient denies nausea vomiting or diarrhea. Patient denies any urinary burning or frequency Review of Systems Please refer to HPI otherwise unremarkable Past Medical History Past Medical History: Coronary Artery Disease (CAD), Heart Failure, CVA/TIA, Diabetes Mellitus, GERD/Reflux, Hyperlipidemia, Hypertension, Osteoarthritis (OA), Vascular Disorder Additional Past Medical History / Comment(s): Insomnia related to pain. Migraines. Bilateral ankle edema. Hx duondenal ulcer. TIA 01/27/23-no residual effects. History of Any Multi-Drug Resistant Organisms: None Reported Past Surgical History: Section, Hysterectomy, Joint Replacement, Orthopedic Surgery Additional Past Surgical History / Comment(s): LEFT KNEE ARTHROSCOPY, STENTS PLACED IN LOWER LEFT GROIN AND UPPER LEFT THIGH, AORTOGRAM W/ RUNOFF OF LOWER EXTREMITIES, left thumb joint replacement,MARQUIS. loop recorder Dr Garcia April 30 Past Anesthesia/Blood Transfusion Reactions: No Reported Reaction Additional Past Anesthesia/Blood Transfusion Reaction / Comment(s): no hx blood transfusion Past Psychological History: Anxiety, Depression Smoking Status: Current every day smoker Past Alcohol Use History: None Reported Past Drug Use History: None Reported - Past Family History Sister(s) Family Medical History: Vascular Disorder Mother Family Medical History: Cancer Additional Family Medical History / Comment(s): LUNG CANCER. Medications and Allergies Home Medications Medication Instructions Recorded Confirmed Type cloNIDine HCL [Catapres] 0.1 mg PO BID #30 tab 12/22/14 08/20/24 Rx Atorvastatin Calcium [Lipitor] 80 mg PO HS 10/22/18 08/20/24 History Omeprazole [PriLOSEC] 20 mg PO BID 03/12/19 08/20/24 History Spironolactone [Aldactone] 50 mg PO HS 03/12/19 08/20/24 History Furosemide [Lasix] 40 mg PO BID 08/04/21 08/20/24 History Escitalopram [Lexapro] 20 mg PO HS 01/27/23 08/20/24 History Aspirin [[place] Aspirin EC] 81 mg PO DAILY 10/25/23 08/20/24 History Apixaban [Eliquis] 2.5 mg PO BID #180 tab 11/03/23 08/20/24 Rx Dapagliflozin Propanediol [Farxiga] 10 mg PO DAILY 08/20/24 08/20/24 History HYDROcodone/APAP 10-325MG [[place] 1 tab PO Q6H PRN 08/20/24 08/20/24 History 10-325] Ibuprofen [Motrin Ib] 400 mg PO Q8H PRN 08/20/24 08/20/24 History Montelukast [Singulair] 10 mg PO DAILY 08/20/24 08/20/24 History Semaglutide [Ozempic] 0.25 mg SQ BHAKTA 08/20/24 08/20/24 History carisoprodoL [Soma] 350 mg PO Q6H PRN 08/20/24 08/20/24 History Allergies Allergy/AdvReac Type Severity Reaction Status Date / Time dronabinol [From Marinol] Allergy Severe Anaphylaxis Verified 08/20/24 08:16 lisinopril [From Prinivil] Allergy Swelling Verified 08/20/24 08:16 Penicillins Allergy Rash/Hives, Verified 08/20/24 08:16 "welts" morphine AdvReac Unknown Nausea & Verified 08/20/24 08:16 Vomiting Physical Exam Vitals: Vital Signs Temp Pulse Resp BP Pulse Ox 08/20/24 08:00 86 18 151/99 97 08/20/24 07:36 81 18 140/78 98 08/20/24 06:12 79 18 153/69 95 08/20/24 05:24 86 18 143/73 95 08/20/24 04:19 98.2 F 84 16 160/96 96 Intake and Output 08/19/24 08/20/24 08/20/24 22:59 06:59 14:59 Other: Weight 77.111 kg Head normocephalic Neck supple Lungs clear to auscultation bilaterally no wheezing or crackles Heart regular rate and rhythm S1-S2, no rub or gallop Abdomen is soft nontender nondistended positive bowel sounds no hepatosplenomegaly Extremities no edema Neuro alert and orientated to 3. Right upper and right lower extremity 3 /5 Results CBC & Chem 7: 08/20/24 05:17 08/20/24 05:17 Labs: Abnormal Lab Results - Last 24 Hours (Table) 08/20/24 08/20/24 Range/Units 05:17 05:53 Chloride 110 H (98-107) mmol/L BUN 21 H (7-17) mg/dL Creatinine 1.24 H (0.52-1.04) mg/dL Urine Glucose (UA) 1+ H (Negative) Assessment and Plan Assessment: 1. Right sided weakness possibly secondary to TIA 2. History of CVA 3. History of coronary artery disease 4. Ongoing nicotine dependence patient reports she smokes approximately half a pack per day patient educated on the importance of complete smoking cessation 5. History of blood clot to lower extremity patient maintained on Eliquis 6. History of diabetes mellitus 7. History of GERD 8. History of essential hypertension 9. History of anxiety and depression DVT prophylaxis Eliquis. GI prophylax Protonix 2D echo ordered Neurology services consulted Repeat labs ordered Time with Patient: Greater than 30 (Greater than 60% of the total time spent in counseling and coordination of care)
[2024-08-20] MEDS: PANTOPRAZOLE 40 MG TABLET PO SCH (09:51)
[2024-08-20] MEDS: cloNIDine HCL 0.1 MG TAB PO SCH (09:51)
[2024-08-20] MEDS: FUROSEMIDE 40 MG TAB PO SCH (09:51)
[2024-08-20] MEDS: DAPAGLIFLOZIN PROPANEDIOL 10 MG TABLET PO SCH (09:51)
[2024-08-20] MEDS: MONTELUKAST 10 MG TAB PO SCH (09:51)
[2024-08-20] MEDS: HYDROcodone/APAP 10-325MG 1 EACH TAB PO PRN (10:42)
[2024-08-20] MEDS: IPRATROPIUM-ALBUTEROL 3 ML NEB INHALATION SCH (13:20)
[2024-08-20] MEDS: APIXABAN 2.5 MG TABLET PO SCH (17:24)
[2024-08-20 20:22] LABS: Glucose,Whole Blood 105 mg/dL (70-110)
[2024-08-20] MEDS: IPRATROPIUM-ALBUTEROL 3 ML NEB INHALATION PRN (20:26)
[2024-08-20] MEDS: ATORVASTATIN 80 MG TAB PO SCH (20:59)
[2024-08-20] MEDS: SPIRONOLACTONE 25 MG TAB PO SCH (20:59)
[2024-08-20] MEDS: ESCITALOPRAM 20 MG TAB PO SCH (20:59)
[2024-08-20] MEDS: MELATONIN 3 MG TABLET PO SCH (20:59)
[2024-08-21 06:56] LABS: Basophils % (A) 1 %; Eosinophils # (A) 0.2 k/uL (0-0.7); Eosinophils % (A) 2 %; HCT 39.4 % (34.0-46.0); HGB 12.6 gm/dL (11.4-16.0); Lymphocytes # (A) 1.6 k/uL (1.0-4.8); Lymphocytes % (A) 27 %; MCH 31.2 pg (25.0-35.0); MCHC 32.1 g/dL (31.0-37.0); MCV 97.2 fL (80.0-100.0); Mean Platelet Volume 8.5; Monocytes # (A) 0.2 k/uL (0-1.0); Monocytes % (A) 4 %; Neutrophils % (A) 65 %; Platelet Count 178 k/uL (150-450); RBC 4.05 m/uL (3.80-5.40); RDW 12.8 % (11.5-15.5); WBC 6.2 k/uL (3.8-10.6)
[2024-08-21 07:45] LABS: ALT 23 U/L (4-34); AST 19 U/L (14-36); African American GFR (CKD) >90 (>60 ml/min/1.73 sqM); Albumin 4.1 g/dL (3.5-5.0); Alkaline Phosphatase 65 U/L (38-126); Anion Gap 7 mmol/L; Blood Urea Nitrogen 13 mg/dL (7-17); Calcium 8.7 mg/dL (8.4-10.2); Carbon Dioxide 22 mmol/L (22-30); Chloride 109 mmol/L (98-107); Glucose 100 mg/dL (74-99); Non-African American GFR(CKD) >90 (>60 ml/min/1.73 sqM); Potassium 3.7 mmol/L (3.5-5.1); Sodium 138 mmol/L (137-145); Total Bilirubin 0.5 mg/dL (0.2-1.3); Total Protein 6.2 g/dL (6.3-8.2)
[2024-08-21] MEDS: IPRATROPIUM-ALBUTEROL 3 ML NEB INHALATION SCH (08:16)
[2024-08-21] MEDS: ASPIRIN 325 MG TAB PO SCH (08:22)
[2024-08-21] MEDS: NICOTINE 14MG/24HR PATCH TRANSDERM SCH (08:23)
--- NOTE | 2024-08-21 08:54 | P.PN ---
Subjective Progress Note Date: 08/21/24 This is a 53-year-old female patient of Dr. Root who presented with concerns of right arm weakness and altered mental status changes. According to patient and patient's daughter at bedside symptoms presented around midnight. Patient reports she had some tingling to her left hand but reports that she had significant weakness to her right arm. Per patient's daughter patient was in and out of confusion. Patient has a past medical history of CAD, heart failure, CVA, diabetes mellitus, GERD, hyperlipidemia, hypertension, anxiety, depression, current every day smoker half pack and currently on Eliquis due to lower extremity blood clot. Testing in the emergency room revealed chest x-ray chest x-ray showing prominent interstitial markings. Head CT completed showing no acute hemorrhage hydrocephalus or mass effect. CTA performed showing no significant stenosis. Lab work revealing white blood cell 6.4, hemoglobin 13.3, creatinine 1.24 bun 21 negative troponin. UA negative. Serum alcohol negative. At this time patient will be admitted neurology services have been consulted. Will order 2D echo. At this time patient is alert and oriented x 3. Per patient's daughter this is patient's baseline. Patient noted to have some right upper and right lower extremity weakness. No other neurological deficits noted. Patient denies chest pain or shortness of breath. Patient denies nausea v omiting or diarrhea. Patient denies any urinary burning or frequency On 08/21/2024 patient is alert and oriented x 3. Patient still with some right sided weakness. Awaiting further recommendations from neurology services EEG has been ordered. Current vital signs temp 97.8, heart rate 68, respiratory rate 16, blood pressure 118/76 with pulse ox 100% on room air. Patient denies chest pain or shortness of breath. Patient denies nausea vomiting or diarrhea. Patient denies any urinary burning or frequency Objective - Vital Signs Vital signs: Vital Signs Temp 97.8 F 08/20/24 19:51 Pulse 75 08/21/24 08:28 Resp 16 08/21/24 08:20 BP 118/76 08/21/24 08:20 Pulse Ox 100 08/21/24 08:20 FiO2 Intake & Output 08/20/24 08/21/24 08/21/24 18:59 06:59 18:59 Intake Total 560 Balance 560 Weight 84 kg Intake: IV 20 Invasive Line 3 20 Oral 540 Other: Voiding Method Toilet # Voids 1 - Exam Head normocephalic Neck supple Lungs clear to auscultation bilaterally no wheezing or crackles Heart regular rate and rhythm S1-S2, no rub or gallop Abdomen is soft nontender nondistended positive bowel sounds no hepa tosplenomegaly Extremities no edema Neuro alert and orientated to 3. Right upper and right lower extremity 3 /5 - Labs CBC & Chem 7: 08/21/24 06:30 08/21/24 06:30 Labs: Abnormal Lab Results - Last 24 Hours (Table) 08/21/24 Range/Units 06:30 Chloride 109 H (98-107) mmol/L Glucose 100 H (74-99) mg/dL Total Protein 6.2 L (6.3-8.2) g/dL Assessment and Plan Assessment: 1. Right sided weakness possibly secondary to TIA 2. History of CVA 3. History of coronary artery disease 4. Ongoing nicotine dependence patient reports she smokes approximately half a pack per day patient educated on the importance of complete smoking cessation 5. History of blood clot to lower extremity patient maintained on Eliquis 6. History of diabetes mellitus 7. History of GERD 8. History of essential hypertension 9. History of anxiety and depression DVT prophylaxis Eliquis. GI prophylax Protonix 2D echo ordered Neurology services consulted Repeat labs ordered
--- NOTE | 2024-08-21 09:30 | CA ---
Transthoracic Echo Report Name: Shelly Preston Age: 53 Gender: F : 1970 Exam Date: 08/21/2024 07:37 Exam Location: [facility] Ht (in): 64 Wt (lb): 170 Ordering Physician: Chin Frost MD Attending/Referring Phys: Supervisor Component Assembler Maryam Coe RDCS Procedure CPT: Indications: CVA Cardiac Hx: Technical Quality: Fair Contrast 1: Total Dose (mL): Contrast 2: Total Dose (mL): MEASUREMENTS (Male / Female) Normal Values 2D ECHO LV Diastolic Diameter PLAX 5.3 cm 4.2 - 5.9 / 3.9 - 5.3 cm LV Systolic Diameter PLAX 3.4 cm IVS Diastolic Thickness 0.9 cm 0.6 - 1.0 / 0.6 - 0.9 cm LVPW Diastolic Thickness 1.0 cm 0.6 - 1.0 / 0.6 - 0.9 cm LV Relative Wall Thickness 0.4 RV Internal Dim ED PLAX 2.0 cm LA Systolic Diameter LX 3.9 cm 3.0 - 4.0 / 2.7 - 3.8 cm LV Diastolic Volume MOD BP 62.1 cm??? 67 - 155 / 56 - 104 cm??? LV Systolic Volume MOD BP 24.4 cm??? 22 - 58 / 19 - 49 cm??? LV Ejection Fraction MOD BP 60.7 % >= 55 % LV Cardiac Index MOD BP 1198.0 cm???/min???m??? LV Diastolic Volume MOD 4C 63.5 cm??? LV Systolic Volume MOD 4C 25.1 cm??? LV Ejection Fraction MOD 4C 60.5 % LV Cardiac Index MOD 4C 1220.3 cm???/min???m??? LV Diastolic Length 4C 6.7 cm LV Systolic Length 4C 5.8 cm LV Diastolic Volume MOD 2C 57.9 cm??? LV Systolic Volume MOD 2C 22.5 cm??? LV Ejection Fraction MOD 2C 61.2 % LV Cardiac Index MOD 2C 1124.8 cm???/min???m??? LV Diastolic Length 2C 7.1 cm LV Systolic Length 2C 5.5 cm LA Volume 53.0 cm??? 18 - 58 / 22 - 52 cm??? LA Volume Index 28.1 cm???/m??? 16 - 28 cm???/m??? M-MODE Aortic Root Diameter MM 2.7 cm LA Systolic Diameter MM 4.0 cm LA Ao Ratio MM 1.5 AV Cusp Separation MM 1.7 cm DOPPLER AV Peak Velocity 206.7 cm/s AV Peak Gradient 17.1 mmHg AV Mean Velocity 127.1 cm/s AV Mean Gradient 7.7 mmHg AV Velocity Time Integral 41.0 cm AI Peak Velocity 478.1 cm/s AI Peak Gradient 91.4 mmHg AI Pressure Half Time 519.0 ms MV Area PHT 1.8 cm??? Mitral E Point Velocity 134.4 cm/s Mitral A Point Velocity 153.2 cm/s Mitral E to A Ratio 0.9 MV Deceleration Time 420.6 ms TR Peak Velocity 245.0 cm/s TR Peak Gradient 24.0 mmHg Right Ventricular Systolic Press 29.0 mmHg FINDINGS Left Ventricle Left ventricular ejection fraction is estimated at 55-60 %. Normal left ventricular systolic function with no obvious regional wall motion abnormalities. Left ventricular cavity size normal. Right Ventricle Normal right ventricular size and function. Right ventricular systolic pressure within normal limits. Right Atrium Mild right atrial dilatation. Left Atrium Mildly increased left atrial diameter. Mildly increased left atrial volume. Mitral Valve Mitral valve thickened. Moderate mitral regurgitation. No mitral stenosis. Aortic Valve Trileaflet aortic valve. No aortic stenosis. Moderate aortic regurgitation. Tricuspid Valve Structurally normal tricuspid valve. Trace to mild tricuspid regurgitation. No tricuspid stenosis. Pulmonic Valve Structurally normal pulmonic valve. Trace pulmonic regurgitation. No pulmonic stenosis. Pericardium No pericardial or pleural effusion. Aorta Normal size aortic root and proximal ascending aorta. CONCLUSIONS Normal biventricular systolic function Trace mitral regurgitation Moderate aortic regurgitation Normal pulmonary artery systolic pressure No pericardial effusion Previewed by: Dr. Mahad Stafford MD (Electronically Signed) Final Date: 21 August 2024 09:29
--- NOTE | 2024-08-21 10:14 | P.CNNES ---
History of Present Illness Consult date: 08/20/24 Requesting physician: Rodriguez Finney Reason for Consult: Right arm weakness History of Present Illness: Patient is a 53-year-old female came to the hospital by ambulance today at 4:17 AM for strokelike symptoms. Patient states that she woke up midnight early this morning, very confused, saying stuff, closing bathroom window for no reason, was very off balance, speech was slurred and did not remember what was going on. Her ex- lives with her told her about above, as she does not remember doing that. Patient states her symptoms persisted, and the slurring was still present earlier this morning but now has resolved by 2 PM today. She just has a right frontal headache. The confusion has mostly resolved. Patient states that she takes Eliquis for "blood clot in the leg" in November 2023. She is compliant with Eliquis, does not miss any dose. Also takes aspirin 81 mg daily. EMS flowsheet not available in the chart. Vital signs on arrival blood pressure 160/96, pulse 84 temperature 98.2. Blood test shows normal CBC, PT PTT, normal electrolytes, BUN 21 creatinine 1.24. Hepatic panel is normal, troponin negative. UA negative. Blood alcohol level less than 10. EKG showed sinus rhythm. Chest x-ray showed prominent interstitial markings. CT head revealed no acute hemorrhage, hydrocephalus or mass effect. I personally reviewed CT head, agree with the findings. Patient has been seen by myself on 01/28/2023 for stroke code. Patient had left- sided weakness, and the MRI of the brain was normal. A conversion disorder was suspected. Patient has history of migraines since she was age 5. When she was young, she used to have severe pain, vomiting, and the headache would last for about a couple hours. Her migraines became worse between her third and fourth child born. As she has grown older, she does not get headaches, only gets optical migraines, consisting of visual disturbance like "looking through the waves". Her eyes gets blurred and it last for about 20 minutes. She is having these episodes twice a week. No headache, no nausea vomiting with these. Patient has smoked half pack per day since age 16, denies any alcohol use. Review of Systems All pertinent positive and negative review of systems mentioned in the HPI. Past Medical History Past Medical History: Coronary Artery Disease (CAD), Heart Failure, CVA/TIA, Diabetes Mellitus, GERD/Reflux, Hyperlipidemia, Hypertension, Osteoarthritis (OA), Vascular Disorder Additional Past Medical History / Comment(s): Insomnia related to pain. Migraines. Bilateral ankle edema. Hx duondenal ulcer. TIA 01/27/23-no residual effects. History of Any Multi-Drug Resistant Organisms: None Reported Past Surgical History: Section, Hysterectomy, Joint Replacement, Orthopedic Surgery Additional Past Surgical History / Comment(s): LEFT KNEE ARTHROSCOPY, STENTS PLACED IN LOWER LEFT GROIN AND UPPER LEFT THIGH, AORTOGRAM W/ RUNOFF OF LOWER EXTREMITIES, left thumb joint replacement,MARQUIS. loop recorder Dr Garcia April 30 Past Anesthesia/Blood Transfusion Reactions: No Reported Reaction Additional Past Anesthesia/Blood Transfusion Reaction / Comment(s): no hx blood transfusion Past Psychological History: Anxiety, Depression Smoking Status: Current every day smoker Past Alcohol Use History: None Reported Past Drug Use History: None Reported - Past Family History Sister(s) Family Medical History: Vascular Disorder Mother Family Medical History: Cancer Additional Family Medical History / Comment(s): LUNG CANCER. Medications and Allergies Home Medications Medication Instructions Recorded Confirmed Type cloNIDine HCL [Catapres] 0.1 mg PO BID #30 tab 12/22/14 08/20/24 Rx Atorvastatin Calcium [Lipitor] 80 mg PO HS 10/22/18 08/20/24 History Omeprazole [PriLOSEC] 20 mg PO BID 03/12/19 08/20/24 History Spironolactone [Aldactone] 50 mg PO HS 03/12/19 08/20/24 History Furosemide [Lasix] 40 mg PO BID 08/04/21 08/20/24 History Escitalopram [Lexapro] 20 mg PO HS 01/27/23 08/20/24 History Aspirin [[place] Aspirin EC] 81 mg PO DAILY 10/25/23 08/20/24 History Apixaban [Eliquis] 2.5 mg PO BID #180 tab 11/03/23 08/20/24 Rx Dapagliflozin Propanediol [Farxiga] 10 mg PO DAILY 08/20/24 08/20/24 History HYDROcodone/APAP 10-325MG [[place] 1 tab PO Q6H PRN 08/20/24 08/20/24 History 10-325] Ibuprofen [Motrin Ib] 400 mg PO Q8H PRN 08/20/24 08/20/24 History Montelukast [Singulair] 10 mg PO DAILY 08/20/24 08/20/24 History Semaglutide [Ozempic] 0.25 mg SQ BHAKTA 08/20/24 08/20/24 History carisoprodoL [Soma] 350 mg PO Q6H PRN 08/20/24 08/20/24 History Allergies Allergy/AdvReac Type Severity Reaction Status Date / Time dronabinol [From Marinol] Allergy Severe Anaphylaxis Verified 08/20/24 08:16 lisinopril [From Prinivil] Allergy Swelling Verified 08/20/24 08:16 Penicillins Allergy Rash/Hives, Verified 08/20/24 08:16 "welts" morphine AdvReac Unknown Nausea & Verified 08/20/24 08:16 Vomiting Physical Examination - Vital Signs Vital Signs: Vital Signs Temp Pulse Resp BP Pulse Ox 08/20/24 15:44 75 08/20/24 15:34 75 08/20/24 13:28 68 08/20/24 13:22 67 08/20/24 10:39 68 18 137/61 97 08/20/24 09:13 71 18 08/20/24 09:06 69 18 145/89 98 08/20/24 08:13 71 18 08/20/24 08:00 86 18 151/99 97 08/20/24 07:36 81 18 140/78 98 08/20/24 06:12 79 18 153/69 95 08/20/24 05:24 86 18 143/73 95 08/20/24 04:19 98.2 F 84 16 160/96 96 Intake and Output 08/20/24 08/20/24 08/20/24 06:59 14:59 22:59 Other: Weight 77.111 kg Patient is a middle aged female, in no acute distress. Patient is alert awake oriented to time place and person. Speech and language functions are normal. Patient can name and repeat very well. No aphasia or dysarthria. Attention, concentration and fund of knowledge is adequate. On cranial nerve examination, pupils are equal, round and reacting to light, visual gregory are full on confrontation, with no neglect on double simultaneous stimulation. Extraocular muscles are intact with no nystagmus. Face is symmetric, tongue protrudes to the midline. Palatal elevation and sensation n ormal, hearing and shoulder shrug normal, facial sensation normal. On muscle strength testing, there is mild pronator drift. 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 Biceps 5/5, triceps 5-/5, deltoid 5-/5. Hip flexion 5-/5, ankle dorsiflexion 5/5. (There was some giveaway component on the right side). Deep tendon reflexes are symmetric biceps 2, brachioradialis 2, knees 2, ankles 1 and plantars downgoing. Sensory to touch is equal with no neglect on double simultaneous stimulation. Cerebellar function showed no ataxia for [id number] testing. No dysdiadochokinesia. No ataxia for [id number] testing on either side. Tone and bulk of muscles normal. Gait deferred.. On general examination, there is no carotid bruit or murmur, S1-S2 audible. Chest is clear on consultation. Abdomen is soft nontender. No organomegaly, bowel sounds present. Peripheral pulses are present. No peripheral edema. Results - Laboratory Findings CBC and BMP: 08/21/24 06:30 08/21/24 06:30 Abnormal Lab Findings: Abnormal Labs 08/20/24 08/20/24 05:17 05:53 Chloride 110 H BUN 21 H Creatinine 1.24 H Urine Glucose (UA) 1+ H Assessment and Plan Assessment: * Acute onset of confusion, off balance, slurred speech on waking up this morning. Symptoms resolved in about 12 hours. Current NIH stroke scale is 1, related to right pronator drift. She has inconsistent, giveaway weakness on the right. * History of migraine headaches, now gets optical migraines. * Tobacco use * Hypertension * History of DVT, on Eliquis * Coronary artery disease * Peripheral arterial disease * Hyperlipidemia * Anxiety, depression. Plan: * Patient has presented with acute onset of confusion, slurring, balance problems on waking up, that seems to have resolved. Now she has a migraine headache right frontal region. Uncertain if it was a complex migraine, rule out seizure. TIA is unlikely, as patient is compliant with her Eliquis and aspirin 81 mg. * EEG rule out any epileptiform activity. * Continue Eliquis 5 mg twice daily and aspirin 81 mg. * 2D echo rule out any embolic source * CTA of head and neck revealed no significant stenosis or aneurysm reported. * Hemoglobin A1c 5.9 on 03/05/2024. No need to repeat. * Lipid panel with cholesterol 133, LDL 58, HDL 41, triglycerides 163 on 024 no need to repeat. Lipids well-controlled, continue Lipitor 80 mg daily. * Recommend complete tobacco cessation. * Neurology will follow. Thank you for the consult. Time with Patient: Greater than 30
--- NOTE | 2024-08-21 13:38 | EEG ---
ELECTROENCEPHALOGRAM REPORT PREAMBLE: This is a 53-year-old female with TIA versus complex migraine versus seizure. EEG FINDINGS: This is a 21-channel digital EEG recorded with video component, utilizing 10/20 international system with referential and bipolar montages. Background consists of moderately well-developed and regulated, predominantly low voltage fast frequency beta activity seen diffusely in bilateral hemispheric region, anteriorly and posteriorly. Background does not seem to be reactive to eye opening or closing. Photic driving response was not seen. Different stages of sleep were not seen. No focal or generalized epileptiform activity was seen. IMPRESSION: This is an abnormal EEG due to presence of excessive amount of low-voltage fast frequency beta activity suggestive of medication effect. No focal, lateralized, or epileptiform activity was seen. MMODL / IJN: [id number] /
[2024-08-21 16:27] LABS: Chol/HDL Ratio 3.61 Ratio; LDL Cholesterol,Calculated 77.2 mg/dL (0.0-131.0)
[2024-08-22 04:52] VITALS: TEMP 98
[2024-08-22 07:13] LABS: Basophils % (A) 0 %; Eosinophils # (A) 0.1 k/uL (0-0.7); Eosinophils % (A) 2 %; HCT 40.1 % (34.0-46.0); HGB 13.1 gm/dL (11.4-16.0); Lymphocytes # (A) 1.4 k/uL (1.0-4.8); Lymphocytes % (A) 24 %; MCH 30.9 pg (25.0-35.0); MCHC 32.7 g/dL (31.0-37.0); MCV 94.4 fL (80.0-100.0); Mean Platelet Volume 8.4; Monocytes # (A) 0.3 k/uL (0-1.0); Monocytes % (A) 4 %; Neutrophils # (A) 3.9 k/uL (1.3-7.7); Neutrophils % (A) 68 %; Platelet Count 182 k/uL (150-450); RBC 4.25 m/uL (3.80-5.40); RDW 13.1 % (11.5-15.5); WBC 5.7 k/uL (3.8-10.6)
[2024-08-22 07:31] LABS: ALT 26 U/L (4-34); AST 23 U/L (14-36); African American GFR (CKD) >90 (>60 ml/min/1.73 sqM); Albumin 4.3 g/dL (3.5-5.0); Alkaline Phosphatase 87 U/L (38-126); Anion Gap 6 mmol/L; Blood Urea Nitrogen 13 mg/dL (7-17); Calcium 9.2 mg/dL (8.4-10.2); Carbon Dioxide 27 mmol/L (22-30); Chloride 106 mmol/L (98-107); Glucose 91 mg/dL (74-99); Non-African American GFR(CKD) >90 (>60 ml/min/1.73 sqM); Potassium 3.8 mmol/L (3.5-5.1); Sodium 139 mmol/L (137-145); Total Bilirubin 0.9 mg/dL (0.2-1.3); Total Protein 6.8 g/dL (6.3-8.2)
[2024-08-22 07:58] VITALS: BP 112/59; RESP 16
[2024-08-22] MEDS: APIXABAN 2.5 MG TABLET PO ONE (09:34)
[2024-08-22] MEDS: ASPIRIN 81 MG PO SCH (09:34)
--- NOTE | 2024-08-22 10:16 | P.PN ---
Subjective Progress Note Date: 08/21/24 Patient was seen for follow-up. Patient is laying in the bed, offers no complaints. All symptoms resolved. Objective - Vital Signs Vital signs: Vital Signs Temp 98.3 F 08/21/24 15:51 Pulse 66 08/21/24 15:51 Resp 18 08/21/24 15:51 BP 123/80 08/21/24 15:51 Pulse Ox 100 08/21/24 12:00 FiO2 Intake & Output 08/21/24 08/21/24 08/22/24 06:59 18:59 06:59 Intake Total 560 360 Balance 560 360 Weight 84 kg Intake: IV 20 Invasive Line 3 20 Oral 540 360 Other: Voiding Method Toilet # Voids 1 1 - Exam Examination unchanged. Mentation normal. - Labs CBC & Chem 7: 08/22/24 06:40 08/22/24 06:40 Labs: Abnormal Lab Results - Last 24 Hours (Table) 08/21/24 Range/Units 06:30 Chloride 109 H (98-107) mmol/L Glucose 100 H (74-99) mg/dL Total Protein 6.2 L (6.3-8.2) g/dL Assessment and Plan Assessment: * Acute onset of confusion, off balance, slurred speech on waking up this morning. Symptoms resolved in about 12 hours. Current NIH stroke scale is 1, related to right pronator drift. She has inconsistent, giveaway weakness on the right. * History of migraine headaches, now gets optical migraines. * Tobacco use * Hypertension * History of DVT, on Eliquis * Coronary artery disease * Peripheral arterial disease * Hyperlipidemia * Anxiety, depression. Plan: * Patient has presented with acute onset of confusion, slurring, balance problems on waking up, that seems to have resolved. Now she has a migraine headache right frontal region. Uncertain if it was a complex migraine, rule out seizure. TIA is unlikely, as patient is compliant with her Eliquis and aspirin 81 mg. * EEG was abnormal due to presence of excessive amount of low voltage fast frequency beta activity, suggestive of medication effect. No focal, lateralized or epileptiform activity was seen. No indication for antiepileptic medication. * Continue Eliquis 5 mg twice daily and aspirin 81 mg. * 2D echo revealed normal biventricular systolic function, with EF 55 to 60%. No obvious regional wall motion abnormalities. Mildly increased left atrial diameter. Trace MR. Moderate AR. * CTA of head and neck revealed no significant stenosis or aneurysm reported. * Hemoglobin A1c 5.9 on 03/05/2024. No need to repeat. * Lipid panel with cholesterol 133, LDL 58, HDL 41, triglycerides 163 on 02/07 no need to repeat. Lipids well-controlled, continue Lipitor 80 mg daily. * Recommend complete tobacco cessation. * Neurologically clear for discharge.
--- NOTE | 2024-08-22 11:38 | P.CRDCN ---
History of Present Illness History of present illness: HISTORY OF PRESENT ILLNESS: This is a 53-year-old female with a past medical history significant for minimal CAD, DVT, valvular heart disease, coronary artery disease, peripheral arterial disease, carotid stenosis, diabetes, TIA, nicotine dependence. Patient follows in the office with Dr. Stafford. We have been asked to see the patient in consultation for right arm weakness. Patient examined at the bedside. Patient states she was at home when she suddenly began to feel confused. She states that she was having balance issues and fell over and hit her TV. She reports having right sided weaknes which has since resolved. She states that she had an episode like this last year but her weakness was on the left side. Patient states all of her symptoms have resolved at this point. Patient does have a history of DVT and is currently on Eliquis 2.5 mg twice a day at home. Patient reports that she has a current cigarette smoker but is attempting to quit once she is discharged. DIAGNOSTICS: - EKG reveals sinus mechanism with no signs of acute ischemia - Chest xray prominent interstitial markings - Laboratory data: WBC 5.7. Hemoglobin 13.1. Platelet count 182. Sodium 139. Potassium 3.8. BUN 13. Creatinine 0.71. Troponin negative x 2. - Current home cardiac medications include Eliquis 2.5 mg twice a day, Lipitor 80 mg daily, Lasix 40 mg twice a day, Catapres 0.1 mg twice a day, Farxiga 10 mg daily, Aldactone 50 mg at night - Echocardiogram obtained this admission reveals ejection fraction 55 to 60%, moderate aortic regurgitation, moderate mitral regurgitation, trace to mild tricuspid regurgitation. - Cardiac catheterization history: March 2019 revealing minimal CAD - Patient underwent MARQUIS in February 2023 revealing normal EF, moderate MR, moderate AR, no PFO REVIEW OF SYSTEMS: At the time of my exam: CONSTITUTIONAL: Denies fever or chills. HEENT: Denies blurred vision, vision changes, or eye pain. Denies hemoptysis CARDIOVASCULAR: Denies chest pain. Denies orthopnea. Denies PND. Denies palpitations RESPIRATORY: Denies shortness of breath. GASTROINTESTINAL: Denies abdominal pain. Denies nausea or vomiting. HEMATOLOGIC: Denies bleeding disorders. GENITOURINARY: Denies any blood in urine. SKIN: Denies pruitis. Denies rash. PHYSICAL EXAM: VITAL SIGNS: Reviewed. GENERAL: Well-developed in no acute distress. HEENT: Head is normocephalic. Pupils are equal, round. Sclerae anicteric. Mucous membranes of the mouth are moist. Neck supple. No JVD or thyromegaly LUNGS: Respirations even and unlabored. Lungs essentially clear to auscultation bilaterally. HEART: Regular rate and rhythm. S1 and S2 heard. + systolic murmur ABDOMEN: Soft. Nondistended. Nontender. EXTREMITIES: Normal range of motion. No clubbing or cyanosis. Peripheral pulses intact. No lower extremity edema NEUROLOGIC: Awake and alert. Oriented x 3. ASSESSMENT: Episode of confusion, off balance, and slurred speech; possible TIA History of similar as above in 2022 Minimal coronary artery disease, per cath in 2018 History of DVT, on Eliquis Valvular heart disease including moderate MR and moderate AR Peripheral arterial disease Carotid stenosis Diabetes History of TIA, per patient Nicotine dependence PLAN: 2D echo obtained and reviewed Increase Eliquis to 5 mg twice a day Decrease aspirin to 81 mg daily Continue additional cardiac medications Smoking cessation recommended Patient is stable for discharge home today from a cardiac standpoint Further recommendations pending patient course Nurse practitioner note has been reviewed by physician. Signing provider agrees with the documented findings, assessment, and plan of care documented by OPERATIONS DISPATCHER as a scribe. Past Medical History Past Medical History: Coronary Artery Disease (CAD), Heart Failure, CVA/TIA, Diabetes Mellitus, GERD/Reflux, Hyperlipidemia, Hypertension, Osteoarthritis (OA), Vascular Disorder Additional Past Medical History / Comment(s): Insomnia related to pain. Migraines. Bilateral ankle edema. Hx duondenal ulcer. TIA 01/27/23-no residual effects. History of Any Multi-Drug Resistant Organisms: None Reported Past Surgical History: Section, Hysterectomy, Joint Replacement, Orthopedic Surgery Additional Past Surgical History / Comment(s): LEFT KNEE ARTHROSCOPY, STENTS PLACED IN LOWER LEFT GROIN AND UPPER LEFT THIGH, AORTOGRAM W/ RUNOFF OF LOWER EXTREMITIES, left thumb joint replacement,MARQUIS. loop recorder Dr Garcia April 30 Past Anesthesia/Blood Transfusion Reactions: No Reported Reaction Additional Past Anesthesia/Blood Transfusion Reaction / Comment(s): no hx blood transfusion Past Psychological History: Anxiety, Depression Smoking Status: Current every day smoker Past Alcohol Use History: None Reported Past Drug Use History: None Reported - Past Family History Sister(s) Family Medical History: Vascular Disorder Mother Family Medical History: Cancer Additional Family Medical History / Comment(s): LUNG CANCER. Medications and Allergies Home Medications Medication Instructions Recorded Confirmed Type cloNIDine HCL [Catapres] 0.1 mg PO BID #30 tab 12/22/14 08/20/24 Rx Atorvastatin Calcium [Lipitor] 80 mg PO HS 10/22/18 08/20/24 History Omeprazole [PriLOSEC] 20 mg PO BID 03/12/19 08/20/24 History Spironolactone [Aldactone] 50 mg PO HS 03/12/19 08/20/24 History Furosemide [Lasix] 40 mg PO BID 08/04/21 08/20/24 History Escitalopram [Lexapro] 20 mg PO HS 01/27/23 08/20/24 History Aspirin [[place] Aspirin EC] 81 mg PO DAILY 10/25/23 08/20/24 History Dapagliflozin Propanediol [Farxiga] 10 mg PO DAILY 08/20/24 08/20/24 History HYDROcodone/APAP 10-325MG [[place] 1 tab PO Q6H PRN 08/20/24 08/20/24 History 10-325] Ibuprofen [Motrin Ib] 400 mg PO Q8H PRN 08/20/24 08/20/24 History Montelukast [Singulair] 10 mg PO DAILY 08/20/24 08/20/24 History Semaglutide [Ozempic] 0.25 mg SQ BHAKTA 08/20/24 08/20/24 History Apixaban [Eliquis] 5 mg PO BID 30 Days #60 tab 08/22/24 Rx Nicotine 14Mg/24Hr Patch [Habitrol] 1 patch TRANSDERM DAILY 30 Days 08/22/24 Rx #30 patch Allergies Allergy/AdvReac Type Severity Reaction Status Date / Time dronabinol [From Marinol] Allergy Severe Anaphylaxis Verified 08/20/24 08:16 lisinopril [From Prinivil] Allergy Swelling Verified 08/20/24 08:16 Penicillins Allergy Rash/Hives, Verified 08/20/24 08:16 "welts" morphine AdvReac Unknown Nausea & Verified 08/20/24 08:16 Vomiting Physical Exam Vitals: Vital Signs Temp Pulse Pulse Resp BP Pulse Ox 08/22/24 08:53 90 08/22/24 08:31 89 98 08/22/24 07:57 68 16 112/59 97 08/22/24 04:00 98.0 F 61 18 113/56 97 08/21/24 23:51 63 18 107/55 98 08/21/24 20:00 97.8 F 56 L 18 133/77 98 08/21/24 15:51 98.3 F 66 18 123/80 08/21/24 12:00 71 16 118/75 100 Intake and Output 08/21/24 08/22/24 08/22/24 22:59 06:59 14:59 Intake Total 180 Balance 180 Intake: Oral 180 Other: Voiding Method Toilet Toilet Weight 83.2 kg Results 08/22/24 06:40 08/22/24 06:40 Cardiac Enzymes 08/22/24 Range/Units 06:40 AST 23 (14-36) U/L Lipids 08/21/24 Range/Units 06:30 Triglycerides 138.00 (0.00-149.00) mg/dL Cholesterol 145.00 (0.00-200.00) mg/dL HDL Cholesterol 40.20 (40.00-60.00) mg/dL Cholesterol/HDL Ratio 3.61 Ratio CBC 08/22/24 Range/Units 06:40 WBC 5.7 (3.8-10.6) k/uL RBC 4.25 (3.80-5.40) m/uL Hgb 13.1 (11.4-16.0) gm/dL Hct 40.1 (34.0-46.0) % Plt Count 182 (150-450) k/uL Comprehensive Metabolic Panel 08/22/24 Range/Units 06:40 Sodium 139 (137-145) mmol/L Potassium 3.8 (3.5-5.1) mmol/L Chloride 106 (98-107) mmol/L Carbon Dioxide 27 (22-30) mmol/L BUN 13 (7-17) mg/dL Creatinine 0.71 (0.52-1.04) mg/dL Glucose 91 (74-99) mg/dL Calcium 9.2 (8.4-10.2) mg/dL AST 23 (14-36) U/L ALT 26 (4-34) U/L Alkaline Phosphatase 87 (38-126) U/L Total Protein 6.8 (6.3-8.2) g/dL Albumin 4.3 (3.5-5.0) g/dL Current Medications Generic Name Dose Route Start Last Admin Trade Name Freq PRN Reason Stop Dose Admin Hydrocodone Bitart/Acetaminophen 1 each 08/20/24 08:27 08/22/24 08:02 Hydrocodone/Apap 10-325mg 1 Each Tab PO 1 each Q6H PRN Administration Pain Albuterol/Ipratropium 3 ml 08/20/24 09:19 08/20/24 20:26 Ipratropium-Albuterol 3 Ml Neb INHALATION 3 ml RT-QID PRN Administration Shortness Of Breath Or Wheezing Albuterol/Ipratropium 3 ml 08/21/24 08:00 08/22/24 08:30 Ipratropium-Albuterol 3 Ml Neb INHALATION 3 ml RT-QID KAE Administration Apixaban 5 mg 08/22/24 21:00 Apixaban 5 Mg Tab PO BID KAE Protocol Aspirin 81 mg 08/22/24 09:29 08/22/24 09:34 Aspirin 81 Mg PO 81 mg DAILY KAE Administration Atorvastatin Calcium 80 mg 08/20/24 21:00 08/21/24 20:29 Atorvastatin 80 Mg Tab PO 80 mg HS KAE Administration Clonidine 0.1 mg 08/20/24 09:00 08/22/24 07:59 Clonidine Hcl 0.1 Mg Tab PO 0.1 mg BID KAE Administration Dapagliflozin 10 mg 08/20/24 09:00 08/22/24 07:59 Dapagliflozin Propanediol 10 Mg Tablet PO 10 mg DAILY KAE Administration Escitalopram Oxalate 20 mg 08/20/24 21:00 08/21/24 20:29 Escitalopram 20 Mg Tab PO 20 mg HS KAE Administration Famotidine 20 mg 08/20/24 09:00 08/22/24 07:59 Famotidine 20 Mg Tab PO 20 mg DAILY KAE Administration Furosemide 40 mg 08/20/24 09:00 08/22/24 07:59 Furosemide 40 Mg Tab PO 40 mg BID KAE Administration Melatonin 6 mg 08/20/24 21:00 08/21/24 20:28 Melatonin 3 Mg Tablet PO 6 mg HS KAE Administration Montelukast Sodium 10 mg 08/20/24 09:00 08/22/24 07:59 Montelukast 10 Mg Tab PO 10 mg DAILY KAE Administration Nicotine 1 patch 08/21/24 09:00 08/22/24 07:59 Nicotine 14mg/24hr Patch TRANSDERM Not Given DAILY KAE Pantoprazole Sodium 40 mg 08/20/24 09:00 08/22/24 07:59 Pantoprazole 40 Mg Tablet PO 40 mg BID KAE Administration Spironolactone 50 mg 08/20/24 21:00 08/21/24 20:29 Spironolactone 25 Mg Tab PO 50 mg HS KAE Administration Intake and Output 08/21/24 08/22/24 08/22/24 22:59 06:59 14:59 Intake Total 180 Balance 180 Intake: Oral 180 Other: Voiding Method Toilet Toilet Weight 83.2 kg 08/22/24 06:40 08/22/24 06:40
[2024-08-22 11:52] VITALS: PULSE 70
[2024-08-22] MEDS ORDERED: APIXABAN 5 MG TAB PO SCH (21:00)
[2024-08-23] MEDS ORDERED: ASPIRIN 81 MG PO SCH (09:00)
--- NOTE | 2024-08-23 10:36 | P.DS ---
Providers Date of admission: 08/20/24 07:15 Expected date of discharge: 08/22/24 Attending physician: Chin Frost Consults: 08/20/24 07:05 Consult Physician Routine Consulting Provider: Susan Moreno Consult Reason/Comments: Right arm weakness Do you want consulting provider notified?: Yes 08/21/24 14:54 Consult Physician Routine Consulting Provider: Mahad Stafford Consult Reason/Comments: right arm weakness. established patient Do you want consulting provider notified?: Yes Primary care physician: Pauline Vargas Hospital Course: Diagnosis on discharge: 1. Right sided weakness possibly secondary to TIA 2. History of CVA 3. History of coronary artery disease 4. Ongoing nicotine dependence patient reports she smokes approximately half a pack per day patient educated on the importance of complete smoking cessation 5. History of blood clot to lower extremity patient maintained on Eliquis 6. History of diabetes mellitus 7. History of GERD 8. History of essential hypertension 9. History of anxiety and depression Hospital course: This is a 53-year-old female patient of Dr. Root who presented with concerns of right arm weakness and altered mental status changes. According to patient and patient's daughter at bedside symptoms presented around midnight. Patient reports she had some tingling to her left hand but reports that she had significant weakness to her right arm. Per patient's daughter patient was in and out of confusion. Patient has a past medical history of CAD, heart failure, CVA, diabetes mellitus, GERD, hyperlipidemia, hypertension, anxiety, depression, current every day smoker half pack and currently on Eliquis due to lower extremity blood clot. Testing in the emergency room revealed chest x-ray chest x-ray showing prominent interstitial markings. Head CT completed showing no acute hemorrhage hydrocephalus or mass effect. CTA performed showing no significant stenosis. Lab work revealing white blood cell 6.4, hemoglobin 13.3, creatinine 1.24 bun 21 negative troponin. UA negative. Serum alcohol negative. At this time patient will be admitted neurology services have been consulted. Will order 2D echo. At this time patient is alert and oriented x 3. Per patient's daughter this is patient's baseline. Patient noted to have some right upper and right lower extremity weakness. No other neurological deficits noted. Patient denies chest pain or shortness of breath. Patient denies nausea vomiting or diarrhea. Patient denies any urinary burning or frequency On 08/21/2024 patient is alert and oriented x 3. Patient still with some right sided weakness. Awaiting further recommendations from neurology services EEG has been ordered. Current vital signs temp 97.8, heart rate 68, respiratory rate 16, blood pressure 118/76 with pulse ox 100% on room air. Patient denies chest pain or shortness of breath. Patient denies nausea vomiting or diarrhea. Patient denies any urinary burning or frequency On 08/22/2024 patient was seen and examined on the medical floor she is alert and oriented x 3 in no apparent distress there is no fever or chills no headache or dizziness no chest pain no shortness of breath no cough no nausea or vomiting no abdominal pain no diarrhea no urinary symptoms. Her neurological symptoms including weakness in her right upper extremity has resolved, she was reevaluated by neurology and was cleared for discharge. Patient was also evaluated by cardiology, dose of Eliquis was increased from 2.5 mg twice daily to 5 mg twice daily, she was cleared for discharge by cardiology. She will follow-up with Dr. Alexander in the next 1 to 2 weeks as outpatient. Plan - Discharge Summary Discharge Rx Participant: No New Discharge Prescriptions: New Apixaban [Eliquis] 5 mg PO BID 30 Days #60 tab Nicotine 14Mg/24Hr Patch [Habitrol] 1 patch TRANSDERM DAILY 30 Days #30 patch Continue cloNIDine HCL [Catapres] 0.1 mg PO BID #30 tab Atorvastatin Calcium [Lipitor] 80 mg PO HS Omeprazole [PriLOSEC] 20 mg PO BID Spironolactone [Aldactone] 50 mg PO HS Aspirin [[place] Aspirin EC] 81 mg PO DAILY Dapagliflozin Propanediol [Farxiga] 10 mg PO DAILY HYDROcodone/APAP 10-325MG [[place] 10-325] 1 tab PO Q6H PRN PRN Reason: Pain Furosemide [Lasix] 40 mg PO BID Escitalopram [Lexapro] 20 mg PO HS Ibuprofen [Motrin Ib] 400 mg PO Q8H PRN PRN Reason: Fever And/ Or Pain Montelukast [Singulair] 10 mg PO DAILY Semaglutide [Ozempic] 0.25 mg SQ BHAKTA Discontinued Apixaban [Eliquis] 2.5 mg PO BID #180 tab carisoprodoL [[place]] 350 mg PO Q6H PRN PRN Reason: Spasms Discharge Medication List cloNIDine HCL [Catapres] 0.1 mg PO BID #30 tab 12/22/14 [Rx] Atorvastatin Calcium [Lipitor] 80 mg PO HS 10/22/18 [History] Omeprazole [PriLOSEC] 20 mg PO BID 03/12/19 [History] Spironolactone [Aldactone] 50 mg PO HS 03/12/19 [History] Furosemide [Lasix] 40 mg PO BID 08/04/21 [History] Escitalopram [Lexapro] 20 mg PO HS 01/27/23 [History] Aspirin [[place] Aspirin EC] 81 mg PO DAILY 10/25/23 [History] Dapagliflozin Propanediol [Farxiga] 10 mg PO DAILY 08/20/24 [History] HYDROcodone/APAP 10-325MG [[place] 10-325] 1 tab PO Q6H PRN 08/20/24 [History] Ibuprofen [Motrin Ib] 400 mg PO Q8H PRN 08/20/24 [History] Montelukast [Singulair] 10 mg PO DAILY 08/20/24 [History] Semaglutide [Ozempic] 0.25 mg SQ BHAKTA 08/20/24 [History] Apixaban [Eliquis] 5 mg PO BID 30 Days #60 tab 08/22/24 [Rx] Nicotine 14Mg/24Hr Patch [Habitrol] 1 patch TRANSDERM DAILY 30 Days #30 patch 08/22/24 [Rx] Follow up Appointment(s)/Referral(s): Pauline Vargas MD [Primary Care Provider] - 08/28/24 11:00 am (Monday no afternoon appointments available) Mahad Stafford MD [STAFF PHYSICIAN] - 09/12/24 (Keep previously scheduled appointment) Patient Instructions/Handouts: Transient Ischemic Attack (DC) Discharge Disposition: HOME SELF-CARE
== END 2024-08-22 12:05 | disposition home or self-care (01) ==
LOC: EC 04:17 → 3SCARD 07:15
PROVIDERS: ADMIT Internal Medicine; ATTEND Internal Medicine
DX: I65.29 Occlusion and stenosis of unspecified carotid artery (principal); I08.3 Combined rheumatic disorders of mitral, aortic and tricuspid valves; R53.1 Weakness; R47.81 Slurred speech; R41.82 Altered mental status, unspecified; R94.01 Abnormal electroencephalogram [EEG]; R29.701 NIHSS score 1; E11.51 Type 2 diabetes mellitus with diabetic peripheral angiopathy without gangrene; I25.10 Atherosclerotic heart disease of native coronary artery without angina pectoris; I11.0 Hypertensive heart disease with heart failure; E78.5 Hyperlipidemia, unspecified; G43.109 Migraine with aura, not intractable, without status migrainosus; K21.9 Gastro-esophageal reflux disease without esophagitis; F17.210 Nicotine dependence, cigarettes, uncomplicated; F32.A Depression, unspecified; F41.9 Anxiety disorder, unspecified; I50.9 Heart failure, unspecified; Z79.82 Long term (current) use of aspirin; Z79.84 Long term (current) use of oral hypoglycemic drugs; Z79.1 Long term (current) use of non-steroidal anti-inflammatories (NSAID); Z79.01 Long term (current) use of anticoagulants; Z79.899 Other long term (current) drug therapy; Z86.73 Personal history of transient ischemic attack (TIA), and cerebral infarction without residual deficits; Z86.718 Personal history of other venous thrombosis and embolism; Z88.0 Allergy status to penicillin; Z88.5 Allergy status to narcotic agent; Z88.8 Allergy status to other drugs, medicaments and biological substances; Z71.6 Tobacco abuse counseling
CPT/HCPCS: 96372; 99291; 36415; 94640 ×5; 94760; 95816; 93005; 93306; 97161; 97165; 92523; 80061; 80053 ×3; 82550; 84484; 85025 ×3; 85610; 85730; 81003; 81025; 80320; 71045; 70496; 70450; 70498; G0378 ×3; J1644; Q9967

== ENCOUNTER 2024-12-30 18:40 | Observation (INO) | payer MEDICARE, OTHER ==
--- NOTE | 2024-12-30 19:06 | ED ---
General Adult HPI - General Source: patient, family, RN notes reviewed Mode of arrival: ambulatory Limitations: no limitations <Zahra Pastrana - Last Filed: 12/30/24 19:04> - General Source: patient, family, RN notes reviewed, old records reviewed Mode of arrival: ambulatory Limitations: no limitations - History of Present Illness -: days(s) Location: abdomen Radiation: non-radiation Severity scale (1-10): 5 Consistency: constant Improves with: none Associated Symptoms: loss of appetite, nausea/vomiting, weakness Treatments Prior to Arrival: none <Shankar Delarosa - Last Filed: 01/06/25 16:12> - General Chief complaint: Nausea/Vomiting/Diarrhea Stated complaint: NV, tooth abscess Time Seen by Provider: 12/30/24 18:55 - History of Present Illness Initial comments: Quick [id number] female presents for department via EMS chief complaint of nausea, vomiting, epigastric abdominal pain since morning. Patient is currently on clindamycin for a dental abscess. Patient had appointment earlier today with dentist where she is scheduled for outpatient root canal. (Zahra Pastrana) This is a 54 female to the ER with nausea vomiting and abdominal pain abdominal pain chest pain. Patient comes to the ER for evaluation of severe pain with active nausea and vomiting shakes lightheadedness dizziness weakness sweating, patient states she has felt clammy all day continue weakness with severe vomiting and active vomiting here in the ER (Shankar Delarosa) - Related Data Home Medications Medication Instructions Recorded Confirmed Atorvastatin Calcium [Lipitor] 80 mg PO HS 10/22/18 12/31/24 Omeprazole [PriLOSEC] 20 mg PO TID 03/12/19 12/31/24 Escitalopram [Lexapro] 20 mg PO HS 01/27/23 12/31/24 HYDROcodone/APAP 10-325MG [[place] 1 tab PO Q6H PRN 08/20/24 12/31/24 10-325] Montelukast [Singulair] 10 mg PO HS 08/20/24 12/31/24 Aspirin [Adult Low Dose Aspirin EC] 81 mg PO DAILY 12/31/24 12/31/24 Atorvastatin [Lipitor] 80 mg PO HS 12/31/24 12/31/24 DULoxetine HCL [Cymbalta] 30 mg PO HS 12/31/24 12/31/24 Dapagliflozin Propanediol [Farxiga] 10 mg PO DAILY 12/31/24 12/31/24 Escitalopram [Lexapro] 20 mg PO HS 12/31/24 12/31/24 Furosemide [Lasix] 40 mg PO BID 12/31/24 12/31/24 Loratadine 10 mg PO DAILY 12/31/24 12/31/24 Montelukast [Singulair] 10 mg PO DAILY 12/31/24 12/31/24 Spironolactone 50 mg PO BID 12/31/24 12/31/24 Previous Rx's Medication Instructions Recorded cloNIDine HCL [Catapres] 0.1 mg PO BID #30 tab 12/22/14 Apixaban [Eliquis] 5 mg PO BID 30 Days #60 tab 08/22/24 cefuroxime axetiL [Ceftin] 500 mg PO BID #20 tab 01/03/25 metroNIDAZOLE [Flagyl] 500 mg PO TID #30 tab 01/03/25 Allergies Allergy/AdvReac Type Severity Reaction Status Date / Time dronabinol [From Marinol] Allergy Severe Anaphylaxis Verified 12/31/24 07:38 lisinopril [From Prinivil] Allergy Swelling Verified 12/31/24 07:38 Penicillins Allergy Rash/Hives, Verified 12/31/24 07:38 "welts" morphine AdvReac Unknown Nausea & Verified 12/31/24 07:38 Vomiting Review of Systems ROS Other: All systems not noted in ROS Statement are negative. <Zahra Pastrana - Last Filed: 12/30/24 19:04> ROS Other: All systems not noted in ROS Statement are negative. <Shankar Delarosa - Last Filed: 01/06/25 16:12> ROS Statement: Those systems with pertinent positive or pertinent negative responses have been documented in the HPI. Past Medical History Past Medical History: Coronary Artery Disease (CAD), Heart Failure, CVA/TIA, Diabetes Mellitus, GERD/Reflux, Hyperlipidemia, Hypertension, Osteoarthritis (OA), Vascular Disorder Additional Past Medical History / Comment(s): Insomnia related to pain. Mi graines. Bilateral ankle edema. Hx duondenal ulcer. TIA 01/27/23-no residual effects. History of Any Multi-Drug Resistant Organisms: None Reported Past Surgical History: Section, Hysterectomy, Joint Replacement, Orthopedic Surgery Additional Past Surgical History / Comment(s): LEFT KNEE ARTHROSCOPY, STENTS PLACED IN LOWER LEFT GROIN AND UPPER LEFT THIGH, AORTOGRAM W/ RUNOFF OF LOWER EXTREMITIES, left thumb joint replacement,MARQUIS. loop recorder Dr Garcia April 30 Past Anesthesia/Blood Transfusion Reactions: No Reported Reaction Additional Past Anesthesia/Blood Transfusion Reaction / Comment(s): no hx blood transfusion Past Psychological History: Anxiety, Depression Smoking Status: Current every day smoker Past Alcohol Use History: None Reported Past Drug Use History: None Reported - Past Family History Sister(s) Family Medical History: Vascular Disorder Mother Family Medical History: Cancer Additional Family Medical History / Comment(s): LUNG CANCER. <Zahra Pastrana - Last Filed: 12/30/24 19:04> - Past Family History Father Family Medical History: Dementia Additional Family Medical History / Comment(s): PAD, CABG <Shankar Delarosa - Last Filed: 01/06/25 16:12> General Exam Limitations: no limitations <Zahra Pastrana - Last Filed: 12/30/24 19:04> General appearance: alert, in no apparent distress, anxious Head exam: Present: atraumatic, normocephalic, normal inspection Eye exam: Present: normal appearance, PERRL, EOMI. Absent: scleral icterus, conjunctival injection, periorbital swelling ENT exam: Present: normal exam, mucous membranes moist Neck exam: Present: normal inspection. Absent: tenderness, meningismus, lymphadenopathy Respiratory exam: Present: normal lung sounds bilaterally. Absent: respiratory distress, wheezes, rales, rhonchi, stridor Cardiovascular Exam: Present: regular rate, normal rhythm, normal heart sounds. Absent: systolic murmur, diastolic murmur, rubs, gallop, clicks GI/Abdominal exam: Present: soft, normal bowel sounds. Absent: distended, tenderness, guarding, rebound, rigid Extremities exam: Present: normal inspection, full ROM, normal capillary refill. Absent: tenderness, pedal edema, joint swelling, calf tenderness Back exam: Present: normal inspection Neurological exam: Present: alert, oriented X3, CN II-XII intact Psychiatric exam: Present: normal affect, normal mood Skin exam: Present: warm, dry, intact, normal color. Absent: rash <Shankar Delarosa - Last Filed: 01/06/25 16:12> - General Exam Comments Initial Comments: Visual Physical Exam Vital signs reviewed General: Well-appearing, nontoxic, no acute distress. Head: Normocephalic, atraumatic Eyes: PERRLA, EOMI ENT: Airway patent Chest: Nonlabored breathing Skin: No visual rash, normal skin tone Neuro: Alert and oriented 3 Musculoskeletal: No gross abnormalities (Stieler,Zhara) Course <Shankar Delarosa - Last Filed: 01/06/25 16:12> Vital Signs 12/30/24 12/30/24 12/31/24 18:51 21:26 01:24 Pulse Rate 95 71 75 Respiratory 22 18 18 Rate Blood Pressure 127/84 147/75 142/60 O2 Sat by Pulse 100 100 99 Oximetry 12/31/24 12/31/24 12/31/24 08:02 09:42 19:38 Pulse Rate 80 76 85 Respiratory 22 22 20 Rate Blood Pressure 166/98 183/76 170/90 O2 Sat by Pulse 100 99 97 Oximetry - Reevaluation(s) Reevaluation #1: 12/30/24 22:53 Medical records reviewed (Shankar Delarosa) Reevaluation #2: 12/30/24 22:53 Patient still with severe pain severe chest pain severe abdominal pain and nausea and vomiting here in the ER (Shankar Delarosa) Reevaluation #3: 12/30/24 22:54 Patient informed of results questions answered (Shankar Delarosa) Reevaluation #4: Was pt. sent in by a medical professional or institution (, PA, MORTGAGE ORIGINATOR, urgent care, hospital, or intermediate...) When possible be specific @ -no Did you speak to anyone other than the patient for history (EMS, parent, family, police, friend...)? What history was obtained from this source @ -no Did you review nursing and triage notes (agree or disagree)? Why? @ -agree Are old charts reviewed (outside hosp., previous admission, EMS record, old EKG, old radiological studies, urgent care reports/EKG's, intermediate records)? Report findings @ -yes Differential Diagnosis (chest pain, altered mental status, abdominal pain women, abdominal pain men, vaginal bleeding, weakness, fever, dyspnea, syncope, headache, dizziness, GI bleed, back pain, seizure, CVA, palpatations, mental health, musculoskeletal)? @ -prior EKG interpreted by me (3pts min.). @ -yes X-rays interpreted by me (1pt min.). @ -no CT interpreted by me (1pt min.). @ -Yes negative for acute disease U/S interpreted by me (1pt. min.). @ -yes negative for acute disease What testing was considered but not performed or refused? (CT, X-rays, U/S, labs)? Why? @ -none What meds were considered but not given or refused? Why? @ -none Did you discuss the management of the patient with other professionals (professionals i.e. , PA, MORTGAGE ORIGINATOR, lab, RT, psych nurse, social psychologist, associate professor of history, teacher, placement officer, disability case manager)? Give summary @ -no Was smoking cessation discussed for >3mins.? @ -no Was critical care preformed (if so, how long)? @ -no Were there social determinants of health that impacted care today? How? (Homelessness, low income, unemployed, alcoholism, drug addiction, transportati on, low edu. Level, literacy, decrease access to med. care, fpc, rehab)? @ -none Was there de-escalation of care discussed even if they declined (Discuss DNR or withdrawal of care, Hospice)? DNR status @ -no What co-morbidities impacted this encounter? (DM, HTN, Smoking, COPD, CAD, Cancer, CVA, ARF, Chemo, Hep., AIDS, mental health diagnosis, sleep apnea, morbid obesity)? @ -none Was patient admitted / discharged? Hospital course, mention meds given and route, prescriptions, significant lab abnormalities, going to OR and other pertinent info. @ - 54 female to ER for evaluation patient will be admitted for severe nausea vomiting intractable vomiting and intractable abdominal pain. Patient does have CT scanning and ultrasound of gallbladder negative for acute disease with normal lab testing Admitted Undiagnosed new problem with uncertain prognosis? @ -no Drug Therapy requiring intensive monitoring for toxicity (Heparin, Nitro, Insulin, Cardizem)? @ -no Were any procedures done? @ -no Diagnosis/symptom? @ -intractable abdominal pain with nausea vomit Acute, or Chronic, or Acute on Chronic? @ -Acute Uncomplicated (without systemic symptoms) or Complicated (systemic symptoms)? @ -Complicated Side effects of treatment? @ -no Exacerbation, Progression, or Severe Exacerbation? @ -exacerbation Poses a threat to life or bodily function? How? (Chest pain, USA, ID, pneumonia, PE, COPD, DKA, ARF, appy, cholecystitis, CVA, Diverticulitis, Homicidal, Suicidal, threat to staff... and all critical care pts) @ -no (Shankar Delarosa) Reevaluation #5: Differential Abdominal Pain Women: Appendicitis, Cholecystitis, diverticulosis, ischemic bowel, pancreatitis, hepatitis, UTI, gastroenteritis, AAA, incarcerated hernia, bowel obstruction, constipation, inflammatory bowel, hepatitis, peptic ulcer disease, splenic infarction, perforated viscus, vulvitis, ovarian torsion, PID, kidney stone, placenta abruption, this is not meant to be an all-inclusive list Differential Chest Pain: Stable Angina, Unstable Angina, STEMI, NSTEMI Aortic Dissection, Pneumothorax, Musculoskeletal, Esophageal Spasm GERD, Cholecystitis, Pancreatitis, Zoster, this is not meant to be an all-inclusive list. (Shankar Delarosa) - Consultations Consultation #1: Spoke with Dr. Frost who agrees to admit this patient (Shankar Delarosa) EKG Findings - EKG Comments: EKG Findings:: EKG is sinus 80 VA 165 QRS 88 QTc 455 - EKG Results: EKG: interpreted by ERMD <Shankar Delarosa - Last Filed: 01/06/25 16:12> Medical Decision Making <Zahra Pastrana - Last Filed: 12/30/24 19:04> - Lab Data Result diagrams: 01/03/25 06:00 01/03/25 06:00 - Radiology Data Radiology results: report reviewed (Ultrasound gallbladder negative for acute disease CTA chest abdomen pelvis negative for acute disease), image reviewed <Shankar Delarosa - Last Filed: 01/06/25 16:12> - Medical Decision Making I completed the quick note portion of this chart signed Zahra Pastrana PA-C (Zahra Pastrana) 54 female to ER for evaluation patient will be admitted for severe nausea vomiting intractable vomiting and intractable abdominal pain. Patient does have CT scanning and ultrasound of gallbladder negative for acute disease with normal lab testing (Shankar Delarosa) - Lab Data Lab Results 12/30/24 12/30/24 12/30/24 Range/Units 20:12 20:12 20:12 WBC 10.9 H (3.8-10.6) k/uL RBC 4.61 (3.80-5.40) m/uL Hgb 14.0 (11.4-16.0) gm/dL Hct 42.5 (34.0-46.0) % MCV 92.2 (80.0-100.0) fL MCH 30.4 (25.0-35.0) pg MCHC 33.0 (31.0-37.0) g/dL RDW 13.7 (11.5-15.5) % Plt Count 387 (150-450) k/uL MPV 8.3 Neutrophils % 78 % Lymphocytes % 17 % Monocytes % 4 % Eosinophils % 1 % Basophils % 0 % Neutrophils # 8.4 H (1.3-7.7) k/uL Lymphocytes # 1.8 (1.0-4.8) k/uL Monocytes # 0.4 (0-1.0) k/uL Eosinophils # 0.1 (0-0.7) k/uL Basophils # 0.0 (0-0.2) k/uL Sodium 137 (137-145) mmol/L Potassium 4.1 (3.5-5.1) mmol/L Chloride 105 (98-107) mmol/L Carbon Dioxide 15 L (22-30) mmol/L Anion Gap 17 mmol/L BUN 25 H (7-17) mg/dL Creatinine 0.81 (0.52-1.04) mg/dL Est GFR (CKD-EPI)AfAm >90 (>60 ml/min/1.73 sqM) Est GFR (CKD-EPI)NonAf 83 (>60 ml/min/1.73 sqM) Glucose 153 H (74-99) mg/dL Lactic Ac Sepsis Rflx Plasma Lactic Acid Edu 2.5 H* (0.7-2.0) mmol/L Calcium 9.7 (8.4-10.2) mg/dL Total Bilirubin 0.9 (0.2-1.3) mg/dL AST 23 (14-36) U/L ALT 25 (4-34) U/L Alkaline Phosphatase 141 H (38-126) U/L Troponin I (0.000-0.034) ng/mL Total Protein 7.0 (6.3-8.2) g/dL Albumin 4.3 (3.5-5.0) g/dL Amylase 55 (30-110) U/L Lipase 209 (23-300) U/L 12/30/24 12/30/24 Range/Units 20:12 20:39 WBC (3.8-10.6) k/uL RBC (3.80-5.40) m/uL Hgb (11.4-16.0) gm/dL Hct (34.0-46.0) % MCV (80.0-100.0) fL MCH (25.0-35.0) pg MCHC (31.0-37.0) g/dL RDW (11.5-15.5) % Plt Count (150-450) k/uL MPV Neutrophils % % Lymphocytes % % Monocytes % % Eosinophils % % Basophils % % Neutrophils # (1.3-7.7) k/uL Lymphocytes # (1.0-4.8) k/uL Monocytes # (0-1.0) k/uL Eosinophils # (0-0.7) k/uL Basophils # (0-0.2) k/uL Sodium (137-145) mmol/L Potassium (3.5-5.1) mmol/L Chloride (98-107) mmol/L Carbon Dioxide (22-30) mmol/L Anion Gap mmol/L BUN (7-17) mg/dL Creatinine (0.52-1.04) mg/dL Est GFR (CKD-EPI)AfAm (>60 ml/min/1.73 sqM) Est GFR (CKD-EPI)NonAf (>60 ml/min/1.73 sqM) Glucose (74-99) mg/dL Lactic Ac Sepsis Rflx Y Plasma Lactic Acid Edu (0.7-2.0) mmol/L Calcium (8.4-10.2) mg/dL Total Bilirubin (0.2-1.3) mg/dL AST (14-36) U/L ALT (4-34) U/L Alkaline Phosphatase (38-126) U/L Troponin I <0.012 (0.000-0.034) ng/mL Total Protein (6.3-8.2) g/dL Albumin (3.5-5.0) g/dL Amylase (30-110) U/L Lipase (23-300) U/L Disposition <Zahra Pastrana - Last Filed: 12/30/24 19:04> Is patient prescribed a controlled substance at d/c from ED?: No Time of Disposition: 23:00 <Shankar Delarosa - Last Filed: 01/06/25 16:12> Clinical Impression: Chest pain, Abdominal pain, Nausea & vomiting Disposition: ADMITTED IP TO THIS HOSP Condition: Stable
--- NOTE | 2024-12-30 20:06 | US ---
EXAMINATION TYPE: US gallbladder DATE OF EXAM: 12/30/2024 COMPARISON: US 04/12/24 CLINICAL INDICATION: Female, 54 years old with history of epigastric ab pain, N/V; patients daughter states epigastric pain, nausea and vomiting since today TECHNIQUE: Grayscale and color Doppler imaging of the right upper quadrant was performed. FINDINGS: EXAM MEASUREMENTS: Liver Length: 14.4 cm Gallbladder Wall: 0.2 cm CBD: 0.5 cm Right Kidney: 9.7 x 4.9 x 5.6 cm ANALYTICAL STATISTICIAN NOTES:slightly limited due to overlying gas. patients daughter present for exam Pancreas: wnl Liver: wnl Gallbladder: wnl Evidence for sonographic Flores's sign: No CBD: wnl Right Kidney: wnl IMPRESSION: No evidence for acute process. [facility], , 12/30/2024 8:04 PM
[2024-12-30 20:19] LABS: Basophils % (A) 0 %; Eosinophils # (A) 0.1 k/uL (0-0.7); Eosinophils % (A) 1 %; HCT 42.5 % (34.0-46.0); Lymphocytes # (A) 1.8 k/uL (1.0-4.8); Lymphocytes % (A) 17 %; MCH 30.4 pg (25.0-35.0); MCV 92.2 fL (80.0-100.0); Mean Platelet Volume 8.3; Monocytes # (A) 0.4 k/uL (0-1.0); Monocytes % (A) 4 %; Neutrophils # (A) 8.4 k/uL (1.3-7.7); Neutrophils % (A) 78 %; Platelet Count 387 k/uL (150-450); RBC 4.61 m/uL (3.80-5.40); RDW 13.7 % (11.5-15.5); WBC 10.9 k/uL (3.8-10.6)
[2024-12-30 20:27] LABS: ALT 25 U/L (4-34); AST 23 U/L (14-36); African American GFR (CKD) >90 (>60 ml/min/1.73 sqM); Albumin 4.3 g/dL (3.5-5.0); Alkaline Phosphatase 141 U/L (38-126); Amylase 55 U/L (30-110); Anion Gap 17 mmol/L; Blood Urea Nitrogen 25 mg/dL (7-17); Calcium 9.7 mg/dL (8.4-10.2); Carbon Dioxide 15 mmol/L (22-30); Chloride 105 mmol/L (98-107); Glucose 153 mg/dL (74-99); Lipase 209 U/L (23-300); Non-African American GFR(CKD) 83 (>60 ml/min/1.73 sqM); Potassium 4.1 mmol/L (3.5-5.1); Sodium 137 mmol/L (137-145); Total Bilirubin 0.9 mg/dL (0.2-1.3)
[2024-12-30] MEDS: SODIUM CHLORIDE 0.9% 1,000 ML IV ONE (20:47)
[2024-12-30] MEDS: PANTOPRAZOLE 40 MG/10 ML VIAL IVP STA (20:48)
[2024-12-30] MEDS: ONDANSETRON 4 MG/2 ML VIAL IVP STA (20:49)
[2024-12-30] MEDS: HYDROmorphone 1 MG/ML 1 ML SYRINGE IVP STA (20:51)
[2024-12-30] MEDS: LORazepam 2 MG/ML INJ IV STA (20:53)
--- NOTE | 2024-12-30 20:55 | CT ---
EXAMINATION TYPE: CT abdomen pelvis w con DATE OF EXAM: 12/30/2024 8:43 PM COMPARISON: 02/21/2024 CLINICAL INDICATION: Female, 54 years old with history of pain; Sudden nausea/vomiting, mid abd pain since today. Prior on pacs JG TECHNIQUE: Axial CT abdomen pelvis w con;Sagittal and coronal reformats were created on a separate w orkstation. Contrast used:80ml mL of Isovue 370 with IV Contrast, (none if empty) Oral contrast used: without Oral Contrast (none if empty) CT DLP: 603.2 mGycm, Automated exposure control for dose reduction was used. FINDINGS: LOWER CHEST: Unremarkable ABDOMEN LIVER: Unremarkable GALLBLADDER AND BILE DUCTS: Unremarkable. PANCREAS: Unremarkable. SPLEEN: Unremarkable. ADRENAL GLANDS: Left adrenal nodule measuring 25 mm and Hounsfield units compatible with lipid rich a drenal adenoma on noncontrast CT on prior. No follow-up recommended. KIDNEYS AND URETERS: No evidence of hydronephrosis or renal calculus. The ureters are unremarkable. PELVIS BLADDER: No evidence for wall thickening or mass given limitations of exam. REPRODUCTIVE: The uterus is surgically absent. ABDOMEN & PELVIS STOMACH AND BOWEL: No evidence of bowel obstruction. Decompressed colon. The appendix is surgically s urgically absent. PERITONEUM/RETROPERITONEUM: No evidence of pneumoperitoneum or free fluid. VASCULATURE: No evidence of aortic aneurysm. Left common and external iliac stent. Stent appears grimm nt. Proximal superficial femoral artery stents bilaterally appear patent. MUSCULOSKELETAL: No acute osseous abnormalities, L4-L5 fixation screws and discectomy hardware appear s intact. LYMPH NODES: No gross evidence for lymphadenopathy. SOFT TISSUE/ABDOMINAL WALL: Unremarkable IMPRESSION: 1. No evidence for bowel obstruction. Decompressed colon with prominent baumann findings could represe nt mild colitis versus empty bowel. No other acute abdominal process. 2. Vascular stents visualized appear patent. [facility], , 12/30/2024 8:52 PM
--- NOTE | 2024-12-30 21:02 | CT ---
EXAMINATION TYPE: CT angio chest DATE OF EXAM: 12/30/2024 8:44 PM COMPARISON: 07/03/2023. CLINICAL INDICATION: Female, 54 years old with history of pain; Sudden nausea/vomiting, mid abd pain since today. Prior on pacs JG TECHNIQUE/CONTRAST: CTA scan of the thorax is performed with IV Contrast, patient injected with 80ml mL of Isovue 370, NE P images are created and reviewed these are created on a separate workstation.. CT DLP: 354.9 mGycm, Automated exposure control for dose reduction was used. FINDINGS: Lungs/Pleura: No evidence of focal consolidation, pleural effusion or pneumothorax. Airway: Large airways are patent. Heart: Size within normal limits. No significant coronary artery calcifications. Vasculature: There is no evidence for a filling defect within the pulmonary vasculature to suggest ac verónica pulmonary embolism. The pulmonary artery is of normal size. Narrowing of the celiac axis with c ompensatory dilation after 1.4 cm distally. There is up to 50% stenosis. The Median arcuate ligament is impressing upon this vessel. Replace right hepatic artery off the superior mesenteric artery. Mediastinum: No gross evidence of adenopathy. Musculoskeletal: Mild disc degeneration changes are present throughout the thoracolumbar spine second nura to osteophyte formation and facet joint arthropathy. Soft Tissues/lymph nodes: Unremarkable. Lower neck: No significant findings. Upper Abdomen: No significant findings. IMPRESSION: 1. No evidence of pulmonary embolism. 2. Narrowing of the celiac axis correlate for median arcuate ligament syndrome. Findings similar to . 3. Replaced right hepatic artery off the SMA. Anatomic variant. Follow up recommendations for incidental pulmonary nodules, if there are any, are per [employer]isch[employer] or [employer]. https://radiopaedia.org/articles/kqtrqppubx-gimavdm-bkcthrdfl-iodjcf-iwuzlzgogdjqqlh-1?lang=us [facility], , 12/30/2024 9:00 PM
[2024-12-30] MEDS ORDERED: NALOXONE 0.4 MG/ML 1 ML VIAL IV PRN (22:51)
[2024-12-30] MEDS: MORPHINE SULFATE 4 MG/ML SYRINGE IV STA (23:08)
[2024-12-30] MEDS: SODIUM CHLORIDE 0.9% 1,000 ML IV SCH (23:09)
[2024-12-30] MEDS: HYDROmorphone 1 MG/ML 1 ML SYRINGE IVP PRN (23:14)
[2024-12-31] MEDS: ONDANSETRON 4 MG/2 ML VIAL IVP PRN (01:27)
[2024-12-31 09:01] LABS: Basophils % (A) 0 %; Eosinophils # (A) 0.1 k/uL (0-0.7); Eosinophils % (A) 1 %; HCT 36.6 % (34.0-46.0); Lymphocytes % (A) 9 %; MCH 30.1 pg (25.0-35.0); MCHC 32.8 g/dL (31.0-37.0); MCV 91.9 fL (80.0-100.0); Mean Platelet Volume 7.7; Monocytes # (A) 0.2 k/uL (0-1.0); Monocytes % (A) 2 %; Neutrophils % (A) 88 %; Platelet Count 326 k/uL (150-450); RBC 3.98 m/uL (3.80-5.40); RDW 13.5 % (11.5-15.5); WBC 11.3 k/uL (3.8-10.6)
[2024-12-31 09:10] LABS: Albumin 3.9 g/dL (3.5-5.0); Albumin/Globulin Ratio 1.6; Chloride 109 mmol/L (98-107); Globulin 2.5 g/dL; Glucose 125 mg/dL (74-99); Total Protein 6.4 g/dL (6.3-8.2)
[2024-12-31 09:11] LABS: ALT 22 U/L (4-34); AST 19 U/L (14-36); African American GFR (CKD) >90 (>60 ml/min/1.73 sqM); Alkaline Phosphatase 117 U/L (38-126); Anion Gap 14 mmol/L; Blood Urea Nitrogen 19 mg/dL (7-17); Calcium 9.2 mg/dL (8.4-10.2); Carbon Dioxide 19 mmol/L (22-30); Magnesium 2.3 mg/dL (1.6-2.3); Non-African American GFR(CKD) >90 (>60 ml/min/1.73 sqM); Phosphorus 3.4 mg/dL (2.5-4.5); Potassium 4.3 mmol/L (3.5-5.1); Sodium 142 mmol/L (137-145); Total Bilirubin 0.6 mg/dL (0.2-1.3)
[2024-12-31] MEDS ORDERED: cloNIDine HCL 0.1 MG TAB PO SCH (09:30)
[2024-12-31] MEDS: PANTOPRAZOLE 40 MG/10 ML VIAL IV SCH ×2 (09:50→21:52)
[2024-12-31] MEDS: APIXABAN 5 MG TAB PO SCH (09:52)
[2024-12-31] MEDS: FUROSEMIDE 40 MG TAB PO SCH (09:54)
--- NOTE | 2024-12-31 11:55 | P.HPIM ---
History of Present Illness H&P Date: 12/31/24 Shelly Preston is a 54-year-old female patient who presented with complaints of nausea and vomiting that started happening after dental procedure that has been occurring since yesterday morning. Patient has a past medical history of coronary artery disease, heart failure, CVA, diabetes mellitus, GERD, hyperlipidemia, hypertension, osteoarthritis, smoker, anxiety and depression. Gallbladder ultrasound completed showing no evidence for acute process. CT of abdomen and pelvis completed showing no evidence for bowel obstruction decompressed colon with prominent baumann findings could represent mild colitis versus empty bowel CTA performed showing no evidence for pulmonary embolism. Lab work completed showing white blood cell 10.9, hemoglobin 14.0, lactic acid 2.5, creatinine 0.81 bun 25. Amylase and lipase within normal limits. At this time patient will be admitted patient started on IV fluid and IV Zofran. Infectious disease and GI services consulted. Will order influenza and COVID- 19. Maintain on clear liquid diet. Patient denies chest pain or shortness of breath. Patient denies any urinary burning or frequency. Current vital signs temp 98.2, heart rate 95, respiratory rate 22, blood pressure 147/75 with a pulse ox of 100% on room air. Review of Systems Please refer to HPI otherwise unremarkable Past Medical History Past Medical History: Coronary Artery Disease (CAD), Heart Failure, CVA/TIA, Diabetes Mellitus, GERD/Reflux, Hyperlipidemia, Hypertension, Osteoarthritis (OA), Vascular Disorder Additional Past Medical History / Comment(s): Insomnia related to pain. Migraines. Bilateral ankle edema. Hx duondenal ulcer. TIA 01/27/23-no residual effects. History of Any Multi-Drug Resistant Organisms: None Reported Past Surgical History: Section, Hysterectomy, Joint Replacement, Orthopedic Surgery Additional Past Surgical History / Comment(s): LEFT KNEE ARTHROSCOPY, STENTS PLACED IN LOWER LEFT GROIN AND UPPER LEFT THIGH, AORTOGRAM W/ RUNOFF OF LOWER EXTREMITIES, left thumb joint replacement,MARQUIS. loop recorder Dr Garcia April 30 Past Anesthesia/Blood Transfusion Reactions: No Reported Reaction Additional Past Anesthesia/Blood Transfusion Reaction / Comment(s): no hx blood transfusion Past Psychological History: Anxiety, Depression Smoking Status: Current every day smoker Past Alcohol Use History: None Reported Past Drug Use History: None Reported - Past Family History Sister(s) Family Medical History: Vascular Disorder Mother Family Medical History: Cancer Additional Family Medical History / Comment(s): LUNG CANCER. Medications and Allergies Home Medications Medication Instructions Recorded Confirmed Type cloNIDine HCL [Catapres] 0.1 mg PO BID #30 tab 12/22/14 12/31/24 Rx Atorvastatin Calcium [Lipitor] 80 mg PO HS 10/22/18 12/31/24 History Omeprazole [PriLOSEC] 20 mg PO TID 03/12/19 12/31/24 History Spironolactone [Aldactone] 50 mg PO BID 03/12/19 12/31/24 History Furosemide [Lasix] 80 mg PO BID 08/04/21 12/31/24 History Escitalopram [Lexapro] 20 mg PO HS 01/27/23 12/31/24 History HYDROcodone/APAP 10-325MG [[place] 1 tab PO Q6H PRN 08/20/24 12/31/24 History 10-325] Montelukast [Singulair] 10 mg PO HS 08/20/24 12/31/24 History Apixaban [Eliquis] 5 mg PO BID 30 Days #60 tab 08/22/24 12/31/24 Rx Allergies Allergy/AdvReac Type Severity Reaction Status Date / Time dronabinol [From Marinol] Allergy Severe Anaphylaxis Verified 12/31/24 07:38 lisinopril [From Prinivil] Allergy Swelling Verified 12/31/24 07:38 Penicillins Allergy Rash/Hives, Verified 12/31/24 07:38 "welts" morphine AdvReac Unknown Nausea & Verified 12/31/24 07:38 Vomiting Physical Exam Vitals: Vital Signs Pulse Resp BP Pulse Ox 12/31/24 09:42 76 22 183/76 99 12/31/24 08:02 80 22 166/98 100 12/31/24 01:24 75 18 142/60 99 12/30/24 21:26 71 18 147/75 100 12/30/24 18:51 95 22 127/84 100 Intake and Output 12/30/24 12/31/24 12/31/24 22:59 06:59 14:59 Other: Weight 77.111 kg Results CBC & Chem 7: 12/31/24 08:30 12/31/24 08:30 Labs: Abnormal Lab Results - Last 24 Hours (Table) 12/30/24 12/30/2425 Range/Units 20:12 20:12 20:12 WBC 10.9 H (3.8-10.6) k/uL Neutrophils # 8.4 H (1.3-7.7) k/uL Chloride (98-107) mmol/L Carbon Dioxide 15 L (22-30) mmol/L BUN 25 H (7-17) mg/dL Glucose 153 H (74-99) mg/dL Plasma Lactic Acid Edu 2.5 H* (0.7-2.0) mmol/L Alkaline Phosphatase 141 H (38-126) U/L 12/31/24 12/31/24 Range/Units 08:30 08:30 WBC 11.3 H (3.8-10.6) k/uL Neutrophils # 10.0 H (1.3-7.7) k/uL Chloride 109 H (98-107) mmol/L Carbon Dioxide 19 L (22-30) mmol/L BUN 19 H (7-17) mg/dL Glucose 125 H (74-99) mg/dL Plasma Lactic Acid Edu (0.7-2.0) mmol/L Alkaline Phosphatase (38-126) U/L Assessment and Plan Assessment: 1. Nausea and vomiting 2. Recent dental procedure with antibiotic 3. History of CVA 4. History of coronary artery disease 5. History of ongoing nicotine dependence 6. History of lower extremity DVT maintained on Eliquis 8. History of diabetes mellitus 9. History of GERD 10. History of essential hypertension 11. History of anxiety and depression DVT prophylaxis Eliquis. GI prophylaxis Protonix Continue clear liquid diet Continue IV fluid Influenza and COVID-19 ordered Infectious disease and GI services consulted Repeat labs ordered for a.m. Time with Patient: Greater than 30 (Greater than 60% of the total time spent in counseling and coordination of care)
--- NOTE | 2024-12-31 14:53 | P.GSCN ---
History of Present Illness Consult date: 12/31/24 History of present illness: CHIEF COMPLAINT: Nausea and vomiting HISTORY OF PRESENT ILLNESS: This is a 54-year-old female who presented with nausea and vomiting that started yesterday. Patient reports she has had multiple episodes of emesis. She denies any blood in the vomit. She complains of pain across the upper abdomen mostly in the epigastric area as well as in the mid abdomen. She reports normal bowel movements. She has been having chills. Denies any fevers. She denies ever having EGD. Gallbladder ultrasound was negative and CT scan abdomen pelvis reported no bowel obstruction did report decompressed colon and some colon prominence correlate for possible mild colitis. Patient does report a history of a duodenal ulcer when she was 14 years old. History of diabetes. She takes Eliquis at home and last dose was this AM (12/31). PAST MEDICAL HISTORY: See below PAST SURGICAL HISTORY: See below MEDICATIONS: See below ALLERGIES: See below SOCIAL HISTORY: No illicit drug use. REVIEW OF SYSTEMS: CONSTITUTIONAL: Denies fever or chills. HEENT: Denies blurred vision, vision changes, or eye pain. Denies hemoptysis CARDIOVASCULAR: Denies chest pain or pressure. RESPIRATORY: No shortness of breath. GASTROINTESTINAL: See HPI for pertinent findings HEMATOLOGIC: Denies bleeding disorders. GENITOURINARY: Denies any blood in urine or increased urinary frequency. SKIN: Denies pruitis. Denies rash. PHYSICAL EXAM: VITAL SIGNS: Reviewed GENERAL: Well-developed in no acute distress. HEENT: No sclera icterus. Extraocular movements grossly intact. Moist buccal mucosa. Head is atraumatic, normocephalic. No nasal drainage. ABDOMEN: Soft. Nondistended. Tenderness across upper abdomen more so in the epigastric and mid abdomen. No rebound or guarding noted. NEUROLOGIC: Alert and oriented. Cranial nerves II through XII grossly intact. LABORATORY DATA: WBC 10.9 up to 11.3 Hgb 12 platelets 326 Sodium 142 potassium 4.3 creatinine 0.68 Lactic acid 2.5 down to 1.9 LFTs normal lipase 209 Troponin negative IMAGING: Gallbladder ultrasound reports no acute process CT scan abdomen pelvis reports no evidence for bowel obstruction. Decompressed colon with prominent baumann findings could represent mild colitis versus empty bowel. No other acute abdominal process. Vascular stents appeared patent. ASSESSMENT: 1. Intractable nausea and vomiting likely due to a gastroenteritis 2. Abdominal pain 3. Dental abscess has been on antibiotics outpatient PLAN: -Continue supportive care -Continue IV fluids -Continue zofran and Compazine added -Continue Protonix -Hold Eliquis in case procedure is needed -Repeat labs in a.m. Physician Position Classification Manager note has been reviewed by physician. Signing provider agrees with the documented findings, assessment, and plan of care. I have personally seen and examined the patient, reviewed the WORKERS COMPENSATION CLAIMS SPECIALIST /PAs history, exam and MDM and agree with the assessment and plan as written. Based on total visit time, I have performed more than 50% of the visit. As above: Patient with rather acute onset nausea vomiting. Mild abdominal discomfort. Radiologic workup fairly unimpressive. Follow lab work. Keep n.p.o. except for ice chips. Continue antiacids and antiemetics. Will follow. Past Medical History Past Medical History: Coronary Artery Disease (CAD), Heart Failure, CVA/TIA, Diabetes Mellitus, GERD/Reflux, Hyperlipidemia, Hypertension, Osteoarthritis (OA), Vascular Disorder Additional Past Medical History / Comment(s): Insomnia related to pain. Migraines. Bilateral ankle edema. Hx duondenal ulcer. TIA 01/27/23-no residual effects. History of Any Multi-Drug Resistant Organisms: None Reported Past Surgical History: Section, Hysterectomy, Joint Replacement, Ort hopedic Surgery Additional Past Surgical History / Comment(s): LEFT KNEE ARTHROSCOPY, STENTS PLACED IN LOWER LEFT GROIN AND UPPER LEFT THIGH, AORTOGRAM W/ RUNOFF OF LOWER EXTREMITIES, left thumb joint replacement,MARQUIS. loop recorder Dr Garcia April 30 Past Anesthesia/Blood Transfusion Reactions: No Reported Reaction Additional Past Anesthesia/Blood Transfusion Reaction / Comm: no hx blood transfusion Past Psychological History: Anxiety, Depression Smoking Status: Current every day smoker Past Alcohol Use History: None Reported Past Drug Use History: None Reported - Past Family History Sister(s) Family Medical History: Vascular Disorder Mother Family Medical History: Cancer Additional Family Medical History / Comment(s): LUNG CANCER. Medications and Allergies Home Medications Medication Instructions Recorded Confirmed Type cloNIDine HCL [Catapres] 0.1 mg PO BID #30 tab 12/22/14 12/31/24 Rx Atorvastatin Calcium [Lipitor] 80 mg PO HS 10/22/18 12/31/24 History Omeprazole [PriLOSEC] 20 mg PO TID 03/12/19 12/31/24 History Spironolactone [Aldactone] 50 mg PO BID 03/12/19 12/31/24 History Furosemide [Lasix] 80 mg PO BID 08/04/21 12/31/24 History Escitalopram [Lexapro] 20 mg PO HS 01/27/23 12/31/24 History HYDROcodone/APAP 10-325MG [[place] 1 tab PO Q6H PRN 08/20/24 12/31/24 History 10-325] Montelukast [Singulair] 10 mg PO HS 08/20/24 12/31/24 History Apixaban [Eliquis] 5 mg PO BID 30 Days #60 tab 08/22/24 12/31/24 Rx Aspirin [Adult Low Dose Aspirin EC] 81 mg PO DAILY 12/31/24 12/31/24 History Atorvastatin [Lipitor] 80 mg PO HS 12/31/24 12/31/24 History Clindamycin [Cleocin] 300 mg PO TID 12/31/24 12/31/24 History DULoxetine HCL [Cymbalta] 30 mg PO HS 12/31/24 12/31/24 History Dapagliflozin Propanediol [Farxiga] 10 mg PO DAILY 12/31/24 12/31/24 History Escitalopram [Lexapro] 20 mg PO HS 12/31/24 12/31/24 History Furosemide [Lasix] 40 mg PO BID 12/31/24 12/31/24 History Loratadine 10 mg PO DAILY 12/31/24 12/31/24 History Montelukast [Singulair] 10 mg PO DAILY 12/31/24 12/31/24 History Spironolactone 50 mg PO BID 12/31/24 12/31/24 History Allergies Allergy/AdvReac Type Severity Reaction Status Date / Time dronabinol [From Marinol] Allergy Severe Anaphylaxis Verified 12/31/24 07:38 lisinopril [From Prinivil] Allergy Swelling Verified 12/31/24 07:38 Penicillins Allergy Rash/Hives, Verified 12/31/24 07:38 "welts" morphine AdvReac Unknown Nausea & Verified 12/31/24 07:38 Vomiting Surgical - Exam Vital Signs Pulse Resp BP Pulse Ox 95 22 127/84 100 12/30/24 18:51 12/30/24 18:51 12/30/24 18:51 12/30/24 18:51 Results - Labs 12/31/24 08:30 12/31/24 08:30 Abnormal Lab Results - Last 24 Hours (Table) 12/30/24 12/30/24 12/30/24 Range/Units 20:12 20:12 20:12 WBC 10.9 H (3.8-10.6) k/uL Neutrophils # 8.4 H (1.3-7.7) k/uL Chloride (98-107) mmol/L Carbon Dioxide 15 L (22-30) mmol/L BUN 25 H (7-17) mg/dL Glucose 153 H (74-99) mg/dL Plasma Lactic Acid Edu 2.5 H* (0.7-2.0) mmol/L Alkaline Phosphatase 141 H (38-126) U/L 12/31/24 12/31/24 Range/Units 08:30 08:30 WBC 11.3 H (3.8-10.6) k/uL Neutrophils # 10.0 H (1.3-7.7) k/uL Chloride 109 H (98-107) mmol/L Carbon Dioxide 19 L (22-30) mmol/L BUN 19 H (7-17) mg/dL Glucose 125 H (74-99) mg/dL Plasma Lactic Acid Edu (0.7-2.0) mmol/L Alkaline Phosphatase (38-126) U/L Diabetes panel 12/30/24 12/31/24 Range/Units 20:12 08:30 Sodium 137 142 (137-145) mmol/L Potassium 4.1 4.3 (3.5-5.1) mmol/L Chloride 105 109 H (98-107) mmol/L Carbon Dioxide 15 L 19 L (22-30) mmol/L BUN 25 H 19 H (7-17) mg/dL Creatinine 0.81 0.68 (0.52-1.04) mg/dL Glucose 153 H 125 H (74-99) mg/dL Calcium 9.7 9.2 (8.4-10.2) mg/dL AST 23 19 (14-36) U/L ALT 25 22 (4-34) U/L Alkaline Phosphatase 141 H 117 (38-126) U/L Total Protein 7.0 6.4 (6.3-8.2) g/dL Albumin 4.3 3.9 (3.5-5.0) g/dL Calcium panel 12/30/24 12/31/24 Range/Units 20:12 08:30 Calcium 9.7 9.2 (8.4-10.2) mg/dL Phosphorus 3.4 (2.5-4.5) mg/dL Albumin 4.3 3.9 (3.5-5.0) g/dL Pituitary panel 12/30/24 12/31/24 Range/Units 20:12 08:30 Sodium 137 142 (137-145) mmol/L Potassium 4.1 4.3 (3.5-5.1) mmol/L Chloride 105 109 H (98-107) mmol/L Carbon Dioxide 15 L 19 L (22-30) mmol/L BUN 25 H 19 H (7-17) mg/dL Creatinine 0.81 0.68 (0.52-1.04) mg/dL Glucose 153 H 125 H (74-99) mg/dL Calcium 9.7 9.2 (8.4-10.2) mg/dL Adrenal panel 12/30/24 12/31/24 Range/Units 20:12 08:30 Sodium 137 142 (137-145) mmol/L Potassium 4.1 4.3 (3.5-5.1) mmol/L Chloride 105 109 H (98-107) mmol/L Carbon Dioxide 15 L 19 L (22-30) mmol/L BUN 25 H 19 H (7-17) mg/dL Creatinine 0.81 0.68 (0.52-1.04) mg/dL Glucose 153 H 125 H (74-99) mg/dL Calcium 9.7 9.2 (8.4-10.2) mg/dL Total Bilirubin 0.9 0.6 (0.2-1.3) mg/dL AST 23 19 (14-36) U/L ALT 25 22 (4-34) U/L Alkaline Phosphatase 141 H 117 (38-126) U/L Total Protein 7.0 6.4 (6.3-8.2) g/dL Albumin 4.3 3.9 (3.5-5.0) g/dL
[2024-12-31] MEDS ORDERED: NON FORMULARY DRUG (Omeprazole 20 MG Capsule.Dr) PO SCH (16:00)
[2024-12-31] MEDS: PROCHLORPERAZINE INJ 10 MG/2 ML VIAL IVP PRN (18:44)
[2024-12-31] MEDS: metroNIDAZOLE-NS PMX 500 MG in SALINE 1 100ML.BAG IVPB SCH (18:47)
[2024-12-31 21:03] LABS: Appearance,Urine Clear (Clear); Bilirubin,Urine Negative (Negative); Blood,Urine Small (Negative); Color,Urine Colorless; Glucose,Urine (UA) 1+ (Negative); Ketones,Urine 1+ (Negative); Leukocyte Esterase,Urine Negative (Negative); Mucus,Urine Rare /hpf; Nitrite,Urine Negative (Negative); PH, Urine 5.5 (5.0-8.0); Protein,Urine Negative (Negative); RBC,Urine 12 /hpf (0-5); Specific Gravity,Urine 1.014 (1.001-1.035); Squamous Epithelial Cell,Urine <1 /hpf (0-4); Urobilinogen,Urine <2.0 mg/dL (<2.0); WBC,Urine 2 /hpf (0-5)
[2024-12-31] MEDS: MONTELUKAST 10 MG TAB PO SCH (21:52)
[2024-12-31] MEDS: ATORVASTATIN 80 MG TAB PO SCH (21:52)
[2024-12-31 22:05] LABS: Glucose,Whole Blood 148 mg/dL (70-110)
[2024-12-31] MEDS: ESCITALOPRAM 20 MG TAB PO SCH (22:34)
--- NOTE | 2024-12-31 23:07 | P.CONS ---
History of Present Illness - Reason for Consult Consult date: 12/31/24 Dental abscess Requesting physician: Chin Frost - Chief Complaint Nausea and vomiting x 2 days - History of Present Illness Patient is a 54-year-old female who with a past medical history significant for Coronary Artery Disease (CAD), Heart Failure, CVA/TIA, Diabetes Mellitus, GERD/Reflux, Hyperlipidemia, Hypertension, Osteoarthritis (OA) who recently did have a upper dental procedure done for drainage of an abscess at [facility] on Monday that is 1 days before presentation to the hospital patient mention she did have problem with nausea and vomiting after the procedure and apparently has been evaluated by her local dentist and the patient has been treated with clindamycin however patient did have persistent symptom of nausea and vomiting unable to keep anything down for the patient presented to hospital patient pain to the upper chest seem to have controlled denies having drainage from it denies any chest pain no shortness of breath or cough no significant abdominal pain or diarrhea on presentation to the hospital patient did not have any temperature taken she was not tachycardic or hypotensive patient did have white count of 11.3 with a left shift creatinine 0.68 electrolytes normal liver enzymes normal urine has been negative patient did have a abdominal pelvis CT no evidence for bowel obstruction decompressed colon with prominent baumann finding could represent mild colitis did have a CT angiogram of the chest no evidence for PE narrowing of the celiac axis correlate for median arcuate ligament syndrome infectious he was consulted because of dental abscess and antibiotic treatment patient does have penicillin allergy Review of Systems Positive point and negatives has been mentioned in the HPI, complete review of systems was performed and all other systems are negative Past Medical History Past Medical History: Coronary Artery Disease (CAD), Heart Failure, CVA/TIA, Diabetes Mellitus, GERD/Reflux, Hyperlipidemia, Hypertension, Osteoarthritis (OA), Vascular Disorder Additional Past Medical History / Comment(s): Insomnia related to pain. Migraines. Bilateral ankle edema. Hx duondenal ulcer. TIA 01/27/23-no residual effects. History of Any Multi-Drug Resistant Organisms: None Reported Past Surgical History: Section, Hysterectomy, Joint Replacement, Orthopedic Surgery Additional Past Surgical History / Comment(s): LEFT KNEE ARTHROSCOPY, STENTS PLACED IN LOWER LEFT GROIN AND UPPER LEFT THIGH, AORTOGRAM W/ RUNOFF OF LOWER EXTREMITIES, left thumb joint replacement,MARQUIS. loop recorder Dr Garcia Darlene 23 Past Anesthesia/Blood Transfusion Reactions: No Reported Reaction Additional Past Anesthesia/Blood Transfusion Reaction / Comm: no hx blood transfusion Past Psychological History: Anxiety, Depression Smoking Status: Current every day smoker Past Alcohol Use History: None Reported Past Drug Use History: None Reported - Past Family History Sister(s) Family Medical History: Vascular Disorder Mother Family Medical History: Cancer Additional Family Medical History / Comment(s): LUNG CANCER. Father Family Medical History: Dementia Additional Family Medical History / Comment(s): PAD, CABG Medications and Allergies Home Medications Medication Instructions Recorded Confirmed Type cloNIDine HCL [Catapres] 0.1 mg PO BID #30 tab 12/22/14 12/31/24 Rx Atorvastatin Calcium [Lipitor] 80 mg PO HS 10/22/18 12/31/24 History Omeprazole [PriLOSEC] 20 mg PO TID 03/12/19 12/31/24 History Spironolactone [Aldactone] 50 mg PO BID 03/12/19 12/31/24 History Furosemide [Lasix] 80 mg PO BID 08/04/21 12/31/24 History Escitalopram [Lexapro] 20 mg PO HS 01/27/23 12/31/24 History HYDROcodone/APAP 10-325MG [[place] 1 tab PO Q6H PRN 08/20/24 12/31/24 History 10-325] Montelukast [Singulair] 10 mg PO HS 08/20/24 12/31/24 History Apixaban [Eliquis] 5 mg PO BID 30 Days #60 tab 08/22/24 12/31/24 Rx Aspirin [Adult Low Dose Aspirin EC] 81 mg PO DAILY 12/31/24 12/31/24 History Atorvastatin [Lipitor] 80 mg PO HS 12/31/24 12/31/24 History Clindamycin [Cleocin] 300 mg PO TID 12/31/24 12/31/24 History DULoxetine HCL [Cymbalta] 30 mg PO HS 12/31/24 12/31/24 History Dapagliflozin Propanediol [Farxiga] 10 mg PO DAILY 12/31/24 12/31/24 History Escitalopram [Lexapro] 20 mg PO HS 12/31/24 12/31/24 History Furosemide [Lasix] 40 mg PO BID 12/31/24 12/31/24 History Loratadine 10 mg PO DAILY 12/31/24 12/31/24 History Montelukast [Singulair] 10 mg PO DAILY 12/31/24 12/31/24 History Spironolactone 50 mg PO BID 12/31/24 12/31/24 History Allergies Allergy/AdvReac Type Severity Reaction Status Date / Time dronabinol [From Marinol] Allergy Severe Anaphylaxis Verified 12/31/24 07:38 lisinopril [From Prinivil] Allergy Swelling Verified 12/31/24 07:38 Penicillins Allergy Rash/Hives, Verified 12/31/24 07:38 "welts" morphine AdvReac Unknown Nausea & Verified 12/31/24 07:38 Vomiting Physical Exam Vitals: Vital Signs Pulse Resp BP Pulse Ox 12/31/24 09:42 76 22 183/76 99 12/31/24 08:02 80 22 166/98 100 12/31/24 01:24 75 18 142/60 99 12/30/24 21:26 71 18 147/75 100 12/30/24 18:51 95 22 127/84 100 Intake and Output 12/30/24 12/31/24 12/31/24 22:59 06:59 14:59 Other: Weight 77.111 kg GENERAL DESCRIPTION: Middle-age female lying in bed, no distress. No tachypnea or accessory muscle of respiration use. HEENT: Shows Pallor , no scleral icterus. Oral mucous membrane is dry. Upper dental area currently with no purulent drainage NECK: Trachea central, no thyromegaly. LUNGS: Unlabored breathing. Clear to auscultation anteriorly. No wheeze or crackle. HEART: S1, S2, regular rate and rhythm. No loud murmur ABDOMEN: Soft, no tenderness EXTREMITIES: No edema of feet. SKIN: No rash, no masses palpable. NEUROLOGICAL: The patient is awake, alert, oriented x3, mood and affect normal. Results CBC & Chem 7: 12/31/24 08:30 12/31/24 08:30 Labs: Abnormal Lab Results - Last 24 Hours (Table) 12/30/24 12/30/24 12/30/24 Range/Units 20:12 20:12 20:12 WBC 10.9 H (3.8-10.6) k/uL Neutrophils # 8.4 H (1.3-7.7) k/uL Chloride (98-107) mmol/L Carbon Dioxide 15 L (22-30) mmol/L BUN 25 H (7-17) mg/dL Glucose 153 H (74-99) mg/dL Plasma Lactic Acid Edu 2.5 H* (0.7-2.0) mmol/L Alkaline Phosphatase 141 H (38-126) U/L 12/31/24 12/31/24 Range/Units 08:30 08:30 WBC 11.3 H (3.8-10.6) k/uL Neutrophils # 10.0 H (1.3-7.7) k/uL Chloride 109 H (98-107) mmol/L Carbon Dioxide 19 L (22-30) mmol/L BUN 19 H (7-17) mg/dL Glucose 125 H (74-99) mg/dL Plasma Lactic Acid Edu (0.7-2.0) mmol/L Alkaline Phosphatase (38-126) U/L Assessment and Plan (1) Dental abscess Current Visit: Yes Status: Acute Code(s): K04.7 - PERIAPICAL ABSCESS WITHOUT SINUS SNOMED Code(s): 572061489 (2) Penicillin allergy Current Visit: Yes Status: Acute Code(s): Z88.0 - ALLERGY STATUS TO PE NICILLIN SNOMED Code(s): 57973576 Plan: 1patient with a recent drainage of the dental abscess about 2 days before presentation to hospital at outside facility no patient presenting with acute nausea vomiting unable to keep anything down and failure of her clindamycin therapy 2-penicillin allergy that will limit the number of antibiotics safe to use 3-I will start the patient on Rocephin 2 g daily and Flagyl while waiting for the workup to be completed We will follow on clinical condition and cultures to further adjust medication if needed Thank you for this consultation we will follow the patient along with you Dictation was produced using [employer] dictation software. please excuse any grammatical, word or spelling errors. Time with Patient: Greater than 30
[2024-12-31 23:55] LABS: Influenza A Not Detected (Not Detectd); Influenza B Not Detected (Not Detectd); RSV Not Detected (Not Detectd)
[2025-01-01 06:28] LABS: Glucose,Whole Blood 117 mg/dL (70-110)
[2025-01-01] MEDS: hydrALAZINE HCL 20 MG/ML 1 ML VIAL IVP PRN (08:38)
--- NOTE | 2025-01-01 09:45 | P.PN ---
Subjective Progress Note Date: 01/01/25 Shelly Preston is a 54-year-old female patient who presented with complaints of nausea and vomiting that started happening after dental procedure that has been occurring since yesterday morning. Patient has a past medical history of coronary artery disease, heart failure, CVA, diabetes mellitus, GERD, h yperlipidemia, hypertension, osteoarthritis, smoker, anxiety and depression. Gallbladder ultrasound completed showing no evidence for acute process. CT of abdomen and pelvis completed showing no evidence for bowel obstruction decompressed colon with prominent baumann findings could represent mild colitis versus empty bowel CTA performed showing no evidence for pulmonary embolism. Lab work completed showing white blood cell 10.9, hemoglobin 14.0, lactic acid 2.5, creatinine 0.81 bun 25. Amylase and lipase within normal limits. At this time patient will be admitted patient started on IV fluid and IV Zofran. Infectious disease and GI services consulted. Will order influenza and COVID- 19. Maintain on clear liquid diet. Patient denies chest pain or shortness of breath. Patient denies any urinary burning or frequency. Current vital signs temp 98.2, heart rate 95, respiratory rate 22, blood pressure 147/75 with a pulse ox of 100% on room air. On 01/01/2025 patient is alert and oriented x 3. Patient still having nausea and vomiting. Surgical services are following Eliquis on hold for possible surgical intervention. Patient was started on IV Flagyl and Rocephin per infectious disease. Current vital signs temp 98.2, heart rate 84, respiratory rate 17, blood pressure 146/74 with a pulse ox of 99% on room air. Patient denies chest pain or shortness of breath. Repeat labs ordered for a.m. Objective - Vital Signs Vital signs: Vital Signs Temp 98.0 F 01/01/25 08:00 Pulse 76 01/01/25 08:00 Resp 16 01/01/25 08:00 BP 169/76 01/01/25 08:00 Pulse Ox 97 01/01/25 08:00 FiO2 Intake & Output 12/31/24 01/01/25 01/01/25 18:59 06:59 18:59 Weight 77.111 kg Other: Voiding Method Toilet Toilet # Voids 2 - Exam Head normocephalic Neck supple Lungs clear to auscultation bilaterally no wheezing or crackles Heart regular rate and rhythm S1-S2, no rub or gallop Abdomen is soft nontender nondistended positive bowel sounds no hepatosplenomegaly Extremities no edema Neuro alert and orientated to 3 - Labs CBC & Chem 7: 12/31/24 08:30 12/31/24 08:30 Labs: Abnormal Lab Results - Last 24 Hours (Table) 12/31/24 12/31/24 01/01/25 Range/Units 20:50 22:04 06:27 POC Glucose (mg/dL) 148 H 117 H (70-110) mg/dL Urine Glucose (UA) 1+ H (Negative) Urine Ketones 1+ H (Negative) Urine Blood Small H (Negative) Urine RBC 12 H (0-5) /hpf Urine Mucus Rare H (None) /hpf Assessment and Plan Assessment: 1. Nausea and vomiting 2. Recent dental procedure with antibiotic 3. History of CVA 4. History of coronary artery disease 5. History of ongoing nicotine dependence 6. History of lower extremity DVT maintained on Eliquis 8. History of diabetes mellitus 9. History of GERD 10. History of essential hypertension 11. History of anxiety and depression DVT prophylaxis Eliquis. GI prophylaxis Protonix Continue clear liquid diet Continue IV fluid Infectious disease and GI services consulted Repeat labs ordered for a.m.
[2025-01-01 10:28] LABS: Basophils # (A) 0.01 X 10*3/uL (0.00-0.10); Basophils % (A) 0.1 %; Eosinophils # (A) 0 X 10*3/uL (0.04-0.35); Eosinophils % (A) 0 %; HCT 37.7 % (37.2-46.3); HGB 12.4 g/dL (12.0-15.0); Lymphocytes # (A) 1.32 X 10*3/uL (0.90-5.00); Lymphocytes % (A) 10.5 %; MCHC 32.9 g/dL (32.0-37.0); MCV 91.3 FL (80.0-97.0); Mean Platelet Volume 9.9 FL (9.5-12.2); Monocytes # (A) 0.78 X 10*3/uL (0.20-1.00); Monocytes % (A) 6.2 %; NRBC Per 100 WBC 0 X 10*3/uL (0.00-0.01); Neutrophils # (A) 10.44 X 10*3/uL (1.80-7.70); Neutrophils % (A) 82.6 %; Platelet Count 331 X 10*3/uL (140-440); RBC 4.13 X 10*6/uL (4.10-5.20); RDW 13.6 % (11.5-14.5); WBC 12.62 X 10*3/uL (4.50-10.00)
[2025-01-01 10:46] LABS: ALT 19 U/L (8-44); AST 20 U/L (13-35); Albumin 4.2 g/dL (3.8-4.9); Albumin/Globulin Ratio 1.68 Ratio (1.60-3.17); Alkaline Phosphatase 107 U/L (41-126); BUN/Creat Ratio 16.14 Ratio (12.00-20.00); Blood Urea Nitrogen 11.3 mg/dL (9.0-27.0); Calcium 8.7 mg/dL (8.7-10.3); Carbon Dioxide 24.1 mmol/L (21.6-31.8); Chloride 100 mmol/L (96-109); Globulin 2.5 g/dL (1.6-3.3); Glucose 118 mg/dL (70-110); Potassium 3.1 mmol/L (3.5-5.5); Sodium 140 mmol/L (135-145); Total Bilirubin 0.5 mg/dL (0.3-1.2); Total Protein 6.7 g/dL (6.2-8.2)
[2025-01-01 12:14] LABS: Glucose,Whole Blood 137 mg/dL (70-110)
--- NOTE | 2025-01-01 13:23 | P.PN ---
Subjective Progress Note Date: 01/01/25 SURGICAL PROGRESS NOTE CHIEF COMPLAINT: Nausea and vomiting HISTORY OF PRESENT ILLNESS: Patient continues to complain of multiple episodes of nausea and vomiting. She is now having diarrhea. She reports 2 episodes of diarrhea this morning. Continues to have epigastric abdominal discomfort. Afebrile. WBC did go up from 11.3-12.62 potassium is 3.1 PHYSICAL EXAM: VITAL SIGNS: Reviewed. GENERAL: Well-developed in no acute distress. HEENT: No sclera icterus. Extraocular movements grossly intact. Moist buccal mucosa. Head is atraumatic, normocephalic. ABDOMEN: Soft. Nondistended. Epigastric tenderness with palpation NEUROLOGIC: Alert and oriented. Cranial nerves II through XII grossly intact. ASSESSMENT: 1. Nausea, vomiting and now diarrhea possibly due to a gastroenteritis 2. Abdominal pain 3. Dental abscess and antibiotics outpatient PLAN: -Check stool cultures. Check stool for C. difficile -Keep patient n.p.o. except for ice chips -Continue IV fluids -Replace potassium -Continue antiemetics -Repeat labs in a.m. -Eliquis on hold Physician Chief Supply Chain Officer note has been reviewed by physician. Signing provider agrees with the documented findings, assessment, and plan of care. Objective - Vital Signs Vital signs: Vital Signs Temp 98.0 F 01/01/25 08:00 Pulse 76 01/01/25 08:00 Resp 16 01/01/25 08:00 BP 169/76 01/01/25 08:00 Pulse Ox 97 01/01/25 08:00 FiO2 Intake & Output 12/31/24 01/01/25 01/01/25 18:59 06:59 18:59 Weight 77.111 kg Other: Voiding Method Toilet Toilet # Voids 2 - Labs CBC & Chem 7: 01/01/25 05:51 01/01/25 05:51 Labs: Abnormal Lab Results - Last 24 Hours (Table) 12/31/24 12/31/24 01/01/25 Range/Units 20:50 22:04 05:51 WBC 12.62 H (4.50-10.00) X 10*3/uL Immature Gran # 0.07 H (0.00-0.04) X 10*3/uL Neutrophils # 10.44 H (1.80-7.70) X 10*3/uL Eosinophils # 0 L (0.04-0.35) X 10*3/uL Potassium (3.5-5.5) mmol/L Anion Gap (4.00-12.00) mmol/L Glucose (70-110) mg/dL POC Glucose (mg/dL) 148 H (70-110) mg/dL Urine Glucose (UA) 1+ H (Negative) Urine Ketones 1+ H (Negative) Urine Blood Small H (Negative) Urine RBC 12 H (0-5) /hpf Urine Mucus Rare H (None) /hpf 01/01/25 01/01/25 01/01/25 Range/Units 05:51 06:27 12:12 WBC (4.50-10.00) X 10*3/uL Immature Gran # (0.00-0.04) X 10*3/uL Neutrophils # (1.80-7.70) X 10*3/uL Eosinophils # (0.04-0.35) X 10*3/uL Potassium 3.1 L (3.5-5.5) mmol/L Anion Gap 15.90 H (4.00-12.00) mmol/L Glucose 118 H (70-110) mg/dL POC Glucose (mg/dL) 117 H 137 H (70-110) mg/dL Urine Glucose (UA) (Negative) Urine Ketones (Negative) Urine Blood (Negative) Urine RBC (0-5) /hpf Urine Mucus (None) /hpf
[2025-01-01] MEDS: POTASSIUM CHLORIDE ER 20 MEQ TAB.ER PO STA (13:55)
[2025-01-01] MEDS: FUROSEMIDE 40 MG TAB PO SCH (16:37)
[2025-01-01 17:22] LABS: Glucose,Whole Blood 114 mg/dL (70-110)
--- NOTE | 2025-01-01 17:51 | P.PN ---
Subjective Progress Note Date: 01/01/25 Principal diagnosis: Reason for follow-up is dental abscess Patient is a 54-year-old female who with a past medical history significant for Coronary Artery Disease (CAD), Heart Failure, CVA/TIA, Diabetes Mellitus, GERD/Reflux, Hyperlipidemia, Hypertension, Osteoarthritis (OA) who recently did have a upper dental procedure done for drainage of an abscess at [facility], treated with vancomycin presented hospital intractable nausea vomiting and diarrhea. On today's evaluation that is 01/01/2025,the patient denies any fever or any chills, patient is breathing comfortably on room air, the patient denies chest pain shortness of breath and no significant cough, patient still complaining of nausea and vomiting as well as diarrhea and some epigastric discomfort. Patient white count is 12.62, creatinine 0.7 Objective - Vital Signs Vital signs: Vital Signs Temp 98.0 F 01/01/25 08:00 Pulse 76 01/01/25 08:00 Resp 16 01/01/25 08:00 BP 169/76 01/01/25 08:00 Pulse Ox 97 01/01/25 08:00 FiO2 Intake & Output 12/31/24 01/01/25 01/01/25 18:59 06:59 18:59 Weight 77.111 kg Other: Voiding Method Toilet Toilet # Voids 2 - Exam GENERAL DESCRIPTION: Middle-age female up in bed in no distress RESPIRATORY SYSTEM: Unlabored breathing , decreased breath sounds at bases HEART: S1 S2 regular rate and rhythm , ABDOMEN: Soft , no tenderness EXTREMITIES: No edema feet - Labs CBC & Chem 7: 01/01/25 05:51 01/01/25 05:51 Labs: Abnormal Lab Results - Last 24 Hours (Table) 12/31/24 12/31/24 01/01/25 Range/Units 20:50 22:04 05:51 WBC 12.62 H (4.50-10.00) X 10*3/uL Immature Gran # 0.07 H (0.00-0.04) X 10*3/uL Neutrophils # 10.44 H (1.80-7.70) X 10*3/uL Eosinophils # 0 L (0.04-0.35) X 10*3/uL Potassium (3.5-5.5) mmol/L Anion Gap (4.00-12.00) mmol/L Glucose (70-110) mg/dL POC Glucose (mg/dL) 148 H (70-110) mg/dL Urine Glucose (UA) 1+ H (Negative) Urine Ketones 1+ H (Negative) Urine Blood Small H (Negative) Urine RBC 12 H (0-5) /hpf Urine Mucus Rare H (None) /hpf 01/01/25 01/01/25 01/01/25 Range/Units 05:51 06:27 12:12 WBC (4.50-10.00) X 10*3/uL Immature Gran # (0.00-0.04) X 10*3/uL Neutrophils # (1.80-7.70) X 10*3/uL Eosinophils # (0.04-0.35) X 10*3/uL Potassium 3.1 L (3.5-5.5) mmol/L Anion Gap 15.90 H (4.00-12.00) mmol/L Glucose 118 H (70-110) mg/dL POC Glucose (mg/dL) 117 H 137 H (70-110) mg/dL Urine Glucose (UA) (Negative) Urine Ketones (Negative) Urine Blood (Negative) Urine RBC (0-5) /hpf Urine Mucus (None) /hpf Assessment and Plan (1) Dental abscess Current Visit: Yes Status: Acute Code(s): K04.7 - PERIAPICAL ABSCESS WITHOUT SINUS SNOMED Code(s): 363816099 (2) Penicillin allergy Current Visit: Yes Status: Acute Code(s): Z88.0 - ALLERGY STATUS TO PENICILLIN SNOMED Code(s): 33083684 Plan: 1patient with a recent drainage of the dental abscess about 2 days before presentation to hospital at outside facility no patient presenting with acute nausea vomiting unable to keep anything down and failure of her clindamycin therapy 2-penicillin allergy that will limit the number of antibiotics safe to use 3-patient is currently being treated Rocephin 2 g daily and Flagyl, waiting for stool studies to be finalized Dictation was produced using [employer] software. please excuse any grammatical, word or spelling errors. Time with Patient: Less than 30
[2025-01-01 20:39] LABS: Glucose,Whole Blood 122 mg/dL (70-110)
[2025-01-01] MEDS: ATORVASTATIN 80 MG TAB PO SCH (20:52)
[2025-01-01] MEDS: cloNIDine HCL 0.1 MG TAB PO SCH (20:52)
[2025-01-01] MEDS: DULoxetine HCL 30 MG CAPSULE.DR PO SCH (20:52)
[2025-01-01] MEDS: HYDROcodone/APAP 10-325MG 1 EACH TAB PO PRN (20:57)
[2025-01-02 05:51] LABS: Glucose,Whole Blood 116 mg/dL (70-110)
[2025-01-02 08:40] LABS: Basophils # (A) 0.02 X 10*3/uL (0.00-0.10); Basophils % (A) 0.2 %; Eosinophils # (A) 0.01 X 10*3/uL (0.04-0.35); Eosinophils % (A) 0.1 %; HCT 36.5 % (37.2-46.3); HGB 12.3 g/dL (12.0-15.0); Lymphocytes # (A) 2.22 X 10*3/uL (0.90-5.00); MCH 30.7 pg (27.0-32.0); MCHC 33.7 g/dL (32.0-37.0); Mean Platelet Volume 9.7 FL (9.5-12.2); Monocytes # (A) 0.77 X 10*3/uL (0.20-1.00); NRBC Per 100 WBC 0 X 10*3/uL (0.00-0.01); Neutrophils # (A) 6.58 X 10*3/uL (1.80-7.70); Platelet Count 316 X 10*3/uL (140-440); RBC 4.01 X 10*6/uL (4.10-5.20); RDW 13.4 % (11.5-14.5); WBC 9.67 X 10*3/uL (4.50-10.00)
[2025-01-02] MEDS: DAPAGLIFLOZIN PROPANEDIOL 10 MG TABLET PO SCH (08:49)
[2025-01-02] MEDS: ASPIRIN 81 MG PO SCH (08:49)
--- NOTE | 2025-01-02 09:59 | P.PN ---
Subjective Progress Note Date: 01/02/25 Shelly Preston is a 54-year-old female patient who presented with complaints of nausea and vomiting that started happening after dental procedure that has been occurring since yesterday morning. Patient has a past medical history of coronary artery disease, heart failure, CVA, diabetes mellitus, GERD, hy perlipidemia, hypertension, osteoarthritis, smoker, anxiety and depression. Gallbladder ultrasound completed showing no evidence for acute process. CT of abdomen and pelvis completed showing no evidence for bowel obstruction decompressed colon with prominent baumann findings could represent mild colitis versus empty bowel CTA performed showing no evidence for pulmonary embolism. Lab work completed showing white blood cell 10.9, hemoglobin 14.0, lactic acid 2.5, creatinine 0.81 bun 25. Amylase and lipase within normal limits. At this time patient will be admitted patient started on IV fluid and IV Zofran. Infectious disease and GI services consulted. Will order influenza and COVID- 19. Maintain on clear liquid diet. Patient denies chest pain or shortness of breath. Patient denies any urinary burning or frequency. Current vital signs temp 98.2, heart rate 95, respiratory rate 22, blood pressure 147/75 with a pulse ox of 100% on room air. On 01/01/2025 patient is alert and oriented x 3. Patient still having nausea and vomiting. Surgical services are following Eliquis on hold for possible surgical intervention. Patient was started on IV Flagyl and Rocephin per infectious d isease. Current vital signs temp 98.2, heart rate 84, respiratory rate 17, blood pressure 146/74 with a pulse ox of 99% on room air. Patient denies chest pain or shortness of breath. Repeat labs ordered for a.m. On 01/02/2025 patient is alert and oriented x 3. Patient reports significant improvement in nausea vomiting and diarrhea. Patient reports symptoms have resolved. Current vital signs temp 98.2, heart rate 65, respiratory rate 16, blood pressure 105/61 with a pulse ox of 96% on room air. Patient danuta on IV antibiotics per ID recommendation. Awaiting infectious disease and surgical input. Repeat labs ordered Objective - Vital Signs Vital signs: Vital Signs Temp 98.2 F 01/02/25 07:00 Pulse 65 01/02/25 07:00 Resp 16 01/02/25 07:00 BP 105/61 01/02/25 07:00 Pulse Ox 96 01/02/25 07:00 FiO2 Intake & Output 01/01/25 01/02/25 01/02/25 18:59 06:59 18:59 Intake Total 118 Balance 118 Intake: Oral 118 Other: Voiding Method Toilet Toilet Toilet # Voids 5 2 # Bowel Movements 1 1 - Exam Head normocephalic Neck supple Lungs clear to auscultation bilaterally no wheezing or crackles Heart regular rate and rhythm S1-S2, no rub or gallop Abdomen is soft nontender nondistended positive bowel sounds no hepat osplenomegaly Extremities no edema Neuro alert and orientated to 3 - Labs CBC & Chem 7: 01/02/25 05:42 01/01/25 05:51 Labs: Abnormal Lab Results - Last 24 Hours (Table) 01/01/25 01/01/25 01/01/25 Range/Units 05:51 05:51 12:12 WBC 12.62 H (4.50-10.00) X 10*3/uL RBC (4.10-5.20) X 10*6/uL Hct (37.2-46.3) % Immature Gran # 0.07 H (0.00-0.04) X 10*3/uL Neutrophils # 10.44 H (1.80-7.70) X 10*3/uL Eosinophils # 0 L (0.04-0.35) X 10*3/uL Potassium 3.1 L (3.5-5.5) mmol/L Anion Gap 15.90 H (4.00-12.00) mmol/L Glucose 118 H (70-110) mg/dL POC Glucose (mg/dL) 137 H (70-110) mg/dL Stool Lactoferrin (Negative) 01/01/25 01/01/25 01/01/25 Range/Units 12:30 17:21 20:37 WBC (4.50-10.00) X 10*3/uL RBC (4.10-5.20) X 10*6/uL Hct (37.2-46.3) % Immature Gran # (0.00-0.04) X 10*3/uL Neutrophils # (1.80-7.70) X 10*3/uL Eosinophils # (0.04-0.35) X 10*3/uL Potassium (3.5-5.5) mmol/L Anion Gap (4.00-12.00) mmol/L Glucose (70-110) mg/dL POC Glucose (mg/dL) 114 H 122 H (70-110) mg/dL Stool Lactoferrin Positive A (Negative) 01/02/25 01/02/25 Range/Units 05:42 05:49 WBC (4.50-10.00) X 10*3/uL RBC 4.01 L (4.10-5.20) X 10*6/uL Hct 36.5 L (37.2-46.3) % Immature Gran # 0.07 H (0.00-0.04) X 10*3/uL Neutrophils # (1.80-7.70) X 10*3/uL Eosinophils # 0.01 L (0.04-0.35) X 10*3/uL Potassium (3.5-5.5) mmol/L Anion Gap (4.00-12.00) mmol/L Glucose (70-110) mg/dL POC Glucose (mg/dL) 116 H (70-110) mg/dL Stool Lactoferrin (Negative) Assessment and Plan Assessment: 1. Nausea and vomiting 2. Recent dental procedure with antibiotic 3. History of CVA 4. History of coronary artery disease 5. History of ongoing nicotine dependence 6. History of lower extremity DVT maintained on Eliquis 8. History of diabetes mellitus 9. History of GERD 10. History of essential hypertension 11. History of anxiety and depression DVT prophylaxis Eliquis. GI prophylaxis Protonix Continue clear liquid diet Continue IV fluid Infectious disease and GI services consulted Repeat labs ordered for a.m.
[2025-01-02 10:02] LABS: BUN/Creat Ratio 16.43 Ratio (12.00-20.00); Blood Urea Nitrogen 11.5 mg/dL (9.0-27.0); Calcium 8.7 mg/dL (8.7-10.3); Carbon Dioxide 25.5 mmol/L (21.6-31.8); Chloride 102 mmol/L (96-109); Glucose 98 mg/dL (70-110); Potassium 3.5 mmol/L (3.5-5.5); Sodium 139 mmol/L (135-145); Total Protein 5.7 g/dL (6.2-8.2)
[2025-01-02 10:03] LABS: ALT 17 U/L (8-44); AST 19 U/L (13-35); Albumin 3.6 g/dL (3.8-4.9); Albumin/Globulin Ratio 1.71 Ratio (1.60-3.17); Alkaline Phosphatase 90 U/L (41-126); Globulin 2.1 g/dL (1.6-3.3); Total Bilirubin 0.5 mg/dL (0.3-1.2)
[2025-01-02 12:06] LABS: Glucose,Whole Blood 156 mg/dL (70-110)
--- NOTE | 2025-01-02 14:42 | P.PN ---
Subjective Progress Note Date: 01/02/25 Principal diagnosis: Reason for follow-up is dental abscess Patient is a 54-year-old female who with a past medical history significant for Coronary Artery Disease (CAD), Heart Failure, CVA/TIA, Diabetes Mellitus, GERD/Reflux, Hyperlipidemia, Hypertension, Osteoarthritis (OA) who recently did have a upper dental procedure done for drainage of an abscess at [facility], treated with vancomycin presented hospital intractable nausea vomiting and diarrhea. On today's evaluation that is 01/02/2025,the patient remains to be afebrile, patient is on room air not requiring supplemental oxygen and denies any shortness of breath no chest pain or cough.Patient mention resolution of her nausea no further vomiting no abdominal pain and diarrhea is noted. Patient white count 9.67, creatinine 0.7 stool cultures currently pending Objective - Vital Signs Vital signs: Vital Signs Temp 98.6 F 01/02/25 14:26 Pulse 63 01/02/25 14:26 Resp 18 01/02/25 14:26 BP 102/67 01/02/25 14:26 Pulse Ox 95 01/02/25 14:26 FiO2 Intake & Output 01/01/25 01/02/25 01/02/25 18:59 06:59 18:59 Intake Total 118 Balance 118 Intake: Oral 118 Other: Voiding Method Toilet Toilet Toilet # Voids 5 2 2 # Bowel Movements 1 1 - Exam GENERAL DESCRIPTION: Middle-age female up in bed in no distress RESPIRATORY SYSTEM: Unlabored breathing , decreased breath sounds at bases HEART: S1 S2 regular rate and rhythm , ABDOMEN: Soft , no tenderness EXTREMITIES: No edema feet - Labs CBC & Chem 7: 01/02/25 05:42 01/02/25 05:42 Labs: Abnormal Lab Results - Last 24 Hours (Table) 01/01/25 01/01/25 01/01/25 Range/Units 12:30 17:21 20:37 RBC (4.10-5.20) X 10*6/uL Hct (37.2-46.3) % Immature Gran # (0.00-0.04) X 10*3/uL Eosinophils # (0.04-0.35) X 10*3/uL POC Glucose (mg/dL) 114 H 122 H (70-110) mg/dL Total Protein (6.2-8.2) g/dL Albumin (3.8-4.9) g/dL Stool Lactoferrin Positive A (Negative) 01/02/25 01/02/25 01/02/25 Range/Units 05:42 05:42 05:49 RBC 4.01 L (4.10-5.20) X 10*6/uL Hct 36.5 L (37.2-46.3) % Immature Gran # 0.07 H (0.00-0.04) X 10*3/uL Eosinophils # 0.01 L (0.04-0.35) X 10*3/uL POC Glucose (mg/dL) 116 H (70-110) mg/dL Total Protein 5.7 L (6.2-8.2) g/dL Albumin 3.6 L (3.8-4.9) g/dL Stool Lactoferrin (Negative) 01/02/25 Range/Units 12:05 RBC (4.10-5.20) X 10*6/uL Hct (37.2-46.3) % Immature Gran # (0.00-0.04) X 10*3/uL Eosinophils # (0.04-0.35) X 10*3/uL POC Glucose (mg/dL) 156 H (70-110) mg/dL Total Protein (6.2-8.2) g/dL Albumin (3.8-4.9) g/dL Stool Lactoferrin (Negative) Assessment and Plan (1) Dental abscess Current Visit: Yes Status: Acute Code(s): K04.7 - PERIAPICAL ABSCESS WITHOUT SINUS SNOMED Code(s): 376491261 (2) Penicillin allergy Current Visit: Yes Status: Acute Code(s): Z88.0 - ALLERGY STATUS TO PENICILLIN SNOMED Code(s): 16707278 Plan: 1patient with a recent drainage of the dental abscess about 2 days before presentation to hospital at outside facility no patient presenting with acute nausea vomiting unable to keep anything down and failure of her clindamycin therapy 2-penicillin allergy that will limit the number of antibiotics safe to use 3-patient mentions some improvement her symptoms to continue Rocephin 2 g daily and Flagyl, while waiting for stool studies to be finalized Dictation was produced using [employer]ation software. please excuse any grammatical, word or spelling errors. Time with Patient: Less than 30
[2025-01-02 17:07] LABS: Glucose,Whole Blood 112 mg/dL (70-110)
--- NOTE | 2025-01-02 17:37 | P.PN ---
Subjective Progress Note Date: 01/02/25 Principal diagnosis: Abdominal pain Patient doing well today. Says her pain is mostly gone now. She has no nausea. Tolerating clears. She is hungry. No further diarrhea today. C. difficile was negative. Lactoferrin was positive. Objective - Vital Signs Vital signs: Vital Signs Temp 98.6 F 01/02/25 14:26 Pulse 63 01/02/25 14:26 Resp 18 01/02/25 14:26 BP 102/67 01/02/25 14:26 Pulse Ox 95 01/02/25 14:26 FiO2 Intake & Output 01/01/25 01/02/25 01/02/25 18:59 06:59 18:59 Intake Total 118 Balance 118 Intake: Oral 118 Other: Voiding Method Toilet Toilet Toilet # Voids 5 2 2 # Bowel Movements 1 1 - Exam Abdomen: Soft, nontender, nondistended - Labs CBC & Chem 7: 01/02/25 05:42 01/02/25 05:42 Labs: Abnormal Lab Results - Last 24 Hours (Table) 01/01/25 01/01/25 01/02/25 Range/Units 12:30 20:37 05:42 RBC 4.01 L (4.10-5.20) X 10*6/uL Hct 36.5 L (37.2-46.3) % Immature Gran # 0.07 H (0.00-0.04) X 10*3/uL Eosinophils # 0.01 L (0.04-0.35) X 10*3/uL POC Glucose (mg/dL) 122 H (70-110) mg/dL Total Protein (6.2-8.2) g/dL Albumin (3.8-4.9) g/dL Stool Lactoferrin Positive A (Negative) 01/02/25 01/02/25 01/02/25 Range/Units 05:42 05:49 12:05 RBC (4.10-5.20) X 10*6/uL Hct (37.2-46.3) % Immature Gran # (0.00-0.04) X 10*3/uL Eosinophils # (0.04-0.35) X 10*3/uL POC Glucose (mg/dL) 116 H 156 H (70-110) mg/dL Total Protein 5.7 L (6.2-8.2) g/dL Albumin 3.6 L (3.8-4.9) g/dL Stool Lactoferrin (Negative) 01/02/25 Range/Units 17:06 RBC (4.10-5.20) X 10*6/uL Hct (37.2-46.3) % Immature Gran # (0.00-0.04) X 10*3/uL Eosinophils # (0.04-0.35) X 10*3/uL POC Glucose (mg/dL) 112 H (70-110) mg/dL Total Protein (6.2-8.2) g/dL Albumin (3.8-4.9) g/dL Stool Lactoferrin (Negative) Assessment and Plan (1) Abdominal pain Narrative/Plan: 54-year-old female doing better today. Suspect resolving gastroenteritis. Etiology unclear as a pertains to her recent peridental abscess. Continue antibiotics for the dental issue per infectious disease. Will advance to regular diet. If tolerates may discharge from our standpoint. Current Visit: Yes Status: Acute Code(s): R10.9 - UNSPECIFIED ABDOMINAL PAIN SNOMED Code(s): 48576817
[2025-01-02 20:20] LABS: Glucose,Whole Blood 115 mg/dL (70-110)
[2025-01-03 06:10] LABS: Glucose,Whole Blood 108 mg/dL (70-110)
[2025-01-03 07:47] VITALS: BP 94/53; PULSE 56; RESP 14; TEMP 98
[2025-01-03 08:19] LABS: Basophils # (A) 0.02 X 10*3/uL (0.00-0.10); Basophils % (A) 0.2 %; Eosinophils # (A) 0.12 X 10*3/uL (0.04-0.35); Eosinophils % (A) 1.3 %; HCT 36.6 % (37.2-46.3); HGB 11.9 g/dL (12.0-15.0); Lymphocytes # (A) 2.47 X 10*3/uL (0.90-5.00); Lymphocytes % (A) 26.9 %; MCH 30.3 pg (27.0-32.0); MCHC 32.5 g/dL (32.0-37.0); MCV 93.1 FL (80.0-97.0); Mean Platelet Volume 9.5 FL (9.5-12.2); Monocytes # (A) 0.66 X 10*3/uL (0.20-1.00); Monocytes % (A) 7.2 %; NRBC Per 100 WBC 0 X 10*3/uL (0.00-0.01); Neutrophils # (A) 5.87 X 10*3/uL (1.80-7.70); Platelet Count 244 X 10*3/uL (140-440); RBC 3.93 X 10*6/uL (4.10-5.20); RDW 13.2 % (11.5-14.5); WBC 9.18 X 10*3/uL (4.50-10.00)
[2025-01-03 08:26] LABS: ALT 16 U/L (8-44); AST 20 U/L (13-35); Albumin 3.2 g/dL (3.8-4.9); Albumin/Globulin Ratio 1.68 Ratio (1.60-3.17); Alkaline Phosphatase 78 U/L (41-126); BUN/Creat Ratio 15.71 Ratio (12.00-20.00); Calcium 8.5 mg/dL (8.7-10.3); Carbon Dioxide 27.9 mmol/L (21.6-31.8); Chloride 104 mmol/L (96-109); Globulin 1.9 g/dL (1.6-3.3); Glucose 101 mg/dL (70-110); Potassium 2.9 mmol/L (3.5-5.5); Sodium 141 mmol/L (135-145); Total Bilirubin 0.4 mg/dL (0.3-1.2); Total Protein 5.1 g/dL (6.2-8.2)
[2025-01-03] MEDS ORDERED: Potassium Replacement Protocol 1 EACH MISC MISCELLANE PRN (08:49)
[2025-01-03] MEDS: POTASSIUM CHLORIDE ER 20 MEQ TAB.ER PO SCH (09:12)
--- NOTE | 2025-01-03 10:14 | P.DS ---
Providers Date of admission: 12/30/24 22:53 Expected date of discharge: 01/03/25 Attending physician: Chin Frost Consults: 12/31/24 09:24 Consult Physician Routine Consulting Provider: Mariusz Martinez Consult Reason/Comments: recent dental abcess Do you want consulting provider notified?: Yes 12/31/24 13:27 Consult Physician Routine Consulting Provider: Rubens Winters Consult Reason/Comments: n/v Do you want consulting provider notified?: Yes Primary care physician: Pauline Vargas Hospital Course: Discharge diagnosis 1. Nausea and vomiting 2. Recent dental procedure with antibiotic 3. History of CVA 4. History of coronary artery disease 5. History of ongoing nicotine dependence 6. History of lower extremity DVT maintained on Eliquis 8. History of diabetes mellitus 9. History of GERD 10. History of essential hypertension 11. History of anxiety and depression Hospital course Shelly Preston is a 54-year-old female patient who presented with complaints of nausea and vomiting that started happening after dental procedure that has been occurring since yesterday morning. Patient has a past medical history of coronary artery disease, heart failure, CVA, diabetes mellitus, GERD, hyperlipidemia, hypertension, osteoarthritis, smoker, anxiety and depression. Gallbladder ultrasound completed showing no evidence for acute process. CT of abdomen and pelvis completed showing no evidence for bowel obstruction decompressed colon with prominent baumann findings could represent mild colitis versus empty bowel CTA performed showing no evidence for pulmonary embolism. Lab work completed showing white blood cell 10.9, hemoglobin 14.0, lactic acid 2.5, creatinine 0.81 bun 25. Amylase and lipase within normal limits. At this time patient will be admitted patient started on IV fluid and IV Zofran. Infectious disease and GI services consulted. Will order influenza and COVID- 19. Maintain on clear liquid diet. Patient denies chest pain or shortness of breath. Patient denies any urinary burning or frequency. Current vital signs temp 98.2, heart rate 95, respiratory rate 22, blood pressure 147/75 with a pulse ox of 100% on room air. On 01/01/2025 patient is alert and oriented x 3. Patient still having nausea and vomiting. Surgical services are following Eliquis on hold for possible surgical intervention. Patient was started on IV Flagyl and Rocephin per infectious disease. Current vital signs temp 98.2, heart rate 84, respiratory rate 17, blood pressure 146/74 with a pulse ox of 99% on room air. Patient denies chest pain or shortness of breath. Repeat labs ordered for a.m. On 01/02/2025 patient is alert and oriented x 3. Patient reports significant improvement in nausea vomiting and diarrhea. Patient reports symptoms have resolved. Current vital signs temp 98.2, heart rate 65, respiratory rate 16, blood pressure 105/61 with a pulse ox of 96% on room air. Patient danuta on IV antibiotics per ID recommendation. Awaiting infectious disease and surgical input. Repeat labs ordered On 01/03/2025 patient is alert and oriented x 3. Patient reports significant improvement with her nausea vomiting and diarrhea no further episodes. Patient cleared for discharge from surgical standpoint discussed case with infectious disease. Patient may be DC'd home per Dr. Kessler he will do antibiotics prior to discharge. Did discuss this with nursing staff. Patient denies chest pain or shortness of breath. Patient denies nausea vomiting or diarrhea. Patient denies any urinary burning or frequency Patient Condition at Discharge: Stable Plan - Discharge Summary Discharge Rx Participant: Yes New Discharge Prescriptions: Continue cloNIDine HCL [Catapres] 0.1 mg PO BID #30 tab Atorvastatin Calcium [Lipitor] 80 mg PO HS Omeprazole [PriLOSEC] 20 mg PO TID HYDROcodone/APAP 10-325MG [[place] 10-325] 1 tab PO Q6H PRN PRN Reason: Pain Montelukast [Singulair] 10 mg PO DAILY Escitalopram [Lexapro] 20 mg PO HS Montelukast [Singulair] 10 mg PO HS Apixaban [Eliquis] 5 mg PO BID 30 Days #60 tab Furosemide [Lasix] 40 mg PO BID Escitalopram [Lexapro] 20 mg PO HS DULoxetine HCL [Cymbalta] 30 mg PO HS Atorvastatin [Lipitor] 80 mg PO HS Spironolactone 50 mg PO BID Loratadine 10 mg PO DAILY Dapagliflozin Propanediol [Farxiga] 10 mg PO DAILY Aspirin [Adult Low Dose Aspirin EC] 81 mg PO DAILY Discontinued Spironolactone [Aldactone] 50 mg PO BID Clindamycin [Cleocin] 300 mg PO TID Furosemide [Lasix] 80 mg PO BID Discharge Medication List cloNIDine HCL [Catapres] 0.1 mg PO BID #30 tab 12/22/14 [Rx] Atorvastatin Calcium [Lipitor] 80 mg PO HS 10/22/18 [History] Omeprazole [PriLOSEC] 20 mg PO TID 03/12/19 [History] Escitalopram [Lexapro] 20 mg PO HS 01/27/23 [History] HYDROcodone/APAP 10-325MG [[place] 10-325] 1 tab PO Q6H PRN 08/20/24 [History] Montelukast [Singulair] 10 mg PO HS 08/20/24 [History] Apixaban [Eliquis] 5 mg PO BID 30 Days #60 tab 08/22/24 [Rx] Aspirin [Adult Low Dose Aspirin EC] 81 mg PO DAILY 12/31/24 [History] Atorvastatin [Lipitor] 80 mg PO HS 12/31/24 [History] DULoxetine HCL [Cymbalta] 30 mg PO HS 12/31/24 [History] Dapagliflozin Propanediol [Farxiga] 10 mg PO DAILY 12/31/24 [History] Escitalopram [Lexapro] 20 mg PO HS 12/31/24 [History] Furosemide [Lasix] 40 mg PO BID 12/31/24 [History] Loratadine 10 mg PO DAILY 12/31/24 [History] Montelukast [Singulair] 10 mg PO DAILY 12/31/24 [History] Spironolactone 50 mg PO BID 12/31/24 [History] Follow up Appointment(s)/Referral(s): Pauline Vargas MD [Primary Care Provider] - 1-2 days Discharge Disposition: HOME SELF-CARE
--- NOTE | 2025-01-03 14:14 | P.PN ---
Subjective Progress Note Date: 01/03/25 Principal diagnosis: Abdominal pain Patient seen earlier this morning. Doing well. Denies abdominal pain. Tolerating diet. No nausea or vomiting. No diarrhea. Objective - Vital Signs Vital signs: Vital Signs Temp 98.0 F 01/03/25 07:00 Pulse 56 L 01/03/25 07:00 Resp 14 01/03/25 07:00 BP 94/53 01/03/25 07:00 Pulse Ox 98 01/03/25 07:00 FiO2 Intake & Output 01/02/25 01/03/25 01/03/25 18:59 06:59 18:59 Intake Total 236 Balance 236 Intake: Oral 236 Other: Voiding Method Toilet Toilet # Voids 2 3 - Exam Abdomen: Soft, nontender, nondistended - Labs CBC & Chem 7: 01/03/25 06:00 01/03/25 06:00 Labs: Abnormal Lab Results - Last 24 Hours (Table) 01/02/25 01/02/25 01/03/25 Range/Units 17:06 19:52 06:00 RBC 3.93 L (4.10-5.20) X 10*6/uL Hgb 11.9 L (12.0-15.0) g/dL Hct 36.6 L (37.2-46.3) % Potassium (3.5-5.5) mmol/L POC Glucose (mg/dL) 112 H 115 H (70-110) mg/dL Calcium (8.7-10.3) mg/dL Total Protein (6.2-8.2) g/dL Albumin (3.8-4.9) g/dL 01/03/25 Range/Units 06:00 RBC (4.10-5.20) X 10*6/uL Hgb (12.0-15.0) g/dL Hct (37.2-46.3) % Potassium 2.9 L (3.5-5.5) mmol/L POC Glucose (mg/dL) (70-110) mg/dL Calcium 8.5 L (8.7-10.3) mg/dL Total Protein 5.1 L (6.2-8.2) g/dL Albumin 3.2 L (3.8-4.9) g/dL Assessment and Plan (1) Abdominal pain Narrative/Plan: Patient doing well. May discharge from our point of view. Patient will contact me if she has any other bowel related or abdominal pain issues. Status: Acute Code(s): R10.9 - UNSPECIFIED ABDOMINAL PAIN SNOMED Code(s): 83221139
--- NOTE | 2025-01-03 14:42 | P.PN ---
Subjective Progress Note Date: 01/03/25 Principal diagnosis: Reason for follow-up is dental abscess Patient is a 54-year-old female who with a past medical history significant for Coronary Artery Disease (CAD), Heart Failure, CVA/TIA, Diabetes Mellitus, GERD/Reflux, Hyperlipidemia, Hypertension, Osteoarthritis (OA) who recently did have a upper dental procedure done for drainage of an abscess at [facility], treated with vancomycin presented hospital intractable nausea vomiting and diarrhea. On today's evaluation that is 01/03/2025, the patient continues to be afebrile, the patient is on room air and breathing comfortably, the Pt denies having any chest pain or cough, the patient denies having any abdominal pain no vomiting or any diarrhea, feeling much better wants to go home. Patient white count is 9.18 creatinine 0.7 Objective - Vital Signs Vital signs: Vital Signs Temp 98.0 F 01/03/25 07:00 Pulse 56 L 01/03/25 07:00 Resp 14 01/03/25 07:00 BP 94/53 01/03/25 07:00 Pulse Ox 98 01/03/25 07:00 FiO2 Intake & Output 01/02/25 01/03/25 01/03/25 18:59 06:59 18:59 Intake Total 236 Balance 236 Intake: Oral 236 Other: Voiding Method Toilet Toilet # Voids 2 3 - Exam GENERAL DESCRIPTION: Middle-age female up in bed in no distress RESPIRATORY SYSTEM: Unlabored breathing , decreased breath sounds at bases HEART: S1 S2 regular rate and rhythm , ABDOMEN: Soft , no tenderness EXTREMITIES: No edema feet - Labs CBC & Chem 7: 01/03/25 06:00 01/03/25 06:00 Labs: Abnormal Lab Results - Last 24 Hours (Table) 01/02/25 01/02/25 01/02/25 Range/Units 12:05 17:06 19:52 RBC (4.10-5.20) X 10*6/uL Hgb (12.0-15.0) g/dL Hct (37.2-46.3) % Potassium (3.5-5.5) mmol/L POC Glucose (mg/dL) 156 H 112 H 115 H (70-110) mg/dL Calcium (8.7-10.3) mg/dL Total Protein (6.2-8.2) g/dL Albumin (3.8-4.9) g/dL 01/03/25 01/03/25 Range/Units 06:00 06:00 RBC 3.93 L (4.10-5.20) X 10*6/uL Hgb 11.9 L (12.0-15.0) g/dL Hct 36.6 L (37.2-46.3) % Potassium 2.9 L (3.5-5.5) mmol/L POC Glucose (mg/dL) (70-110) mg/dL Calcium 8.5 L (8.7-10.3) mg/dL Total Protein 5.1 L (6.2-8.2) g/dL Albumin 3.2 L (3.8-4.9) g/dL Assessment and Plan (1) Dental abscess Status: Acute Code(s): K04.7 - PERIAPICAL ABSCESS WITHOUT SINUS SNOMED Code(s): 898016455 (2) Penicillin allergy Status: Acute Code(s): Z88.0 - ALLERGY STATUS TO PENICILLIN SNOMED Code(s): 55439206 Plan: 1patient with a recent drainage of the dental abscess about 2 days before presentation to hospital at outside facility no patient presenting with acute nausea vomiting unable to keep anything down and failure of her clindamycin therapy 2-penicillin allergy that will limit the number of antibiotics safe to use 3-patient did have resolution of her nausea with improvement in her symptoms with Rocephin and Flagyl, will finish therapy with oral Ceftin and Flagyl pres cription sent to the pharmacy Dictation was produced using [employer] dictation software. please excuse any grammatical, word or spelling errors. Time with Patient: Less than 30
== END 2025-01-03 12:10 | disposition home or self-care (01) ==
LOC: EC 18:40 → 6NMEDSUR 22:53
PROVIDERS: ADMIT Internal Medicine; ATTEND Internal Medicine
DX: R11.2 Nausea with vomiting, unspecified (principal); R10.9 Unspecified abdominal pain; K04.7 Periapical abscess without sinus; K21.9 Gastro-esophageal reflux disease without esophagitis; E11.9 Type 2 diabetes mellitus without complications; E78.5 Hyperlipidemia, unspecified; F17.200 Nicotine dependence, unspecified, uncomplicated; F32.A Depression, unspecified; F41.9 Anxiety disorder, unspecified; I11.0 Hypertensive heart disease with heart failure; I50.9 Heart failure, unspecified; I25.10 Atherosclerotic heart disease of native coronary artery without angina pectoris; M19.90 Unspecified osteoarthritis, unspecified site; Z79.01 Long term (current) use of anticoagulants; Z79.82 Long term (current) use of aspirin; Z79.84 Long term (current) use of oral hypoglycemic drugs; Z79.899 Other long term (current) drug therapy; Z86.718 Personal history of other venous thrombosis and embolism; Z86.73 Personal history of transient ischemic attack (TIA), and cerebral infarction without residual deficits; Z87.11 Personal history of peptic ulcer disease; Z88.0 Allergy status to penicillin; Z90.710 Acquired absence of both cervix and uterus; Z88.8 Allergy status to other drugs, medicaments and biological substances; Z88.5 Allergy status to narcotic agent
CPT/HCPCS: 96376 ×5; 96365 ×3; 96366 ×3; 96375 ×3; 96361; 96367; 96374; 99285; 36415; 93005; 80053 ×5; 82150; 83605; 83690; 83735; 84100; 84484; 85025 ×5; 81001; 87324; 87045; 83630; 87046; 87636; 76705; 71275; 74177; G0378 ×5; J2060; J0360; J0780 ×4; J2405 ×5; J0696 ×4; J1171 ×5; Q9967; J1836 ×4; J2470 ×5